=== PATIENT | female | born 1990 | race Two or more races ===

== ENCOUNTER 2016-07-23 20:24 | Inpatient (IN) | payer OTHER ==
[2016-07-23 20:33] VITALS: BMI 41.5
--- NOTE | 2016-07-23 21:02 | PDOC ---
History of Present Illness - General Chief Complaint: Pain, Acute Stated Complaint: LT FOOT PAIN/SWOLLEN Time Seen by Provider: 07/23/16 20:37 History Source: Patient Exam Limitations: No Limitations - History of Present Illness Initial Comments: 07/23/16 20:57 25yo Female patient w/ PmHx: Lupus, HTN, Raynauds disease, presents to ED c/o left lower extremity pain/swelling x 1 week. Patient states she contacted her primary care provider who stated it may be a pulled muscle, per patient. Patient is currently taking Percocet for body pain r/t Lupus, and reported Percocet does not relieve the pain. Associated CP, was given Albuterol inhaler by PCP. LNMP: 07-09-2016. Denies any other complaints at this time. Occurred: reports: last week Severity: Yes: moderate Lower Extremity Pain Location: left: leg (Calf) Method of Injury: No: unknown, assault, burn, direct blow, fell, incised, motor vehicle accident, sports injury, twisted, other Modifying Factors: improves with: pain medication Associated Symptoms: Chest Pain Lower Ext. Injury Location - Specific Injury Location Legs: right: non-tender, left: soft tissue tenderness, pain, swelling, bilateral : normal inspection, normal range of motion Extremity Pain Location - Extremity Pain Location Extremity Pain Locations: left: leg Past History - Travel Traveled outside of the country in the last 30 days: No Close contact w/someone who was outside of country & ill: No - Past Medical History Allergies/Adverse Reactions: Allergies Allergy/AdvReac Type Severity Reaction Status Date / Time No Known Drug Allergies Allergy Verified 07/23/16 20:30 Home Medications: Ambulatory Orders Omeprazole 20 mg PO DAILY 07/18/15 Prednisone [Deltasone -] 10 mg PO TID 07/18/15 Hydrochlorothiazide [Hctz -] 25 mg PO DAILY 01/26/16 Mycophenolate Mofetil [Cellcept] 500 mg PO BID 01/26/16 Albuterol Sulfate Inhaler - [Ventolin Hfa Inhaler -] 2 inh PO Q4H PRN 02/16/16 Asthma: Yes Cancer: (LUPUS) CVA: No Dementia: No Diabetes: No GI Disorders: No Disorders: No HTN: Yes Hypercholesterolemia: No Liver Disease: Yes ("liver messed up") Seizures: No Thyroid Disease: (ENLARGED) - Surgical History Abdominal Surgery: No Appendectomy: No Cardiac Surgery: No Cholecystectomy: No Lung Surgery: No Neurologic Surgery: No Orthopedic Surgery: No - Family Disease History Family Disease History: Diabetes: Mother, Heart Disease: Father, Mother - Reproductive History (#): 2 Para: 2 - Immunization History Immunization Up to Date: Yes - Psycho/Social/Smoking Cessation Hx Anxiety: No Suicidal Ideation: No Smoking Status: Yes Smoking History: Current every day smoker Have you smoked in the past 12 months: Yes Number of Cigarettes Smoked Daily: 5 Information on smoking cessation initiated: No 'Breaking Loose' booklet given: 12/15/14 Hx Alcohol Use: No Drug/Substance Use Hx: No Substance Use Type: Alcohol Hx Substance Use Treatment: No Review of Systems - Review of Systems Able to Perform ROS?: Yes Is the patient limited Georgian proficient: No Constitutional: No: Chills, Fever Respiratory: No: Cough, Shortness of Breath, Stridor, Wheezing Cardiac (ROS): Yes: Chest Pain. No: Lightheadedness, Palpitations, Syncope, Chest Tightness ABD/GI: No: Constipated, Diarrhea, Nausea, Poor Appetite, Poor Fluid Intake, Vomiting : No: Dysuria, Discharge, Frequency, Flank Pain, Hematuria, Urgency Musculoskeletal: Yes: Other (Left Leg Pain). No: Back Pain Integumentary: No: Erythema, Rash, Sweating Neurological: No: Headache, Seizure, Ataxia, Dizziness All Other Systems: Reviewed and Negative *Physical Exam - Vital Signs Last Vital Signs Temp Pulse Resp BP Pulse Ox 98.1 F 110 H 18 143/97 99 07/23/16 20:30 07/23/16 20:30 07/23/16 20:30 07/23/16 20:30 07/23/16 20:30 - Physical Exam General Appearance: Yes: Nourished, Appropriately Dressed, Mild Distress. No: Apparent Distress, Moderate Distress, Severe Distress HEENT: positive: EOMI, ISAAC, Normal ENT Inspection, Normal Voice, Symmetrical, TMs Normal, Pharynx Normal. negative: Pharyngeal Erythema, Tonsillar Exudate, Tonsillar Erythema, Nasal Congestion, TM Bulging, TM Dull, TM Erythema Neck: positive: Trachea midline, Supple. negative: Rigid, Stridor, Lymphadenopathy (R), Lymphadenopathy (L) Respiratory/Chest: positive: Lungs Clear, Normal Breath Sounds. negative: Respiratory Distress, Accessory Muscle Use, Labored Respiration, Rapid RR Cardiovascular: positive: Regular Rhythm, Tachycardia. negative: JVD, Murmur, Bradycardia Musculoskeletal: positive: Normal Inspection. negative: CVA Tenderness Extremity: positive: Normal Capillary Refill, Normal Inspection, Normal Range of Motion, Swelling, Calf Tenderness (+ Homans sign) Integumentary: positive: Normal Color, Dry, Warm Neurologic: positive: it coordinator II-XII NML intact, Fully Oriented, Alert, Normal Mood/ Affect, Normal Response, Motor Strength 09/03 ED Treatment Course - LABORATORY CBC & Chemistry Diagram: 07/23/16 21:00 07/23/16 21:00 - RADIOLOGY Radiology Studies Ordered: Category Date Time Status CHEST PA & LAT [RAD] Stat Radiology 07/23/16 20:55 Ordered DUPLEX VASCUL US-2LEGS [US] Stat Ultrasound 07/23/16 20:55 Ordered *DC/Admit/Observation/Transfer Diagnosis at time of Disposition: Deep vein thrombosis (DVT) Qualifiers: DVT location: lower extremity Affected thrombotic vein of extremity: popliteal Laterality: left Chronicity: acute Qualified Code(s): I82.432 - Acute embolism and thrombosis of left popliteal vein Lupus Qualifiers: Systemic lupus erythematosus type: unspecified Systemic lupus erythematosus organ involvement: other Qualified Code(s): M32.19 - Other organ or system involvement in systemic lupus erythematosus - Discharge Dispostion Condition at time of disposition: Fair Admit: Yes
[2016-07-23 21:19] LABS: MCH 30.6 pg (25.7-33.7); MCHC 33.8 g/dl (32.0-36.0); MEAN CELL VOLUME 90.5 fl (80-96); MEAN PLT VOLUME 9.4 fl (7.5-11.1); PLATELET COUNT 164 K/MM3 (134-434); RDW 13.3 % (11.6-15.6); WHITE BLOOD COUNT 7.3 K/mm3 (4.0-10.0)
[2016-07-23 21:34] LABS: INR 0.96 (0.82-1.09); PROTHROMBIN TIME (PATIENT) 10.5 SEC (9.98-11.88)
[2016-07-23 21:44] LABS: ALBUMIN 2.5 g/dl (3.4-5.0); ALK PHOS 44 U/L (45-117); ANION GAP 9 (8-16); CALCIUM 8.7 mg/dL (8.5-10.1); CO2 23 mmol/L (21-32); CREATININE 1.3 mg/dL (0.55-1.02); GLUCOSE,RANDOM 99 mg/dL (74-106); SGPT/ALT 11 U/L (12-78); TOT PROT 6.4 g/dl (6.4-8.2)
[2016-07-23 21:46] LABS: BILIRUBIN,TOTAL < 0.1 mg/dL (0.2-1.0); SGOT/AST 16 U/L (15-37)
[2016-07-23 21:49] LABS: URINE APPEARANCE CLOUDY; URINE BILIRUBIN NEGATIVE (NEGATIVE); URINE BLOOD 2+ (NEGATIVE); URINE COLOR YELLOW; URINE GLUCOSE (UA) NEGATIVE (NEGATIVE); URINE KETONE NEGATIVE (NEGATIVE); URINE LEUK ESTERASE 2+ (NEGATIVE); URINE NITRITE NEGATIVE (NEGATIVE); URINE PROTEIN 3+ (NEGATIVE); URINE UROBILINOGEN NEGATIVE E.U./dl (0.2-1.0)
[2016-07-23 21:53] LABS: GRANULAR CASTS 4 /lpf; URINE MUCUS RARE; URINE RBC 282 /hpf (0-3); URINE WBC 218 /hpf (3-5); YEAST FEW
[2016-07-23 22:12] LABS: TROPONIN I 0.11 ng/ml (0.00-0.05)
[2016-07-23] MEDS ORDERED: HEPARIN NA (PORCINE) 5,000 UNITS/ML 1ML VIAL IVPUSH PRN ×2 (22:43)
[2016-07-23] MEDS ORDERED: HEPARIN INFUSION - 500 ML IVPB SCH (22:45)
[2016-07-23] MEDS ORDERED: HEPARIN INFUSION - 500 ML IVPB ONE (22:52)
[2016-07-23] MEDS ORDERED: ENOXAPARIN NA (PORCINE) 120 MG/0.8 ML DISP.SYRIN SQ SCH (23:00)
[2016-07-23] MEDS ORDERED: ONDANSETRON 4 MG/2 ML VIAL IVPUSH ONE (23:16)
[2016-07-23] MEDS ORDERED: morphine CARPU-JECT 4 MG/1 ML DISP.SYRIN IVPUSH ONE (23:16)
[2016-07-24] MEDS ORDERED: ALBUTEROL SO4 6.7 GM HFA INHALER IH PRN (00:19)
[2016-07-24] MEDS: HYDROmorphone HCL CARPU-JECT 2 MG/1 ML DISP.SYRIN IVPB PRN ×3 (02:55→12:19)
[2016-07-24] MEDS ORDERED: predniSONE 10 MG TABLET (UD) PO SCH (06:00)
[2016-07-24 08:39] LABS: MCH 29.8 pg (25.7-33.7); MCHC 32.8 g/dl (32.0-36.0); MEAN CELL VOLUME 90.8 fl (80-96); MEAN PLT VOLUME 8.8 fl (7.5-11.1); PLATELET COUNT 139 K/MM3 (134-434); RDW 13.4 % (11.6-15.6); WHITE BLOOD COUNT 6.8 K/mm3 (4.0-10.0)
[2016-07-24 08:53] LABS: INR 1.01 (0.82-1.09); PROTHROMBIN TIME (PATIENT) 11.1 SEC (9.98-11.88)
[2016-07-24 08:57] LABS: ALBUMIN 2.4 g/dl (3.4-5.0); CALCIUM 8.5 mg/dL (8.5-10.1); CREATININE 1.1 mg/dL (0.55-1.02)
[2016-07-24 09:06] LABS: BILIRUBIN,TOTAL 0.2 mg/dL (0.2-1.0)
[2016-07-24] MEDS ORDERED: PT OWN MED DRAWER 7, Y5N ONE (09:08)
[2016-07-24] MEDS ORDERED: predniSONE 20 MG TABLET (UD) PO SCH (10:00)
[2016-07-24] MEDS ORDERED: METOPROLOL SUCCINATE 25 MG TAB.SR.24H (FP) PO SCH (10:00)
[2016-07-24] MEDS ORDERED: ENOXAPARIN NA (PORCINE) 100 MG/1 ML DISP.SYRIN SQ SCH (10:00)
[2016-07-24] MEDS ORDERED: MYCOPHENOLATE MOFETIL 500 MG TABLET PO SCH (10:00)
[2016-07-24] MEDS ORDERED: HYDROCHLOROTHIAZIDE 25 MG TABLET (FP) PO SCH (10:00)
[2016-07-24] MEDS ORDERED: PANTOPRAZOLE 20 MG TABLET (FP) PO SCH (10:00)
[2016-07-24 11:35] VITALS: BP 130/82; PULSE 112; TEMP 98.4
--- NOTE | 2016-07-24 11:46 | CONSULT ---
Consult - Past Medical History ...LMP: 11/23/15 ...: No - Alcohol/Substance Use Hx Alcohol Use: Yes (occasional) - Smoking History Smoking history: Current every day smoker Have you smoked in the past 12 months: Yes Aproximately how many cigarettes per day: 5 Home Medications - Allergies Allergies/Adverse Reactions: Allergies Allergy/AdvReac Type Severity Reaction Status Date / Time No Known Drug Allergies Allergy Verified 07/23/16 20:30 - Home Medications Home Medications: Ambulatory Orders Prednisone [Deltasone -] 20 mg PO DAILY 07/18/15 Mycophenolate Mofetil [Cellcept] 500 mg PO BID 01/26/16 Albuterol Sulfate Inhaler - [Ventolin Hfa Inhaler -] 2 inh PO Q4H PRN 02/16/16 Amlodipine Besylate [Norvasc -] 5 mg PO DAILY 07/24/16 Calcium 250Mg/Vit-D 125 Units [Oscal 250 mg+D -] 1 combo PO BID 07/24/16 Ciprofloxacin HCl [Cipro] 500 mg PO BID 07/24/16 Drisdol - 1.25 WEEKLY 07/24/16 Hydroxychloroquine Sulfate [Plaquenil] 200 mg PO DAILY 07/24/16 Oxycodone HCl/Acetaminophen [Percocet 5-325 mg Tablet] 1 tab PO Q4H 07/24/16 Physical Exam Vital Signs: Vital Signs Temperature 98.4 F 07/24/16 09:00 Pulse Rate 112 H 07/24/16 09:00 Respiratory Rate 16 07/24/16 09:00 Blood Pressure 130/82 07/24/16 09:00 O2 Sat by Pulse Oximetry (%) 98 07/24/16 09:00 Labs: CBC, BMP 07/24/16 08:00 07/24/16 08:00 Assessment/Plan Vascular Surgery 25yo Female patient w/ PmHx: Lupus, HTN, Raynauds disease, presents to ED c/o left lower extremity pain/swelling x 1 week. Patient states she contacted her primary care provider who stated it may be a pulled muscle, per patient. Patient is currently taking Percocet for body pain r/t Lupus, and reported Percocet does not relieve the pain. Associated CP, was given Albuterol inhaler by PCP. LNMP: 07-09-2016. Denies any other complaints at this time. Occurred: reports: last week Severity: Yes: moderate Lower Extremity Pain Location: left: leg (Calf) Method of Injury: No: unknown, assault, burn, direct blow, fell, incised, motor vehicle accident, sports injury, twisted, other Modifying Factors: improves with: pain medication Associated Symptoms: Chest Pain Lower Ext. Injury Location - Specific Injury Location Legs: right: non-tender, left: soft tissue tenderness, pain, swelling, bilateral : normal inspection, normal range of motion Extremity Pain Location - Extremity Pain Location Extremity Pain Locations: left: leg Past History - Travel Traveled outside of the country in the last 30 days: No Close contact w/someone who was outside of country & ill: No - Past Medical History Allergies/Adverse Reactions: Allergies Allergy/AdvReac Type Severity Reaction Status Date / Time No Known Drug Allergies Allergy Verified 07/23/16 20:30 Home Medications: Ambulatory Orders Omeprazole 20 mg PO DAILY 07/18/15 Prednisone [Deltasone -] 10 mg PO TID 07/18/15 Hydrochlorothiazide [Hctz -] 25 mg PO DAILY 01/26/16 Mycophenolate Mofetil [Cellcept] 500 mg PO BID 01/26/16 Albuterol Sulfate Inhaler - [Ventolin Hfa Inhaler -] 2 inh PO Q4H PRN 02/16/16 PE Head - NC/AT Lung - CTA Heart - RRR abd - soft,nt,nd Ext - Left lower ext swelling. Palpable pulses. A/P Left popliteal vein DVT Leg elevation Hypercoaguble workup as outpt. Can exchange architect to xerelto and DC if possible. Xerelto for 6 months. Ainbal Carmona DO
--- NOTE | 2016-07-24 13:16 | HP ---
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's Cardiovascular: Yes: Other (large heart) Pulmonary: Yes: COPD ...LMP: 11/23/15 ...: No Musculoskeletal: Yes: Other (arthralgia) - Past Surgical History Past Surgical History: Yes: Vein Stripping/Ligation (labioplasty) - Smoking History Smoking history: Current every day smoker Have you smoked in the past 12 months: Yes Aproximately how many cigarettes per day: 5 - Alcohol/Substance Use Hx Alcohol Use: Yes (occasional) - Social History Usual Living Arrangement: Yes: Alone History of Recent Travel: No Home Medications - Allergies Allergies/Adverse Reactions: Allergies Allergy/AdvReac Type Severity Reaction Status Date / Time No Known Drug Allergies Allergy Verified 07/23/16 20:30 - Home Medications Home Medications: Ambulatory Orders Prednisone [Deltasone -] 20 mg PO DAILY 07/18/15 Mycophenolate Mofetil [Cellcept] 500 mg PO BID 01/26/16 Albuterol Sulfate Inhaler - [Ventolin Hfa Inhaler -] 2 inh PO Q4H PRN 02/16/16 Amlodipine Besylate [Norvasc -] 5 mg PO DAILY 07/24/16 Calcium 250Mg/Vit-D 125 Units [Oscal 250 mg+D -] 1 combo PO BID 07/24/16 Ciprofloxacin HCl [Cipro] 500 mg PO BID 07/24/16 Drisdol - 1.25 WEEKLY 07/24/16 Hydroxychloroquine Sulfate [Plaquenil] 200 mg PO DAILY 07/24/16 Oxycodone HCl/Acetaminophen [Percocet 5-325 mg Tablet] 1 tab PO Q4H 07/24/16 Family Disease History - Family Disease History Family History: Unremarkable Review of Systems - Review of Systems Constitutional: reports: Other (lt leg pain) Eyes: reports: Other (mac edema) HENT: reports: No Symptoms Neck: reports: No Symptoms Cardiovascular: reports: No Symptoms Respiratory: reports: SOB on Exertion Gastrointestinal: reports: No Symptoms Genitourinary: reports: No Symptoms Breasts: reports: No Symptoms Reported Musculoskeletal: reports: Joint Pain Integumentary: reports: No Symptoms Neurological: reports: Other (tremer essential) Endocrine: reports: No Symptoms Hematology/Lymphatic: reports: No Symptoms Psychiatric: reports: No Symptoms Physical Examination Vital Signs: Vital Signs Temperature 98.4 F 07/24/16 09:00 Pulse Rate 112 H 07/24/16 09:00 Respiratory Rate 16 07/24/16 09:00 Blood Pressure 130/82 07/24/16 09:00 O2 Sat by Pulse Oximetry (%) 98 07/24/16 09:00 Constitutional: Yes: Well Nourished Eyes: Yes: WNL HENT: Yes: Nasal Congestion Neck: Yes: WNL Cardiovascular: Yes: WNL Respiratory: Yes: WNL Gastrointestinal: Yes: WNL ...Rectal Exam: Yes: Deferred Renal/: Yes: WNL Breast(s): Yes: WNL Musculoskeletal: Yes: Joint Stiffness Extremities: Yes: WNL Edema: Yes (lt leg) Peripheral Pulses WNL: Yes Integumentary: Yes: WNL Neurological: Yes: Other (mild tremer) Psychiatric: Yes: WNL Labs: CBC, BMP 07/24/16 08:00 07/24/16 08:00 Problem List - Problems (2) Tremor Code(s): R25.1 - TREMOR, UNSPECIFIED Assessment/Plan pt d/c today as per vasc vss exeralto 15 mg bid 21 days than 20 mg qd/c norvacs start mrtoprolol appt tue 1100 am
== END 2016-07-24 14:11 | disposition home or self-care (01) | DRG 197 ==
LOC: JER 20:24 → JERBED 23:06 → J6S 23:58
PROVIDERS: ADMIT Family Medicine; ATTEND Family Medicine
DX: I82.432 Acute embolism and thrombosis of left popliteal vein (principal); I10 Essential (primary) hypertension; I73.00 Raynaud's syndrome without gangrene; F17.210 Nicotine dependence, cigarettes, uncomplicated; R25.1 Tremor, unspecified; M32.9 Systemic lupus erythematosus, unspecified
CPT/HCPCS: 36415; 71020-TC; 80053; 81003; 81015; 82550; 84484; 84703; 85025; 85027; 85610; 93970-TC; 99285-25; J7517

== ENCOUNTER 2017-12-06 08:01 | Inpatient (IN) | payer OTHER ==
[2017-12-06 08:08] VITALS: BMI 49.6
--- NOTE | 2017-12-06 08:57 | PDOC ---
History of Present Illness - General History Source: Patient Exam Limitations: No Limitations - History of Present Illness Initial Comments: 12/06/17 09:51 The patient is a 27 year old female with a significant PMH of lupus, DVT(2 years ago), hypertension, hyperlipidemia, and a heart clot who presents to the emergency department with chest pain for 2 days. The patient reports that she began to experience an onset of chest pain yesterday after she walked inside her house. The patient states that her chest pain was a sharp pain hat is stabbing and fluttering and 10/10 in severity on onset and dissipated to a constant 8/10 throughout the night. She describes her chest pain as lasting for seconds about every 20 minutes. At time of exam the patient states her chest pain is a 5/10 in severity. The patient reports that her chest pain is worsened when she takes a deep breath as well as when she coughs and sits up. The patient endorses a new productive cough, some shortness of breath and nausea associated with her chest pain. The patient also reports that she was recently put on eliquis for a heart clot. She has a history of a left leg clot for about 1 year. She denies any leg swelling or tenderness. She denies any other symptoms. She denies any fever, chills, vomit, diarrhea constipation or urinary symptoms. She denies headache and dizziness, numbness, weakness or tingling sensation. She denies any vision changes. The patient denies any other complaints. Cardio: Dr. Alvaro Varner ([facility]) <Osmany Hough - Last Filed: 12/06/17 09:51> <Bandar Pereyra - Last Filed: 12/06/17 10:35> - General Chief Complaint: Chest Pain Stated Complaint: DVT,CHEST PAIN Time Seen by Provider: 12/06/17 08:37 Past History <Osmany Hough - Last Filed: 12/06/17 09:51> - Past Medical History Asthma: Yes Cancer: (LUPUS) CVA: No COPD: No DVT: (heart 2018) Dementia: No Diabetes: No GI Disorders: No Disorders: No HTN: Yes Hypercholesterolemia: No Kidney Stones: ("dry kidneys") Liver Disease: Yes ("liver messed up") Seizures: No Thyroid Disease: (ENLARGED) - Surgical History Abdominal Surgery: Yes (tubal ligation) Appendectomy: No Cardiac Surgery: No Cholecystectomy: No Lung Surgery: No Neurologic Surgery: No Orthopedic Surgery: No - Family Disease History Family Disease History: Diabetes: Mother, Heart Disease: Father, Mother - Reproductive History (#): 2 Para: 2 - Immunization History Immunization Up to Date: Yes - Suicide/Smoking/Psychosocial Hx Smoking Status: Yes Smoking History: Never smoked Have you smoked in the past 12 months: Yes Number of Cigarettes Smoked Daily: 5 Information on smoking cessation initiated: Yes 'Breaking Loose' booklet given: 07/24/16 Hx Alcohol Use: Yes (occasional) Drug/Substance Use Hx: No Substance Use Type: Marijuana Hx Substance Use Treatment: No <Bandar Pereyra - Last Filed: 12/06/17 10:35> - Past Medical History Allergies/Adverse Reactions: Allergies Allergy/AdvReac Type Severity Reaction Status Date / Time No Known Drug Allergies Allergy Verified 12/06/17 08:07 Home Medications: Ambulatory Orders predniSONE [Deltasone -] 15 mg PO DAILY 07/18/15 Mycophenolate Mofetil [Cellcept] 500 mg PO TID 01/26/16 Albuterol Sulfate Inhaler - [Ventolin Hfa Inhaler -] 2 inh PO Q4H PRN 02/16/16 Calcium 250Mg/Vit-D 125 Units [Oscal 250 mg+D -] 1 combo PO BID 07/24/16 Hydroxychloroquine Sulfate [Plaquenil] 200 mg PO DAILY 07/24/16 Acyclovir [Zovirax -] 400 mg PO TID 12/06/17 Apixaban [Eliquis -] 5 mg PO BID 12/06/17 Aspirin [ASA -] 81 mg PO DAILY 12/06/17 Atorvastatin Ca [Lipitor] 80 mg PO HS 12/06/17 Metoprolol Succinate [Toprol XL -] 50 mg PO DAILY 12/06/17 Omeprazole 80 mg PO DAILY 12/06/17 Review of Systems - Review of Systems Constitutional: No: Chills, Fever Respiratory: Yes: Cough, Shortness of Breath, SOB with Exertion Cardiac (ROS): Yes: Chest Pain. No: Edema, Lightheadedness, Palpitations, Syncope ABD/GI: No: Nausea, Vomiting Neurological: No: Headache All Other Systems: Reviewed and Negative <Bandar Pereyra - Last Filed: 12/06/17 10:35> *Physical Exam - Vital Signs Last Vital Signs Temp Pulse Resp BP Pulse Ox 98.7 F 100 H 19 162/114 98 12/06/17 08:03 12/06/17 08:03 12/06/17 08:03 12/06/17 08:03 12/06/17 08:20 - Physical Exam Comments: 12/06/17 09:51 GENERAL: The patient is awake, alert, and fully oriented, in no acute distress. HEAD: Normal with no signs of trauma. EYES: Pupils equal, round and reactive to light, extraocular movements intact, sclera anicteric, conjunctiva clear with no pallor. ENT: Ears normal, nares patent, oropharynx clear without exudates. Moist mucous membranes. NECK: Normal range of motion, supple without lymphadenopathy, JVD, or masses. LUNGS: Breath sounds equal, clear to auscultation bilaterally. No wheeze/ crackles. HEART: Regular rate, slight tachy. normal S1 and S2 without murmur or rub. ABDOMEN: Soft/nontender/nondistended. BS wnl. No guarding or rebound. No palpable masses. No hepatosplenomegaly. EXTREMITIES:(+)trace pitting edema bilaterally. Normal range of motion, No clubbing or cyanosis. No cords, erythema, or tenderness. No NEUROLOGICAL: Cranial nerves II through XII grossly intact. Normal speech, normal gait. PSYCH: Normal mood, normal affect. SKIN: Warm, Dry, normal turgor, no rashes or lesions noted. <Osmany Hough - Last Filed: 12/06/17 09:51> - Vital Signs Last Vital Signs Temp Pulse Resp BP Pulse Ox 98.7 F 100 H 19 162/114 100 12/06/17 08:03 12/06/17 08:03 12/06/17 08:03 12/06/17 08:03 12/06/17 08:03 <Bandar Pereyra - Last Filed: 12/06/17 10:35> Heart Score/ECG Review #1 ECG reviewed & interpreted by me at: 08:09 General ECG Interpretation: Sinus Rhythm, Normal Rate (92), Normal Intervals ( qtc 430), No acute ischemic changes (TWI inf II/III/AVF, V4-6) Compared to previous ECG there are: Changes noted (TWI more prominent 02/14) <Bandar Pereyra - Last Filed: 12/06/17 10:35> ED Treatment Course - LABORATORY CBC & Chemistry Diagram: 12/06/17 08:58 12/06/17 08:58 - ADDITIONAL ORDERS Additional order review: Laboratory Results 12/06/17 12/06/17 08:58 08:58 PT with INR 12.50 INR 1.11 H Sodium 142 Potassium 4.3 Chloride 112 H Carbon Dioxide 25 Anion Gap 5 L BUN 20 H Creatinine 1.8 H Creat Clearance w eGFR 33.27 Random Glucose 80 Calcium 8.7 Magnesium 2.1 Total Bilirubin 0.2 AST 21 ALT 20 Alkaline Phosphatase 47 Creatine Kinase 46 Troponin I 0.09 H B-Natriuretic Peptide 4965.12 H Total Protein 6.0 L Albumin 2.7 L 12/06/17 08:58 RBC 3.28 L MCV 92.3 MCHC 33.8 RDW 14.1 MPV 9.8 D Neutrophils % 74.1 Lymphocytes % 17.7 Monocytes % 7.3 D Eosinophils % 0.7 D Basophils % 0.2 D - Medications Given in the ED: ED Medications Discontinued Medications Generic Name Dose Route Start Last Admin Trade Name Freq PRN Reason Stop Dose Admin Morphine Sulfate 4 mg 12/06/17 08:58 12/06/17 09:10 Morphine Injection - IVPUSH 12/06/17 08:59 4 mg ONCE ONE Administration <Osmany Hough - Last Filed: 12/06/17 09:51> - LABORATORY CBC & Chemistry Diagram: 12/06/17 08:58 12/06/17 08:58 <Bandar Pereyra - Last Filed: 12/06/17 10:35> Medical Decision Making - Medical Decision Making 12/06/17 10:26 A portion of this note was documented by scribe services under my direction. I have reviewed the details of the note, within reason, and agree with the documentation with the following case summary and management plan written by me. 27-year-old female with history of lupus, DVT and "cardiac clot" on eliquis, recent cardiac cath without intervention 6wks ago presents now with chest pain and shortness of breath since last night. At baseline, patient does have exertional dyspnea, last night after walking into her home developed a sharp sudden 10 out of 10 chest pain for a few seconds that then became a constant dull 5 out of 10 pain that continues now. It is pleuritic, worse with leaning forward, and associated with a slight cough. No palpitations or loss of consciousness, no fevers or chills. reports compliance with her eliquis. Exam as noted, slight tachycardia Cardiopulmonary exam is otherwise unremarkable Patient is well-appearing without acute respiratory distress 27-year-old female with history of lupus and some hypercoagulability history of DVT and cardiac clot (unclear whether this was CAD or some atrial clot) presents now with increased chest pain and worsening dyspnea on exertion. Differential includes PE, ACS, pericarditis/myocarditis. Cardiac workup initiated with plans to perform CTA chest to rule out PE given moderate to high risk despite being on anticoagulant CBC was within normal limits, chemistries notable for elevated creatinine of 1.8 , a slight is 1-1.3. Troponin 0.09, similar measurement in the past. BNP elevated at 5000 without prior for comparison. Patient received IV fluids, but given the acute renal insufficiency unable to perform CTA chest at this time. She is already anticoagulated on eliquis. discussed with Dr. Hector Landrum, her PCP, who accepts for inpatient tele. Will obtain prior Echo reports, requested ddimer and tsh, which were ordered. 12/06/17 10:35 review of records per Dr. Landrum: known LAD lesion, known CKD. proceed with tele admission for cardiac workup. <Bandar Pereyra - Last Filed: 12/06/17 10:35> *DC/Admit/Observation/Transfer - Attestations Scribe Attestion: 12/06/17 09:52 Documentation prepared by Osmany Hough, acting as medical front desk specialist for Bandar Pereyra MD. <Osmany Hough - Last Filed: 12/06/17 09:51> - Discharge Dispostion Decision to Admit order: Yes <Bandar Pereyra - Last Filed: 12/06/17 10:35> Diagnosis at time of Disposition: Dyspnea on exertion, Precordial chest pain SLE (systemic lupus erythematosus) Qualifiers: Systemic lupus erythematosus type: unspecified Systemic lupus erythematosus organ involvement: unspecified Qualified Code(s): M32.9 - Systemic lupus erythematosus, unspecified - Referrals Referrals: Hector Landrum MD [Primary Care Provider] - - Patient Instructions - Post Discharge Activity
[2017-12-06] MEDS ORDERED: SODIUM CHLORIDE 1,000 ML IV ONE (08:58)
[2017-12-06] MEDS ORDERED: morphine CARPU-JECT 4 MG/1 ML DISP.SYRIN IVPUSH ONE (08:58)
[2017-12-06] MEDS ORDERED: morphine SULFATE 4 MG/ML VIAL ONE (09:06)
[2017-12-06] MEDS ORDERED: ONDANSETRON 4 MG/2 ML VIAL ONE (09:13)
[2017-12-06 09:22] LABS: BASO % 0.2 % (0-2.0); EOS % 0.7 % (0-4.5); HEMATOCRIT 30.3 % (32.4-45.2); HEMOGLOBIN 10.2 GM/dL (10.7-15.3); LYMPH % 17.7 % (8-40); MCH 31.2 pg (25.7-33.7); MCHC 33.8 g/dl (32.0-36.0); MEAN CELL VOLUME 92.3 fl (80-96); MEAN PLT VOLUME 9.8 fl (7.5-11.1); MONO % 7.3 % (3.8-10.2); NEUT % 74.1 % (42.8-82.8); PLATELET COUNT 100 K/MM3 (134-434); RBC 3.28 M/mm3 (3.60-5.2); RDW 14.1 % (11.6-15.6); WHITE BLOOD COUNT 4.9 K/mm3 (4.0-10.0)
[2017-12-06 09:36] LABS: INR 1.11 (0.83-1.09); PROTHROMBIN TIME (PATIENT) 12.5 SEC (9.7-13.0)
[2017-12-06 09:43] LABS: ALBUMIN 2.7 g/dl (3.4-5.0); ANION GAP 5 (8-16); BILIRUBIN,TOTAL 0.2 mg/dL (0.2-1.0); BLOOD UREA NITROGEN 20 mg/dL (7-18); CALCIUM 8.7 mg/dL (8.5-10.1); CHLORIDE 112 mmol/L (98-107); CO2 25 mmol/L (21-32); CREATININE 1.8 mg/dL (0.55-1.02); GLUCOSE,RANDOM 80 mg/dL (74-106); MAGNESIUM 2.1 mg/dL (1.8-2.4); POTASSIUM 4.3 mmol/L (3.5-5.1); SGOT/AST 21 U/L (15-37); SGPT/ALT 20 U/L (12-78); SODIUM 142 mmol/L (136-145)
[2017-12-06 09:45] LABS: ALK PHOS 47 U/L (45-117); N-TERMINAL BNP 4965.12 pg/ml (5-125)
--- NOTE | 2017-12-06 10:58 | HP ---
Admitting History and Physical - Admission Chief Complaint: chest pain local preducible. but due to hx card ? lad occlutino will adsmitt. hx lupus and dvt. has slight cough x 2days on hctz 25 did not teii er doc History Source: Patient Limitations to Obtaining History: No Limitations - Past Medical History Cardiovascular: Yes: Other (large heart) Pulmonary: Yes: COPD ...LMP: 11/23/15 Heme/Onc: Yes: Other (lupus) Musculoskeletal: Yes: Chronic low back pain, Other (arthralgia) Rheumatology: Yes: Lupus - Past Surgical History Past Surgical History: Yes: Vein Stripping/Ligation (labioplasty) - Smoking History Smoking history: Never smoked Have you smoked in the past 12 months: Yes Aproximately how many cigarettes per day: 5 - Alcohol/Substance Use Hx Alcohol Use: Yes (occasional) - Social History Usual Living Arrangement: Yes: With Child ADL: Independent History of Recent Travel: No Home Medications - Allergies Allergies/Adverse Reactions: Allergies Allergy/AdvReac Type Severity Reaction Status Date / Time No Known Drug Allergies Allergy Verified 12/06/17 08:07 - Home Medications Home Medications: Ambulatory Orders predniSONE [Deltasone -] 15 mg PO DAILY 07/18/15 Mycophenolate Mofetil [Cellcept] 500 mg PO TID 01/26/16 Albuterol Sulfate Inhaler - [Ventolin Hfa Inhaler -] 2 inh PO Q4H PRN 02/16/16 Calcium 250Mg/Vit-D 125 Units [Oscal 250 mg+D -] 1 combo PO BID 07/24/16 Hydroxychloroquine Sulfate [Plaquenil] 200 mg PO DAILY 07/24/16 Acyclovir [Zovirax -] 400 mg PO TID 12/06/17 Apixaban [Eliquis -] 5 mg PO BID 12/06/17 Aspirin [ASA -] 81 mg PO DAILY 12/06/17 Atorvastatin Ca [Lipitor] 80 mg PO HS 12/06/17 Metoprolol Succinate [Toprol XL -] 50 mg PO DAILY 12/06/17 Omeprazole 80 mg PO DAILY 12/06/17 Family Disease History - Family Disease History Family History: Unremarkable Review of Systems - Review of Systems Constitutional: reports: Other (cp) Physical Examination Vital Signs: Vital Signs Temperature 98.7 F 12/06/17 08:03 Pulse Rate 100 H 12/06/17 08:03 Respiratory Rate 19 12/06/17 08:03 Blood Pressure 162/114 12/06/17 08:03 O2 Sat by Pulse Oximetry (%) 98 12/06/17 08:20 Constitutional: Yes: No Distress, Other (cough) Eyes: Yes: WNL HENT: Yes: WNL Neck: Yes: WNL Cardiovascular: Yes: Regular Rate and Rhythm Respiratory: Yes: WNL Gastrointestinal: Yes: WNL ...Rectal Exam: Yes: Deferred Renal/: Yes: WNL Breast(s): Yes: WNL Musculoskeletal: Yes: Joint Stiffness Extremities: Yes: WNL Edema: No Peripheral Pulses WNL: Yes Integumentary: Yes: WNL Neurological: Yes: WNL ...Motor Strength: WNL Psychiatric: Yes: WNL Labs: CBC, BMP 12/06/17 08:58 12/06/17 08:58 Problem List - Problems (1) CKD (chronic kidney disease) stage 3, GFR 30-59 ml/min Code(s): N18.3 - CHRONIC KIDNEY DISEASE, STAGE 3 (MODERATE) Assessment/Plan admitt in pt tely o2 card enzymes card f/u w jelani webb cont all meds as is ct chest not done ckd? on eliqis bid robisusin for cough nefo
[2017-12-06] MEDS ORDERED: guaiFENesin 200 MG/10 ML 10 ML UNIT-DOSE CUPS PO PRN (11:03)
--- NOTE | 2017-12-06 12:06 | CON.CARD ---
Consult Consult Specialty:: Cardiology Referred by:: Dr. Landrum Reason for Consultation:: Chest pain, cad - History of Present Illness Chief Complaint: chest pain, sob History of Present Illness: 27 year old woman pmh SLE, HTN, HLD, obesity, CKD stage 3, h/o DVT 09/2016, Cardiac cath done 09/16/17 after an echo showed inferoseptal hypokinesis done as preop for bariatric surgery, cath showed distal LAD 70-80% thrombotic appearing stenosis with otherwise normal coronary arteries, no PCI was performed as felt to be a risk given history of thrombosis and pt was changed to Eliquis. she was previously on Xarelto but was changed to eliquis due to heavy menstrual bleeding , chronic intermittent sob/lee now presents with L sided chest pain that started yesterday with associated sob. Pt seen and examined today in [facility]. states her chest pain started around 4pm yesterday when walking home described as sharp, continuous since yesterday but improved in intensity, worse with sitting up improved when lying down, associated sob, productive cough, nausea. denies any pnd, orthopnea, or LE edema. No lightheadedness, dizziness, syncope or near syncope. ekg from 09/16/17 showed an inferior infarct and nonspecific St abnl ASA 81mg daily was recommended on outpatient visit with her custodial supervisor 10/24/17 Cardiac Cath 09/16/17 [facility] Coronary angiogram: Left Main : Normal Left Anterior Descending: Large size. After the 2nd diagonal there is a focal 70 -80% eccentric stenosis (thrombotic appearance), otherwise normal vessel. Left Circunflex: Normal Right Coronary Artery: Large size, dominant. Normal No Left ventriculography was performed. Impression: 1 VCAD - distal LAD Plan: Before discharging I will review Antiplatelet/ Anticoagulation therapy. She is currently on Xarelto for DVT (DVT dose is not full anticoagulation). She may benefit from Xarelto/ Plavix combination for a while. Patient Care Assistant consultation today before defining antiplatelet. Anticoagulation therapy. From the anatomy stand point the lesion could be stented with a drug eluting stent. I have concerns given his heavy history of vascular thrombosis (CVA/ DVT) , uncontrolled HTN and current smoking status. Dobutamine stress echo and resting Echo 08/16/17 Interpretation Summary Rest echocardiogram revealed inferoseptal wall dyskinesis. Submaximal dobutamine stress test due to exaggerated BP response and suboptimal heart rate response. Resting Echo Findings Procedure Quality: Acoustic windows are overall adequate. Left Atrium: Normal left atrial size. Left Ventricle: Normal left ventricular size. Inferoseptal wall dyskinesis. Other guzman contract normally. Normal left ventricular ejection fraction. Right Atrium: Normal right atrial size. Right Ventricle: Normal right ventricular size. Normal right ventricular function. Aortic Valve: Normal appearing aortic valve leaflets. No evidence of aortic valve regurgitation. Mitral Valve: The mitral valve leaflets are mild to moderately thickened. Mild to moderate mitral valve regurgitation. Eccentric mitral regurgitation. Tricuspid Valve: Normal appearing tricuspid valve leaflets. Mild to moderate tricuspid valve regurgitation. Pulmonic Valve: Normal appearing pulmonic valve leaflets. Minimal pulmonic valve regurgitation. Arteries: Normal sized aortic root. Effusion/Extracardiac: No pericardial effusion. Hemodynamics: The patient was in sinus rhythm during this exam. Estimated right atrial pressure is Normal (0-5 mmHg). Doppler pattern suggests prolonged relaxation and normal left atrial pressure (8 - 14mmHg). No evidence of pulmonary hypertension. 2D/MMode Measurements and Calculations LA dimension: 4.1 cm LVIDd: 5.2 cm LVIDs: 3.5 cm IVSd: 0.98 cm LVPWd: 0.99 cm Ao root diam: 2.9 cm LV mass index: LVOT diam: 2.4 cm LV mass(C)d: 188.3 grams 82.5 grams/m2 Estimated Volume Measurements and Calculations LA bp vol index: 16.3 ml/m2 LA bp vol: 37.2 ml LA 4ch vol: 36.4 ml EDV (MOD-bp) index: LA 2ch vol: 38.1 ml 66.2 ml/m2 EDV(MOD-bp): 151.1 ml EDV(MOD-sp4): 158.9 ml EDV(MOD-sp2): 134.8 ml ESV(MOD-bp): 72.3 ml ESV(MOD-sp4): 73.3 ml ESV(MOD-sp2): 60.1 ml Doppler Measurements & Calculations TR max nadeem: 209.9 cm/sec RVSP(TR): 22.6 mmHg MV E max nadeem: 90.8 cm/sec Lat Peak E' Nadeem: MV A max nadeem: 99.7 cm/sec 9.7 cm/sec E/E' lat: 9.3 Stress Results Protocol: dobutamine Maximum Predicted HR: 192 bpm Target HR: 163 bpm % Maximum Predicted HR: 66 % Stage Information Stage Duration Heart Rate BP (mm:ss) (bpm) rest 88 162/85 1 3:00 68 175/80 2 2:53 76 200/85 recovery 3:42 88 145/78 Stress Duration: 5:52 mm:ss * Maximum Stress HR: 127 bpm * ECG: Sinus. IWMI. Submaximal stress test due to exaggerated BP response and suboptimal heart rate response. Stress ECG: No ischemic ECG changes were seen. Symptoms: Exercise was stopped due to hypertension. No ischemic symptoms occurred. Blood Pressure/Heart Rate Response: The patient exhibited a hypertensive blood pressure response with stress. The patient exhibited a blunted heart rate response to stress. 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 Cardio/Vascular: Yes: CAD, Deep Vein Thrombosis, HTN, Other (large heart) Pulmonary: Yes: COPD ...LMP: 11/23/15 Musculoskeletal: Yes: Chronic low back pain, Other (arthralgia) Rheumatology: Yes: Lupus - Past Surgical History Past Surgical History: Yes: Vein Stripping/Ligation (labioplasty) - Alcohol/Substance Use Hx Alcohol Use: Yes (occasional) - Smoking History Smoking history: Never smoked Have you smoked in the past 12 months: Yes Aproximately how many cigarettes per day: 5 - Social History ADL: Independent History of Recent Travel: No Home Medications - Allergies Allergies/Adverse Reactions: Allergies Allergy/AdvReac Type Severity Reaction Status Date / Time No Known Drug Allergies Allergy Verified 12/06/17 08:07 - Home Medications Home Medications: Ambulatory Orders predniSONE [Deltasone -] 15 mg PO DAILY 07/18/15 Mycophenolate Mofetil [Cellcept] 500 mg PO TID 01/26/16 Albuterol Sulfate Inhaler - [Ventolin Hfa Inhaler -] 2 inh PO Q4H PRN 02/16/16 Calcium 250Mg/Vit-D 125 Units [Oscal 250 mg+D -] 1 combo PO BID 07/24/16 Hydroxychloroquine Sulfate [Plaquenil] 200 mg PO DAILY 07/24/16 Acyclovir [Zovirax -] 400 mg PO TID 12/06/17 Apixaban [Eliquis -] 5 mg PO BID 12/06/17 Aspirin [ASA -] 81 mg PO DAILY 12/06/17 Atorvastatin Ca [Lipitor] 80 mg PO HS 12/06/17 Metoprolol Succinate [Toprol XL -] 50 mg PO DAILY 12/06/17 Omeprazole 80 mg PO DAILY 12/06/17 Family Disease History - Family Disease History Family History: Denies Review of Systems - Review of Systems Constitutional: denies: No Symptoms, Chills, Diaphoresis, Fever, Lethargy, Loss of Appetite, Malaise, Night Sweats, Unintentional Wgt. Loss, Weakness, Other Eyes: denies: No Symptoms, Blind Spots, Blurred Vision, Double Vision, Eye Pain , Floaters, Photophobia, Recent Change in Vision, Other HENT: denies: No Symptoms, Difficult Swallowing, Ear Discharge, Ear Pain, Epistaxis, Gingival Bleeding, Hearing Loss, Mouth Swelling, Nasal Congestion, Ocular Prosthesis, Throat Pain, Toothache, Ringing in Ears, Other Neck: denies: No Symptoms, Decreased ROM, Lumps, Pain on Movement, Stiffness, Swollen Glands, Tenderness, Other Cardiovascular: reports: Chest Pain, Shortness of Breath. denies: No Symptoms, Edema, Palpitations, Other Respiratory: reports: Cough, SOB, SOB on Exertion. denies: No Symptoms, Exercise Intolerance, Hemoptysis, Orthopnea, PND, Snoring, Wheezing, Other Gastrointestinal: denies: No Symptoms, Abdominal Pain, Bloating, Constipation, Diarrhea, Dysphagia, Indigestion, Melena, Nausea, Rectal Bleeding, Vomiting, Vomiting Blood, Other Genitourinary: denies: No Symptoms, Burning, Discharge, Dysuria, Flank Pain, Frequency, Hematuria, Incontinence, Lesions, Menses, Pain, Testicular Mass, Testicular Pain, Testicular Swelling, Urgency, Vaginal Bleeding, Other Breasts: denies: No Symptoms Reported, See HPI, Breast Implants, Discharge from Nipple, Lumps, Pain, Skin Changes, Other Musculoskeletal: denies: No Symptoms, Back Pain, Crepitus, Decreased ROM, Extremity Pain, Joint Pain, Joint Swelling, Muscle Pain, Muscle Cramps, Muscle Weakness, Other Integumentary: denies: No Symptoms, Blister, Bruising, Change in Color, Eczema, Erythema, Incision, Lesions, Lump, Pallor, Pruritis, Rash, Wound, Other Neurological: denies: No Symptoms, Change in LOC, Change in Speech, Confusion, Dizziness, Headache, Incoordination, Numbness, Parasthesia, Pre-Existing Deficit , Seizure, Syncope, Tremors, Unsteady Gait, Weakness, Other Endocrine: denies: No Symptoms, Excessive Sweating, Flushing, Increased Hunger, Increased Thirst, Intolerance to Cold, Intolerance to Heat, Unexplained Weight Gain, Unexplained Weight Loss, Other Hematology/Lymphatic: denies: No Symptoms, Easily Bruised, Excessive Bleeding, Swollen Glands, Other Psychiatric: denies: No Symptoms, Altered Sleep Pattern, Anxiety, Depression, Hallucinations, Panic, Paranoia, Suicidal, Other - Risk Factors Known Risk Factors: Yes: Hypertension, Prior IN /Emb Stroke, Smoking Vital Signs: Vital Signs Temperature 98.7 F 12/06/17 08:03 Pulse Rate 100 H 12/06/17 08:03 Respiratory Rate 19 12/06/17 08:03 Blood Pressure 162/114 12/06/17 08:03 O2 Sat by Pulse Oximetry (%) 98 12/06/17 08:20 Constitutional: Yes: No Distress, Calm, Obese HENT: Yes: Atraumatic Neck: Yes: Trachea Midline Respiratory: Yes: Regular, CTA Bilaterally. No: Rales, Rhonchi, SOB, Wheezes Gastrointestinal: Yes: Normal Bowel Sounds, Soft. No: Distention, Tenderness Cardiovascular: Yes: Regular Rate and Rhythm. No: Bradycardia, Tachycardia, Pulse Irregular, Gallop, Rub, Varicosities JVD: No Carotid Bruit: No PMI: Non-Displaced Heart Sounds: Yes: S1, S2. No: Split S2, S3, S4, Clicks, Gallop, Rub, Bruit Murmur: No: Systolic Murmur, Diastolic Murmur Musculoskeletal: Yes: WNL Extremities: Yes: WNL Edema: Yes Edema: LLE: Trace, RLE: Trace Peripheral Pulses WNL: Yes Peripheral Pulses: 2+ Left Doralis Pedis, 2+ Right Dorsalis Pedis Neurological: Yes: Alert, Oriented Psychiatric: Yes: Alert, Oriented - Other Data Labs, Other Data: CBC, BMP 12/06/17 08:58 12/06/17 08:58 INR, PTT INR 1.11 (0.83-1.09) H 12/06/17 08:58 Troponin, BNP 12/06/17 08:58 Troponin I 0.09 H B-Natriuretic Peptide 4965.12 H Troponin, BNP 12/06/17 08:58 Troponin I 0.09 H B-Natriuretic Peptide 4965.12 H ekg nsr 92bpm, inferior infarct, nonspecific st abnl, no significant change from prior ekgs Echo: Pending, Report Reviewed Imaging - Results Chest X-ray: Report Reviewed, Image Reviewed EKG: Report Reviewed, Image Reviewed Other: Report Reviewed, Image Reviewed Assessment/Plan 27 year old woman pmh SLE, HTN, HLD, obesity, CKD stage 3, h/o DVT 09/2016, Cardiac cath done 09/16/17 after an echo showed inferoseptal hypokinesis done as preop for bariatric surgery, cath showed distal LAD 70-80% thrombotic appearing stenosis with otherwise normal coronary arteries, no PCI was performed as felt to be a risk given history of thrombosis and pt was changed to Eliquis. she was previously on Xarelto but was changed to eliquis due to heavy menstrual bleeding , chronic intermittent sob/ele now presents with L sided chest pain that started yesterday with associated sob. Pt seen and examined today in [facility] ER [facility]. states her chest pain started around 4pm yesterday when walking home described as sharp, continuous since yesterday but improved in intensity, worse with sitting up improved when lying down, associated sob, productive cough, nausea. denies any pnd, orthopnea, or LE edema. No lightheadedness, dizziness, syncope or near syncope. ekg from 09/16/17 showed an inferior infarct and nonspecific St abnl ASA 81mg daily was recommended on outpatient visit with her custodial supervisor 10/24/17 Chest pain and sob -with known dLAD significant stenosis/possible thrombus on cardiac cath 09/16/17 , PCI not performed due to h/o thrombotic disease and concern for complication of PCI -troponin slightly elevated, CK wnl -pt on eliquis at home and ASA -no sig changes on EKG compared to prior known inferior infarct with associated inferoseptal hypokinesis on echo as above -would consult pulmonary to consider V/Q scan to evaluate for PE -check echo to evaluate for pericardial effusion or new wall motion abnl -trend serial cardiac enzymes and ekgs -telemetry monitoring -rheum evaluation pending and nephrology has seen the patient, creatinine elevated from last baseline 1.46 09/16/17 -HTN control, cont home meds for now and adjust as needed
[2017-12-06 12:27] LABS: BASO % 0.3 % (0-2.0); EOS % 0.2 % (0-4.5); HEMOGLOBIN 10.5 GM/dL (10.7-15.3); MCH 31.1 pg (25.7-33.7); MCHC 33.8 g/dl (32.0-36.0); MEAN PLT VOLUME 10.5 fl (7.5-11.1); MONO % 4.6 % (3.8-10.2); NEUT % 82.9 % (42.8-82.8); PLATELET COUNT 108 K/MM3 (134-434); RBC 3.37 M/mm3 (3.60-5.2); RDW 13.9 % (11.6-15.6); WHITE BLOOD COUNT 5.2 K/mm3 (4.0-10.0)
[2017-12-06] MEDS ORDERED: HYDROCHLOROTHIAZIDE 25 MG TABLET (FP) PO SCH (12:45)
[2017-12-06] MEDS: PANTOPRAZOLE SOD 40 MG SUSPENSION PACKET PO SCH (12:45)
[2017-12-06 12:56] LABS: ALBUMIN 2.7 g/dl (3.4-5.0); ANION GAP 3 (8-16); BILIRUBIN,TOTAL 0.2 mg/dL (0.2-1.0); BLOOD UREA NITROGEN 20 mg/dL (7-18); CALCIUM 8.6 mg/dL (8.5-10.1); CHLORIDE 112 mmol/L (98-107); CO2 24 mmol/L (21-32); CREATININE 1.8 mg/dL (0.55-1.02); GLUCOSE,RANDOM 94 mg/dL (74-106); POTASSIUM 5.5 mmol/L (3.5-5.1); SGOT/AST 21 U/L (15-37); SGPT/ALT 23 U/L (12-78); SODIUM 139 mmol/L (136-145); TOT PROT 6.1 g/dl (6.4-8.2)
[2017-12-06 12:58] LABS: ALK PHOS 48 U/L (45-117)
[2017-12-06] MEDS ORDERED: predniSONE 10 MG TABLET (UD) ONE (13:07)
[2017-12-06] MEDS ORDERED: HYDROCHLOROTHIAZIDE 25 MG TABLET (FP) ONE (13:08)
[2017-12-06] MEDS: predniSONE 10 MG TABLET (UD) PO SCH (13:12)
[2017-12-06] MEDS ORDERED: MYCOPHENOLATE MOFETIL 250 MG CAPSULE PO SCH (14:00)
--- NOTE | 2017-12-06 14:23 | CONSULT ---
Consult Consult Specialty:: Nephrology Reason for Consultation:: CKD - History of Present Illness Chief Complaint: chest pain History of Present Illness: Pt is a 27 year old female with pmhx of SLE, DVT 2 years ago, HTN, HLD, and obesity who presents to the ER with chest pain. She says that the chest pain began when she was walking home and became worse at night. Then it was a constant dull mendieta. She feels that pain when she take a deep breath. She was found to have elevated creatinine and I was called to evaluate her. She says she was recently told that she has kidney problems but has not seen a rack cleaner. She did have a recent cardiac cath on 09/16. She denies dysuria or hematuria. She is on prednisone and cellcept for SLE. 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 Cardio/Vascular: Yes: CAD, Deep Vein Thrombosis, HTN, Other (large heart) Pulmonary: Yes: COPD Renal/: Yes: Renal Inusuff ...LMP: 11/23/15 Musculoskeletal: Yes: Chronic low back pain, Other (arthralgia) Rheumatology: Yes: Lupus - Past Surgical History Past Surgical History: Yes: Vein Stripping/Ligation (labioplasty) - Alcohol/Substance Use Hx Alcohol Use: Yes (occasional) - Smoking History Smoking history: Former smoker Have you smoked in the past 12 months: Yes Aproximately how many cigarettes per day: 5 - Social History ADL: Independent History of Recent Travel: No Home Medications - Allergies Allergies/Adverse Reactions: Allergies Allergy/AdvReac Type Severity Reaction Status Date / Time No Known Drug Allergies Allergy Verified 12/06/17 08:07 - Home Medications Home Medications: Ambulatory Orders predniSONE [Deltasone -] 15 mg PO DAILY 07/18/15 Mycophenolate Mofetil [Cellcept] 500 mg PO TID 01/26/16 Albuterol Sulfate Inhaler - [Ventolin Hfa Inhaler -] 2 inh PO Q4H PRN 02/16/16 Calcium 250Mg/Vit-D 125 Units [Oscal 250 mg+D -] 1 combo PO BID 07/24/16 Hydroxychloroquine Sulfate [Plaquenil] 200 mg PO DAILY 07/24/16 Acyclovir [Zovirax -] 400 mg PO TID 12/06/17 Apixaban [Eliquis -] 5 mg PO BID 12/06/17 Aspirin [ASA -] 81 mg PO DAILY 12/06/17 Atorvastatin Ca [Lipitor] 80 mg PO HS 12/06/17 Metoprolol Succinate [Toprol XL -] 50 mg PO DAILY 12/06/17 Omeprazole 80 mg PO DAILY 12/06/17 Family Disease History - Family Disease History Family History: Denies Review of Systems - Review of Systems Constitutional: reports: Malaise Eyes: reports: No Symptoms HENT: reports: No Symptoms Neck: reports: No Symptoms Cardiovascular: reports: Chest Pain. denies: Edema, Palpitations, Shortness of Breath Respiratory: denies: SOB on Exertion Gastrointestinal: reports: No Symptoms Genitourinary: reports: No Symptoms Musculoskeletal: reports: No Symptoms Integumentary: reports: No Symptoms Neurological: reports: No Symptoms Endocrine: reports: No Symptoms Hematology/Lymphatic: reports: No Symptoms Psychiatric: reports: No Symptoms Physical Exam Vital Signs: Vital Signs Temperature 98.7 F 12/06/17 08:03 Pulse Rate 100 H 12/06/17 08:03 Respiratory Rate 19 12/06/17 08:03 Blood Pressure 162/114 12/06/17 08:03 O2 Sat by Pulse Oximetry (%) 98 12/06/17 08:20 Constitutional: Yes: Calm Eyes: Yes: Conjunctiva Clear HENT: Yes: Atraumatic Neck: Yes: Supple Cardiovascular: Yes: S1, S2 Respiratory: Yes: CTA Bilaterally, Other (pain on inspiration) Gastrointestinal: Yes: Soft, Abdomen, Obese Renal/: Yes: WNL Musculoskeletal: Yes: WNL Extremities: Yes: WNL Edema: No Integumentary: Yes: WNL Neurological: Yes: Oriented Psychiatric: Yes: Oriented Labs: Laboratory Tests 12/06/17 12/06/17 12/06/17 08:58 08:58 12:15 WBC 4.9 5.2 Hgb 10.2 L 10.5 L Plt Count 108 L Sodium 142 Potassium 4.3 Chloride 112 H Carbon Dioxide 25 Anion Gap 5 L BUN 20 H Creatinine 1.8 H Imaging - Results Chest X-ray: Report Reviewed Problem List - Problems (1) CKD (chronic kidney disease) stage 3, GFR 30-59 ml/min Code(s): N18.3 - CHRONIC KIDNEY DISEASE, STAGE 3 (MODERATE) (2) Chest pain Code(s): R07.9 - CHEST PAIN, UNSPECIFIED (3) Lupus Code(s): M32.9 - SYSTEMIC LUPUS ERYTHEMATOSUS, UNSPECIFIED Qualifiers: Systemic lupus erythematosus type: unspecified Systemic lupus erythematosus organ involvement: unspecified Qualified Code(s): M32.9 - Systemic lupus erythematosus, unspecified Assessment/Plan Current Medications Generic Name Dose Route Start Last Admin Trade Name Freq PRN Reason Stop Dose Admin Apixaban 5 mg 12/06/17 22:00 Eliquis - PO BID CARL Aspirin 81 mg 12/07/17 10:00 Asa - PO DAILY CARL Atorvastatin Calcium 20 mg 12/06/17 22:00 Lipitor - PO HS CARL Guaifenesin 10 ml 12/06/17 11:03 Robitussin - PO Q4H PRN COUGH Hydrochlorothiazide 25 mg 12/06/17 12:45 12/06/17 13:12 Hctz - PO 25 mg DAILY CARL Administration Metoprolol Succinate 50 mg 12/06/17 12:45 12/06/17 13:12 Toprol Xl - PO 50 mg DAILY CARL Administration Mycophenolate Mofetil 500 mg 12/06/17 14:00 Cellcept - PO 12/11/17 06:01 TID CARL Pantoprazole Sodium 40 mg 12/06/17 12:45 Protonix Packets For Oral Suspension - PO DAILY [facility] Prednisone 15 mg 12/06/17 12:30 12/06/17 13:12 Deltasone - PO Not Given DAILY [facility] Impression 1. CKD 2. SLE 3. chest pain 4. HLD 5. hx DVT 6. CHF 7. distal LAD stenosis Plan - cont prednisone and cellcept - check echo - pulm eval - check ua - check renal ultrasound - avoid nsaids and nephrotoxins - will follow Dr Escalante
--- NOTE | 2017-12-06 14:53 | CON.PULM ---
Consult Consult Specialty:: PULMONARY Referred by:: Dr. Landrum Reason for Consultation:: chest pain - History of Present Illness Chief Complaint: chest pain History of Present Illness: 27yo female with h/o HTN, hyperlipidemia, lupus, CAD, CKD, h/o DVT/PE in September 2017 who presents with anterior chest pain starting yesterday. Chest pain described as sharp, nonradiating associated with shortness of breth, nausea, palpitations and diaphoresis. Denies any leg pain or swelling. No recent leg trauma. When she was diagnosed with her DVT/PE in September, her presenting symptom was diaphoresis. No recent illnesses, fevers, chills. Currently chest pain resolved with pain medications. She is a former smoker, quit in September. Compliant with her Eliquis. - History Source History Provided By: Patient, Medical Record Limitations to Obtaining History: No Limitations - Past Medical History RIGGER: Yes: CVA Cardio/Vascular: Yes: CAD, Deep Vein Thrombosis, HTN, Other (large heart) Pulmonary: Yes: COPD ...LMP: 11/23/15 Musculoskeletal: Yes: Chronic low back pain, Other (arthralgia) Rheumatology: Yes: Lupus - Past Surgical History Past Surgical History: Yes: Vein Stripping/Ligation (labioplasty) - Alcohol/Substance Use Hx Alcohol Use: Yes (occasional) - Smoking History Smoking history: Never smoked Have you smoked in the past 12 months: Yes Aproximately how many cigarettes per day: 5 - Social History ADL: Independent History of Recent Travel: No Home Medications - Allergies Allergies/Adverse Reactions: Allergies Allergy/AdvReac Type Severity Reaction Status Date / Time No Known Drug Allergies Allergy Verified 12/06/17 08:07 - Home Medications Home Medications: Ambulatory Orders predniSONE [Deltasone -] 15 mg PO DAILY 07/18/15 Mycophenolate Mofetil [Cellcept] 500 mg PO TID 01/26/16 Albuterol Sulfate Inhaler - [Ventolin Hfa Inhaler -] 2 inh PO Q4H PRN 02/16/16 Calcium 250Mg/Vit-D 125 Units [Oscal 250 mg+D -] 1 combo PO BID 07/24/16 Hydroxychloroquine Sulfate [Plaquenil] 200 mg PO DAILY 07/24/16 Acyclovir [Zovirax -] 400 mg PO TID 12/06/17 Apixaban [Eliquis -] 5 mg PO BID 12/06/17 Aspirin [ASA -] 81 mg PO DAILY 12/06/17 Atorvastatin Ca [Lipitor] 80 mg PO HS 12/06/17 Metoprolol Succinate [Toprol XL -] 50 mg PO DAILY 12/06/17 Omeprazole 80 mg PO DAILY 12/06/17 Review of Systems - Review of Systems Constitutional: reports: Weakness. denies: Chills, Fever Eyes: denies: Recent Change in Vision HENT: denies: Nasal Congestion, Throat Pain Neck: denies: Stiffness, Tenderness Cardiovascular: reports: Chest Pain, Palpitations, Shortness of Breath. denies : Edema Respiratory: reports: SOB. denies: Cough, Wheezing Gastrointestinal: denies: Abdominal Pain, Nausea, Vomiting Genitourinary: denies: Dysuria, Hematuria Neurological: denies: Dizziness, Headache Endocrine: denies: Unexplained Weight Loss Physical Exam Vital Sings: Vital Signs Temperature 98.7 F 12/06/17 08:03 Pulse Rate 100 H 12/06/17 08:03 Respiratory Rate 19 12/06/17 08:03 Blood Pressure 162/114 12/06/17 08:03 O2 Sat by Pulse Oximetry (%) 98 12/06/17 08:20 Constitutional: Yes: Calm Eyes: Yes: Conjunctiva Clear, EOM Intact HENT: Yes: Atraumatic, Normocephalic Neck: Yes: Supple, Trachea Midline Cardiovascular: Yes: Regular Rate and Rhythm Respiratory: Yes: Regular, Diminished (decreased breath sounds at the bases) ...Clubbing: No Gastrointestinal: Yes: Normal Bowel Sounds, Soft. No: Tenderness Edema: No Neurological: Yes: Alert, Oriented Labs: CBC, BMP 12/06/17 12:15 12/06/17 12:15 Imaging - Results Chest X-ray: Report Reviewed, Image Reviewed (cardiomegaly, no infiltrates) Problem List - Problems (1) Chest pain Code(s): R07.9 - CHEST PAIN, UNSPECIFIED (2) CKD (chronic kidney disease) stage 3, GFR 30-59 ml/min Code(s): N18.3 - CHRONIC KIDNEY DISEASE, STAGE 3 (MODERATE) (3) Lupus Code(s): M32.9 - SYSTEMIC LUPUS ERYTHEMATOSUS, UNSPECIFIED Qualifiers: Systemic lupus erythematosus type: unspecified Systemic lupus erythematosus organ involvement: unspecified Qualified Code(s): M32.9 - Systemic lupus erythematosus, unspecified (4) DVT (deep venous thrombosis) Code(s): I82.409 - ACUTE EMBOLISM AND THOMBOS UNSP DEEP VN UNSP LOWER EXTREMITY Qualifiers: DVT location: lower extremity Affected thrombotic vein of extremity: popliteal Chronicity: acute Laterality: left Qualified Code(s): I82.432 - Acute embolism and thrombosis of left popliteal vein Assessment/Plan Chest Pain Lupus HTN Hyperlipidemia CKD h/o DVT/PE - pt not tachycardic, saturating 99% on room air, chest pain resolved with pain medications and compliant with her anticoagulation, less likely recurrent VTE but possible mobilization of residual clot - continue cardiac work up - can obtain LE dopplers to r/o residual clot - echocardiogram - O2 as needed - will follow Thank you for this consult Gerson Zazueta MD
[2017-12-06] MEDS ORDERED: ACETAMINOPHEN 500 MG TABLET (FP) PO ONE (15:12)
[2017-12-06] MEDS ORDERED: ACETAMINOPHEN 325 MG TABLET (FP) ONE (16:02)
[2017-12-06] MEDS ORDERED: IBUPROFEN 400 MG TABLET (FP) PO PRN (20:50)
[2017-12-06] MEDS ORDERED: NITROGLYCERIN SUBLINGUAL 1/200 0.3 MG BTL SL ONE (21:00)
[2017-12-06] MEDS ORDERED: IBUPROFEN 400 MG TABLET (FP) PO ONE (21:15)
[2017-12-06] MEDS ORDERED: ATORVASTATIN CA 20 MG TABLET (FP) PO SCH (22:00)
--- NOTE | 2017-12-06 22:19 | PN ---
Progress Note, Physician Chief Complaint: pt reqesting morphine for cp i told her when v/q scan echo done to r/o out p/e than/ ? pain meds she refusing ntg sl advil and or tylenol thetening to sign out ama - Current Medication List Current Medications: Active Medications Apixaban (Eliquis -) 5 mg PO BID [facility] Aspirin (Asa -) 81 mg PO DAILY [facility] Atorvastatin Calcium (Lipitor -) 20 mg PO HS [facility] Guaifenesin (Robitussin -) 10 ml PO Q4H PRN PRN Reason: COUGH Metoprolol Succinate (Toprol Xl -) 50 mg PO DAILY [facility] Last Admin: 12/06/17 13:12 Dose: 50 mg Mycophenolate Mofetil (Cellcept -) 500 mg PO TID [facility] Stop: 12/11/17 06:01 Pantoprazole Sodium (Protonix Packets For Oral Suspension -) 40 mg PO DAILY [facility] Last Admin: 12/06/17 12:45 Dose: Not Given Prednisone (Deltasone -) 15 mg PO DAILY [facility] Last Admin: 12/06/17 13:12 Dose: Not Given - Objective Vital Signs: Vital Signs Temperature 97.7 F 12/06/17 16:11 Pulse Rate 73 12/06/17 16:11 Respiratory Rate 18 12/06/17 16:11 Blood Pressure 142/92 12/06/17 16:11 O2 Sat by Pulse Oximetry (%) 99 12/06/17 16:11 Labs: CBC, BMP 12/06/17 12:15 12/06/17 12:15 INR, PTT INR 1.11 (0.83-1.09) H 12/06/17 08:58 Problem List - Problems (1) CKD (chronic kidney disease) stage 3, GFR 30-59 ml/min Code(s): N18.3 - CHRONIC KIDNEY DISEASE, STAGE 3 (MODERATE)
[2017-12-06] MEDS: APIXABAN 5 MG TABLET PO SCH (22:41)
--- NOTE | 2017-12-06 23:40 | PN ---
Progress Note (short form) - Note Progress Note: Renal Addendum Laboratory Tests 12/06/17 22:14 Plasma Potassium 4.7 repeat potassium is normal. Problem List - Problems (1) CKD (chronic kidney disease) stage 3, GFR 30-59 ml/min Code(s): N18.3 - CHRONIC KIDNEY DISEASE, STAGE 3 (MODERATE) (2) Chest pain Code(s): R07.9 - CHEST PAIN, UNSPECIFIED (3) Lupus Code(s): M32.9 - SYSTEMIC LUPUS ERYTHEMATOSUS, UNSPECIFIED Qualifiers: Systemic lupus erythematosus type: unspecified Systemic lupus erythematosus organ involvement: unspecified Qualified Code(s): M32.9 - Systemic lupus erythematosus, unspecified
[2017-12-07 00:10] LABS: ANION GAP 6 (8-16); BLOOD UREA NITROGEN 22 mg/dL (7-18); CALCIUM 8.6 mg/dL (8.5-10.1); CHLORIDE 111 mmol/L (98-107); CO2 23 mmol/L (21-32); GLUCOSE,RANDOM 89 mg/dL (74-106); SODIUM 140 mmol/L (136-145)
[2017-12-07 00:15] LABS: POTASSIUM 4.8 mmol/L (3.5-5.1)
[2017-12-07] MEDS: amLODIPine BESYLATE 5 MG TABLET (FP) PO SCH ×2 (01:53→09:29)
[2017-12-07 06:38] LABS: BASO % 0.3 % (0-2.0); EOS % 0.9 % (0-4.5); HEMOGLOBIN 9.8 GM/dL (10.7-15.3); MCH 31.5 pg (25.7-33.7); MCHC 33.9 g/dl (32.0-36.0); MEAN CELL VOLUME 92.8 fl (80-96); MONO % 9.8 % (3.8-10.2); PLATELET COUNT 92 K/MM3 (134-434); RBC 3.13 M/mm3 (3.60-5.2); WHITE BLOOD COUNT 3.9 K/mm3 (4.0-10.0)
[2017-12-07 07:35] LABS: ANION GAP 5 (8-16); BLOOD UREA NITROGEN 20 mg/dL (7-18); CALCIUM 8.5 mg/dL (8.5-10.1); CHLORIDE 112 mmol/L (98-107); CO2 25 mmol/L (21-32); GLUCOSE,RANDOM 81 mg/dL (74-106); POTASSIUM 4.5 mmol/L (3.5-5.1); SODIUM 142 mmol/L (136-145)
[2017-12-07] MEDS ORDERED: SODIUM CHLORIDE 1,000 ML IV SCH (08:30)
[2017-12-07] MEDS: PANTOPRAZOLE SOD 40 MG SUSPENSION PACKET PO SCH (09:29)
[2017-12-07] MEDS: APIXABAN 5 MG TABLET PO SCH (09:29)
[2017-12-07] MEDS: predniSONE 10 MG TABLET (UD) PO SCH (09:29)
[2017-12-07 09:35] VITALS: BP 158/97; PULSE 76; TEMP 98.3
--- NOTE | 2017-12-07 09:58 | PN ---
Progress Note, Physician - Current Medication List Current Medications: Active Medications Amlodipine Besylate (Norvasc -) 5 mg PO DAILY [facility] Last Admin: 12/07/17 09:29 Dose: 5 mg Apixaban (Eliquis -) 5 mg PO BID [facility] Last Admin: 12/07/17 09:29 Dose: 5 mg Aspirin (Asa -) 81 mg PO DAILY [facility] Last Admin: 12/07/17 09:29 Dose: 81 mg Atorvastatin Calcium (Lipitor -) 20 mg PO HS [facility] Last Admin: 12/06/17 22:41 Dose: Not Given Guaifenesin (Robitussin -) 10 ml PO Q4H PRN PRN Reason: COUGH Sodium Chloride (Normal Saline -) 1,000 mls @ 75 mls/hr IV ASDIR [facility] Last Admin: 12/07/17 09:29 Dose: Not Given Metoprolol Succinate (Toprol Xl -) 50 mg PO DAILY [facility] Last Admin: 12/07/17 09:29 Dose: 50 mg Mycophenolate Mofetil (Cellcept -) 500 mg PO TID [facility] Stop: 12/11/17 06:01 Pantoprazole Sodium (Protonix Packets For Oral Suspension -) 40 mg PO DAILY [facility] Last Admin: 12/07/17 09:29 Dose: 40 mg Prednisone (Deltasone -) 15 mg PO DAILY [facility] Last Admin: 12/07/17 09:29 Dose: 15 mg - Objective Vital Signs: Vital Signs Temperature 98.3 F 12/07/17 09:00 Pulse Rate 76 12/07/17 09:00 Respiratory Rate 20 12/07/17 09:00 Blood Pressure 158/97 12/07/17 09:00 O2 Sat by Pulse Oximetry (%) 100 12/07/17 09:00 Labs: CBC, BMP 12/07/17 05:30 12/07/17 05:30 INR, PTT INR 1.11 (0.83-1.09) H 12/06/17 08:58 Problem List - Problems (1) CKD (chronic kidney disease) stage 3, GFR 30-59 ml/min Code(s): N18.3 - CHRONIC KIDNEY DISEASE, STAGE 3 (MODERATE) Assessment/Plan pt signrd out ama refusing other tx getting frustrated staying here will call and advice her what to do
[2017-12-07] MEDS ORDERED: ASPIRIN 81 MG CHEWABLE TABLETS PO SCH (10:00)
--- NOTE | 2017-12-07 10:51 | DS ---
Physical Examination Vital Signs: Vital Signs Temperature 98.3 F 12/07/17 09:00 Pulse Rate 76 12/07/17 09:00 Respiratory Rate 20 12/07/17 09:00 Blood Pressure 158/97 12/07/17 09:00 O2 Sat by Pulse Oximetry (%) 100 12/07/17 09:00 Constitutional: Yes: Other (signed out ama did not want more testing done) Labs: CBC, BMP 12/07/17 05:30 12/07/17 05:30 Discharge Summary Reason For Visit: DYSPNEA ON EXERTION Condition: Guarded - Instructions Diet, Activity, Other Instructions: adviced buy letter to see card olu of which she missed appt with last mt Referrals: Hector Landrum MD [Primary Care Provider] - Disposition: AGAINST MEDICAL ADVICE - Home Medications Comprehensive Discharge Medication List: Ambulatory Orders predniSONE [Deltasone -] 15 mg PO DAILY 07/18/15 Mycophenolate Mofetil [Cellcept] 500 mg PO TID 01/26/16 Albuterol Sulfate Inhaler - [Ventolin Hfa Inhaler -] 2 inh PO Q4H PRN 02/16/16 Calcium 250Mg/Vit-D 125 Units [Oscal 250 mg+D -] 1 combo PO BID 07/24/16 Hydroxychloroquine Sulfate [Plaquenil] 200 mg PO DAILY 07/24/16 Acyclovir [Zovirax -] 400 mg PO TID 12/06/17 Apixaban [Eliquis -] 5 mg PO BID 12/06/17 Aspirin [ASA -] 81 mg PO DAILY 12/06/17 Atorvastatin Ca [Lipitor] 80 mg PO HS 12/06/17 Metoprolol Succinate [Toprol XL -] 50 mg PO DAILY 12/06/17 Omeprazole 80 mg PO DAILY 12/06/17
--- NOTE | 2017-12-11 08:55 | EKG ---
Test Reason : Blood Pressure : / mmHG Vent. Rate : 092 BPM Atrial Rate : 092 BPM P-R Int : 170 ms QRS Dur : 084 ms QT Int : 348 ms P-R-T Axes : 043 053 -17 degrees QTc Int : 430 ms NORMAL SINUS RHYTHM CANNOT RULE OUT INFERIOR INFARCT , AGE UNDETERMINED ABNORMAL ECG WHEN COMPARED WITH ECG OF 16-FEB-2016 17:16, MINIMAL CRITERIA FOR INFERIOR INFARCT ARE NOW PRESENT Confirmed by BELLE KELLEY, BHARGAVI ([id number]) on 12/11/2017 8:55:03 AM Referred By: Confirmed By:BHARGAVI ODONNELL MD
== END 2017-12-07 10:37 | disposition left against medical advice (07) | DRG 198 ==
LOC: JER 08:01 → JERBED 10:33 → J4W 23:13
PROVIDERS: ADMIT Family Medicine; ATTEND Family Medicine
DX: I24.0 Acute coronary thrombosis not resulting in myocardial infarction (principal); I25.10 Atherosclerotic heart disease of native coronary artery without angina pectoris; R07.9 Chest pain, unspecified; I12.9 Hypertensive chronic kidney disease with stage 1 through stage 4 chronic kidney disease, or unspecified chronic kidney disease; N18.3 Chronic kidney disease, stage 3 (moderate); E78.5 Hyperlipidemia, unspecified; M32.9 Systemic lupus erythematosus, unspecified; E66.9 Obesity, unspecified; Z68.42 Body mass index [BMI] 45.0-49.9, adult; Z79.01 Long term (current) use of anticoagulants
CPT/HCPCS: 36415; 71045-TC-FY; 76775-TC; 80048; 80053; 82550; 83735; 83880; 84132; 84443; 84484; 84703; 85025; 85379; 85610; 93005; 93010; 93306-TC; 93970-TC; 99285-25; J7030

== ENCOUNTER 2018-01-02 02:53 | Inpatient (IN) | payer OTHER ==
--- NOTE | 2018-01-02 03:18 | PDOC ---
Attending Attestation - Resident Resident Name: Harsh Landrum - ED Attending Attestation I have performed the following: I have examined & evaluated the patient, The case was reviewed & discussed with the resident, I agree w/resident's findings & plan - HPI HPI: 01/02/18 04:22 Pt comes with chest discomfort and nausea. SHe smells of marijuana and states that she smokes regularlty as it helps with her lupus. - Physicial Exam PE: 01/02/18 04:23 Agree with resident's chart - Medical Decision Making 01/02/18 04:23 Basic labs; EKG; CXR. If normal she may follow as an outpatient. 01/02/18 04:25 HB/HCT is stable 01/02/18 06:55 Pt has HTN emergency; her BP is not coming down with meds 01/02/18 06:58 cxr: cardiomegaly 01/02/18 07:[address] Hector Landrum to admit the patient to him for renal insufficiency and hypertensive emergency.
[2018-01-02 03:46] VITALS: BMI 49.9
[2018-01-02 04:13] LABS: BASO % 0.2 % (0-2.0); EOS % 0.1 % (0-4.5); HEMATOCRIT 26.4 % (32.4-45.2); LYMPH % 14.3 % (8-40); MEAN CELL VOLUME 91.2 fl (80-96); MEAN PLT VOLUME 9.2 fl (7.5-11.1); MONO % 6.9 % (3.8-10.2); NEUT % 78.5 % (42.8-82.8); PLATELET COUNT 185 K/MM3 (134-434); RDW 13.3 % (11.6-15.6); WHITE BLOOD COUNT 9.2 K/mm3 (4.0-10.0)
[2018-01-02 04:40] LABS: ALBUMIN 2.7 g/dl (3.4-5.0); ANION GAP 9 MMOL/L (8-16); BILIRUBIN,TOTAL 0.2 mg/dL (0.2-1.0); BLOOD UREA NITROGEN 49 mg/dL (7-18); CALCIUM 8.3 mg/dL (8.5-10.1); CHLORIDE 113 mmol/L (98-107); CO2 18 mmol/L (21-32); CREATININE 2.8 mg/dL (0.55-1.02); GLUCOSE,RANDOM 99 mg/dL (74-106); POTASSIUM 4.5 mmol/L (3.5-5.1); SGOT/AST 19 U/L (15-37); SGPT/ALT 16 U/L (12-78); SODIUM 140 mmol/L (136-145); TOT PROT 6.2 g/dl (6.4-8.2)
[2018-01-02 04:42] LABS: ALK PHOS 54 U/L (45-117)
[2018-01-02] MEDS ORDERED: NITROGLYCERIN SUBLINGUAL 1/150 0.4 MG TAB SL ONE ×2 (05:00→05:20)
--- NOTE | 2018-01-02 05:12 | PDOC ---
History of Present Illness <Mita Cadena - Last Filed: 01/02/18 05:31> - History of Present Illness Initial Comments: 01/02/18 05:45 Pt is a 27 y/o lady w/ a significant past medical history of HTN, SLE, HLD, DVT (05/2017 left leg), and CKD stage 3 who presents to [facility] c/o chest pain since approximately 1 am this morning. Pain is 10/10 in severity and is located under both breasts. Pt also endorses left arm pain that has been present prior to the onset of her chest pain. Endorses nausea and shortness of breath. <Harsh Landrum - Last Filed: 01/02/18 06:29> - General Chief Complaint: Pain Stated Complaint: CHEST PAIN Time Seen by Provider: 01/02/18 03:15 Past History <Mita Cadena - Last Filed: 01/02/18 05:31> - Past Medical History Asthma: Yes Cancer: (LUPUS) Cardiac Disorders: Yes CVA: No COPD: No DVT: (heart 2018) Dementia: No Diabetes: No GI Disorders: No Disorders: No HTN: Yes Hypercholesterolemia: Yes Kidney Stones: ("dry kidneys") Liver Disease: Yes Seizures: No Thyroid Disease: (ENLARGED) - Surgical History Abdominal Surgery: Yes (tubal ligation) Appendectomy: No Cardiac Surgery: No Cholecystectomy: No Lung Surgery: No Neurologic Surgery: No Orthopedic Surgery: No - Family Disease History Family Disease History: Diabetes: Mother, Heart Disease: Father, Mother - Reproductive History (#): 2 Para: 2 - Immunization History Immunization Up to Date: Yes - Suicide/Smoking/Psychosocial Hx Smoking Status: Yes Smoking History: Never smoked Have you smoked in the past 12 months: Yes Number of Cigarettes Smoked Daily: 5 If you are a former smoker, when did you quit?: 3 wks ago Information on smoking cessation initiated: No 'Breaking Loose' booklet given: 12/07/17 Hx Alcohol Use: No Drug/Substance Use Hx: Yes (Marijuana) Substance Use Type: Marijuana Hx Substance Use Treatment: No <Harsh Landrum - Last Filed: 01/02/18 06:29> - Past Medical History Allergies/Adverse Reactions: Allergies Allergy/AdvReac Type Severity Reaction Status Date / Time No Known Drug Allergies Allergy Verified 01/02/18 03:42 Home Medications: Ambulatory Orders predniSONE [Deltasone -] 15 mg PO DAILY 07/18/15 Mycophenolate Mofetil [Cellcept] 500 mg PO TID 01/26/16 Albuterol Sulfate Inhaler - [Ventolin HFA Inhaler -] 2 inh PO Q4H PRN 02/16/16 Calcium 250Mg/Vit-D 125 Units [Oscal 250 mg+D -] 1 combo PO BID 07/24/16 Hydroxychloroquine Sulfate [Plaquenil] 200 mg PO DAILY 07/24/16 Acyclovir [Zovirax -] 400 mg PO TID 12/06/17 Apixaban [Eliquis -] 5 mg PO BID 12/06/17 Aspirin [ASA -] 81 mg PO DAILY 12/06/17 Atorvastatin Ca [Lipitor] 80 mg PO HS 12/06/17 Omeprazole 80 mg PO DAILY 12/06/17 Amlodipine Besylate [Norvasc -] 10 mg PO DAILY #30 tablet 12/29/17 Hydralazine HCl 100 mg PO TID #90 tablet 12/29/17 Isosorbide Mononitrate [Imdur -] 60 mg PO DAILY #30 tab.sr.24h 12/29/17 Metoprolol Succinate [Toprol Xl -] 200 mg PO DAILY #30 tab.sr.24h 12/29/17 *Physical Exam - Vital Signs Last Vital Signs Temp Pulse Resp BP Pulse Ox 97.8 F 92 H 18 195/131 99 01/02/18 03:43 01/02/18 03:43 01/02/18 03:43 01/02/18 03:43 01/02/18 03:43 <Mita Cadena - Last Filed: 01/02/18 05:31> - Vital Signs Last Vital Signs Temp Pulse Resp BP Pulse Ox 97.8 F 92 H 18 195/131 99 01/02/18 03:43 01/02/18 03:43 01/02/18 03:43 01/02/18 03:43 01/02/18 03:43 - Physical Exam Comments: 01/02/18 06:05 GEN- AD, Anxious Neuro- CN 2-12 intact RS- CTA B/L, pain on inspiration CV- RRR S1 S2 ABD- Obese, ND, NT EXT- 1+ pitting edema <Harsh Landrum - Last Filed: 01/02/18 06:29> Heart Score/ECG Review - ECG Impressions Comment:: 01/02/18 06:28 Normal Sinus Rythm, Possible left atrial enlargement, Nonspecific T wave abnormaility, Prolonged QT <Harsh Landrum - Last Filed: 01/02/18 06:29> ED Treatment Course - LABORATORY CBC & Chemistry Diagram: 01/02/18 03:50 01/02/18 03:50 - ADDITIONAL ORDERS Additional order review: Laboratory Results 01/02/18 01/02/18 01/02/18 04:42 03:50 03:50 Sodium 140 Potassium 4.5 Chloride 113 H Carbon Dioxide 18 L Anion Gap 9 BUN 49 H Creatinine 2.8 H Creat Clearance w eGFR 19.98 Random Glucose 99 Calcium 8.3 L Total Bilirubin 0.2 AST 19 ALT 16 Alkaline Phosphatase 54 Creatine Kinase Cancelled 39 Troponin I Cancelled 0.06 H Total Protein 6.2 L Albumin 2.7 L Urine HCG, Qual Negative 01/02/18 03:50 RBC 2.90 L MCV 91.2 MCHC 34.0 RDW 13.3 MPV 9.2 D Neutrophils % 78.5 Lymphocytes % 14.3 D Monocytes % 6.9 Eosinophils % 0.1 Basophils % 0.2 - RADIOLOGY Radiology Studies Ordered: Category Date Time Status CHEST PA & LAT [RAD] Stat Radiology 01/02/18 03:43 Ordered - Medications Given in the ED: ED Medications Discontinued Medications Generic Name Dose Route Start Last Admin Trade Name Freq PRN Reason Stop Dose Admin Nitroglycerin 1.2 mg 01/02/18 05:20 01/02/18 05:20 Nitrostat - SL 01/02/18 05:21 1.2 mg ONCE ONE Administration Valsartan 160 mg 01/02/18 05:17 01/02/18 05:20 Diovan - PO 01/02/18 05:18 160 mg ONCE ONE Administration <Mita Cadena - Last Filed: 01/02/18 05:31> - LABORATORY CBC & Chemistry Diagram: 01/02/18 03:50 01/02/18 03:50 - ADDITIONAL ORDERS Additional order review: Laboratory Results 01/02/18 01/02/18 01/02/18 04:42 03:50 03:50 Sodium 140 Potassium 4.5 Chloride 113 H Carbon Dioxide 18 L Anion Gap 9 BUN 49 H Creatinine 2.8 H Creat Clearance w eGFR 19.98 Random Glucose 99 Calcium 8.3 L Total Bilirubin 0.2 AST 19 ALT 16 Alkaline Phosphatase 54 Creatine Kinase Cancelled 39 Troponin I Cancelled 0.06 H Total Protein 6.2 L Albumin 2.7 L Urine HCG, Qual Negative 01/02/18 03:50 RBC 2.90 L MCV 91.2 MCHC 34.0 RDW 13.3 MPV 9.2 D Neutrophils % 78.5 Lymphocytes % 14.3 D Monocytes % 6.9 Eosinophils % 0.1 Basophils % 0.2 <Harsh Landrum - Last Filed: 01/02/18 06:29> Medical Decision Making - Medical Decision Making 01/02/18 06:11 Troponin 12/27--> 0.87 This morning Troponin .06 -Given Nitro 1.2 mg SL -Given 160 mg Valsartan 01/02/18 06:25 Pt hypertensive systolic 190's, diastolic 100's. Decision to admit. <Harsh Landrum - Last Filed: 01/02/18 06:29> *DC/Admit/Observation/Transfer - Discharge Dispostion Decision to Admit order: Yes <Mita Cadena - Last Filed: 01/02/18 05:31> <Harsh Landrum - Last Filed: 01/02/18 06:29> Diagnosis at time of Disposition: CKD (chronic kidney disease) stage 3, GFR 30-59 ml/min, Hypertensive emergency - Discharge Dispostion Condition at time of disposition: Guarded - Referrals Referrals: Guzman Landrum MD [Primary Care Provider] - - Patient Instructions - Post Discharge Activity
[2018-01-02] MEDS ORDERED: VALSARTAN 160 MG TABLET (UD) PO ONE (05:17)
[2018-01-02] MEDS ORDERED: NITROGLYCERIN SUBLINGUAL 1/150 0.4 MG TAB ONE ×2 (05:25→06:51)
[2018-01-02] MEDS ORDERED: VALSARTAN 80 MG TABLET (UD) ONE (05:26)
--- NOTE | 2018-01-02 07:14 | PDOC ---
*Physical Exam - Vital Signs Last Vital Signs Temp Pulse Resp BP Pulse Ox 97.8 F 92 H 18 195/131 99 01/02/18 03:43 01/02/18 03:43 01/02/18 03:43 01/02/18 03:43 01/02/18 03:43 - Physical Exam Comments: 01/02/18 07:04 Care endorsed to me by Dr. Cadena at the end of her shift. This is a 27 YOF with h /o severe HTN (on many antihypertensive medications), SLE, CKD (supposed to have a nephrology appointment this week regarding starting dialysis), and LLE DVT (Dx in 05/2017) who is admitted for hypertensive emergency refractory to ED medications. A page has been placed to Hector Landrum (patient's PCP) to inform him of the admission). Heart Score/ECG Review - History History: Highly suspicious - Electrocardiogram EKG: Non specific repolarization disturbance - Age Age: </= 45 - Risk Factors Risk Factors Heart Score: Yes Hx Hypertension, Yes Smoking History, Yes Hx Obesity Based on the list above the patient has:: >/=3 risk factors or Hx atherosclerotic disease - Troponin Troponin: 1-3x normal limit - Score Heart Score - Total: 6 #1 EKG performed 01/02/18 at 02:57 Sinus rhythm, rate 97, normal axis, QT grossly mildly prolonged, computer interp of [id number], 4.5 mm Q wave in III similar to prior EKG, TW flattening in III, aVL, and V6, otherwise no new concerning ST-T changes #2 EKG performed 01/02/18 at 07:36: Sinus rhythm, rate of 93, artifact in V2 but otherwise unchanged from first study today. ED Treatment Course - LABORATORY CBC & Chemistry Diagram: 01/03/18 06:15 01/03/18 06:15 - ADDITIONAL ORDERS Additional order review: Laboratory Results 01/02/18 01/02/18 01/02/18 04:42 03:50 03:50 Sodium 140 Potassium 4.5 Chloride 113 H Carbon Dioxide 18 L Anion Gap 9 BUN 49 H Creatinine 2.8 H Creat Clearance w eGFR 19.98 Random Glucose 99 Calcium 8.3 L Total Bilirubin 0.2 AST 19 ALT 16 Alkaline Phosphatase 54 Creatine Kinase Cancelled 39 Troponin I Cancelled 0.06 H Total Protein 6.2 L Albumin 2.7 L Urine HCG, Qual Negative 01/02/18 03:50 RBC 2.90 L MCV 91.2 MCHC 34.0 RDW 13.3 MPV 9.2 D Neutrophils % 78.5 Lymphocytes % 14.3 D Monocytes % 6.9 Eosinophils % 0.1 Basophils % 0.2 - Medications Given in the ED: ED Medications Discontinued Medications Generic Name Dose Route Start Last Admin Trade Name Sydni PRN Reason Stop Dose Admin Nitroglycerin 1.2 mg 01/02/18 05:20 01/02/18 05:20 Nitrostat - SL 01/02/18 05:21 1.2 mg ONCE ONE Administration Nitroglycerin 1.2 mg 01/02/18 05:00 01/02/18 06:50 Nitrostat - SL 01/02/18 05:01 1.2 mg ONCE ONE Administration Valsartan 160 mg 01/02/18 05:17 01/02/18 05:20 Diovan - PO 01/02/18 05:18 160 mg ONCE ONE Administration Medical Decision Making - Medical Decision Making 01/02/18 07:07 Vital Signs Temperature 97.8 F 01/02/18 03:43 Pulse Rate 92 H 01/02/18 03:43 Respiratory Rate 18 01/02/18 03:43 Blood Pressure 195/131 01/02/18 03:43 O2 Sat by Pulse Oximetry (%) 99 01/02/18 03:43 BP on the monitor from 6:57 AM is 187/126. On my assessment of the patient at this time (07:07) the patient is initially sleeping comfortably. States she has continued chest tightness which is the symptom that initially brought her in today. Patient states she normally takes her AM BP medications at 9 am. 01/02/18 07:36 Repeat EKG: Reviewed, see HEART Score/ECG section. Unchanged. 01/02/18 07:[address] Hector Landrum who notes that the patient has not been on Dr. Landrum's service for three weeks now. She had left AMA from the hospital multiple times and she and he made the decision that further admission would be to hospitalist. On reviewing on-call list Dr. Cerrato is crayon molding machine operator for admissions. Vital Signs Temperature 97.9 F 01/02/18 07:45 Pulse Rate 98 H 01/02/18 07:45 Respiratory Rate 18 01/02/18 07:45 Blood Pressure 159/120 01/02/18 07:45 O2 Sat by Pulse Oximetry (%) 98 01/02/18 07:45 01/02/18 08:[address] Cerrato who is in agreement patient to be admitted to [facility]. Consult order placed to Dr. Weber who is crayon molding machine operator for cardiology. New decision to admit order placed to Dr. Cerrato. 01/02/18 08:21 Tried getting in touch with Dr. Weber, waited on hold, no one picking up, will try again in 10 minutes. Ordered is Duplex BLE. 01/02/18 08:30 Patient again seen resting comfortably on hospital bed. She is noting chest pain when asked about current symptoms and her HR is in the 90s persistently. She has h/o DVT to LLE as dx in 05/2017 but states she is taking Eliquis. However, the patient is satting well on RA, not appearing SOB, not tachypneic, no leg sxs. Suspicion is low for PE but ordered is BLE Duplex venous. Overhead page placed to Dr. Weber. 01/02/18 08:[address] Weber's answering service, on hold, nobody picked up, consult order has been placed. 01/03/18 08:[address] Garcia shortly after 6 pm on 01/02/18 and gave the patient's relevant clinical info. I reported to him that the patient's most recent blood pressure at 17:53 on was 145/94. Consult order was placed for Dr. Willis by Dr. Hathaway. Dr. Garcia stated he would consult then endorse care to Dr. Egan the morning of 01/03/18. Appreciate Dr. Garcia's time and recommendations. Consult order had already been cancelled for Dr. Weber. Duplex BLE showed no e/o DVT yesterday afternoon and I did review the study at the time it was reported. *DC/Admit/Observation/Transfer Diagnosis at time of Disposition: CKD (chronic kidney disease) stage 3, GFR 30-59 ml/min, Hypertensive emergency , Troponin I above reference range - Discharge Dispostion Condition at time of disposition: Guarded Decision to Admit order: Yes - Referrals - Patient Instructions - Post Discharge Activity
[2018-01-02] MEDS ORDERED: ACETAMINOPHEN 325 MG TABLET (FP) PO ONE (07:16)
[2018-01-02] MEDS ORDERED: ACETAMINOPHEN 325 MG TABLET (FP) ONE ×2 (07:27→15:57)
[2018-01-02] MEDS: PANTOPRAZOLE 40 MG TABLET (FP) PO SCH (12:23)
[2018-01-02] MEDS: ASPIRIN 81 MG CHEWABLE TABLETS PO SCH (12:23)
[2018-01-02] MEDS: ISOSORBIDE MONONITRATE 60 MG TAB.SR.24H (FP) PO SCH (12:23)
[2018-01-02] MEDS: HYDROXYCHLOROQUINE SO4 200 MG TABLET (FP) PO SCH (13:00)
--- NOTE | 2018-01-02 13:19 | EKG ---
Test Reason : Blood Pressure : / mmHG Vent. Rate : 093 BPM Atrial Rate : 093 BPM P-R Int : 172 ms QRS Dur : 124 ms QT Int : 350 ms P-R-T Axes : 041 046 049 degrees QTc Int : 435 ms NORMAL SINUS RHYTHM LEFT ATRIAL ENLARGEMENT SEPTAL INFARCT , AGE UNDETERMINED ABNORMAL ECG WHEN COMPARED WITH ECG OF 26-DEC-2017 14:35, NO SIGNIFICANT CHANGE WAS FOUND Confirmed by FREDERIC NICK MD ([id number]) on 01/02/2018 1:19:21 PM Referred By: Confirmed By:FREDERIC NICK MD
--- NOTE | 2018-01-02 13:52 | CONSULT ---
Consult Consult Specialty:: Nephrology Reason for Consultation:: CKD - History of Present Illness Chief Complaint: chest pain History of Present Illness: Pt is a 27 year old female with pmhx of CKD, SLE, non compliance, CAD, HTN and DVT who presents to the ER with chest pain. She says that it is substernal. She denies shortness of breath. She was found to have elevated creatinine. She was in renal failure on last admission and renal function was worsening. Her creatinine is now actually better than when she left. She denies dysuria or hematuria. 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 Cardio/Vascular: Yes: CAD, Deep Vein Thrombosis, HTN, Other (large heart) Pulmonary: Yes: COPD Renal/: Yes: Renal Inusuff ...LMP: 11/23/15 Musculoskeletal: Yes: Chronic low back pain, Other (arthralgia) Rheumatology: Yes: Lupus - Past Surgical History Past Surgical History: Yes: Vein Stripping/Ligation (labioplasty) - Alcohol/Substance Use Hx Alcohol Use: No - Smoking History Smoking history: Never smoked Have you smoked in the past 12 months: Yes Aproximately how many cigarettes per day: 5 If you are a former smoker, when did you quit?: 3 wks ago - Social History ADL: Independent History of Recent Travel: No Home Medications - Allergies Allergies/Adverse Reactions: Allergies Allergy/AdvReac Type Severity Reaction Status Date / Time No Known Drug Allergies Allergy Verified 01/02/18 03:42 - Home Medications Home Medications: Ambulatory Orders predniSONE [Deltasone -] 15 mg PO DAILY 07/18/15 Mycophenolate Mofetil [Cellcept] 500 mg PO TID 01/26/16 Albuterol Sulfate Inhaler - [Ventolin HFA Inhaler -] 2 inh PO Q4H PRN 02/16/16 Calcium 250Mg/Vit-D 125 Units [Oscal 250 mg+D -] 1 combo PO BID 07/24/16 Hydroxychloroquine Sulfate [Plaquenil] 200 mg PO DAILY 07/24/16 Acyclovir [Zovirax -] 400 mg PO TID 12/06/17 Apixaban [Eliquis -] 5 mg PO BID 12/06/17 Aspirin [ASA -] 81 mg PO DAILY 12/06/17 Atorvastatin Ca [Lipitor] 80 mg PO HS 12/06/17 Omeprazole 80 mg PO DAILY 12/06/17 Amlodipine Besylate [Norvasc -] 10 mg PO DAILY #30 tablet 12/29/17 Hydralazine HCl 100 mg PO TID #90 tablet 12/29/17 Isosorbide Mononitrate [Imdur -] 60 mg PO DAILY #30 tab.sr.24h 12/29/17 Metoprolol Succinate [Toprol Xl -] 200 mg PO DAILY #30 tab.sr.24h 12/29/17 Family Disease History - Family Disease History Family History: Denies Review of Systems - Review of Systems Constitutional: reports: No Symptoms Eyes: reports: No Symptoms HENT: reports: No Symptoms Neck: reports: No Symptoms Cardiovascular: reports: Chest Pain Respiratory: reports: No Symptoms Gastrointestinal: reports: No Symptoms Genitourinary: reports: No Symptoms Musculoskeletal: reports: No Symptoms Integumentary: reports: No Symptoms Neurological: reports: No Symptoms Endocrine: reports: No Symptoms Physical Exam Vital Signs: Vital Signs Temperature 97.6 F 01/02/18 10:40 Pulse Rate 90 01/02/18 10:40 Respiratory Rate 17 01/02/18 10:40 Blood Pressure 193/129 01/02/18 10:40 O2 Sat by Pulse Oximetry (%) 99 01/02/18 10:40 Constitutional: Yes: Calm Eyes: Yes: Conjunctiva Clear HENT: Yes: Atraumatic Neck: Yes: Supple Cardiovascular: Yes: S1, S2 Respiratory: Yes: CTA Bilaterally Gastrointestinal: Yes: Soft, Abdomen, Obese Renal/: Yes: WNL Musculoskeletal: Yes: WNL Edema: LLE: Trace, RLE: Trace Neurological: Yes: Oriented Psychiatric: Yes: Oriented Labs: CBC, BMP 01/02/18 03:50 01/02/18 03:50 Imaging - Results Chest X-ray: Report Reviewed Problem List - Problems (1) CKD (chronic kidney disease) stage 3, GFR 30-59 ml/min Code(s): N18.3 - CHRONIC KIDNEY DISEASE, STAGE 3 (MODERATE) (2) Chest pain Code(s): R07.9 - CHEST PAIN, UNSPECIFIED (3) Lupus Code(s): M32.9 - SYSTEMIC LUPUS ERYTHEMATOSUS, UNSPECIFIED Assessment/Plan Current Medications Generic Name Dose Route Start Last Admin Trade Name Freq PRN Reason Stop Dose Admin Amlodipine Besylate 10 mg 01/03/18 10:00 Norvasc - PO DAILY [facility] Apixaban 5 mg 01/02/18 22:00 Eliquis - PO BID [facility] Aspirin 81 mg 01/02/18 12:15 01/02/18 12:23 Asa - PO 81 mg DAILY [facility] Administration Atorvastatin Calcium 80 mg 01/02/18 22:00 Lipitor - PO [facility] Calcium/Vitamin D 1 tab 01/02/18 22:00 Oscal 250 Mg+D - PO BID [facility] Hydralazine HCl 100 mg 01/02/18 14:00 Apresoline - PO TID [facility] Hydroxychloroquine Sulfate 200 mg 01/02/18 12:15 Plaquenil - PO DAILY [facility] Isosorbide Mononitrate 60 mg 01/02/18 12:15 01/02/18 12:23 Imdur - PO 60 mg DAILY [facility] Administration Metoprolol Succinate 200 mg 01/02/18 12:15 01/02/18 12:23 Toprol Xl - PO 200 mg DAILY [facility] Administration Mycophenolate Mofetil 500 mg 01/02/18 14:00 Cellcept - PO TID [facility] Pantoprazole Sodium 40 mg 01/02/18 12:15 01/02/18 12:23 Protonix - PO 40 mg DAILY [facility] Administration Prednisone 15 mg 01/03/18 10:00 Deltasone - PO DAILY [facility] Selected Entries 01/02/18 01/02/18 07:11 07:45 Blood Pressure 187/126 159/120 [Right Arm] Laboratory Tests 12/06/17 12/07/17 12/21/17 23:30 05:30 15:34 WBC Hgb Sodium Potassium Chloride Carbon Dioxide Anion Gap BUN Creatinine 2.0 H 2.0 H 2.3 H Urine Protein Urine Blood Urine HCG, Qual 12/26/17 12/26/17 12/26/17 15:17 15:17 20:50 WBC Hgb 10.5 L Sodium Potassium Chloride Carbon Dioxide Anion Gap BUN Creatinine 2.4 H Urine Protein 3+ H Urine Blood 3+ H Urine HCG, Qual 12/27/17 12/28/17 12/29/17 05:30 05:30 05:30 WBC Hgb 9.2 L Sodium Potassium Chloride Carbon Dioxide Anion Gap BUN Creatinine 3.1 H 3.5 H Urine Protein Urine Blood Urine HCG, Qual 01/02/18 01/02/18 01/02/18 03:50 03:50 04:42 WBC 9.2 Hgb 9.0 L Sodium 140 Potassium 4.5 Chloride 113 H Carbon Dioxide 18 L Anion Gap 9 BUN 49 H Creatinine 2.8 H Urine Protein Urine Blood Urine HCG, Qual Negative Impression 1. CKD 2. SLE 3. chest pain 4. HLD 5. hx DVT 6. CHF 7. distal LAD stenosis 8. 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
[2018-01-02] MEDS ORDERED: hydrALAZINE HCL 25 MG TABLET (FP) ONE ×2 (14:13→21:26)
[2018-01-02] MEDS: hydrALAZINE HCL 50 MG TABLET (FP) PO SCH ×2 (14:16→21:34)
[2018-01-02] MEDS: MYCOPHENOLATE MOFETIL 500 MG TABLET PO SCH ×2 (14:50→21:56)
[2018-01-02] MEDS: ACETAMINOPHEN 325 MG TABLET (FP) PO PRN (15:50)
--- NOTE | 2018-01-02 18:04 | HP ---
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 Cardiovascular: Yes: CAD, Deep Vein Thrombosis, HTN, Other (large heart) Pulmonary: Yes: COPD Renal/: Yes: Renal Inusuff ...LMP: 11/23/15 Heme/Onc: Yes: Other (lupus) Musculoskeletal: Yes: Chronic low back pain, Other (arthralgia) Rheumatology: Yes: Lupus - Past Surgical History Past Surgical History: Yes: Vein Stripping/Ligation (labioplasty) - Smoking History Smoking history: Never smoked Have you smoked in the past 12 months: Yes Aproximately how many cigarettes per day: 5 If you are a former smoker, when did you quit?: 3 wks ago - Alcohol/Substance Use Hx Alcohol Use: No - Social History ADL: Independent History of Recent Travel: No Home Medications - Allergies Allergies/Adverse Reactions: Allergies Allergy/AdvReac Type Severity Reaction Status Date / Time No Known Drug Allergies Allergy Verified 01/02/18 03:42 - Home Medications Home Medications: Ambulatory Orders predniSONE [Deltasone -] 15 mg PO DAILY 07/18/15 Mycophenolate Mofetil [Cellcept] 500 mg PO TID 01/26/16 Albuterol Sulfate Inhaler - [Ventolin HFA Inhaler -] 2 inh PO Q4H PRN 02/16/16 Calcium 250Mg/Vit-D 125 Units [Oscal 250 mg+D -] 1 combo PO BID 07/24/16 Hydroxychloroquine Sulfate [Plaquenil] 200 mg PO DAILY 07/24/16 Acyclovir [Zovirax -] 400 mg PO TID 12/06/17 Apixaban [Eliquis -] 5 mg PO BID 12/06/17 Aspirin [ASA -] 81 mg PO DAILY 12/06/17 Atorvastatin Ca [Lipitor] 80 mg PO HS 12/06/17 Omeprazole 80 mg PO DAILY 12/06/17 Amlodipine Besylate [Norvasc -] 10 mg PO DAILY #30 tablet 12/29/17 Hydralazine HCl 100 mg PO TID #90 tablet 12/29/17 Isosorbide Mononitrate [Imdur -] 60 mg PO DAILY #30 tab.sr.24h 12/29/17 Metoprolol Succinate [Toprol Xl -] 200 mg PO DAILY #30 tab.sr.24h 12/29/17 Physical Examination Vital Signs: Vital Signs Temperature 98.5 F 01/02/18 17:53 Pulse Rate 82 01/02/18 17:53 Respiratory Rate 20 01/02/18 17:53 Blood Pressure 145/94 01/02/18 17:53 O2 Sat by Pulse Oximetry (%) 100 01/02/18 17:55 Labs: CBC, BMP 01/02/18 03:50 01/02/18 03:50
[2018-01-02] MEDS ORDERED: MORPHINE SULFATE 2 MG/ML VIAL ONE (21:25)
[2018-01-02] MEDS ORDERED: ATORVASTATIN CA 80 MG TABLET (FP) ONE (21:26)
[2018-01-02] MEDS: ATORVASTATIN CA 80 MG TABLET (FP) PO SCH (21:34)
[2018-01-02] MEDS ORDERED: MORPHINE SULFATE 2 MG/ML VIAL IVPUSH ONE (21:35)
[2018-01-02] MEDS: CALCIUM 250MG/VIT-D 125 UNITS 1 COMBO TABLET PO SCH (21:56)
[2018-01-02] MEDS: APIXABAN 5 MG TABLET PO SCH (21:56)
[2018-01-03] MEDS: hydrALAZINE HCL 50 MG TABLET (FP) PO SCH ×3 (06:09→21:46)
[2018-01-03] MEDS: MYCOPHENOLATE MOFETIL 500 MG TABLET PO SCH ×3 (06:09→21:48)
[2018-01-03 06:41] LABS: BASO % 0.3 % (0-2.0); EOS % 0.7 % (0-4.5); HEMATOCRIT 26.9 % (32.4-45.2); HEMOGLOBIN 8.9 GM/dL (10.7-15.3); LYMPH % 11.9 % (8-40); MCH 30.5 pg (25.7-33.7); MCHC 33.3 g/dl (32.0-36.0); MEAN CELL VOLUME 91.5 fl (80-96); MEAN PLT VOLUME 9.4 fl (7.5-11.1); NEUT % 80.1 % (42.8-82.8); PLATELET COUNT 109 K/MM3 (134-434); RBC 2.94 M/mm3 (3.60-5.2); RDW 13.4 % (11.6-15.6); WHITE BLOOD COUNT 6.9 K/mm3 (4.0-10.0)
[2018-01-03 07:12] LABS: ALBUMIN 2.4 g/dl (3.4-5.0); ANION GAP 10 MMOL/L (8-16); BILIRUBIN,TOTAL 0.3 mg/dL (0.2-1.0); BLOOD UREA NITROGEN 42 mg/dL (7-18); CALCIUM 7.9 mg/dL (8.5-10.1); CHLORIDE 113 mmol/L (98-107); CO2 19 mmol/L (21-32); CREATININE 2.4 mg/dL (0.55-1.02); GLUCOSE,RANDOM 82 mg/dL (74-106); POTASSIUM 4.4 mmol/L (3.5-5.1); SGOT/AST 17 U/L (15-37); SGPT/ALT 12 U/L (12-78); SODIUM 142 mmol/L (136-145); TOT PROT 5.7 g/dl (6.4-8.2)
[2018-01-03 07:15] LABS: ALK PHOS 49 U/L (45-117)
[2018-01-03] MEDS ORDERED: OMEPRAZOLE 80 MG PO SCH (10:00)
[2018-01-03] MEDS ORDERED: ONDANSETRON 4 MG/2 ML VIAL ONE (10:17)
[2018-01-03] MEDS ORDERED: ONDANSETRON 4 MG/2 ML VIAL IVPUSH ONE (10:26)
[2018-01-03] MEDS: PANTOPRAZOLE 40 MG TABLET (FP) PO SCH (11:01)
[2018-01-03] MEDS: amLODIPine BESYLATE 10 MG TABLET (FP) PO SCH (11:01)
[2018-01-03] MEDS: HYDROXYCHLOROQUINE SO4 200 MG TABLET (FP) PO SCH (11:01)
[2018-01-03] MEDS: ASPIRIN 81 MG CHEWABLE TABLETS PO SCH (11:01)
[2018-01-03] MEDS: ISOSORBIDE MONONITRATE 60 MG TAB.SR.24H (FP) PO SCH (11:01)
[2018-01-03] MEDS: APIXABAN 5 MG TABLET PO SCH ×2 (11:01→21:46)
[2018-01-03] MEDS: CALCIUM 250MG/VIT-D 125 UNITS 1 COMBO TABLET PO SCH ×2 (11:01→22:29)
[2018-01-03] MEDS: predniSONE 5 MG TABLET (UD) PO SCH (11:01)
--- NOTE | 2018-01-03 11:33 | CON.CARD ---
Consult Consult Specialty:: Cardiology Referred by:: ER Reason for Consultation:: Chest pain - History of Present Illness Chief Complaint: chest pain History of Present Illness: 27 year old woman pmh SLE, HTN, HLD, obesity, CKD stage 3, h/o DVT 09/2016, Cardiac cath done 09/16/17 after an echo showed inferoseptal hypokinesis done as preop for bariatric surgery, cath showed distal LAD 70-80% thrombotic appearing stenosis with otherwise normal coronary arteries, no PCI was performed as felt to be a risk given history of thrombosis and pt was changed to Eliquis. she was previously on Xarelto but was changed to eliquis due to heavy menstrual bleeding , chronic intermittent sob/lee, pt has been non-adherent with medical recommendations and medications. she has been in the ER multiple times recently and has signed out AMA. Now admitted for chest pain and HTN urgency. She was seen and examined this am in nad. She vomited this am which included her recent medications. She states she refused one of the BP meds last night because it causes headache. she denies any current chest pain, sob, palpitations. 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 Cardio/Vascular: Yes: CAD, Deep Vein Thrombosis, HTN, Other (large heart) Pulmonary: Yes: COPD Renal/: Yes: Renal Inusuff ...LMP: 11/23/15 Musculoskeletal: Yes: Chronic low back pain, Other (arthralgia) Rheumatology: Yes: Lupus - Past Surgical History Past Surgical History: Yes: Vein Stripping/Ligation (labioplasty) - Alcohol/Substance Use Hx Alcohol Use: No - Smoking History Smoking history: Never smoked Have you smoked in the past 12 months: Yes Aproximately how many cigarettes per day: 5 If you are a former smoker, when did you quit?: 3 wks ago - Social History ADL: Independent History of Recent Travel: No Home Medications - Allergies Allergies/Adverse Reactions: Allergies Allergy/AdvReac Type Severity Reaction Status Date / Time No Known Drug Allergies Allergy Verified 01/02/18 03:42 - Home Medications Home Medications: Ambulatory Orders predniSONE [Deltasone -] 15 mg PO DAILY 07/18/15 Mycophenolate Mofetil [Cellcept] 500 mg PO TID 01/26/16 Albuterol Sulfate Inhaler - [Ventolin HFA Inhaler -] 2 inh PO Q4H PRN 02/16/16 Calcium 250Mg/Vit-D 125 Units [Oscal 250 mg+D -] 1 combo PO BID 07/24/16 Hydroxychloroquine Sulfate [Plaquenil] 200 mg PO DAILY 07/24/16 Acyclovir [Zovirax -] 400 mg PO TID 12/06/17 Apixaban [Eliquis -] 5 mg PO BID 12/06/17 Aspirin [ASA -] 81 mg PO DAILY 12/06/17 Atorvastatin Ca [Lipitor] 80 mg PO HS 12/06/17 Omeprazole 80 mg PO DAILY 12/06/17 Amlodipine Besylate [Norvasc -] 10 mg PO DAILY #30 tablet 12/29/17 Hydralazine HCl 100 mg PO TID #90 tablet 12/29/17 Isosorbide Mononitrate [Imdur -] 60 mg PO DAILY #30 tab.sr.24h 12/29/17 Metoprolol Succinate [Toprol Xl -] 200 mg PO DAILY #30 tab.sr.24h 12/29/17 Family Disease History - Family Disease History Family History: Denies Review of Systems - Review of Systems Constitutional: denies: No Symptoms, Chills, Diaphoresis, Fever, Lethargy, Loss of Appetite, Malaise, Night Sweats, Unintentional Wgt. Loss, Weakness, Other Eyes: denies: No Symptoms, Blind Spots, Blurred Vision, Double Vision, Eye Pain , Floaters, Photophobia, Recent Change in Vision, Other HENT: denies: No Symptoms, Difficult Swallowing, Ear Discharge, Ear Pain, Epistaxis, Gingival Bleeding, Hearing Loss, Mouth Swelling, Nasal Congestion, Ocular Prosthesis, Throat Pain, Toothache, Ringing in Ears, Other Neck: denies: No Symptoms, Decreased ROM, Lumps, Pain on Movement, Stiffness, Swollen Glands, Tenderness, Other Cardiovascular: reports: Chest Pain, Shortness of Breath. denies: No Symptoms, Edema, Palpitations, Other Respiratory: denies: No Symptoms, Cough, Exercise Intolerance, Hemoptysis, Orthopnea, PND, Snoring, SOB, SOB on Exertion, Wheezing, Other Gastrointestinal: reports: Abdominal Pain, Nausea, Vomiting. denies: No Symptoms, Bloating, Constipation, Diarrhea, Dysphagia, Indigestion, Melena, Rectal Bleeding, Vomiting Blood, Other Genitourinary: denies: No Symptoms, Burning, Discharge, Dysuria, Flank Pain, Frequency, Hematuria, Incontinence, Lesions, Menses, Pain, Testicular Mass, Testicular Pain, Testicular Swelling, Urgency, Vaginal Bleeding, Other Breasts: denies: No Symptoms Reported, See HPI, Breast Implants, Discharge from Nipple, Lumps, Pain, Skin Changes, Other Musculoskeletal: denies: No Symptoms, Back Pain, Crepitus, Decreased ROM, Extremity Pain, Joint Pain, Joint Swelling, Muscle Pain, Muscle Cramps, Muscle Weakness, Other Integumentary: denies: No Symptoms, Blister, Bruising, Change in Color, Eczema, Erythema, Incision, Lesions, Lump, Pallor, Pruritis, Rash, Wound, Other Neurological: denies: No Symptoms, Change in LOC, Change in Speech, Confusion, Dizziness, Headache, Incoordination, Numbness, Parasthesia, Pre-Existing Deficit , Seizure, Syncope, Tremors, Unsteady Gait, Weakness, Other Endocrine: denies: No Symptoms, Excessive Sweating, Flushing, Increased Hunger, Increased Thirst, Intolerance to Cold, Intolerance to Heat, Unexplained Weight Gain, Unexplained Weight Loss, Other Hematology/Lymphatic: denies: No Symptoms, Easily Bruised, Excessive Bleeding, Swollen Glands, Other Psychiatric: denies: No Symptoms, Altered Sleep Pattern, Anxiety, Depression, Hallucinations, Panic, Paranoia, Suicidal, Other Vital Signs: Vital Signs Temperature 98.3 F 01/03/18 09:36 Pulse Rate 104 H 01/03/18 09:36 Respiratory Rate 18 01/03/18 09:36 Blood Pressure 182/123 01/03/18 09:36 O2 Sat by Pulse Oximetry (%) 99 01/03/18 09:36 Constitutional: Yes: No Distress, Calm, Obese Eyes: Yes: Conjunctiva Clear, EOM Intact HENT: Yes: Atraumatic, Normocephalic Neck: Yes: Supple, Trachea Midline Respiratory: Yes: Regular, CTA Bilaterally. No: Rales, Rhonchi, SOB, Wheezes Gastrointestinal: Yes: Normal Bowel Sounds, Soft. No: Distention, Tenderness Cardiovascular: Yes: Regular Rate and Rhythm. No: Bradycardia, Tachycardia, Pulse Irregular, Gallop, Rub, Varicosities JVD: No Carotid Bruit: No PMI: Non-Displaced Heart Sounds: Yes: S1, S2. No: Split S2, S3, S4, Gallop, Bruit Murmur: No: Systolic Murmur Edema: Yes Edema: LLE: Trace, RLE: Trace Peripheral Pulses WNL: Yes Peripheral Pulses: 2+ Left Doralis Pedis, 2+ Right Dorsalis Pedis Neurological: Yes: Alert, Oriented Psychiatric: Yes: Alert, Oriented - Other Data Labs, Other Data: CBC, BMP 01/03/18 06:15 01/03/18 06:15 Troponin, BNP 01/02/18 01/03/18 12:40 06:15 Troponin I 0.07 H 0.08 H Troponin, BNP 01/02/18 01/03/18 12:40 06:15 Troponin I 0.07 H 0.08 H ekg-nsr 93bpm, septal infarct, no sig ST abnl Echo: Report Reviewed Prior Cardiac Procedures: Cardiac Catheterization Imaging - Results Chest X-ray: Report Reviewed, Image Reviewed EKG: Report Reviewed, Image Reviewed Other: Report Reviewed, Image Reviewed Assessment/Plan 27 year old woman pmh SLE, HTN, HLD, obesity, CKD stage 3, h/o DVT 09/2016, Cardiac cath done 09/16/17 after an echo showed inferoseptal hypokinesis done as preop for bariatric surgery, cath showed distal LAD 70-80% thrombotic appearing stenosis with otherwise normal coronary arteries, no PCI was performed as felt to be a risk given history of thrombosis and pt was changed to Eliquis. she was previously on Xarelto but was changed to eliquis due to heavy menstrual bleeding , chronic intermittent sob/lee, pt has been non-adherent with medical recommendations and medications. she has been in the ER multiple times recently and has signed out AMA. Now admitted for chest pain and HTN urgency. She was seen and examined this am in nad. She vomited this am which included her recent medications. She states she refused one of the BP meds last night because it causes headache. she denies any current chest pain, sob, palpitations. chest pain-atypical, unlikely ACS, in setting of HTN urgency -CK wnl, troponin minimally elevated and did not trend up -recent echo 12/27/17 showed moderate LV dysfunction and mod MR with no pericardial effusion -recent cardiac cath as above showed distal LAD thrombotic appearing stenosis with otherwise normal coronary arteries and no PCI was performed, pt was started on full AC -primary issue currently is HTN urgency which has been difficult to control due to medication and outpatient fup non-adherence -pt vomited up am meds this am thus unable to evaluate if current anti-HTN regimen is adequate -would treat nausea/vomiting, then re-evaluate BP after able to tolerate meds -can use IV Labetolol or Hydralazine as needed for now until tolerating po meds -would not pursue additional ischemic work up at this time -need to establish routine outpatient fup
[2018-01-03] MEDS ORDERED: LABETALOL HCL 5 MG/1 ML (100MG/20 ML VIAL) IVPUSH PRN (11:40)
[2018-01-03] MEDS ORDERED: MORPHINE SULFATE 2 MG/ML VIAL ONE (14:24)
[2018-01-03] MEDS ORDERED: morphine CARPU-JECT 2 MG/1 ML DISP.SYRIN IVPUSH ONE (14:33)
--- NOTE | 2018-01-03 16:31 | EKG ---
Test Reason : Blood Pressure : / mmHG Vent. Rate : 097 BPM Atrial Rate : 097 BPM P-R Int : 160 ms QRS Dur : 090 ms QT Int : 368 ms P-R-T Axes : 041 048 057 degrees QTc Int : 467 ms NORMAL SINUS RHYTHM POSSIBLE LEFT ATRIAL ENLARGEMENT NONSPECIFIC T WAVE ABNORMALITY PROLONGED QT ABNORMAL ECG WHEN COMPARED WITH ECG OF 26-DEC-2017 14:35, NO SIGNIFICANT CHANGE WAS FOUND Confirmed by Humphrey Wray ([id number]) on 01/03/2018 4:31:17 PM Referred By: Confirmed By:Humphrey Wrya
--- NOTE | 2018-01-03 16:37 | PN ---
Progress Note, Physician History of Present Illness: Pt seen and examined at bedside. She was seen by me earlier today. She is agitated that she is in the ER. She denies shortness of breath. - Current Medication List Current Medications: Active Medications Acetaminophen (Tylenol -) 650 mg PO Q6H PRN PRN Reason: PAIN LEVEL 1 - 3 Last Admin: 01/02/18 15:50 Dose: 650 mg Amlodipine Besylate (Norvasc -) 10 mg PO DAILY [facility] Last Admin: 01/03/18 11:01 Dose: 10 mg Apixaban (Eliquis -) 5 mg PO BID [facility] Last Admin: 01/03/18 11:01 Dose: 5 mg Aspirin (Asa -) 81 mg PO DAILY [facility] Last Admin: 01/03/18 11:01 Dose: 81 mg Atorvastatin Calcium (Lipitor -) 80 mg PO HS [facility] Last Admin: 01/02/18 21:34 Dose: 80 mg Calcium/Vitamin D (Oscal 250 Mg+D -) 1 tab PO BID [facility] Last Admin: 01/03/18 11:01 Dose: 1 tab Hydralazine HCl (Apresoline -) 100 mg PO TID [facility] Last Admin: 01/03/18 14:32 Dose: Not Given Hydroxychloroquine Sulfate (Plaquenil -) 200 mg PO DAILY [facility] Last Admin: 01/03/18 11:01 Dose: 200 mg Isosorbide Mononitrate (Imdur -) 60 mg PO DAILY [facility] Last Admin: 01/03/18 11:01 Dose: 60 mg Labetalol HCl (Normodyne Injection -) 10 mg IVPUSH Q4H PRN PRN Reason: HYPERTENSION Metoprolol Succinate (Toprol Xl -) 200 mg PO DAILY [facility] Last Admin: 01/03/18 11:01 Dose: 200 mg Mycophenolate Mofetil (Cellcept -) 500 mg PO TID [facility] Last Admin: 01/03/18 14:32 Dose: 500 mg Pantoprazole Sodium (Protonix -) 40 mg PO DAILY [facility] Last Admin: 01/03/18 11:01 Dose: 40 mg Prednisone (Deltasone -) 15 mg PO DAILY [facility] Last Admin: 01/03/18 11:01 Dose: 15 mg - Objective Vital Signs: Vital Signs Temperature 98.3 F 01/03/18 09:36 Pulse Rate 97 H 01/03/18 12:34 Respiratory Rate 16 09/04/18 12:34 Blood Pressure 144/101 01/03/18 12:34 O2 Sat by Pulse Oximetry (%) 99 01/03/18 12:34 Constitutional: Yes: Anxious Eyes: Yes: Conjunctiva Clear HENT: Yes: Atraumatic Cardiovascular: Yes: S1, S2 Respiratory: Yes: CTA Bilaterally Gastrointestinal: Yes: Soft, Abdomen, Obese Genitourinary: Yes: WNL Musculoskeletal: Yes: WNL Edema: LLE: Trace, RLE: Trace Integumentary: Yes: Tattoos Neurological: Yes: Oriented Psychiatric: Yes: Oriented, Agitated Labs: CBC, BMP 01/03/18 06:15 01/03/18 06:15 Problem List - Problems (1) CKD (chronic kidney disease) stage 3, GFR 30-59 ml/min Code(s): N18.3 - CHRONIC KIDNEY DISEASE, STAGE 3 (MODERATE) (2) Chest pain Code(s): R07.9 - CHEST PAIN, UNSPECIFIED (3) Lupus Code(s): M32.9 - SYSTEMIC LUPUS ERYTHEMATOSUS, UNSPECIFIED Assessment/Plan Current Medications Generic Name Dose Route Start Last Admin Trade Name Freq PRN Reason Stop Dose Admin Acetaminophen 650 mg 01/02/18 16:24 01/02/18 15:50 Tylenol - PO 650 mg Q6H PRN Administration PAIN LEVEL 1 - 3 Amlodipine Besylate 10 mg 01/03/18 10:00 01/03/18 11:01 Norvasc - PO 10 mg DAILY [facility] Administration Apixaban 5 mg 01/02/18 22:00 01/03/18 11:01 Eliquis - PO 5 mg BID [facility] Administration Aspirin 81 mg 01/02/18 12:15 01/03/18 11:01 Asa - PO 81 mg DAILY [facility] Administration Atorvastatin Calcium 80 mg 01/02/18 22:00 01/02/18 21:34 Lipitor - PO 80 mg HS [facility] Administration Calcium/Vitamin D 1 tab 01/02/18 22:00 01/03/18 11:01 Oscal 250 Mg+D - PO 1 tab BID [facility] Administration Hydralazine HCl 100 mg 01/02/18 14:00 01/03/18 14:32 Apresoline - PO Not Given TID [facility] Hydroxychloroquine Sulfate 200 mg 01/02/18 12:15 01/03/18 11:01 Plaquenil - PO 200 mg DAILY [facility] Administration Isosorbide Mononitrate 60 mg 01/02/18 12:15 01/03/18 11:01 Imdur - PO 60 mg DAILY [facility] Administration Labetalol HCl 10 mg 01/03/18 11:40 Normodyne Injection - IVPUSH Q4H PRN HYPERTENSION Metoprolol Succinate 200 mg 01/03/18 10:00 01/03/18 11:01 Toprol Xl - PO 200 mg DAILY [facility] Administration Mycophenolate Mofetil 500 mg 01/02/18 14:00 01/03/18 14:32 Cellcept - PO 500 mg TID [facility] Administration Pantoprazole Sodium 40 mg 01/02/18 12:15 01/03/18 11:01 Protonix - PO 40 mg DAILY [facility] Administration Prednisone 15 mg 01/03/18 10:00 01/03/18 11:01 Deltasone - PO 15 mg DAILY [facility] Administration Impression 1. CKD 2. SLE 3. chest pain 4. HLD 5. hx DVT 6. CHF 7. distal LAD stenosis 8. 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
--- NOTE | 2018-01-03 17:28 | PN ---
Progress Note (short form) - Note Progress Note: PULMONARY CONSULTATION DICTATED 01/03/18 IMP DYSPNEA CHEST PAIN HYPERTENSIVE URGENCY ? CHF + TROPONINS SLE PULMONARY HTN CKD H/O DVT H/O ASTHMA LIKELY OSAS MORBID OBESITY ANEMIA PLAN TITRATE BP MEDS INHALED BRONCHODILATORS PRN TREND TROPONIN MONITOR LYTES,H+H SLEEP SCREEN FULL SLEEP STUDIES OUTPATIENT DR SANTORO Problem List - Problems (1) Pulmonary HTN Code(s): I27.20 - PULMONARY HYPERTENSION, UNSPECIFIED (2) CKD (chronic kidney disease) stage 3, GFR 30-59 ml/min Code(s): N18.3 - CHRONIC KIDNEY DISEASE, STAGE 3 (MODERATE) (3) Hypertensive emergency Code(s): I16.1 - HYPERTENSIVE EMERGENCY (4) Troponin I above reference range Code(s): R74.8 - ABNORMAL LEVELS OF OTHER SERUM ENZYMES (5) DVT (deep venous thrombosis) Code(s): I82.409 - ACUTE EMBOLISM AND THOMBOS UNSP DEEP VN UNSP LOWER EXTREMITY Qualifiers: DVT location: lower extremity Affected thrombotic vein of extremity: popliteal Chronicity: acute Laterality: left Qualified Code(s): I82.432 - Acute embolism and thrombosis of left popliteal vein (6) Dyspnea on exertion Code(s): R06.09 - OTHER FORMS OF DYSPNEA (7) LUQ pain Code(s): R10.12 - LEFT UPPER QUADRANT PAIN (8) Morbid obesity Code(s): E66.01 - MORBID (SEVERE) OBESITY DUE TO EXCESS CALORIES (9) Hypertensive urgency Code(s): I16.0 - HYPERTENSIVE URGENCY
--- NOTE | 2018-01-03 18:00 | CONS ---
DATE OF CONSULTATION: 01/03/2018 PULMONARY CONSULTATION REFERRING PHYSICIAN: Crys Hathaway M.D. HISTORY OF PRESENT ILLNESS: The patient is a 27-year-old female maintained on prednisone and CellCept, hypertension, hyperlipidemia, chronic kidney disease stage 3, history of DVT since 2016, obesity, cardiac cath September 16, 2017, apparently showed inferior hypokinesis, preoperative bariatric surgery. There was distal LAD 70 to 80 percent, admitted to [facility] secondary to shortness of breath as well as chest tightness. Patient states that she has shortness of breath all the time. She also complains of chest tightness for the past few months. She has been in and out of the hospital and apparent visits to the hospital frequently and is signing out AMA. Of note is the patient was noted to be significantly hypertensive with blood pressure 193/129 despite being on antihypertensive medications. Patient also during her current hospitalization, she was evaluated by Dr. Escalnate for renal consultation as well as Dr. Bolaños for cardiology consultation. Patient has history of tobacco use and apparently states she smokes marijuana. She also states she has history of inhaler on frequent basis. Patient states she is a heavy snorer and has excessive daytime sleepiness. Denies any witnessed apneic episodes. PAST MEDICAL HISTORY: Again includes chronic kidney disease, SLE, apparently noncompliance, ASHD, hypertension, history of DVT, cardiomegaly, low back pain, history of vein stripping, ligation. REVIEW OF SYSTEMS: Positive shortness of breath with exertion, positive chest tightness, no cough, no hemoptysis, no abdominal pain, no nausea/vomiting, no diaphoresis. CURRENT MEDICATIONS: Include prednisone 15 mg daily, Tylenol, Eliquis, Plaquenil, Normodyne, Toprol, Norvasc, Apresoline, Lipitor, CellCept, Imdur, aspirin, Protonix, and Os-Ryan. PHYSICAL EXAMINATION: GENERAL: The patient is an obese female, but awake, alert, in no acute distress. VITAL SIGNS: T-max is 100, currently afebrile. Blood pressure 144/101, respiratory rate 16, O2 saturation 99% on room. HEENT: Normocephalic, atraumatic. NECK: Supple. HEART: Regular S1, S2. CHEST: Clear. ABDOMEN: Soft, bowel sounds positive. EXTREMITIES: No cyanosis, edema. LABORATORY: WBC is 6.9 and hemoglobin 8.9, hematocrit 26.9, platelets 109,000. BUN 42, creatinine 2.4, troponin 0.08. Chest x-ray, cardiomegaly but no acute infiltrates or effusions. Duplex of lower extremities negative DVT. Previous echo on December 27, 2017, there was left ventricular systolic function moderately reduced, left ventricle mildly dilated, right ventricle normal, there was normal pulmonary hypertension, moderate mitral regurgitation. IMPRESSION: 1. Dyspnea possibly secondary to mild congestive heart failure. 2. Pulmonary hypertension. Hypertensive urgency. 3. History of asthma. 4. Systemic lupus erythematosus. 5. Likely obstructive sleep apnea. 6. Chronic kidney disease. 7. History of deep venous thrombosis. 8. Anemia. PLAN: Continue cardiac medications as per cardiology. Monitor antihypertensive medications as per cardiology and renal, monitor renal function, supplemental O2, inhaled bronchodilators p.r.n., also plan sleep screen, also patient should be evaluated for sleep study as an outpatient, continue anticoagulation. Monitor H and H, also electrolytes. Thank you. Will follow closely with you. RAJEEV SANTORO M.D. [id number]
--- NOTE | 2018-01-03 18:37 | PN ---
Progress Note, Physician History of Present Illness: Pt w/ SEO today and episode of vomiting - Current Medication List Current Medications: Active Medications Acetaminophen (Tylenol -) 650 mg PO Q6H PRN PRN Reason: PAIN LEVEL 1 - 3 Last Admin: 01/02/18 15:50 Dose: 650 mg Amlodipine Besylate (Norvasc -) 10 mg PO DAILY [facility] Last Admin: 01/03/18 11:01 Dose: 10 mg Apixaban (Eliquis -) 5 mg PO BID [facility] Last Admin: 01/03/18 11:01 Dose: 5 mg Aspirin (Asa -) 81 mg PO DAILY [facility] Last Admin: 01/03/18 11:01 Dose: 81 mg Atorvastatin Calcium (Lipitor -) 80 mg PO HS [facility] Last Admin: 01/02/18 21:34 Dose: 80 mg Calcium/Vitamin D (Oscal 250 Mg+D -) 1 tab PO BID [facility] Last Admin: 01/03/18 11:01 Dose: 1 tab Hydralazine HCl (Apresoline -) 100 mg PO TID [facility] Last Admin: 01/03/18 14:32 Dose: Not Given Hydroxychloroquine Sulfate (Plaquenil -) 200 mg PO DAILY [facility] Last Admin: 01/03/18 11:01 Dose: 200 mg Isosorbide Mononitrate (Imdur -) 60 mg PO DAILY [facility] Last Admin: 01/03/18 11:01 Dose: 60 mg Labetalol HCl (Normodyne Injection -) 10 mg IVPUSH Q4H PRN PRN Reason: HYPERTENSION Metoprolol Succinate (Toprol Xl -) 200 mg PO DAILY [facility] Last Admin: 01/03/18 11:01 Dose: 200 mg Mycophenolate Mofetil (Cellcept -) 500 mg PO TID [facility] Last Admin: 01/03/18 14:32 Dose: 500 mg Pantoprazole Sodium (Protonix -) 40 mg PO DAILY [facility] Last Admin: 01/03/18 11:01 Dose: 40 mg Prednisone (Deltasone -) 15 mg PO DAILY [facility] Last Admin: 01/03/18 11:01 Dose: 15 mg - Objective Vital Signs: Vital Signs Temperature 98.0 F 01/03/18 18:12 Pulse Rate 84 01/03/18 18:12 Respiratory Rate 18 01/03/18 18:12 Blood Pressure 126/96 09/04/18 18:12 O2 Sat by Pulse Oximetry (%) 98 01/03/18 18:12 HENT: Yes: WNL Neck: Yes: WNL, Supple Cardiovascular: Yes: WNL, Regular Rate and Rhythm Respiratory: Yes: WNL, Regular, CTA Bilaterally Gastrointestinal: Yes: WNL, Normal Bowel Sounds, Soft, Abdomen, Obese Labs: CBC, BMP 01/03/18 06:15 01/03/18 06:15 Problem List - Problems (1) Headache Assessment/Plan: Check ct scan head Neuro consult Pain control Code(s): R51 - HEADACHE (2) Hypertensive urgency Assessment/Plan: Cont norvasc/diovan/hydralazine/toprol/nifedipine IV labetolol prn Bp control improving Code(s): I16.0 - HYPERTENSIVE URGENCY (3) Chest pain Assessment/Plan: Most likely atypical chest pain No significant increase in troponin As per cardio Code(s): R07.9 - CHEST PAIN, UNSPECIFIED (4) Left anterior descending (LAD) coronary artery thrombosis Assessment/Plan: Cont eliquis Code(s): I24.0 - ACUTE CORONARY THROMBOSIS NOT RESULTING IN MYOCARDIAL INFRC (5) CKD (chronic kidney disease) stage 3, GFR 30-59 ml/min Assessment/Plan: As per renal Cont prednisone/cellcept Monitor labs Code(s): N18.3 - CHRONIC KIDNEY DISEASE, STAGE 3 (MODERATE) (6) Lupus Assessment/Plan: Cont plaquenil Code(s): M32.9 - SYSTEMIC LUPUS ERYTHEMATOSUS, UNSPECIFIED (7) Morbid obesity Code(s): E66.01 - MORBID (SEVERE) OBESITY DUE TO EXCESS CALORIES (8) GERD (gastroesophageal reflux disease) Assessment/Plan: Cont protonix Code(s): K21.9 - GASTRO-ESOPHAGEAL REFLUX DISEASE WITHOUT ESOPHAGITIS
[2018-01-03] MEDS: ACETAMINOPHEN 325 MG TABLET (FP) PO PRN (20:03)
[2018-01-03] MEDS: ATORVASTATIN CA 80 MG TABLET (FP) PO SCH (21:47)
[2018-01-03] MEDS ORDERED: diphenhydrAMINE HCL 25 MG CAPSULE (FP) PO PRN (21:49)
[2018-01-03] MEDS ORDERED: MORPHINE SULFATE 2 MG/ML VIAL IVPUSH ONE (22:00)
[2018-01-04] MEDS: hydrALAZINE HCL 50 MG TABLET (FP) PO SCH (06:04)
[2018-01-04] MEDS: MYCOPHENOLATE MOFETIL 500 MG TABLET PO SCH (06:04)
[2018-01-04 07:36] LABS: ANION GAP 8 MMOL/L (8-16); BLOOD UREA NITROGEN 43 mg/dL (7-18); CALCIUM 8.2 mg/dL (8.5-10.1); CHLORIDE 112 mmol/L (98-107); CO2 22 mmol/L (21-32); CREATININE 2.8 mg/dL (0.55-1.02); GLUCOSE,RANDOM 83 mg/dL (74-106); POTASSIUM 4.6 mmol/L (3.5-5.1); SODIUM 142 mmol/L (136-145)
[2018-01-04] MEDS: ASPIRIN 81 MG CHEWABLE TABLETS PO SCH (10:10)
[2018-01-04] MEDS: ISOSORBIDE MONONITRATE 60 MG TAB.SR.24H (FP) PO SCH (10:10)
[2018-01-04] MEDS: CALCIUM 250MG/VIT-D 125 UNITS 1 COMBO TABLET PO SCH (10:10)
[2018-01-04] MEDS: predniSONE 5 MG TABLET (UD) PO SCH (10:10)
[2018-01-04] MEDS: HYDROXYCHLOROQUINE SO4 200 MG TABLET (FP) PO SCH (10:11)
[2018-01-04] MEDS: APIXABAN 5 MG TABLET PO SCH (10:11)
[2018-01-04] MEDS: PANTOPRAZOLE 40 MG TABLET (FP) PO SCH (10:11)
[2018-01-04] MEDS: amLODIPine BESYLATE 10 MG TABLET (FP) PO SCH (10:11)
--- NOTE | 2018-01-04 10:42 | PN ---
Progress Note, Physician History of Present Illness: PULMONARY ALERT,NO DISTRESS,WANTS TO GO HOME, SLEEP SCREEN AHI 25 C/W SEVERE OSAS - Current Medication List Current Medications: Active Medications Acetaminophen (Tylenol -) 650 mg PO Q6H PRN PRN Reason: PAIN LEVEL 1 - 3 Last Admin: 01/03/18 20:03 Dose: 650 mg Amlodipine Besylate (Norvasc -) 10 mg PO DAILY [facility] Last Admin: 01/04/18 10:11 Dose: 10 mg Apixaban (Eliquis -) 5 mg PO BID [facility] Last Admin: 01/04/18 10:11 Dose: 5 mg Aspirin (Asa -) 81 mg PO DAILY [facility] Last Admin: 01/04/18 10:10 Dose: 81 mg Atorvastatin Calcium (Lipitor -) 80 mg PO HS [facility] Last Admin: 01/03/18 21:47 Dose: 80 mg Calcium/Vitamin D (Oscal 250 Mg+D -) 1 tab PO BID [facility] Last Admin: 01/04/18 10:10 Dose: 1 tab Diphenhydramine HCl (Benadryl -) 25 mg PO Q8H PRN PRN Reason: ITCHING Last Admin: 01/03/18 22:13 Dose: 25 mg Hydralazine HCl (Apresoline -) 100 mg PO TID [facility] Last Admin: 01/04/18 06:04 Dose: 100 mg Hydroxychloroquine Sulfate (Plaquenil -) 200 mg PO DAILY [facility] Last Admin: 01/04/18 10:11 Dose: 200 mg Isosorbide Mononitrate (Imdur -) 60 mg PO DAILY [facility] Last Admin: 01/04/18 10:10 Dose: 60 mg Labetalol HCl (Normodyne Injection -) 10 mg IVPUSH Q4H PRN PRN Reason: HYPERTENSION Last Admin: 01/03/18 20:03 Dose: 10 mg Metoprolol Succinate (Toprol Xl -) 200 mg PO DAILY [facility] Last Admin: 01/04/18 10:10 Dose: 200 mg Mycophenolate Mofetil (Cellcept -) 500 mg PO TID [facility] Last Admin: 01/04/18 06:04 Dose: 500 mg Pantoprazole Sodium (Protonix -) 40 mg PO DAILY [facility] Last Admin: 01/04/18 10:11 Dose: 40 mg Prednisone (Deltasone -) 15 mg PO DAILY [facility] Last Admin: 01/04/18 10:10 Dose: 15 mg - Objective Vital Signs: Vital Signs Temperature 98.5 F 01/04/18 05:55 Pulse Rate 83 01/04/18 05:55 Respiratory Rate 20 01/04/18 05:55 Blood Pressure 157/88 01/04/18 05:55 O2 Sat by Pulse Oximetry (%) 98 01/03/18 21:00 Constitutional: Yes: Well Nourished, Calm Eyes: Yes: WNL HENT: Yes: WNL Neck: Yes: WNL Cardiovascular: Yes: Regular Rate and Rhythm, S1, S2 Respiratory: Yes: CTA Bilaterally Gastrointestinal: Yes: Normal Bowel Sounds, Soft Extremities: Yes: WNL Edema: No Labs: CBC, BMP 01/04/18 05:30 Problem List - Problems (1) Pulmonary HTN Code(s): I27.20 - PULMONARY HYPERTENSION, UNSPECIFIED (2) CKD (chronic kidney disease) stage 3, GFR 30-59 ml/min Code(s): N18.3 - CHRONIC KIDNEY DISEASE, STAGE 3 (MODERATE) (3) Hypertensive emergency Code(s): I16.1 - HYPERTENSIVE EMERGENCY (4) Troponin I above reference range Code(s): R74.8 - ABNORMAL LEVELS OF OTHER SERUM ENZYMES (5) DVT (deep venous thrombosis) Code(s): I82.409 - ACUTE EMBOLISM AND THOMBOS UNSP DEEP VN UNSP LOWER EXTREMITY Qualifiers: DVT location: lower extremity Affected thrombotic vein of extremity: popliteal Chronicity: acute Laterality: left Qualified Code(s): I82.432 - Acute embolism and thrombosis of left popliteal vein (6) Dyspnea on exertion Code(s): R06.09 - OTHER FORMS OF DYSPNEA (7) LUQ pain Code(s): R10.12 - LEFT UPPER QUADRANT PAIN (8) Morbid obesity Code(s): E66.01 - MORBID (SEVERE) OBESITY DUE TO EXCESS CALORIES (9) Hypertensive urgency Code(s): I16.0 - HYPERTENSIVE URGENCY Assessment/Plan IMP DYSPNEA CHEST PAIN HYPERTENSIVE URGENCY ? CHF + TROPONINS SLE PULMONARY HTN CKD H/O DVT H/O ASTHMA OSAS AHI 25 ON SLEEEP SCREEN MORBID OBESITY ANEMIA PLAN TITRATE BP MEDS INHALED BRONCHODILATORS PRN TREND TROPONIN MONITOR LYTES,H+H FULL SLEEP STUDIES OUTPATIENT DR SANTORO Problem List - Problems (1) Pulmonary HTN Code(s): I27.20 - PULMONARY HYPERTENSION, UNSPECIFIED (2) CKD (chronic kidney disease) stage 3, GFR 30-59 ml/min Code(s): N18.3 - CHRONIC KIDNEY DISEASE, STAGE 3 (MODERATE) (3) Hypertensive emergency Code(s): I16.1 - HYPERTENSIVE EMERGENCY (4) Troponin I above reference range Code(s): R74.8 - ABNORMAL LEVELS OF OTHER SERUM ENZYMES (5) DVT (deep venous thrombosis) Code(s): I82.409 - ACUTE EMBOLISM AND THOMBOS UNSP DEEP VN UNSP LOWER EXTREMITY Qualifiers: DVT location: lower extremity Affected thrombotic vein of extremity: popliteal Chronicity: acute Laterality: left Qualified Code(s): I82.432 - Acute embolism and thrombosis of left popliteal vein (6) Dyspnea on exertion Code(s): R06.09 - OTHER FORMS OF DYSPNEA (7) LUQ pain Code(s): R10.12 - LEFT UPPER QUADRANT PAIN (8) Morbid obesity Code(s): E66.01 - MORBID (SEVERE) OBESITY DUE TO EXCESS CALORIES (9) Hypertensive urgency Code(s): I16.0 - HYPERTENSIVE URGENCY
[2018-01-04 11:48] VITALS: BP 158/113; PULSE 93; TEMP 98.2
--- NOTE | 2018-01-04 12:00 | PN ---
Progress Note, Physician History of Present Illness: Pt seen and examined at bedside. She says that she now feels well and wants to leave the hospital. She says that the chest pain is resolved. BP is elevated however she has not taken her BP meds yet. - Current Medication List Current Medications: Active Medications Acetaminophen (Tylenol -) 650 mg PO Q6H PRN PRN Reason: PAIN LEVEL 1 - 3 Last Admin: 01/03/18 20:03 Dose: 650 mg Amlodipine Besylate (Norvasc -) 10 mg PO DAILY [facility] Last Admin: 01/04/18 10:11 Dose: 10 mg Apixaban (Eliquis -) 5 mg PO BID [facility] Last Admin: 01/04/18 10:11 Dose: 5 mg Aspirin (Asa -) 81 mg PO DAILY [facility] Last Admin: 01/04/18 10:10 Dose: 81 mg Atorvastatin Calcium (Lipitor -) 80 mg PO HS [facility] Last Admin: 01/03/18 21:47 Dose: 80 mg Calcium/Vitamin D (Oscal 250 Mg+D -) 1 tab PO BID [facility] Last Admin: 01/04/18 10:10 Dose: 1 tab Diphenhydramine HCl (Benadryl -) 25 mg PO Q8H PRN PRN Reason: ITCHING Last Admin: 01/03/18 22:13 Dose: 25 mg Hydralazine HCl (Apresoline -) 100 mg PO TID [facility] Last Admin: 01/04/18 06:04 Dose: 100 mg Hydroxychloroquine Sulfate (Plaquenil -) 200 mg PO DAILY [facility] Last Admin: 01/04/18 10:11 Dose: 200 mg Isosorbide Mononitrate (Imdur -) 60 mg PO DAILY [facility] Last Admin: 01/04/18 10:10 Dose: 60 mg Labetalol HCl (Normodyne Injection -) 10 mg IVPUSH Q4H PRN PRN Reason: HYPERTENSION Last Admin: 01/03/18 20:03 Dose: 10 mg Metoprolol Succinate (Toprol Xl -) 200 mg PO DAILY [facility] Last Admin: 01/04/18 10:10 Dose: 200 mg Mycophenolate Mofetil (Cellcept -) 500 mg PO TID [facility] Last Admin: 01/04/18 06:04 Dose: 500 mg Pantoprazole Sodium (Protonix -) 40 mg PO DAILY [facility] Last Admin: 01/04/18 10:11 Dose: 40 mg Prednisone (Deltasone -) 15 mg PO DAILY [facility] Last Admin: 01/04/18 10:10 Dose: 15 mg - Objective Vital Signs: Vital Signs Temperature 98.2 F 01/04/18 09:55 Pulse Rate 93 H 01/04/18 09:55 Respiratory Rate 20 01/04/18 09:55 Blood Pressure 158/113 01/04/18 09:55 O2 Sat by Pulse Oximetry (%) 98 01/04/18 09:00 Constitutional: Yes: Calm Eyes: Yes: Conjunctiva Clear HENT: Yes: Atraumatic Cardiovascular: Yes: S1, S2 Respiratory: Yes: CTA Bilaterally Gastrointestinal: Yes: Soft, Abdomen, Obese Genitourinary: Yes: WNL Musculoskeletal: Yes: WNL Edema: LLE: Trace, RLE: Trace Neurological: Yes: Oriented Psychiatric: Yes: Oriented Labs: CBC, BMP 01/03/18 06:15 01/04/18 05:30 Problem List - Problems (1) CKD (chronic kidney disease) stage 3, GFR 30-59 ml/min Code(s): N18.3 - CHRONIC KIDNEY DISEASE, STAGE 3 (MODERATE) (2) Chest pain Code(s): R07.9 - CHEST PAIN, UNSPECIFIED (3) Lupus Code(s): M32.9 - SYSTEMIC LUPUS ERYTHEMATOSUS, UNSPECIFIED Assessment/Plan Current Medications Generic Name Dose Route Start Last Admin Trade Name Freq PRN Reason Stop Dose Admin Acetaminophen 650 mg 01/02/18 16:24 01/03/18 20:03 Tylenol - PO 650 mg Q6H PRN Administration PAIN LEVEL 1 - 3 Amlodipine Besylate 10 mg 01/03/18 10:00 01/04/18 10:11 Norvasc - PO 10 mg DAILY [facility] Administration Apixaban 5 mg 01/02/18 22:00 01/04/18 10:11 Eliquis - PO 5 mg BID [facility] Administration Aspirin 81 mg 01/02/18 12:15 01/04/18 10:10 Asa - PO 81 mg DAILY [facility] Administration Atorvastatin Calcium 80 mg 01/02/18 22:00 01/03/18 21:47 Lipitor - PO 80 mg HS [facility] Administration Calcium/Vitamin D 1 tab 01/02/18 22:00 01/04/18 10:10 Oscal 250 Mg+D - PO 1 tab BID [facility] Administration Diphenhydramine HCl 25 mg 01/03/18 21:49 01/03/18 22:13 Benadryl - PO 25 mg Q8H PRN Administration ITCHING Hydralazine HCl 100 mg 01/02/18 14:00 01/04/18 06:04 Apresoline - PO 100 mg TID [facility] Administration Hydroxychloroquine Sulfate 200 mg 01/02/18 12:15 01/04/18 10:11 Plaquenil - PO 200 mg DAILY [facility] Administration Isosorbide Mononitrate 60 mg 01/02/18 12:15 01/04/18 10:10 Imdur - PO 60 mg DAILY [facility] Administration Labetalol HCl 10 mg 01/03/18 11:40 01/03/18 20:03 Normodyne Injection - IVPUSH 10 mg Q4H PRN Administration HYPERTENSION Metoprolol Succinate 200 mg 01/03/18 10:00 01/04/18 10:10 Toprol Xl - PO 200 mg DAILY [facility] Administration Mycophenolate Mofetil 500 mg 01/02/18 14:00 01/04/18 06:04 Cellcept - PO 500 mg TID [facility] Administration Pantoprazole Sodium 40 mg 01/02/18 12:15 01/04/18 10:11 Protonix - PO 40 mg DAILY [facility] Administration Prednisone 15 mg 01/03/18 10:00 01/04/18 10:10 Deltasone - PO 15 mg DAILY [facility] Administration Impression 1. CKD 2. SLE 3. chest pain 4. HLD 5. hx DVT 6. CHF 7. distal LAD stenosis 8. HTN Plan - cont to monitor renal function - repeat bp after am meds - pt is requesting to leave - compliance has been an issue - pt does need to find a PMD to follow as outpt - cont cellcept and prednisone - will need rheum eval as well - discussed with pulm, will need follow up for ROME testing - avoid nsaids
--- NOTE | 2018-01-04 18:03 | CONSULT ---
Consult - text type - Consultation Consultation Note: NEUROLOGY CONSULTATION is greatly appreciated. Pt has just left AMA prior to neurology consultation. Otf Tang MD
== END 2018-01-04 12:16 | disposition left against medical advice (07) | DRG 199 ==
LOC: JER 02:53 → JERBED 05:31 → OBSVTOIN 12:10 → J4W 01-03 19:13
PROVIDERS: ADMIT Family Medicine; ATTEND Internal Medicine
DX: I16.0 Hypertensive urgency (principal); E78.5 Hyperlipidemia, unspecified; J45.909 Unspecified asthma, uncomplicated; F17.210 Nicotine dependence, cigarettes, uncomplicated; E66.01 Morbid (severe) obesity due to excess calories; Z68.42 Body mass index [BMI] 45.0-49.9, adult; I25.10 Atherosclerotic heart disease of native coronary artery without angina pectoris; J44.9 Chronic obstructive pulmonary disease, unspecified; I77.1 Stricture of artery; Z91.19 Patient's noncompliance with other medical treatment and regimen; I27.20 Pulmonary hypertension, unspecified; G47.33 Obstructive sleep apnea (adult) (pediatric); M32.9 Systemic lupus erythematosus, unspecified; N18.3 Chronic kidney disease, stage 3 (moderate); D64.9 Anemia, unspecified; K21.9 Gastro-esophageal reflux disease without esophagitis; R07.89 Other chest pain; I12.9 Hypertensive chronic kidney disease with stage 1 through stage 4 chronic kidney disease, or unspecified chronic kidney disease
CPT/HCPCS: 36415; 70450-TC; 71046-TC-FY; 74019-TC-FY; 80048; 80053; 82550; 84484; 84703; 85025; 93005; 93010; 93970-TC; 99284-25; G0378; J7517

== ENCOUNTER 2018-01-28 07:32 | Inpatient (IN) | payer OTHER ==
--- NOTE | 2018-01-28 07:55 | PDOC ---
History of Present Illness - History of Present Illness Initial Comments: 01/28/18 07:54 27 yo F with h/o HTN, morbid obesity, CKD, Lupus, DVT, LAD coronary artery thrombosis, Trop above reference range, Pulmonary HTN who p/w right sided pleuritic chest pain. Patient reports onset of right sided worsening, unremitting, sharp, pleuritic, chest pain within 48 hours. Pain worse with deep inhalation, supine positioning, and touch. Also endorses cough, with absent hemoptysis for past 5 days. Denies Patient denies N/V, F/C, leg swelling, leg pain, orthopnea, PND, SOB, urinary complaints, abdominal pain, diarrhea, constipation, lightheadedness, weakness, sensory changes. PMHx: as noted above. Denies OCP use. Denies recent traveling, immobilization, malignancy, trauma or surgery within 6 weeks. Does not f/w with cardiology. Cardiac cath (09/16/17) following echo with inferoseptal hypokinesis , cardiac cath with distal LAD 70-80%. ROS: as noted SHx: 1/2 ppd 2 years tobacco use. Social Etoh. Denies IVDA Allergies: NKDA <Terrence Lopez - Last Filed: 01/28/18 11:35> <Diana Frey - Last Filed: 01/28/18 11:48> - General Chief Complaint: Chest Pain Stated Complaint: CHEST PAIN Time Seen by Provider: 01/28/18 07:50 Past History - Past Medical History Asthma: Yes Cancer: (LUPUS) Cardiac Disorders: Yes (P.E) CVA: No COPD: No DVT: (heart 2018) Dementia: No Diabetes: No GI Disorders: No Disorders: Yes (CKD) HTN: Yes Hypercholesterolemia: Yes Kidney Stones: ("dry kidneys") Liver Disease: Yes Seizures: No Thyroid Disease: (ENLARGED) Other medical history: LLE DVT,LUPUS - Surgical History Abdominal Surgery: Yes (tubal ligation) Appendectomy: No Cardiac Surgery: No Cholecystectomy: No Lung Surgery: No Neurologic Surgery: No Orthopedic Surgery: No - Family Disease History Family Disease History: Diabetes: Mother, Heart Disease: Father, Mother - Reproductive History (#): 2 Para: 2 - Immunization History Immunization Up to Date: Yes - Suicide/Smoking/Psychosocial Hx Smoking Status: Yes Smoking History: Never smoked Have you smoked in the past 12 months: Yes Number of Cigarettes Smoked Daily: 5 If you are a former smoker, when did you quit?: 3 wks ago Information on smoking cessation initiated: No 'Breaking Loose' booklet given: 12/07/17 Hx Alcohol Use: No Drug/Substance Use Hx: Yes (Marijuana) Substance Use Type: Marijuana Hx Substance Use Treatment: No <Terrence Lopez - Last Filed: 01/28/18 11:35> <ShanteDiana Pretty - Last Filed: 01/28/18 11:48> - Past Medical History Allergies/Adverse Reactions: Allergies Allergy/AdvReac Type Severity Reaction Status Date / Time No Known Drug Allergies Allergy Verified 01/28/18 07:39 Home Medications: Ambulatory Orders predniSONE [Deltasone -] 15 mg PO DAILY 07/18/15 Mycophenolate Mofetil [Cellcept] 500 mg PO TID 01/26/16 Albuterol Sulfate Inhaler - [Ventolin HFA Inhaler -] 2 inh PO Q4H PRN 02/16/16 Calcium 250Mg/Vit-D 125 Units [Oscal 250 mg+D -] 1 combo PO BID 07/24/16 Hydroxychloroquine Sulfate [Plaquenil] 200 mg PO DAILY 07/24/16 Apixaban [Eliquis -] 5 mg PO BID 12/06/17 Aspirin [ASA -] 81 mg PO DAILY 12/06/17 Atorvastatin Ca [Lipitor] 80 mg PO HS 12/06/17 Omeprazole 80 mg PO DAILY 12/06/17 Amlodipine Besylate [Norvasc -] 10 mg PO DAILY #30 tablet 12/29/17 Hydralazine HCl 100 mg PO TID #90 tablet 12/29/17 Isosorbide Mononitrate [Imdur -] 60 mg PO DAILY #30 tab.sr.24h 12/29/17 Metoprolol Succinate [Toprol Xl -] 200 mg PO DAILY #30 tab.sr.24h 12/29/17 Review of Systems - Review of Systems Comments:: 01/28/18 07:55 GENERAL/CONSTITUTIONAL: No fever or chills. No weakness. HEAD, EYES, EARS, NOSE AND THROAT: No change in vision. No ear pain or discharge. No sore throat. CARDIOVASCULAR:+ Chest pain. No shortness of breath. RESPIRATORY: +Cough. No wheezing, or hemoptysis. GASTROINTESTINAL: No nausea, vomiting, diarrhea or constipation. GENITOURINARY: No dysuria, frequency, or change in urination. MUSCULOSKELETAL: No joint or muscle swelling or pain. No neck or back pain. SKIN: No rash NEUROLOGIC: No headache, vertigo, loss of consciousness, or change in strength/ sensation. ENDOCRINE: No increased thirst. No abnormal weight change HEMATOLOGIC/LYMPHATIC: No history of blood clots. No anemia, easy bleeding. ALLERGIC/IMMUNOLOGIC: No hives or skin allergy. <Terrence Lopez - Last Filed: 01/28/18 11:35> *Physical Exam - Vital Signs Last Vital Signs Temp Pulse Resp BP Pulse Ox 99.4 F 138 H 18 148/90 100 01/28/18 07:39 01/28/18 07:39 01/28/18 07:39 01/28/18 07:39 01/28/18 07:39 - Physical Exam Comments: 01/28/18 07:55 GENERAL: Awake, alert, and fully oriented, in no acute distress HEAD: No signs of trauma, normocephalic, atraumatic EYES: PERRLA, EOMI, sclera anicteric, conjunctiva clear ENT: Hearing grossly normal, nares patent, oropharynx clear without exudates. Moist mucosa NECK: Normal ROM, supple, no lymphadenopathy, JVD, or masses LUNGS: No distress, speaks full sentences, clear to auscultation bilaterally CHEST: + Reproducible ttp at Rt second intercostal space. HEART: Regular rate and rhythm, normal S1 and S2, no murmurs, rubs or gallops, peripheral pulses normal and equal bilaterally. ABDOMEN: Soft, nontender, normoactive bowel sounds. No guarding, no rebound, no rigidity. No masses. Neg CVA ttp. EXTREMITIES : Normal inspection, Normal range of motion, no edema. No clubbing or cyanosis. SKIN: Warm, Dry, normal turgor, no rashes or lesions noted <Terrence Lopez - Last Filed: 01/28/18 11:35> - Vital Signs Last Vital Signs Temp Pulse Resp BP Pulse Ox 99.4 F 118 H 18 148/90 100 01/28/18 07:39 01/28/18 11:03 01/28/18 11:03 01/28/18 07:39 01/28/18 07:39 <Diana Frey - Last Filed: 01/28/18 11:48> Heart Score/ECG Review - History History: Slightly suspicious - Electrocardiogram EKG: Non specific repolarization disturbance - Age Age: </= 45 - Risk Factors Risk Factors Heart Score: Yes Hx Hypercholesterolemia, Yes Hx Hypertension, Yes Smoking History, Yes Positive family hx of cardiac disease, Yes Hx Obesity Based on the list above the patient has:: >/=3 risk factors or Hx atherosclerotic disease - Troponin Troponin: </= normal limit - Score Heart Score - Total: 3 <Terrence Lopez - Last Filed: 01/28/18 11:35> ED Treatment Course - LABORATORY CBC & Chemistry Diagram: 01/28/18 08:10 01/28/18 08:10 <Terrence Lopez - Last Filed: 01/28/18 11:35> - LABORATORY CBC & Chemistry Diagram: 01/28/18 08:10 01/28/18 08:10 - ADDITIONAL ORDERS Additional order review: Laboratory Results 01/28/18 01/28/18 01/28/18 08:30 08:10 08:10 PT with INR 14.90 H INR 1.26 H Sodium 140 Potassium 4.3 Chloride 111 H Carbon Dioxide 18 L Anion Gap 12 BUN 26 H Creatinine 2.5 H Creat Clearance w eGFR 22.77 Random Glucose 102 Calcium 8.8 Total Bilirubin 0.2 AST 11 L ALT 12 L Alkaline Phosphatase 53 Creatine Kinase 28 Troponin I < 0.02 Total Protein 6.8 Albumin 3.0 L Serum , Qual Negative 01/28/18 08:10 RBC 3.00 L MCV 91.6 MCHC 32.8 RDW 13.4 MPV 9.1 Neutrophils % 88.5 H Lymphocytes % 7.3 L D Monocytes % 4.1 Eosinophils % 0.0 D Basophils % 0.1 - Medications Given in the ED: ED Medications Discontinued Medications Generic Name Dose Route Start Last Admin Trade Name Ifeanyiq PRN Reason Stop Dose Admin Acetaminophen 1,000 mg 01/28/18 08:07 01/28/18 08:32 Ofirmev Injection - IVPB 01/28/18 08:08 1,000 mg ONCE ONE Administration Lidocaine 1 patch 01/28/18 09:49 01/28/18 09:56 Lidoderm Patch - TP 01/28/18 09:50 1 patch ONCE ONE Administration Morphine Sulfate 2 mg 01/28/18 09:08 01/28/18 09:08 Morphine Injection - IVPUSH 01/28/18 09:09 2 mg NOW ONE Administration <Diana Frey - Last Filed: 01/28/18 11:48> Medical Decision Making - Medical Decision Making 01/28/18 08:21 27 yo F with h/o HTN, morbid obesity, CKD, Lupus, DVT, LAD coronary artery thrombosis, Trop above reference range, Pulmonary HTN who p/w right sided pleuritic chest pain. VSS, AF. Right sided chest wall pain reproducible with ttp. ACS/PR r/o. R/o PNA. Will consider PE. Low suspicion asthma, COPD, pericarditis. No evidence of fluid/volume overload. Low suspicion CHF. Possible costochondritis. ED Course: CBC,CMP, Cardiac Pr. Pt/INR, HCG, UA EKG, CXR Tylenol 1000 mg, Morphine 4 mg, Lidoderm patch 01/28/18 09:35 WBC: 11.1 01/28/18 09:46 BUN/Cr: 26/2.5 CXR: Unremarkable 01/28/18 10:36 EKG: Sinus tachycardia 136, with absent ANDREA, STD. + Q waves lead, II, III, AvF. Normal axis and interval duration. Plan to admit to hospital elevated heart score 3, with risk factors, and intractable chest pain. Possible V/Q scan. Cannot definitively r/o PE. 01/28/18 10:48 Patient admitted to hospitalist Dr. Sanchez. CT CHEST NON CON PENDING. <Terrence Lopez - Last Filed: 01/28/18 11:35> *DC/Admit/Observation/Transfer - Discharge Dispostion Decision to Admit order: Yes <Terrence Lopez - Last Filed: 01/28/18 11:35> - Discharge Dispostion Decision to Admit order: Yes Decision to Admit order Date/Time: 01/28/18 11:48 <Diana Frey - Last Filed: 01/28/18 11:48> Diagnosis at time of Disposition: Pleurisy Chest pain Qualifiers: Chest pain type: chest pain on breathing Qualified Code(s): R07.1 - Chest pain on breathing - Discharge Dispostion Condition at time of disposition: Stable
[2018-01-28] MEDS ORDERED: ACETAMINOPHEN 1000 MG/100 ML VIAL (NON FORMULARY) IVPB ONE ×2 (08:07→21:27)
[2018-01-28] MEDS ORDERED: ACETAMINOPHEN INJECTION 100 ML IVPB ONE (08:21)
[2018-01-28 08:32] LABS: BASO % 0.1 % (0-2.0); HEMATOCRIT 27.5 % (32.4-45.2); LYMPH % 7.3 % (8-40); MCHC 32.8 g/dl (32.0-36.0); MEAN CELL VOLUME 91.6 fl (80-96); MEAN PLT VOLUME 9.1 fl (7.5-11.1); MONO % 4.1 % (3.8-10.2); NEUT % 88.5 % (42.8-82.8); PLATELET COUNT 162 K/MM3 (134-434); RDW 13.4 % (11.6-15.6); WHITE BLOOD COUNT 11.1 K/mm3 (4.0-10.0)
[2018-01-28] MEDS ORDERED: MORPHINE SULFATE 2 MG/ML VIAL ONE ×2 (08:59→11:41)
[2018-01-28 09:07] LABS: INR 1.26 (0.83-1.09); PROTHROMBIN TIME (PATIENT) 14.9 SEC (9.7-13.0)
[2018-01-28] MEDS ORDERED: morphine CARPU-JECT 2 MG/1 ML DISP.SYRIN IVPUSH ONE (09:08)
[2018-01-28 09:15] LABS: ALK PHOS 53 U/L (45-117); ANION GAP 12 MMOL/L (8-16); BILIRUBIN,TOTAL 0.2 mg/dL (0.2-1); BLOOD UREA NITROGEN 26 mg/dL (7-18); CALCIUM 8.8 mg/dL (8.5-10.1); CHLORIDE 111 mmol/L (98-107); CO2 18 mmol/L (21-32); CREATININE 2.5 mg/dL (0.55-1.3); GLUCOSE,RANDOM 102 mg/dL (74-106); POTASSIUM 4.3 mmol/L (3.5-5.1); SGOT/AST 11 U/L (15-37); SGPT/ALT 12 U/L (13-61); SODIUM 140 mmol/L (136-145); TOT PROT 6.8 g/dl (6.4-8.2)
[2018-01-28] MEDS ORDERED: LIDOCAINE 5% TOPICAL PATCH TP ONE (09:49)
[2018-01-28] MEDS ORDERED: LIDOCAINE 5% TOPICAL PATCH ONE (09:53)
[2018-01-28] MEDS ORDERED: SODIUM CHLORIDE 1,000 ML IV SCH (11:00)
[2018-01-28] MEDS ORDERED: HEPARIN NA (PORCINE) 5,000 UNITS/ML 1ML VIAL IVPUSH ONE (11:06)
[2018-01-28] MEDS ORDERED: HEPARIN NA (PORCINE) 5,000 UNITS/ML 1ML VIAL IVPUSH PRN ×2 (11:06)
--- NOTE | 2018-01-28 11:08 | HP ---
CHIEF COMPLAINT: R sided chest pain PCP: none currently HISTORY OF PRESENT ILLNESS: 27 year old female with a significant pmh of hypertension, CKD stage 3/4, lupus , multiple DVTs, LAD thrombosis, and pulmonary hypertension presents to the hospital for 3 days of right sided chest pain. She reports that the pain is pluritic in nature and worse when she takes a deep breath and lays down. Reports that it started suddenly while she was sleeping and has been sharp/ consistent. Reports a mild cough for 4 days productive of yellowish sputum. States that it is worse when she presses on it. Denies left sided chest pain. Reports that it is only associated with mild palpitations. Denies shortness of breath or dyspnea on exertion. Reports that she may have felt a similar pain last year when she had a clot in her left knee, but not since. Denies fevers, chills, nausea, vomiting, diarrhea. No recent travel, no long car rides, no sick contacts, no calf tenderness, denies OCP use. ER course was notable for: (1) BUN/Cre 26/2.5 (2) Trop (-) (3) BNP 8800 (4) Recent Travel: denies PAST MEDICAL HISTORY: hypertension, CKD stage 3/4, lupus, multiple DVTs, LAD thrombosis, and pulmonary hypertension Social History: Smokin ppd since 12 years old, quit 2 months ago Alcohol: social Drugs: denies Family History: Grandmother with lupus Mother with hypertension and diabetes Allergies No Known Drug Allergies Allergy (Verified 01/28/18 07:39) HOME MEDICATIONS: Home Medications Medication Instructions Recorded predniSONE [Deltasone -] 15 mg PO DAILY 07/18/15 Mycophenolate Mofetil [Cellcept] 500 mg PO TID 01/26/16 Albuterol Sulfate Inhaler - 2 inh PO Q4H PRN 02/16/16 [Ventolin HFA Inhaler -] Calcium 250Mg/Vit-D 125 Units 1 combo PO BID 07/24/16 [Oscal 250 mg+D -] Hydroxychloroquine Sulfate 200 mg PO DAILY 07/24/16 [Plaquenil] Apixaban [Eliquis -] 5 mg PO BID 12/06/17 Aspirin [ASA -] 81 mg PO DAILY 12/06/17 Atorvastatin Ca [Lipitor] 80 mg PO HS 12/06/17 Omeprazole 80 mg PO DAILY 12/06/17 Amlodipine Besylate [Norvasc -] 10 mg PO DAILY #30 tablet 12/29/17 Hydralazine HCl 100 mg PO TID #90 tablet 12/29/17 Isosorbide Mononitrate [Imdur -] 60 mg PO DAILY #30 tab.sr.24h 12/29/17 Metoprolol Succinate [Toprol Xl -] 200 mg PO DAILY #30 tab.sr.24h 12/29/17 REVIEW OF SYSTEMS CONSTITUTIONAL: Absent: fever, chills, diaphoresis, generalized weakness, malaise, loss of appetite, weight change HEENT: Absent: rhinorrhea, nasal congestion, throat pain, throat swelling, difficulty swallowing, mouth swelling, ear pain, eye pain, visual changes CARDIOVASCULAR: chest pain Absent: syncope, palpitations, irregular heart rate, lightheadedness, peripheral edema RESPIRATORY: cough Absent: shortness of breath, dyspnea with exertion, orthopnea, wheezing, stridor , hemoptysis GASTROINTESTINAL: Absent: abdominal pain, abdominal distension, nausea, vomiting, diarrhea, constipation, melena, hematochezia GENITOURINARY: Absent: dysuria, frequency, urgency, hesitancy, hematuria, flank pain, genital pain MUSCULOSKELETAL: Absent: myalgia, arthralgia, joint swelling, back pain, neck pain SKIN: Absent: rash, itching, pallor HEMATOLOGIC/IMMUNOLOGIC: Absent: easy bleeding, easy bruising, lymphadenopathy, frequent infections ENDOCRINE: Absent: unexplained weight gain, unexplained weight loss, heat intolerance, cold intolerance NEUROLOGIC: Absent: headache, focal weakness or paresthesias, dizziness, unsteady gait, seizure, mental status changes, bladder or bowel incontinence PSYCHIATRIC: Absent: anxiety, depression, suicidal or homicidal ideation, hallucinations. PHYSICAL EXAMINATION Vital Signs - 24 hr 01/28/18 01/28/18 07:39 11:03 Temperature 99.4 F Pulse Rate 138 H Pulse Rate [ 118 H Apical] Respiratory 18 18 Rate Blood Pressure 148/90 O2 Sat by Pulse 100 Oximetry (%) GENERAL: A&Ox3, mild distress EYES: PERRLA, EOMI ENT: Moist mucus membranes NECK: No JVD LUNGS: CTA, no wheezes HEART: tachycardic, no murmurs, tender to palpation on R chest wall and R back ABDOMEN: Obese abdomen, soft, nontender, BS present MUSCULOSKELETAL: No CVA Tenderness EXTREMITIES: 2+ pulses, no edema, no calf tenderness, solomon sign negative NEUROLOGICAL: Cranial nerves II-XII intact. Laboratory Results - last 24 hr 01/28/18 01/28/18 01/28/18 08:10 08:10 08:10 WBC 11.1 H RBC 3.00 L Hgb 9.0 L Hct 27.5 L MCV 91.6 MCH 30.0 MCHC 32.8 RDW 13.4 Plt Count 162 D MPV 9.1 Absolute Neuts (auto) 9.9 H Neutrophils % 88.5 H Lymphocytes % 7.3 L D Monocytes % 4.1 Eosinophils % 0.0 D Basophils % 0.1 Nucleated RBC % 0 PT with INR 14.90 H INR 1.26 H Sodium 140 Potassium 4.3 Chloride 111 H Carbon Dioxide 18 L Anion Gap 12 BUN 26 H Creatinine 2.5 H Creat Clearance w eGFR 22.77 Random Glucose 102 Calcium 8.8 Total Bilirubin 0.2 AST 11 L ALT 12 L Alkaline Phosphatase 53 Creatine Kinase 28 Troponin I < 0.02 Total Protein 6.8 Albumin 3.0 L Serum , Qual 01/28/18 08:30 WBC RBC Hgb Hct MCV MCH MCHC RDW Plt Count MPV Absolute Neuts (auto) Neutrophils % Lymphocytes % Monocytes % Eosinophils % Basophils % Nucleated RBC % PT with INR INR Sodium Potassium Chloride Carbon Dioxide Anion Gap BUN Creatinine Creat Clearance w eGFR Random Glucose Calcium Total Bilirubin AST ALT Alkaline Phosphatase Creatine Kinase Troponin I Total Protein Albumin Serum , Qual Negative ASSESSMENT/PLAN: 27 year old female with a significant pmh of hypertension, CKD stage 3/4, lupus , multiple DVTs, LAD thrombosis, and pulmonary hypertension presents to the hospital for 3 days of right sided chest pain and admitted for treatment of possible pulmonary embolism #Right Sided Pleuritic Chest Pain: we are evaluating for pulmonary embolism due to history of multiple thromboses and clinical nature of her pain as well as concurrently treating -patient was on eliquis at home, held the eliquis and began heparin ggt -EKG shows sinus tachycardia rate 136, qtc 445, could have had inferior infarct since previous admission -repeat echocardiogram to check for right heart strain -start on heparin ggt 18mgs/kg dosing -pain control morphine 2mg -vital signs q4h -trend troponins -morphine for pain -telemetry monitoring -CT chest done, showed 1.6cm lung nodule on R lung periphery touching pleura -lower extremity duplex b/l ordered -cards consulted -pulm consulted #Lupus: unclear whether she is currently having a flair -continue home Hydroxychloroquine 200 daily -continue prednisone 15mg -continue cellcept 500 -rheum consulted #CKD: stage 4 with GFR < 30 -continue HCTZ #LAD Thrombus: found on another admission -held eliquis due to concerns for PE -heparin ggt -ASA -atorvastatin 80mg #Hypertension -home metoprolol 200mg daily -home amlodipine 10mg daily -home hydralazine #FEN -heparin ggt -no standing fluids -cardiac diet #Prophylaxis -heparin ggt #Disposition -admit inpatient telemetry Visit type - Emergency Visit Emergency Visit: Yes ED Registration Date: 01/28/18 Care time: The patient presented to the Emergency Department on the above date and was hospitalized for further evaluation of their emergent condition. - New Patient This patient is new to me today: Yes Date on this admission: 01/28/18 - Critical Care Critical Care patient: No Hospitalist Screening - Colonoscopy Questionnaire Colonoscopy Questionnaire: Colonoscopy Questionnaire - Patient: 50 - 75 years old and never had a screening colonoscopy: Unknown History of colon or rectal polyps, or CA: Unknown History of IBD, Crohn's disease or UC: Unknown History of abdominal radiation therapy as a child: Unknown - Relative: 1 with colon or rectal CA, or polyps at age 60 or younger: Unknown Colon or rectal CA diagnosed at age 45 or younger: Unknown Multiple relatives with colon or rectal CA: Unknown - Outcome: Screening Result: Negative Screen
[2018-01-28] MEDS ORDERED: morphine CARPU-JECT 4 MG/1 ML DISP.SYRIN IVPUSH ONE (11:41)
--- NOTE | 2018-01-28 11:48 | PDOC ---
Attending Attestation - Resident Resident Name: JohnPeeTerrence - ED Attending Attestation I have performed the following: I have examined & evaluated the patient, The case was reviewed & discussed with the resident, I agree w/resident's findings & plan - HPI HPI: 01/28/18 11:42 27 yo F with h/o HTN, morbid obesity, CKD, Lupus, DVT/PE on eliquis, LAD coronary artery thrombosis, Trop above reference range, Pulmonary HTN who p/w right sided pleuritic chest pain x 2 days. - Physicial Exam PE: 01/28/18 11:43 NAD, well appearing, MMM, nl conjunctiva, anicteric; neck supple. lungs clear, mildly tachypneic. +tachycardic, abdomen soft nontender. obese abdomen. SANCHEZ x4, no focal neuro deficits. No peripheral edema. normal color for ethnicity, WWP. - Medical Decision Making 01/28/18 11:43 27 yo F with h/o HTN, morbid obesity, CKD, Lupus, DVT, LAD coronary artery thrombosis, Trop above reference range, Pulmonary HTN who p/w right sided pleuritic chest pain. DDx SOB: ACS, PE, CHF, pulmonary edema, pleurisy, pneumonia, viral syndrome. effusion. anemia, electrolyte/metabolic derangements. Vital signs reviewed, notable for tachycardia. no fever. Prior notes reviewed, including admissions, discharges and consultations. laboratory results and imaging reviewed, basic labs and lytes wnl, notable for neg trop. Cr at baseline elevation c/w CKD, baseline anemia. EKG sinus tachycardia., no interval abnormalities, narrow QRS, ST and T wave segments and morphology normal. Nonspecific T wave abnormalities, TWI and Q waves in inferior leads. ED course: given morphine for pain. lidoderm patch, tylenol, with minimal relief. right sided cp, atypical in nature, but also reproducible, but also with several comorbidities including cardiopulmonary disease, on AC already. CXR neg/clear for infiltrate. +cardiomegaly, as expected with medical comorbidities. mod=high risk for PE, will admit for V/Q scan as currently stable, no hemodynamic changes, no trop elevation. Dispo: Admit for chest pain, r/o ACS with risk factors, monitoring and V/Q scan to r/o PE, pain control and medical management.. Discussed results and management plan with pt and family member at bedside, agree with impression and plan 01/28/18 11:47 Heart Score/ECG Review - ECG Impressions Comment:: 01/28/18 11:47 EKG sinus tachycardia., no interval abnormalities, narrow QRS, ST and T wave segments and morphology normal. Nonspecific T wave abnormalities, TWI and Q waves in inferior leads.
[2018-01-28] MEDS ORDERED: HEPARIN NA (PORCINE) 5,000 UNITS/ML 1ML VIAL ONE (12:02)
[2018-01-28] MEDS ORDERED: HEPARIN INFUSION - 25,000 UNITS/500 ML INFUS.BAG IVPB ONE (12:02)
[2018-01-28] MEDS: HEPARIN INFUSION - 25,000 UNITS/500 ML INFUS.BAG IVPB SCH ×2 (12:17→23:00)
[2018-01-28 12:37] LABS: N-TERMINAL BNP 8802.7 pg/ml (5-125)
[2018-01-28] MEDS ORDERED: ALBUTEROL SO4 8 GM HFA INHALER IH PRN (13:02)
[2018-01-28] MEDS ORDERED: morphine CARPU-JECT 4 MG/1 ML DISP.SYRIN IVPUSH PRN ×2 (13:02→13:38)
[2018-01-28] MEDS ORDERED: predniSONE 20 MG TABLET (UD) PO SCH (13:15)
[2018-01-28] MEDS ORDERED: predniSONE 10 MG TABLET (UD) ONE (13:17)
[2018-01-28] MEDS ORDERED: ISOSORBIDE MONONITRATE 60 MG TAB.SR.24H (FP) PO ONE (13:18)
[2018-01-28] MEDS: ISOSORBIDE MONONITRATE 60 MG TAB.SR.24H (FP) PO SCH (13:22)
--- NOTE | 2018-01-28 13:33 | PN ---
Teaching Attending Note Name of Resident: Landon Weber ATTENDING PHYSICIAN STATEMENT I saw and evaluated the patient. I reviewed the resident's note and discussed the case with the resident. I agree with the resident's findings and plan as documented with exceptions below. SUBJECTIVE: 27 yof with PMHX of SLE, HTN, HLD, obesity, CKD stage 3 (baseline cr 2.5), h/o LLE DVT 06/2016, Cardiac cath done 09/16/17 after an echo showed inferoseptal hypokinesis done as preop for bariatric surgery, cath showed distal LAD 70-80% thrombotic appearing stenosis with otherwise normal coronary arteries, no PCI was performed as felt to be a risk given history of thrombosis and pt was changed to Eliquis, prior h/o leaving AMA, concerns for medication non adherance , comes with 4-5 days of right sided upper chest pain, worse with breathing, right shoulder movements, lying flat associated with cough with scant mucoid sputum and palpitations but non exertional and no reported fevers, chest pressure, arm or jaw pain, diaphoresis, recent OCPs, immobilization or travel. Reports prior flares with generalized bodyaches/arthalgias but no chest pain or concerns. Confirms, compliance with her eliquis on repeat questioning. Reports weight loss 20 lbs in last 2 weeks, but no orthopnea, PND, leg swelling noted. 12 point ROS done, neg except above. OBJECTIVE: Vital Signs Period Temp Pulse Resp BP Sys/Willett Pulse Ox Last 24 Hr 99.4 F 118-138 18-20 142-148/90-95 98-100 Intake & Output 01/25/18 01/26/18 01/27/18 01/28/18 23:59 23:59 23:59 23:59 Weight 280 lb GENERAL: Awake, alert, and fully oriented, in no acute distress, able to talk in full sentences HEAD: Normal with no signs of trauma. EYES: Pupils equal, round and reactive to light, extraocular movements intact, sclera anicteric, conjunctiva clear. No lid lag. EARS, NOSE, THROAT: Ears normal, nares patent, oropharynx clear without exudates. Moist mucous membranes. NECK: soft, supple, no JVD visualized LUNGS: CTAB, no rales or wheezing HEART: S1s2 regular rapid ABDOMEN: Soft, nontender, not distended, normoactive bowel sounds, no guarding, no rebound, no masses. No hepatomegaly or splenomegaly. MUSCULOSKELETAL: right upper chest wall tenderness to palpation, shoulder abduction upto 80 degree, unable to elevate, pain at right chest wall site. UPPER EXTREMITIES: 2+ pulses, warm, well-perfused. No cyanosis. No clubbing. No peripheral edema. LOWER EXTREMITIES: 2+ pulses, warm, well-perfused. No calf tenderness. No peripheral edema, no calf tenderness, neg Aminah's sign. NEUROLOGICAL: Cranial nerves II-XII intact. Normal speech. facial symmetry, tongue midline, power 5/5, sensation intact to light touch PSYCHIATRIC: Cooperative. Good eye contact. Appropriate mood and affect. SKIN: Warm, dry, normal turgor, no rashes or lesions noted, normal capillary refill. Home Medications Medication Instructions Recorded Mycophenolate Mofetil [Cellcept] 500 mg PO TID 01/26/16 Albuterol Sulfate Inhaler - 2 inh PO Q4H PRN 02/16/16 [Ventolin HFA Inhaler -] Calcium 250Mg/Vit-D 125 Units 1 combo PO BID 07/24/16 [Oscal 250 mg+D -] Hydroxychloroquine Sulfate 200 mg PO DAILY 07/24/16 [Plaquenil] Apixaban [Eliquis -] 5 mg PO BID 12/06/17 Aspirin [ASA -] 81 mg PO DAILY 12/06/17 Atorvastatin Ca [Lipitor] 80 mg PO HS 12/06/17 Omeprazole 20 mg PO DAILY 12/06/17 Amlodipine Besylate [Norvasc -] 10 mg PO DAILY #30 tablet 12/29/17 Hydralazine HCl 100 mg PO TID #90 tablet 12/29/17 Isosorbide Mononitrate [Imdur -] 60 mg PO DAILY #30 tab.sr.24h 12/29/17 Hydrochlorothiazide [Hctz -] 25 mg PO DAILY 01/28/18 Metoprolol Succinate [Toprol Xl -] 50 mg PO DAILY 01/28/18 Prednisone 5 mg PO TID 01/28/18 Active Medications Albuterol Sulfate (Ventolin Hfa Inhaler -) 2 puff IH Q4H PRN PRN Reason: ASTHMA Amlodipine Besylate (Norvasc -) 10 mg PO DAILY [facility] Aspirin (Asa -) 81 mg PO DAILY [facility] Atorvastatin Calcium (Lipitor -) 80 mg PO HS [facility] Calcium/Vitamin D (Oscal 250 Mg+D -) 1 tab PO BID [facility] Heparin Sodium (Porcine) (Heparin -) 5,100 unit 40 unit/kg (5100 unit) IVPUSH PRN PRN PRN Reason: For aPTT 35 to 45 seconds Heparin Sodium (Porcine) (Heparin -) 10,200 unit 80 unit/kg (47014 unit) IVPUSH PRN PRN PRN Reason: aPTT <35 seconds Hydralazine HCl (Apresoline -) 100 mg PO TID [facility] Hydroxychloroquine Sulfate (Plaquenil -) 200 mg PO DAILY [facility] Heparin Sodium/Dextrose (Heparin Infusion -) 25,000 units in 500 mls @ 45.722 mls/hr IVPB TITR [facility]; Protocol Last Admin: 01/28/18 12:17 Dose: 18 units/kg/hr, 45.722 mls/hr Isosorbide Mononitrate (Imdur -) 60 mg PO DAILY [facility] Last Admin: 01/28/18 13:22 Dose: 60 mg Lidocaine (Lidoderm Patch -) 1 patch TP DAILY [facility] Metoprolol Succinate (Toprol Xl -) 200 mg PO DAILY [facility] Miscellaneous (Lidoderm Patch Removal) 1 each MC DAILY@2200 [facility] Miscellaneous (Lidoderm Patch Removal) 1 each MC DAILY@2200 [facility] Morphine Sulfate (Morphine Injection -) 2 mg IVPUSH Q4H PRN PRN Reason: PAIN LEVEL 6-10 Mycophenolate Mofetil (Cellcept -) 500 mg PO TID [facility] Non-Formulary Medication (Omeprazole [Omeprazole]) 80 mg PO DAILY [facility] Prednisone (Deltasone -) 15 mg PO DAILY [facility] Laboratory Results - last 24 hr 01/28/18 01/28/18 01/28/18 08:10 08:10 08:10 WBC 11.1 H RBC 3.00 L Hgb 9.0 L Hct 27.5 L MCV 91.6 MCH 30.0 MCHC 32.8 RDW 13.4 Plt Count 162 D MPV 9.1 Absolute Neuts (auto) 9.9 H Neutrophils % 88.5 H Lymphocytes % 7.3 L D Monocytes % 4.1 Eosinophils % 0.0 D Basophils % 0.1 Nucleated RBC % 0 PT with INR 14.90 H INR 1.26 H Sodium 140 Potassium 4.3 Chloride 111 H Carbon Dioxide 18 L Anion Gap 12 BUN 26 H Creatinine 2.5 H Creat Clearance w eGFR 22.77 Random Glucose 102 Calcium 8.8 Total Bilirubin 0.2 AST 11 L ALT 12 L Alkaline Phosphatase 53 Creatine Kinase 28 Troponin I < 0.02 B-Natriuretic Peptide 8802.7 H Total Protein 6.8 Albumin 3.0 L Serum , Qual 01/28/18 08:30 WBC RBC Hgb Hct MCV MCH MCHC RDW Plt Count MPV Absolute Neuts (auto) Neutrophils % Lymphocytes % Monocytes % Eosinophils % Basophils % Nucleated RBC % PT with INR INR Sodium Potassium Chloride Carbon Dioxide Anion Gap BUN Creatinine Creat Clearance w eGFR Random Glucose Calcium Total Bilirubin AST ALT Alkaline Phosphatase Creatine Kinase Troponin I B-Natriuretic Peptide Total Protein Albumin Serum , Qual Negative CT chest RUL spiculated 1.6 lung nodule, ?air space disease with posterior right lower lobe EKG sinus tach 130s. Q in II/III/aVF, T inversion in III (new), S1Q3T3 ASSESSMENT AND PLAN: 27 yof with PMHX of SLE, HTN, HLD, obesity, CKD stage 3, h/o DVT 06/2016, Cardiac cath done 09/16/17 after an echo showed inferoseptal hypokinesis done as preop for bariatric surgery, cath showed distal LAD 70-80% thrombotic appearing stenosis with otherwise normal coronary arteries, no PCI was performed as felt to be a risk given history of thrombosis and pt was changed to Eliquis, admitted with right sided chest pain, sinus tachycardia. -Right sided chest pain, reproducible/worse with shoulder movements, r/o SLE flare/PE/Musculoskeletal etiology, Exam not consistent with location of lung nodule. low suspicion for cardiac etiology -RUL spiculated lung nodule concerning for neoplasm -SLE -HTN -HLD -CKD stage III, baseline cr around 2.5 -h/o LLE DVT 06/2016 -Distal LAD 70-80% thombotic appearing stenosis on Eliquis Plan: CT chest noted. Long standing prior history with signing out AMA and concern for medication non adherance. Patient adamantly confirms eliquis compliance. Place on heparin drip, monitor hemodynamics closely. Pulmonary consult. Anticipate IR guided lung biopsy when active concerns improved. Repeat 2D echo. Concerns for interim inferior infarct on EKG. Cardiology input. Telemetry, cycle trop. Continue ASA/statin/imdur/metoprolol/hydralazine/hctz/amlodipine. Rheumatology input especially if persistent symptoms and w/u unrevealing. Continue plaquenil/cellcept/prednisone. Pain control with lidocaine patch/mophine prn. Monitor volume status. Avoid additional hydration, monitor renal function. Renal input if new concerns. DVTPPX as above. Dispo pending clinical improvement. Plan discussed with patient and at bedside in detail, all questions answered. Total admit time 65 min.
[2018-01-28] MEDS ORDERED: morphine SULFATE 4 MG/ML VIAL ONE ×2 (13:45→18:16)
[2018-01-28] MEDS: HYDROXYCHLOROQUINE SO4 200 MG TABLET (FP) PO SCH (14:00)
[2018-01-28] MEDS ORDERED: hydrALAZINE HCL 25 MG TABLET (FP) ONE (15:08)
[2018-01-28] MEDS: MYCOPHENOLATE MOFETIL 500 MG TABLET PO SCH ×2 (15:37→23:18)
[2018-01-28] MEDS: hydrALAZINE HCL 50 MG TABLET (FP) PO SCH ×2 (15:37→22:11)
[2018-01-28] MEDS ORDERED: MORPHINE SULFATE 2 MG/ML VIAL IVPUSH ONE (20:00)
[2018-01-28] MEDS: ATORVASTATIN CA 80 MG TABLET (FP) PO SCH (22:11)
[2018-01-28] MEDS: CALCIUM 250MG/VIT-D 125 UNITS 1 COMBO TABLET PO SCH (22:11)
--- NOTE | 2018-01-28 22:33 | CONSULT ---
Consult Consult Specialty:: Rheumatology - History of Present Illness History of Present Illness: 27 y/o female with history of SLE, HTN, HLD, obesity, CKD stage 3 (baseline cr 2.5), h/o LLE DVT 06/2016, Cardiac cath done 09/16/17 after an echo showed inferoseptal hypokinesis done as preop for bariatric surgery, cath showed distal LAD 70-80% thrombotic appearing stenosis with otherwise normal coronary arteries, no PCI was performed as felt to be a risk given history of thrombosis and pt was changed to Eliquis, prior h/o leaving AMA, concerns for medication non adherence, admitted with chest pain. HPI. The patient reports a 2 year history of progressive stabbing, pleuritic chest pain in the right side of the chest and questionable shortness of breath. She does not have fever, pulse is 100 and O2 saturation 98%. Duplex US waqs negative for DVT. CT chest reported with 1.6 cm spiculated nodule in RUL suspicious of malignancy and irregular consolidation in the posterior aspect of the right lung base suspicious of inflammation or infection. The patient was admitted on 12/06/17 and 12/26/17 with chest pain and palpitations , however she reports that the presentation was different on those admission. At that time the pain resolved with analgesics. Lupus: The patient reports she was diagnosed with lupus at age 23. She initially developed diffuse aches and pains. She had abnormal serology and kidney function. Since then she has been treated with Prednisone, initially 80 mg/d and presently on 15 mg/d, Mycophenolate 500 mg BID (or TID, not clear), ( never a higher dose) and plaquenil 200 mg BID. She has a 2 year history of Acrocyanosis (apparently no triphasic Raynaud's), hair loss, dry eyes, dry mouth and apparently has had retinopathy. At the present time she continues haviong severe chest pain. Labs creatinine 2.5, CK 28, tropo I <0.02, B-natriuretic peptide 8802, INR 1.26, PTT: 282.4. Urinalysis (12/26/17): Protein 3+, blood 3+ prot/creat ratio 4.2. Rheumatoid factor was negative, no other serology available. - Past Medical History IN SERVICE COORDINATOR: Yes: CVA Cardio/Vascular: Yes: CAD, Deep Vein Thrombosis, HTN, Other (large heart) Pulmonary: Yes: COPD Renal/: Yes: Renal Inusuff ...LMP: 11/23/15 Musculoskeletal: Yes: Chronic low back pain, Other (arthralgia) Rheumatology: Yes: Lupus - Past Surgical History Past Surgical History: Yes: Vein Stripping/Ligation (labioplasty) - Alcohol/Substance Use Hx Alcohol Use: No - Smoking History Smoking history: Never smoked Have you smoked in the past 12 months: Yes Aproximately how many cigarettes per day: 5 If you are a former smoker, when did you quit?: 3 wks ago - Social History ADL: Independent History of Recent Travel: No Home Medications - Allergies Allergies/Adverse Reactions: Allergies Allergy/AdvReac Type Severity Reaction Status Date / Time No Known Drug Allergies Allergy Verified 01/28/18 07:39 - Home Medications Home Medications: Ambulatory Orders Mycophenolate Mofetil [Cellcept] 500 mg PO TID 01/26/16 Albuterol Sulfate Inhaler - [Ventolin HFA Inhaler -] 2 inh PO Q4H PRN 02/16/16 Calcium 250Mg/Vit-D 125 Units [Oscal 250 mg+D -] 1 combo PO BID 07/24/16 Hydroxychloroquine Sulfate [Plaquenil] 200 mg PO DAILY 07/24/16 Apixaban [Eliquis -] 5 mg PO BID 12/06/17 Aspirin [ASA -] 81 mg PO DAILY 12/06/17 Atorvastatin Ca [Lipitor] 80 mg PO HS 12/06/17 Omeprazole 20 mg PO DAILY 12/06/17 Amlodipine Besylate [Norvasc -] 10 mg PO DAILY #30 tablet 12/29/17 Hydralazine HCl 100 mg PO TID #90 tablet 12/29/17 Isosorbide Mononitrate [Imdur -] 60 mg PO DAILY #30 tab.sr.24h 12/29/17 Hydrochlorothiazide [Hctz -] 25 mg PO DAILY 01/28/18 Metoprolol Succinate [Toprol Xl -] 200 mg PO DAILY 01/28/18 Prednisone 15 mg PO DAILY 01/28/18 Family Disease History - Family Disease History Family Disease History: Other: Grandparent (Paternal grandfather had lupus) Review of Systems - Review of Systems Constitutional: reports: Malaise Eyes: reports: Recent Change in Vision HENT: reports: No Symptoms Neck: reports: No Symptoms Cardiovascular: reports: Chest Pain Respiratory: reports: SOB Gastrointestinal: reports: No Symptoms Musculoskeletal: reports: Other (Intermittent arthralgia in wrists and ankles.) Neurological: reports: No Symptoms Physical Exam Vital Signs: Vital Signs Temperature 98.8 F 01/28/18 17:00 Pulse Rate 100 H 01/28/18 17:00 Respiratory Rate 18 01/28/18 17:00 Blood Pressure 124/82 01/28/18 17:00 O2 Sat by Pulse Oximetry (%) 98 01/28/18 15:48 Constitutional: Yes: Severe Distress Eyes: Yes: WNL HENT: Yes: WNL Neck: Yes: WNL Cardiovascular: Yes: WNL Respiratory: Yes: Other (Severe chest ain in the right anterior aspecto of chest. Lungs were well ventilated.) Musculoskeletal: Yes: Other (No active joints.) Labs: CBC, BMP 01/28/18 08:10 01/28/18 08:10 Laboratory Tests 01/28/18 01/28/18 01/28/18 08:10 08:10 15:29 PT with INR 14.90 H INR 1.26 H PTT (Actin FS) Calcium 8.8 Total Bilirubin 0.2 AST 11 L ALT 12 L Alkaline Phosphatase 53 Creatine Kinase 28 27 Troponin I < 0.02 0.02 B-Natriuretic Peptide 8802.7 H Total Protein 6.8 01/28/18 17:20 PT with INR INR PTT (Actin FS) 282.4 H Calcium Total Bilirubin AST ALT Alkaline Phosphatase Creatine Kinase Troponin I B-Natriuretic Peptide Total Protein Problem List - Problems (1) Chest pain Assessment/Plan: Severe chest pain mainly right side, etiology to be determined. History of thrombosis. Rule out PE. On heparin (not candidate for CTA) Code(s): R07.9 - CHEST PAIN, UNSPECIFIED (2) Lupus Assessment/Plan: Probable systemic lupus erythematosus with kidney involvement. She has never had a kidney biopsy and apparently she never received adequate doses of Mycophenolate. If she has OR it could be related to antiphospholipid syndrome. The patient is on Heparin. I will obtain serology and complement. I will try to get more information from her membership secretary. Code(s): M32.9 - SYSTEMIC LUPUS ERYTHEMATOSUS, UNSPECIFIED
--- NOTE | 2018-01-28 23:14 | EKG ---
Test Reason : Blood Pressure : / mmHG Vent. Rate : 136 BPM Atrial Rate : 136 BPM P-R Int : 142 ms QRS Dur : 086 ms QT Int : 296 ms P-R-T Axes : 054 041 022 degrees QTc Int : 445 ms SINUS TACHYCARDIA CANNOT RULE OUT INFERIOR INFARCT , AGE UNDETERMINED ABNORMAL ECG WHEN COMPARED WITH ECG OF 02-JAN-2018 07:36, T WAVE INVERSION NO LONGER EVIDENT IN ANTERIOR LEADS Confirmed by ROBBY KELLEY, CARLITO ([id number]) on 01/28/2018 11:14:00 PM Referred By: Confirmed By:CARLITO BUSTAMANTE MD
[2018-01-28] MEDS: morphine SULFATE 4 MG/ML VIAL IVPUSH PRN (23:17)
[2018-01-28] MEDS: LIDOCAINE PATCH REMOVAL MC SCH ×2 (23:18→23:19)
[2018-01-29] MEDS: morphine SULFATE 4 MG/ML VIAL IVPUSH PRN ×4 (03:00→15:10)
[2018-01-29] MEDS: MYCOPHENOLATE MOFETIL 500 MG TABLET PO SCH ×3 (06:50→22:12)
[2018-01-29] MEDS: hydrALAZINE HCL 50 MG TABLET (FP) PO SCH ×3 (06:50→22:11)
[2018-01-29 07:23] LABS: HEMATOCRIT 24.8 % (32.4-45.2); HEMOGLOBIN 8.2 GM/dL (10.7-15.3); MCH 30.1 pg (25.7-33.7); MCHC 32.9 g/dl (32.0-36.0); MEAN CELL VOLUME 91.4 fl (80-96); MEAN PLT VOLUME 8.9 fl (7.5-11.1); PLATELET COUNT 168 K/MM3 (134-434); RBC 2.72 M/mm3 (3.60-5.2); RDW 13.5 % (11.6-15.6); WHITE BLOOD COUNT 9.6 K/mm3 (4.0-10.0)
[2018-01-29 07:34] LABS: INR 1.13 (0.83-1.09); PROTHROMBIN TIME (PATIENT) 13.3 SEC (9.7-13.0)
[2018-01-29] MEDS: HEPARIN INFUSION - 25,000 UNITS/500 ML INFUS.BAG IVPB SCH (09:00)
[2018-01-29] MEDS: CALCIUM 250MG/VIT-D 125 UNITS 1 COMBO TABLET PO SCH ×2 (09:32→22:11)
[2018-01-29] MEDS: ASPIRIN 81 MG CHEWABLE TABLETS PO SCH (09:33)
[2018-01-29] MEDS: PANTOPRAZOLE 40 MG TABLET (FP) PO SCH (09:33)
[2018-01-29] MEDS: LIDOCAINE 5% TOPICAL PATCH TP SCH (09:33)
[2018-01-29] MEDS: HYDROCHLOROTHIAZIDE 25 MG TABLET (FP) PO SCH (09:33)
[2018-01-29] MEDS: amLODIPine BESYLATE 10 MG TABLET (FP) PO SCH (09:33)
[2018-01-29] MEDS: predniSONE 10 MG TABLET (UD) PO SCH (09:33)
[2018-01-29] MEDS: ISOSORBIDE MONONITRATE 60 MG TAB.SR.24H (FP) PO SCH (09:34)
[2018-01-29] MEDS: HYDROXYCHLOROQUINE SO4 200 MG TABLET (FP) PO SCH (09:35)
[2018-01-29 10:09] LABS: ANION GAP 14 MMOL/L (8-16); BLOOD UREA NITROGEN 28 mg/dL (7-18); CALCIUM 8.7 mg/dL (8.5-10.1); CHLORIDE 113 mmol/L (98-107); CHOLESTEROL 202 mg/dL (50-200); CO2 16 mmol/L (21-32); CREATININE 2.4 mg/dL (0.55-1.3); GLUCOSE,RANDOM 83 mg/dL (74-106); HDL CHOLESTEROL 29 mg/dL (40-60); MAGNESIUM 2.3 mg/dL (1.8-2.4); PHOSPHOROUS 5.8 mg/dL (2.5-4.9); POTASSIUM 5.1 mmol/L (3.5-5.1); SODIUM 143 mmol/L (136-145); TRIGLYCERIDES 211 mg/dL (0-150)
--- NOTE | 2018-01-29 12:14 | CON.CARD ---
Consult Consult Specialty:: cardiology Referred by:: Laura Fry Reason for Consultation:: Chest pain - History of Present Illness Chief Complaint: Chest pain History of Present Illness: The patient is a 27-year-old morbidly obese female, with a history of SLE, hypertension, hyperlipidemia, chronic kidney disease, DVT 10/16, coronary artery disease, thrombosis of the distal LAD on Eliquis (no PCI) EF 40% 12/17, now admitted with right sided localized chest pains which worsen with deep inspiration. The patient stated that the chest pains are completely different than the one that she experienced at the time of the LAD thrombosis. The patient is currently fairly comfortable. Still mildly symptomatic. 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 Cardio/Vascular: Yes: CAD, Deep Vein Thrombosis, HTN, Other (large heart) Pulmonary: Yes: COPD Renal/: Yes: Renal Inusuff ...LMP: 11/23/15 Musculoskeletal: Yes: Chronic low back pain, Other (arthralgia) Rheumatology: Yes: Lupus - Past Surgical History Past Surgical History: Yes: Vein Stripping/Ligation (labioplasty) - Alcohol/Substance Use Hx Alcohol Use: No - Smoking History Smoking history: Never smoked Have you smoked in the past 12 months: Yes Aproximately how many cigarettes per day: 5 If you are a former smoker, when did you quit?: 3 wks ago - Social History ADL: Independent History of Recent Travel: No Home Medications - Allergies Allergies/Adverse Reactions: Allergies Allergy/AdvReac Type Severity Reaction Status Date / Time No Known Drug Allergies Allergy Verified 01/28/18 07:39 - Home Medications Home Medications: Ambulatory Orders Mycophenolate Mofetil [Cellcept] 500 mg PO TID 01/26/16 Albuterol Sulfate Inhaler - [Ventolin HFA Inhaler -] 2 inh PO Q4H PRN 02/16/16 Calcium 250Mg/Vit-D 125 Units [Oscal 250 mg+D -] 1 combo PO BID 07/24/16 Hydroxychloroquine Sulfate [Plaquenil] 200 mg PO DAILY 07/24/16 Apixaban [Eliquis -] 5 mg PO BID 12/06/17 Aspirin [ASA -] 81 mg PO DAILY 12/06/17 Atorvastatin Ca [Lipitor] 80 mg PO HS 12/06/17 Omeprazole 20 mg PO DAILY 12/06/17 Amlodipine Besylate [Norvasc -] 10 mg PO DAILY #30 tablet 12/29/17 Hydralazine HCl 100 mg PO TID #90 tablet 12/29/17 Isosorbide Mononitrate [Imdur -] 60 mg PO DAILY #30 tab.sr.24h 12/29/17 Hydrochlorothiazide [Hctz -] 25 mg PO DAILY 01/28/18 Metoprolol Succinate [Toprol Xl -] 200 mg PO DAILY 01/28/18 Prednisone 15 mg PO DAILY 01/28/18 Family Disease History - Family Disease History Family Disease History: Other: Grandparent (Paternal grandfather had lupus) Review of Systems - Review of Systems Constitutional: reports: Lethargy, Malaise, Weakness Eyes: reports: No Symptoms HENT: reports: No Symptoms Neck: reports: No Symptoms Cardiovascular: reports: Chest Pain Respiratory: reports: Other (Chest pain on deep inspiration) Gastrointestinal: reports: No Symptoms Genitourinary: reports: No Symptoms Breasts: reports: No Symptoms Reported Musculoskeletal: reports: Back Pain Integumentary: reports: No Symptoms Neurological: reports: No Symptoms Endocrine: reports: No Symptoms Hematology/Lymphatic: reports: No Symptoms Psychiatric: reports: No Symptoms Vital Signs: Vital Signs Temperature 98.7 F 01/29/18 10:00 Pulse Rate 106 H 01/29/18 10:00 Respiratory Rate 18 01/29/18 10:00 Blood Pressure 166/103 H 01/29/18 10:00 O2 Sat by Pulse Oximetry (%) 98 01/28/18 21:00 Constitutional: Yes: Obese Eyes: Yes: WNL, Conjunctiva Clear, EOM Intact HENT: Yes: WNL, Atraumatic, Normocephalic Neck: Yes: WNL, Supple, Trachea Midline Respiratory: Yes: WNL, Regular, CTA Bilaterally Gastrointestinal: Yes: WNL, Normal Bowel Sounds, Soft Renal/: Yes: WNL Cardiovascular: Yes: WNL, Regular Rate and Rhythm JVD: No Carotid Bruit: No PMI: Non-Displaced Heart Sounds: Yes: S1, S2 Musculoskeletal: Yes: Back Pain Extremities: Yes: WNL Edema: No Peripheral Pulses: 2+ Left Carotid, 2+ Right Carotid, 2+ Left Femoral, 2+ Right Femoral, 2+ Left Popliteal, 2+ Right Popliteal, 2+ Left Doralis Pedis, 2+ Right Dorsalis Pedis Integumentary: Yes: WNL Neurological: Yes: WNL, Alert, Oriented ...Motor Strength: WNL Psychiatric: Yes: WNL - Other Data Labs, Other Data: CBC, BMP 01/29/18 05:45 01/29/18 05:45 INR, PTT INR 1.13 (0.83-1.09) H 01/29/18 05:45 Troponin, BNP 01/28/18 01/28/18 08:10 15:29 Troponin I 0.02 B-Natriuretic Peptide 8802.7 H Troponin, BNP 01/28/18 01/28/18 08:10 15:29 Troponin I 0.02 B-Natriuretic Peptide 8802.7 H Assessment/Plan 27-year-old obese female, we've a history of SLE, hypertension, hyperlipidemia, chronic kidney disease, DVT, thrombosis of the distal LAD 09/16, now readmitted with right sided chest pains. There is no evidence of ischemia nor acute coronary syndrome. No CHF. No evidence of pulmonary emboli nor DVTs on recent imaging. The symptoms are completely reproducible. Consider pulmonology evaluation. No need for further cardiac testing at this point. Continue cardiac monitoring for the time being. We'll follow with you.
--- NOTE | 2018-01-29 13:53 | CON.PULM ---
Consult Consult Specialty:: PULMONARY Referred by:: Dr. Sanchez Reason for Consultation:: r/o PE - History of Present Illness Chief Complaint: chest pain History of Present Illness: 27yo female with h/o HTN, SLE on immunosuppressants, CKD, h/o DVT, LAD thrombosis, pulmonary HTN, morbid obesity who presents with right sided chest pain x 3 days. Pain described as sharp, stabbing in nature worse with deep inspiration and movements. She does report subjective fevers and chills. +cough with yellow sputum. She is on Eliquis and reports compliance. She does report history of asthma, started smoking in her teens at most 1/2 PPD down to 2-3 cigarettes/day for the last 5 years, quit 2 months ago. No history of lung cancer in the family. - History Source History Provided By: Patient, Significant Other, Medical Record Limitations to Obtaining History: No Limitations - Past Medical History [employer]: Yes: CVA Cardio/Vascular: Yes: CAD, Deep Vein Thrombosis, HTN, Other (large heart) Pulmonary: Yes: COPD Renal/: Yes: Renal Inusuff ...LMP: 11/23/15 Musculoskeletal: Yes: Chronic low back pain, Other (arthralgia) Rheumatology: Yes: Lupus - Past Surgical History Past Surgical History: Yes: Vein Stripping/Ligation (labioplasty) - Alcohol/Substance Use Hx Alcohol Use: No - Smoking History Smoking history: Never smoked Have you smoked in the past 12 months: Yes Aproximately how many cigarettes per day: 5 If you are a former smoker, when did you quit?: 3 wks ago - Social History ADL: Independent History of Recent Travel: No Home Medications - Allergies Allergies/Adverse Reactions: Allergies Allergy/AdvReac Type Severity Reaction Status Date / Time No Known Drug Allergies Allergy Verified 01/28/18 07:39 - Home Medications Home Medications: Ambulatory Orders Mycophenolate Mofetil [Cellcept] 500 mg PO TID 01/26/16 Albuterol Sulfate Inhaler - [Ventolin HFA Inhaler -] 2 inh PO Q4H PRN 02/16/16 Calcium 250Mg/Vit-D 125 Units [Oscal 250 mg+D -] 1 combo PO BID 07/24/16 Hydroxychloroquine Sulfate [Plaquenil] 200 mg PO DAILY 07/24/16 Apixaban [Eliquis -] 5 mg PO BID 12/06/17 Aspirin [ASA -] 81 mg PO DAILY 12/06/17 Atorvastatin Ca [Lipitor] 80 mg PO HS 12/06/17 Omeprazole 20 mg PO DAILY 12/06/17 Amlodipine Besylate [Norvasc -] 10 mg PO DAILY #30 tablet 12/29/17 Hydralazine HCl 100 mg PO TID #90 tablet 12/29/17 Isosorbide Mononitrate [Imdur -] 60 mg PO DAILY #30 tab.sr.24h 12/29/17 Hydrochlorothiazide [Hctz -] 25 mg PO DAILY 01/28/18 Metoprolol Succinate [Toprol Xl -] 200 mg PO DAILY 01/28/18 Prednisone 15 mg PO DAILY 01/28/18 Family Disease History - Family Disease History Family Disease History: Other: Grandparent (Paternal grandfather had lupus) Review of Systems - Review of Systems Constitutional: reports: Chills, Fever, Weakness Eyes: denies: Recent Change in Vision HENT: denies: Nasal Congestion, Throat Pain Neck: denies: Stiffness, Tenderness Cardiovascular: reports: Chest Pain, Shortness of Breath. denies: Edema, Palpitations Respiratory: reports: Cough, SOB. denies: Hemoptysis, Wheezing Gastrointestinal: denies: Abdominal Pain, Nausea, Vomiting Genitourinary: denies: Dysuria, Hematuria Neurological: denies: Dizziness, Headache Endocrine: denies: Unexplained Weight Loss Physical Exam Vital Sings: Vital Signs Temperature 98.7 F 01/29/18 10:00 Pulse Rate 106 H 01/29/18 10:00 Respiratory Rate 18 01/29/18 10:00 Blood Pressure 166/103 H 01/29/18 10:00 O2 Sat by Pulse Oximetry (%) 98 01/28/18 21:00 Constitutional: Yes: Calm Eyes: Yes: Conjunctiva Clear, EOM Intact HENT: Yes: Atraumatic, Normocephalic Neck: Yes: Supple, Trachea Midline Cardiovascular: Yes: Regular Rate and Rhythm Respiratory: Yes: Diminished (decreased breath sounds at the bases) ...Clubbing: No Gastrointestinal: Yes: Normal Bowel Sounds, Soft. No: Tenderness Edema: No Labs: CBC, BMP 01/29/18 05:45 01/29/18 05:45 Imaging - Results Chest X-ray: Report Reviewed, Image Reviewed Cat Scan: Report Reviewed, Image Reviewed (RUL pleural based nodule, RLL infiltrate) Problem List - Problems (1) Chest pain Code(s): R07.9 - CHEST PAIN, UNSPECIFIED Qualifiers: Qualified Code(s): R07.1 - Chest pain on breathing; R07.81 - Pleurodynia (2) CKD (chronic kidney disease) stage 3, GFR 30-59 ml/min Code(s): N18.3 - CHRONIC KIDNEY DISEASE, STAGE 3 (MODERATE) (3) Lupus Code(s): M32.9 - SYSTEMIC LUPUS ERYTHEMATOSUS, UNSPECIFIED (4) Morbid obesity Code(s): E66.01 - MORBID (SEVERE) OBESITY DUE TO EXCESS CALORIES Assessment/Plan Pleuritic Chest Pain Lung Nodule r/o Pneumonia SLE on immunosuppressants CKD Pulmonary HTN - suspect symptoms are from early pneumonia with pleuritic involvement - would start empiric antibiotics - pt reports compliance with anticoagulation so recurrent VTE possible but less likely - if no improvement with antibiotics, can trial increased steroids as her pleurisy may be from lupus flare - inhaled bronchodilators as needed - will need close f/u of chest imaging in 4-6 weeks to ensure resolution of RUL nodule Thank you for this consult Gerson Zazueta MD
[2018-01-29] MEDS ORDERED: DEXTROSE 5%-WATER - 50 ML IVPB ONE (14:27)
[2018-01-29] MEDS ORDERED: cefTRIAXone SODIUM 1 GM VIAL ONE (14:27)
[2018-01-29] MEDS: CEFTRIAXONE 1 GM in DEXTROSE 5%-WATER - 50 ML IVPB SCH (14:31)
--- NOTE | 2018-01-29 15:46 | PN ---
Physical Exam: SUBJECTIVE: Patient seen and examined, symptoms with some improvement, still right upper chest wall pain, ROM right shoulder improved. No new concerns otherwise. OBJECTIVE: Vital Signs Period Temp Pulse Resp BP Sys/Willett Pulse Ox Last 24 Hr 98.2 F-98.8 F 86-106 18-20 110-166/80-103 98-98 GENERAL: sitting in bed in no acute distress CVS:S1S2 regular, tachycardic Chest: CTAB, no rales or wheezing Abdomen:Soft, obese, NT throughut Musculoskeletal: right upper chest wall tenderness but improved, improved right shoulder ROM Extremities: no edema or calf tenderness Laboratory Results - last 24 hr 01/28/18 01/28/18 01/29/18 15:29 17:20 05:45 WBC 9.6 RBC 2.72 L Hgb 8.2 L Hct 24.8 L MCV 91.4 MCH 30.1 MCHC 32.9 RDW 13.5 Plt Count 168 MPV 8.9 ESR PT with INR INR PTT (Actin FS) 282.4 H Sodium Potassium Chloride Carbon Dioxide Anion Gap BUN Creatinine Creat Clearance w eGFR Random Glucose Hemoglobin A1c % Calcium Phosphorus Magnesium Creatine Kinase 27 Troponin I 0.02 Triglycerides Cholesterol Total LDL Cholesterol HDL Cholesterol 01/29/18 01/29/18 01/29/18 05:45 05:45 05:45 WBC RBC Hgb Hct MCV MCH MCHC RDW Plt Count MPV ESR PT with INR 13.30 H INR 1.13 H PTT (Actin FS) Sodium 143 Potassium 5.1 Chloride 113 H Carbon Dioxide 16 L Anion Gap 14 BUN 28 H Creatinine 2.4 H Creat Clearance w eGFR 23.87 Random Glucose 83 Hemoglobin A1c % 4.8 Calcium 8.7 Phosphorus 5.8 H Magnesium 2.3 Creatine Kinase Troponin I Triglycerides 211 H Cholesterol 202 H Total LDL Cholesterol 139 H HDL Cholesterol 29 L 01/29/18 01/29/18 05:45 05:45 WBC RBC Hgb Hct MCV MCH MCHC RDW Plt Count MPV ESR 106 H PT with INR INR PTT (Actin FS) 101.2 H Sodium Potassium Chloride Carbon Dioxide Anion Gap BUN Creatinine Creat Clearance w eGFR Random Glucose Hemoglobin A1c % Calcium Phosphorus Magnesium Creatine Kinase Troponin I Triglycerides Cholesterol Total LDL Cholesterol HDL Cholesterol Active Medications Generic Name Dose Route Start Last Admin Trade Name Freq PRN Reason Stop Dose Admin Albuterol Sulfate 2 puff 01/28/18 13:02 Ventolin Hfa Inhaler - IH Q4H PRN ASTHMA Amlodipine Besylate 10 mg 01/29/18 10:00 01/29/18 09:33 Norvasc - PO 10 mg DAILY CARL Administration Aspirin 81 mg 01/29/18 10:00 01/29/18 09:33 Asa - PO 81 mg DAILY CARL Administration Atorvastatin Calcium 80 mg 01/28/18 22:00 01/28/18 22:11 Lipitor - PO 80 mg HS CARL Administration Calcium/Vitamin D 1 tab 01/28/18 22:00 01/29/18 09:32 Oscal 250 Mg+D - PO 1 tab BID CARL Administration Heparin Sodium (Porcine) 5,100 unit 01/28/18 11:06 Heparin - 40 unit/kg (5100 unit) IVPUSH PRN PRN For aPTT 35 to 45 seconds Heparin Sodium (Porcine) 10,200 unit 01/28/18 11:06 Heparin - 80 unit/kg (54947 unit) IVPUSH PRN PRN aPTT <35 seconds Hydralazine HCl 100 mg 01/28/18 14:00 01/29/18 15:09 Apresoline - PO 100 mg TID CARL Administration Hydrochlorothiazide 25 mg 01/29/18 10:00 01/29/18 09:33 Hctz - PO 25 mg DAILY CARL Administration Hydroxychloroquine Sulfate 200 mg 01/28/18 10:00 01/29/18 09:35 Plaquenil - PO 200 mg DAILY CARL Administration Heparin Sodium/Dextrose 25,000 units in 500 mls @ 45.722 mls/hr 01/28/18 11: 15 01/29/18 09:00 Heparin Infusion - IVPB 13.77 units/kg/hr TITR CARL 34.977 mls/hr Administration Protocol 18 UNITS/KG/HR Ceftriaxone Sodium 1 gm/ 50 mls @ 100 mls/hr 01/29/18 15:30 01/29/18 14:31 Dextrose IVPB 100 mls/hr DAILY CARL Administration Azithromycin 250 mls @ 250 mls/hr 01/29/18 14:30 Zithromax 500mg Ivpb (Pre-Docked) IVPB DAILY CARL Isosorbide Mononitrate 60 mg 01/28/18 10:00 01/29/18 09:34 Imdur - PO 60 mg DAILY CARL Administration Lidocaine 1 patch 01/29/18 10:00 01/29/18 09:33 Lidoderm Patch - TP 1 patch DAILY CARL Administration Metoprolol Succinate 200 mg 01/29/18 09:40 01/29/18 10:52 Toprol Xl - PO 200 mg DAILY CARL Administration Miscellaneous 1 each 01/28/18 22:00 01/28/18 23:18 Lidoderm Patch Removal MC Not Given DAILY@2200 CARL Miscellaneous 1 each 01/28/18 22:00 01/28/18 23:19 Lidoderm Patch Removal MC Not Given DAILY@2200 CARL Morphine Sulfate 2 mg 01/28/18 20:10 01/29/18 15:10 Morphine Sulfate IVPUSH 2 mg Q4H PRN Administration PAIN LEVEL 6-10 Mycophenolate Mofetil 500 mg 01/28/18 14:00 01/29/18 15:10 Cellcept - PO 500 mg TID CARL Administration Pantoprazole Sodium 40 mg 01/29/18 10:00 01/29/18 09:33 Protonix - PO 40 mg DAILY CARL Administration Prednisone 15 mg 01/28/18 13:36 01/29/18 09:33 Deltasone - PO 15 mg DAILY CARL Administration ASSESSMENT/PLAN: 27 yof with PMHX of SLE, HTN, HLD, obesity, CKD stage 3, h/o DVT 06/2016, Cardiac cath done 09/16/17 after an echo showed inferoseptal hypokinesis done as preop for bariatric surgery, cath showed distal LAD 70-80% thrombotic appearing stenosis with otherwise normal coronary arteries, no PCI was performed as felt to be a risk given history of thrombosis and pt was changed to Eliquis, admitted with right sided chest pain, sinus tachycardia. -Right sided chest pain, reproducible/worse with shoulder movements, r/o SLE flare/PE/Musculoskeletal etiology, Exam not consistent with location of lung nodule. low suspicion for cardiac etiology -RUL spiculated lung nodule concerning for neoplasm -SLE -HTN -HLD -CKD stage III, baseline cr around 2.5 -h/o LLE DVT 06/2016 -Distal LAD 70-80% thombotic appearing stenosis on Eliquis Plan: CT chest noted. Patient confirms eliquis compliance. Pulmonary input appreciated, discussed with Dr. Zazueta. Ceftriaxone/azithromycin day 2. Check urine PNA studies. Repeat CT chest in 4-6 weeks to assess RUL lung nodule. Agreable to transition to eliquis, will follow up 2D echo, if no concerns, resume eliquis. Rheumatology input noted. Follow up inflammatory markers, complement levels. Concerns for interim inferior infarct on EKG. Cardiology input noted. Telemetry , cycle trop. Continue ASA/statin/imdur/metoprolol/hydralazine/hctz/amlodipine. Continue plaquenil/cellcept/prednisone. Pain control with lidocaine patch/mophine prn. Taper morphine Monitor volume status. Avoid additional hydration, monitor renal function. Renal input if new concerns. DVTPPX as above. Dispo pending clinical improvement. Plan discussed with patient and at bedside in detail, all questions answered. Plan discussed with Dr. Zazueta and nursing. Visit type - Emergency Visit Emergency Visit: Yes ED Registration Date: 01/28/18 Care time: The patient presented to the Emergency Department on the above date and was hospitalized for further evaluation of their emergent condition. - New Patient This patient is new to me today: No - Critical Care Critical Care patient: No - Discharge Referral Referred to [facility] No
[2018-01-29] MEDS: AZITHROMYCIN IVPB 250 ML IVPB SCH (16:00)
[2018-01-29] MEDS ORDERED: MORPHINE SULFATE 2 MG/ML VIAL IVPUSH PRN (16:30)
--- NOTE | 2018-01-29 17:41 | CON.NEP ---
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 Cardio/Vascular: Yes: CAD, Deep Vein Thrombosis, HTN, Other (large heart) Pulmonary: Yes: COPD Renal/: Yes: Renal Inusuff ...LMP: 11/23/15 Musculoskeletal: Yes: Chronic low back pain, Other (arthralgia) Rheumatology: Yes: Lupus - Past Surgical History Past Surgical History: Yes: Vein Stripping/Ligation (labioplasty) - Alcohol/Substance Use Hx Alcohol Use: No - Smoking History Smoking history: Never smoked Have you smoked in the past 12 months: Yes Aproximately how many cigarettes per day: 5 If you are a former smoker, when did you quit?: 3 wks ago - Social History ADL: Independent History of Recent Travel: No Home Medications - Allergies Allergies/Adverse Reactions: Allergies Allergy/AdvReac Type Severity Reaction Status Date / Time No Known Drug Allergies Allergy Verified 01/28/18 07:39 - Home Medications Home Medications: Ambulatory Orders Mycophenolate Mofetil [Cellcept] 500 mg PO TID 01/26/16 Albuterol Sulfate Inhaler - [Ventolin HFA Inhaler -] 2 inh PO Q4H PRN 02/16/16 Calcium 250Mg/Vit-D 125 Units [Oscal 250 mg+D -] 1 combo PO BID 07/24/16 Hydroxychloroquine Sulfate [Plaquenil] 200 mg PO DAILY 07/24/16 Apixaban [Eliquis -] 5 mg PO BID 12/06/17 Aspirin [ASA -] 81 mg PO DAILY 12/06/17 Atorvastatin Ca [Lipitor] 80 mg PO HS 12/06/17 Omeprazole 20 mg PO DAILY 12/06/17 Amlodipine Besylate [Norvasc -] 10 mg PO DAILY #30 tablet 12/29/17 Hydralazine HCl 100 mg PO TID #90 tablet 12/29/17 Isosorbide Mononitrate [Imdur -] 60 mg PO DAILY #30 tab.sr.24h 12/29/17 Hydrochlorothiazide [Hctz -] 25 mg PO DAILY 01/28/18 Metoprolol Succinate [Toprol Xl -] 200 mg PO DAILY 01/28/18 Prednisone 15 mg PO DAILY 01/28/18 Family Disease History - Family Disease History Family Disease History: Other: Grandparent (Paternal grandfather had lupus) Nephrology Consult - Height Height: 5 ft 5 in - Weight Weight: 280 lb - BMI Body Mass Index (BMI): 46.5 - Lab Results CBC,BMP: CBC, BMP 01/29/18 05:45 01/29/18 05:45 Anion Gap: Anion Gap Anion Gap 14 MMOL/L (8-16) 01/29/18 05:45 - Physical Examination Vital Signs: Vital Signs Temperature 98.5 F 01/29/18 14:14 Pulse Rate 102 H 01/29/18 14:14 Respiratory Rate 18 01/29/18 14:14 Blood Pressure 146/87 01/29/18 14:14 O2 Sat by Pulse Oximetry (%) 98 01/28/18 21:00 Constitutional: Yes: Well Nourished, No Distress, Calm, Obese Eyes: Yes: WNL, Conjunctiva Clear, EOM Intact HENT: Yes: WNL, Atraumatic, Normocephalic Neck: Yes: WNL, Supple, Trachea Midline Cardiovascular: Yes: Tachycardia Respiratory: Yes: WNL, Regular, CTA Bilaterally Gastrointestinal: Yes: WNL, Normal Bowel Sounds Renal/: Yes: WNL Musculoskeletal: Yes: WNL Extremities: Yes: WNL Edema: No Integumentary: Yes: WNL Neurological: Yes: WNL, Alert, Oriented Psychiatric: Yes: WNL, Alert, Oriented Assessment/Plan sle ckd admitted with acute right anterior chest pain being eval by cardiol and pulm underlying ckd recently worsening u/a is pending as well as serology Plan- continue hydration fllow serum chems urine studies
[2018-01-29] MEDS ORDERED: ONDANSETRON 4 MG/2 ML VIAL IVPUSH PRN (17:53)
[2018-01-29] MEDS: MORPHINE SULFATE 2 MG/ML VIAL IVPUSH PRN (20:37)
[2018-01-29] MEDS ORDERED: APIXABAN 5 MG TABLET PO SCH (22:00)
[2018-01-29] MEDS ORDERED: PT OWN MED DRAWER 7, Y5N ONE (22:04)
[2018-01-29] MEDS: ATORVASTATIN CA 80 MG TABLET (FP) PO SCH (22:11)
[2018-01-29] MEDS: LIDOCAINE PATCH REMOVAL MC SCH ×2 (22:13→22:14)
[2018-01-29] MEDS ORDERED: LIDOCAINE 5% TOPICAL PATCH TP ONE (23:55)
[2018-01-30] MEDS: LIDOCAINE 5% TOPICAL PATCH TP SCH ×2 (00:04→12:27)
[2018-01-30] MEDS: MORPHINE SULFATE 2 MG/ML VIAL IVPUSH PRN ×5 (00:19→20:14)
[2018-01-30] MEDS ORDERED: MORPHINE SULFATE 2 MG/ML VIAL IVPUSH PRN (02:11)
--- NOTE | 2018-01-30 02:31 | HOSP ---
Subjective - Review of Symptoms Subjective: Pt complaining of persistent R sided chest pain that has been constant throughout the day and is getting worse. Explained expectations of pain control at this time and risks of too much opioid use. Lidocaine patch and Morphine 2mg given for now. Physical Examination Vital Signs: Vital Signs Temperature 98.2 F 01/29/18 17:00 Pulse Rate 101 H 01/29/18 17:00 Respiratory Rate 20 01/29/18 17:00 Blood Pressure 137/87 01/29/18 17:00 O2 Sat by Pulse Oximetry (%) 98 01/28/18 21:00 Labs: CBC, BMP 01/29/18 05:45 01/29/18 05:45 Visit type - Emergency Visit Emergency Visit: Yes ED Registration Date: 01/28/18 Care time: The patient presented to the Emergency Department on the above date and was hospitalized for further evaluation of their emergent condition. - New Patient This patient is new to me today: Yes Date on this admission: 01/30/18 - Critical Care Critical Care patient: No
[2018-01-30] MEDS: MYCOPHENOLATE MOFETIL 500 MG TABLET PO SCH ×3 (05:55→22:04)
[2018-01-30] MEDS: hydrALAZINE HCL 50 MG TABLET (FP) PO SCH ×3 (05:55→22:04)
[2018-01-30 06:19] LABS: BASO % 0.2 % (0-2.0); HEMATOCRIT 24.9 % (32.4-45.2); HEMOGLOBIN 8.2 GM/dL (10.7-15.3); LYMPH % 11.2 % (8-40); MCH 29.8 pg (25.7-33.7); MCHC 32.9 g/dl (32.0-36.0); MEAN CELL VOLUME 90.7 fl (80-96); MEAN PLT VOLUME 8.9 fl (7.5-11.1); MONO % 6.3 % (3.8-10.2); NEUT % 82.3 % (42.8-82.8); PLATELET COUNT 186 K/MM3 (134-434); RBC 2.74 M/mm3 (3.60-5.2); RDW 13.1 % (11.6-15.6); WHITE BLOOD COUNT 10.9 K/mm3 (4.0-10.0)
[2018-01-30] MEDS ORDERED: PT OWN MED DRAWER 7, Y5N ONE ×3 (07:17→21:59)
[2018-01-30 08:24] LABS: CREATININE 2.5 mg/dL (0.55-1.3)
[2018-01-30 08:25] LABS: ALBUMIN 2.6 g/dl (3.4-5.0)
--- NOTE | 2018-01-30 08:31 | PN ---
Teaching Attending Note Name of Resident: Carlitos Wynn ATTENDING PHYSICIAN STATEMENT I saw and evaluated the patient. I reviewed the resident's note and discussed the case with the resident. I agree with the resident's findings and plan as documented with exceptions below. SUBJECTIVE: Patient seen and examined. reports worsening right upper chest wall pain radiating down right abdomen/Upper quadrant. OBJECTIVE: Vital Signs Period Temp Pulse Resp BP Sys/Willett Pulse Ox Last 24 Hr 98.2 F-99.8 F 101-116 18-20 137-166/87-114 96 Intake & Output 01/27/18 01/28/18 01/29/18 01/30/18 23:59 23:59 23:59 23:59 Intake Total 20 760.8 636 Balance 20 760.8 636 Weight 280 lb 280 lb General; sitting in bed, mild tachypnea, able to talk in full sentences Chest: Right chest wall tenderness, with worsening with right arm elevation CVS: s1S2 regular, tachycardic Abdomen: soft, obese, RUQ/RMQ tenderness on superficial palpation, Vague tenderness in the quadrants, marti's sign limited Extremities: no pedal edema Active Medications Albuterol Sulfate (Ventolin Hfa Inhaler -) 2 puff IH Q4H PRN PRN Reason: ASTHMA Last Admin: 01/30/18 01:45 Dose: 2 puff Amlodipine Besylate (Norvasc -) 10 mg PO DAILY [facility] Last Admin: 01/29/18 09:33 Dose: 10 mg Aspirin (Asa -) 81 mg PO DAILY [facility] Last Admin: 01/29/18 09:33 Dose: 81 mg Atorvastatin Calcium (Lipitor -) 80 mg PO HS [facility] Last Admin: 01/29/18 22:11 Dose: 80 mg Calcium/Vitamin D (Oscal 250 Mg+D -) 1 tab PO BID [facility] Last Admin: 01/29/18 22:11 Dose: 1 tab Heparin Sodium (Porcine) (Heparin -) 5,100 unit 40 unit/kg (5100 unit) IVPUSH PRN PRN PRN Reason: For aPTT 35 to 45 seconds Heparin Sodium (Porcine) (Heparin -) 10,200 unit 80 unit/kg (80690 unit) IVPUSH PRN PRN PRN Reason: aPTT <35 seconds Hydralazine HCl (Apresoline -) 100 mg PO TID [facility] Last Admin: 01/30/18 05:55 Dose: 100 mg Hydrochlorothiazide (Hctz -) 25 mg PO DAILY [facility] Last Admin: 01/29/18 09:33 Dose: 25 mg Hydroxychloroquine Sulfate (Plaquenil -) 200 mg PO DAILY [facility] Last Admin: 01/29/18 09:35 Dose: 200 mg Heparin Sodium/Dextrose (Heparin Infusion -) 25,000 units in 500 mls @ 45.722 mls/hr IVPB TITR [facility]; Protocol Last Admin: 01/29/18 09:00 Dose: 13.77 units/kg/hr, 34.977 mls/hr Ceftriaxone Sodium 1 gm/ (Dextrose) 50 mls @ 100 mls/hr IVPB DAILY [facility] Last Admin: 01/29/18 14:31 Dose: 100 mls/hr Azithromycin (Zithromax 500mg Ivpb (Pre-Docked)) 250 mls @ 250 mls/hr IVPB DAILY [facility] Last Admin: 01/29/18 16:00 Dose: 250 mls/hr Isosorbide Mononitrate (Imdur -) 60 mg PO DAILY [facility] Last Admin: 01/29/18 09:34 Dose: 60 mg Lidocaine (Lidoderm Patch -) 1 patch TP DAILY [facility] Last Admin: 01/30/18 00:04 Dose: 1 patch Lidocaine (Lidoderm Patch -) 1 patch TP ONCE ONE Stop: 01/30/18 23:46 Metoprolol Succinate (Toprol Xl -) 200 mg PO DAILY [facility] Last Admin: 01/29/18 10:52 Dose: 200 mg Miscellaneous (Lidoderm Patch Removal) 1 each DAILY@2200 [facility] Last Admin: 01/29/18 22:14 Dose: Not Given Miscellaneous (Lidoderm Patch Removal) 1 each MC ONCE ONE Stop: 01/30/18 12:01 Morphine Sulfate (Morphine Sulfate) 1 mg IVPUSH Q4H PRN PRN Reason: PAIN LEVEL 4 - 6 Last Admin: 01/30/18 06:47 Dose: 1 mg Mycophenolate Mofetil (Cellcept -) 500 mg PO TID [facility] Last Admin: 01/30/18 05:55 Dose: 500 mg Ondansetron HCl (Zofran Injection) 4 mg IVPUSH Q6H PRN PRN Reason: NAUSEA Last Admin: 01/29/18 18:14 Dose: 4 mg Pantoprazole Sodium (Protonix -) 40 mg PO DAILY [facility] Last Admin: 01/29/18 09:33 Dose: 40 mg Prednisone (Deltasone -) 15 mg PO DAILY [facility] Last Admin: 01/29/18 09:33 Dose: 15 mg Laboratory Results - last 24 hr 01/29/18 01/29/18 01/30/18 05:45 05:45 05:30 WBC 10.9 H RBC 2.74 L Hgb 8.2 L Hct 24.9 L MCV 90.7 MCH 29.8 MCHC 32.9 RDW 13.1 Plt Count 186 MPV 8.9 Absolute Neuts (auto) 8.9 H Neutrophils % 82.3 Lymphocytes % 11.2 D Monocytes % 6.3 Eosinophils % 0.0 Basophils % 0.2 Nucleated RBC % 0 PTT (Actin FS) Sodium Potassium Chloride Carbon Dioxide Anion Gap BUN Creatinine Creat Clearance w eGFR Random Glucose Calcium Phosphorus Magnesium Total Bilirubin Direct Bilirubin AST ALT Alkaline Phosphatase Total Protein Albumin KATRIN Screen Positive H KATRIN Homogeneous Pattern TNP KATRIN Nucleolar Pattern TNP KATRIN Spindle Iman Pattern TNP KATRIN Midbody Pattern TNP KATRIN Centriole Pattern TNP KATRIN Nuclear Dot Pattern TNP KATRIN PCNA Pattern TNP KATRIN Nuclear Membr Pat TNP KATRIN Speckled Pattern >1:1280 H KATRIN Centromere Pattern TNP SS-A/Ro Antibody >8.0 H SS-B/La Antibody <0.2 Double Strand DNA Ab 17 H Anti-Cardiolipin IgG Ab <9 Anti-Cardiolipin IgA Ab <9 Anti-Cardiolipin IgM Ab <9 01/30/18 01/30/18 01/30/18 05:30 05:30 09:10 WBC RBC Hgb Hct MCV MCH MCHC RDW Plt Count MPV Absolute Neuts (auto) Neutrophils % Lymphocytes % Monocytes % Eosinophils % Basophils % Nucleated RBC % PTT (Actin FS) 64.0 H Sodium 139 Potassium 4.6 Chloride 109 H Carbon Dioxide 17 L Anion Gap 13 BUN 29 H Creatinine 2.5 H Creat Clearance w eGFR 22.77 Random Glucose 79 Calcium 8.7 Phosphorus 5.1 H Magnesium 2.0 Total Bilirubin 0.2 Cancelled Direct Bilirubin < 0.2 Cancelled AST 12 L Cancelled ALT 10 L Cancelled Alkaline Phosphatase 51 Cancelled Total Protein 6.1 L Cancelled Albumin 2.6 L Cancelled KATRIN Screen KATRIN Homogeneous Pattern KATRIN Nucleolar Pattern KATRIN Spindle Iman Pattern KATRIN Midbody Pattern KATRIN Centriole Pattern KATRIN Nuclear Dot Pattern KATRIN PCNA Pattern KATRIN Nuclear Membr Pat KATRIN Speckled Pattern KATRIN Centromere Pattern SS-A/Ro Antibody SS-B/La Antibody Double Strand DNA Ab Anti-Cardiolipin IgG Ab Anti-Cardiolipin IgA Ab Anti-Cardiolipin IgM Ab 01/30/18 15:25 WBC RBC Hgb Hct MCV MCH MCHC RDW Plt Count MPV Absolute Neuts (auto) Neutrophils % Lymphocytes % Monocytes % Eosinophils % Basophils % Nucleated RBC % PTT (Actin FS) 64.9 H Sodium Potassium Chloride Carbon Dioxide Anion Gap BUN Creatinine Creat Clearance w eGFR Random Glucose Calcium Phosphorus Magnesium Total Bilirubin Direct Bilirubin AST ALT Alkaline Phosphatase Total Protein Albumin KATRIN Screen KATRIN Homogeneous Pattern KATRIN Nucleolar Pattern KATRIN Spindle Iman Pattern KATRIN Midbody Pattern KATRIN Centriole Pattern KATRIN Nuclear Dot Pattern KATRIN PCNA Pattern KATRIN Nuclear Membr Pat KATRIN Speckled Pattern KATRIN Centromere Pattern SS-A/Ro Antibody SS-B/La Antibody Double Strand DNA Ab Anti-Cardiolipin IgG Ab Anti-Cardiolipin IgA Ab Anti-Cardiolipin IgM Ab 2D echo results reviewed ASSESSMENT AND PLAN: 27 yof with PMHX of SLE, HTN, HLD, obesity, CKD stage 3, h/o DVT 06/2016, Cardiac cath done 09/16/17 after an echo showed inferoseptal hypokinesis done as preop for bariatric surgery, cath showed distal LAD 70-80% thrombotic appearing stenosis with otherwise normal coronary arteries, no PCI was performed as felt to be a risk given history of thrombosis and pt was changed to Eliquis, admitted with right sided chest pain, sinus tachycardia. -Right sided chest pain, reproducible/worse with shoulder movements, r/o SLE flare/PE/Musculoskeletal etiology, Exam not consistent with location of lung nodule. low suspicion for cardiac etiology -RUL spiculated lung nodule concerning for neoplasm -SLE -HTN -HLD -CKD stage III, baseline cr around 2.5 -h/o LLE DVT 06/2016 -Distal LAD 70-80% thombotic appearing stenosis on Eliquis Plan: CT chest noted. Patient confirms eliquis compliance. Pulmonary input appreciated, discussed with Dr. Zazueta. Ceftriaxone/azithromycin day 2. IV steroids trial (pleurisy, possible SLE flare) Check urine PNA studies as available but low suspicion, follow up blood cultures. Repeat CT chest in 4-6 weeks to assess RUL lung nodule. 2D echo noted. Will d/c heparin drip, resume eliquis. Rheumatology input noted. Follow up inflammatory markers, complement levels. Concerns for interim inferior infarct on EKG. Cardiology input noted. ACS ruled out, 2D echo noted. Continue ASA/statin/imdur/metoprolol/hydralazine/hctz/amlodipine. Continue plaquenil/cellcept and higher steroids. Pain control with lidocaine patch/mophine prn. Monitor volume status. Avoid additional hydration, monitor renal function. Renal input noted. DVTPPX as above. Dispo pending clinical improvement. Plan discussed with patient and at bedside in detail, all questions answered. .
[2018-01-30 08:35] LABS: ALK PHOS 51 U/L (45-117); ANION GAP 13 MMOL/L (8-16); BILIRUBIN,TOTAL 0.2 mg/dL (0.2-1); BLOOD UREA NITROGEN 29 mg/dL (7-18); CALCIUM 8.7 mg/dL (8.5-10.1); CHLORIDE 109 mmol/L (98-107); CO2 17 mmol/L (21-32); GLUCOSE,RANDOM 79 mg/dL (74-106); PHOSPHOROUS 5.1 mg/dL (2.5-4.9); POTASSIUM 4.6 mmol/L (3.5-5.1); SGOT/AST 12 U/L (15-37); SGPT/ALT 10 U/L (13-61); SODIUM 139 mmol/L (136-145); TOT PROT 6.1 g/dl (6.4-8.2)
[2018-01-30] MEDS ORDERED: DEXTROSE 5%-WATER - 50 ML IVPB ONE (09:20)
[2018-01-30] MEDS ORDERED: cefTRIAXone SODIUM 1 GM VIAL ONE (09:20)
[2018-01-30] MEDS: AZITHROMYCIN IVPB 250 ML IVPB SCH (09:43)
[2018-01-30] MEDS: CEFTRIAXONE 1 GM in DEXTROSE 5%-WATER - 50 ML IVPB SCH (09:44)
[2018-01-30] MEDS: PANTOPRAZOLE 40 MG TABLET (FP) PO SCH (09:45)
[2018-01-30] MEDS: HYDROCHLOROTHIAZIDE 25 MG TABLET (FP) PO SCH (09:45)
[2018-01-30] MEDS: ASPIRIN 81 MG CHEWABLE TABLETS PO SCH (09:45)
[2018-01-30] MEDS: predniSONE 10 MG TABLET (UD) PO SCH (09:45)
[2018-01-30] MEDS: CALCIUM 250MG/VIT-D 125 UNITS 1 COMBO TABLET PO SCH ×2 (09:45→22:03)
[2018-01-30] MEDS: ISOSORBIDE MONONITRATE 60 MG TAB.SR.24H (FP) PO SCH (09:45)
[2018-01-30] MEDS: amLODIPine BESYLATE 10 MG TABLET (FP) PO SCH (09:45)
[2018-01-30] MEDS: HYDROXYCHLOROQUINE SO4 200 MG TABLET (FP) PO SCH (09:52)
--- NOTE | 2018-01-30 10:38 | PN ---
Progress Note, Physician History of Present Illness: PULMONARY ALERT,NO CHANGE,C/O CHEST PAINS,SOB - Current Medication List Current Medications: Active Medications Albuterol Sulfate (Ventolin Hfa Inhaler -) 2 puff IH Q4H PRN PRN Reason: ASTHMA Last Admin: 01/30/18 01:45 Dose: 2 puff Amlodipine Besylate (Norvasc -) 10 mg PO DAILY [facility] Last Admin: 01/30/18 09:45 Dose: 10 mg Aspirin (Asa -) 81 mg PO DAILY [facility] Last Admin: 01/30/18 09:45 Dose: 81 mg Atorvastatin Calcium (Lipitor -) 80 mg PO HS [facility] Last Admin: 01/29/18 22:11 Dose: 80 mg Calcium/Vitamin D (Oscal 250 Mg+D -) 1 tab PO BID [facility] Last Admin: 01/30/18 09:45 Dose: 1 tab Heparin Sodium (Porcine) (Heparin -) 5,100 unit 40 unit/kg (5100 unit) IVPUSH PRN PRN PRN Reason: For aPTT 35 to 45 seconds Heparin Sodium (Porcine) (Heparin -) 10,200 unit 80 unit/kg (81249 unit) IVPUSH PRN PRN PRN Reason: aPTT <35 seconds Hydralazine HCl (Apresoline -) 100 mg PO TID [facility] Last Admin: 01/30/18 05:55 Dose: 100 mg Hydrochlorothiazide (Hctz -) 25 mg PO DAILY [facility] Last Admin: 01/30/18 09:45 Dose: 25 mg Hydroxychloroquine Sulfate (Plaquenil -) 200 mg PO DAILY [facility] Last Admin: 01/30/18 09:52 Dose: 200 mg Heparin Sodium/Dextrose (Heparin Infusion -) 25,000 units in 500 mls @ 45.722 mls/hr IVPB TITR [facility]; Protocol Last Admin: 01/29/18 09:00 Dose: 13.77 units/kg/hr, 34.977 mls/hr Ceftriaxone Sodium 1 gm/ (Dextrose) 50 mls @ 100 mls/hr IVPB DAILY [facility] Last Admin: 01/30/18 09:44 Dose: 100 mls/hr Azithromycin (Zithromax 500mg Ivpb (Pre-Docked)) 250 mls @ 250 mls/hr IVPB DAILY [facility] Last Admin: 01/30/18 09:43 Dose: 250 mls/hr Isosorbide Mononitrate (Imdur -) 60 mg PO DAILY [facility] Last Admin: 01/30/18 09:45 Dose: 60 mg Lidocaine (Lidoderm Patch -) 1 patch TP DAILY [facility] Last Admin: 01/30/18 00:04 Dose: 1 patch Lidocaine (Lidoderm Patch -) 1 patch TP ONCE ONE Stop: 01/30/18 23:46 Metoprolol Succinate (Toprol Xl -) 200 mg PO DAILY [facility] Last Admin: 01/30/18 09:45 Dose: 200 mg Miscellaneous (Lidoderm Patch Removal) 1 each MC DAILY@2200 [facility] Last Admin: 01/29/18 22:14 Dose: Not Given Miscellaneous (Lidoderm Patch Removal) 1 each MC ONCE ONE Stop: 01/30/18 12:01 Morphine Sulfate (Morphine Sulfate) 1 mg IVPUSH Q4H PRN PRN Reason: PAIN LEVEL 4 - 6 Last Admin: 01/30/18 06:47 Dose: 1 mg Mycophenolate Mofetil (Cellcept -) 500 mg PO TID [facility] Last Admin: 01/30/18 05:55 Dose: 500 mg Ondansetron HCl (Zofran Injection) 4 mg IVPUSH Q6H PRN PRN Reason: NAUSEA Last Admin: 01/29/18 18:14 Dose: 4 mg Pantoprazole Sodium (Protonix -) 40 mg PO DAILY [facility] Last Admin: 01/30/18 09:45 Dose: 40 mg Prednisone (Deltasone -) 15 mg PO DAILY [facility] Last Admin: 01/30/18 09:45 Dose: 15 mg - Objective Vital Signs: Vital Signs Temperature 99.4 F 01/30/18 09:00 Pulse Rate 118 H 01/30/18 09:00 Respiratory Rate 18 01/30/18 09:00 Blood Pressure 176/100 H 01/30/18 09:00 O2 Sat by Pulse Oximetry (%) 96 01/29/18 21:00 Constitutional: Yes: Well Nourished, Calm, Obese Eyes: Yes: WNL HENT: Yes: WNL Neck: Yes: WNL Cardiovascular: Yes: Regular Rate and Rhythm, S1, S2 Respiratory: Yes: Diminished Gastrointestinal: Yes: Normal Bowel Sounds, Soft Extremities: Yes: WNL Edema: No Labs: CBC, BMP 01/30/18 05:30 01/30/18 05:30 INR, PTT INR 1.13 (0.83-1.09) H 01/29/18 05:45 - ....Imaging Cat Scan: Report Reviewed, Image Reviewed Assessment/Plan Problem List - Problems (1) Chest pain Code(s): R07.9 - CHEST PAIN, UNSPECIFIED Qualifiers: Qualified Code(s): R07.1 - Chest pain on breathing; R07.81 - Pleurodynia (2) CKD (chronic kidney disease) stage 3, GFR 30-59 ml/min Code(s): N18.3 - CHRONIC KIDNEY DISEASE, STAGE 3 (MODERATE) (3) Lupus Code(s): M32.9 - SYSTEMIC LUPUS ERYTHEMATOSUS, UNSPECIFIED (4) Morbid obesity Code(s): E66.01 - MORBID (SEVERE) OBESITY DUE TO EXCESS CALORIES Assessment/Plan Pleuritic Chest Pain Lung Nodule r/o Pneumonia SLE on immunosuppressants CKD Pulmonary HTN - pneumonia with pleuritic involvement - antibiotics - pt reports compliance with anticoagulation so recurrent VTE possible but less likely - trial increased steroids as her pleurisy may be from lupus flare - inhaled bronchodilators as needed - f/u of chest imaging in 4-6 weeks to ensure resolution of RUL nodule DR SANTORO
[2018-01-30] MEDS: HEPARIN INFUSION - 25,000 UNITS/500 ML INFUS.BAG IVPB SCH (11:42)
[2018-01-30] MEDS ORDERED: LIDOCAINE PATCH REMOVAL MC ONE (12:00)
[2018-01-30 12:04] LABS: BILIRUBIN,DIRECT < 0.2 mg/dL (0.0-0.2)
--- NOTE | 2018-01-30 13:21 | PN ---
Physical Exam: SUBJECTIVE: Patient seen and examined this AM. She is still complaining of pain which now radiates to her RUQ as well. She endorses some dark stool which she says has happened occasionally in the past, but she has never been worked up for. OBJECTIVE: Vital Signs Period Temp Pulse Resp BP Sys/Willett Pulse Ox Last 24 Hr 98.2 F-99.8 F 101-118 18-20 137-176/87-114 96 GENERAL: A&O, mild distress distress likely secondary to pain HEAD: Normocephalic, atraumatic. EYES: PERRL, no scleral icterus EARS, NOSE, THROAT: oropharynx clear without exudates. Moist mucous membranes. NECK: supple without lymphadenopathy LUNGS: CTA b/l, no crackles or wheezes HEART: Tachycardic rhythm, normal S1 and S2 without murmur ABDOMEN: Soft, mild tenderness to palpation in the RUQ, normoactive bowel sounds MUSCULOSKELETAL: Pain reproducible with palpation on right chest wall, shoulder , and back. ROM of Right shoulder limited due to pain EXTREMITIES: 2+ pulses, warm, well-perfused. No peripheral edema. NEUROLOGICAL: Cranial nerves II-XII grossly intact. Normal speech. PSYCHIATRIC: Cooperative. Good eye contact. Appropriate mood and affect. Laboratory Results - last 24 hr 01/29/18 01/30/18 01/30/18 15:40 05:30 05:30 WBC 10.9 H RBC 2.74 L Hgb 8.2 L Hct 24.9 L MCV 90.7 MCH 29.8 MCHC 32.9 RDW 13.1 Plt Count 186 MPV 8.9 Absolute Neuts (auto) 8.9 H Neutrophils % 82.3 Lymphocytes % 11.2 D Monocytes % 6.3 Eosinophils % 0.0 Basophils % 0.2 Nucleated RBC % 0 PTT (Actin FS) 74.4 H Sodium 139 Potassium 4.6 Chloride 109 H Carbon Dioxide 17 L Anion Gap 13 BUN 29 H Creatinine 2.5 H Creat Clearance w eGFR 22.77 Random Glucose 79 Calcium 8.7 Phosphorus 5.1 H Magnesium 2.0 Total Bilirubin 0.2 Direct Bilirubin < 0.2 AST 12 L ALT 10 L Alkaline Phosphatase 51 Total Protein 6.1 L Albumin 2.6 L 01/30/18 01/30/18 05:30 09:10 WBC RBC Hgb Hct MCV MCH MCHC RDW Plt Count MPV Absolute Neuts (auto) Neutrophils % Lymphocytes % Monocytes % Eosinophils % Basophils % Nucleated RBC % PTT (Actin FS) 64.0 H Sodium Potassium Chloride Carbon Dioxide Anion Gap BUN Creatinine Creat Clearance w eGFR Random Glucose Calcium Phosphorus Magnesium Total Bilirubin Cancelled Direct Bilirubin Cancelled AST Cancelled ALT Cancelled Alkaline Phosphatase Cancelled Total Protein Cancelled Albumin Cancelled Active Medications Generic Name Dose Route Start Last Admin Trade Name Freq PRN Reason Stop Dose Admin Albuterol Sulfate 2 puff 01/28/18 13:02 01/30/18 01:45 Ventolin Hfa Inhaler - IH 2 puff Q4H PRN Administration ASTHMA Amlodipine Besylate 10 mg 01/29/18 10:00 01/30/18 09:45 Norvasc - PO 10 mg DAILY [facility] Administration Aspirin 81 mg 01/29/18 10:00 01/30/18 09:45 Asa - PO 81 mg DAILY [facility] Administration Atorvastatin Calcium 80 mg 01/28/18 22:00 01/29/18 22:11 Lipitor - PO 80 mg HS [facility] Administration Calcium/Vitamin D 1 tab 01/28/18 22:00 01/30/18 09:45 Oscal 250 Mg+D - PO 1 tab BID [facility] Administration Heparin Sodium (Porcine) 5,100 unit 01/28/18 11:06 Heparin - 40 unit/kg (5100 unit) IVPUSH PRN PRN For aPTT 35 to 45 seconds Heparin Sodium (Porcine) 10,200 unit 01/28/18 11:06 Heparin - 80 unit/kg (20882 unit) IVPUSH PRN PRN aPTT <35 seconds Hydralazine HCl 100 mg 01/28/18 14:00 01/30/18 05:55 Apresoline - PO 100 mg TID [facility] Administration Hydrochlorothiazide 25 mg 01/29/18 10:00 01/30/18 09:45 Hctz - PO 25 mg DAILY [facility] Administration Hydroxychloroquine Sulfate 200 mg 01/28/18 10:00 01/30/18 09:52 Plaquenil - PO 200 mg DAILY [facility] Administration Heparin Sodium/Dextrose 25,000 units in 500 mls @ 45.722 mls/hr 01/28/18 11: 15 01/30/18 11:42 Heparin Infusion - IVPB 12.99 units/kg/hr TITR [facility] 33 mls/hr Administration Protocol 18 UNITS/KG/HR Ceftriaxone Sodium 1 gm/ 50 mls @ 100 mls/hr 01/29/18 15:30 01/30/18 09:44 Dextrose IVPB 100 mls/hr DAILY [facility] Administration Azithromycin 250 mls @ 250 mls/hr 01/29/18 14:30 01/30/18 09:43 Zithromax 500mg Ivpb (Pre-Docked) IVPB 250 mls/hr DAILY [facility] Administration Isosorbide Mononitrate 60 mg 01/28/18 10:00 01/30/18 09:45 Imdur - PO 60 mg DAILY [facility] Administration Lidocaine 1 patch 01/29/18 10:00 01/30/18 12:27 Lidoderm Patch - TP Not Given DAILY [facility] Lidocaine 1 patch 01/30/18 23:45 Lidoderm Patch - TP 01/30/18 23:46 ONCE ONE Methylprednisolone Sodium Succinate 40 mg 01/30/18 15:00 Solu-Medrol - IVPUSH Q6H-IV [facility] Metoprolol Succinate 200 mg 01/29/18 09:40 01/30/18 09:45 Toprol Xl - PO 200 mg DAILY [facility] Administration Miscellaneous 1 each 01/28/18 22:00 01/29/18 22:14 Lidoderm Patch Removal MC Not Given DAILY@2200 [facility] Morphine Sulfate 4 mg 01/30/18 11:10 01/30/18 11:41 Morphine Sulfate IVPUSH 4 mg Q4H PRN Administration PAIN LEVEL 4 - 6 Mycophenolate Mofetil 500 mg 01/28/18 14:00 01/30/18 05:55 Cellcept - PO 500 mg TID [facility] Administration Ondansetron HCl 4 mg 01/29/18 17:53 01/29/18 18:14 Zofran Injection IVPUSH 4 mg Q6H PRN Administration NAUSEA Pantoprazole Sodium 40 mg 01/29/18 10:00 01/30/18 09:45 Protonix - PO 40 mg DAILY [facility] Administration ASSESSMENT/PLAN: 27 year old female with a significant pmh of hypertension, CKD stage 3/4, lupus , multiple DVTs, LAD thrombosis, and pulmonary hypertension admitted following 3 days of right sided chest pain. Right Sided Chest Pain -Could be secondary to Lupus flare, pleurisy, early pneumonia with pleuritic involvement, or musculoskeletal -Ceftriaxone 1 gm IV Daily, Azithromycin 500 mg IV Daily -Morphine 4 Q4 for pain -Lidoderm patch -CTA negative for PE -Cardiology consult appreciated -Will stop heparin drip and restart Eliquis -ECHO noted, EF 35-40%, decreased LV function SLE -Rheumatology consult appreciated -Lupus serologies and compliment levels RUL Lung Nodule on CT -Incidental spiculated nodule found on CT scan at admission -Concerning for malignancy -Pulmonogy consult appreciated -f/u imaging in 4-6 weeks to check stability/resolution/worsening HTN -Hydralazine 100 mg PO TID -HCTZ 25 mg PO Daily -Imdure 60 mg PO Daily -Norvasc 10 mg PO Daily -Toprol XL 200 mg PO Daily -Acute elevations of bp likely secondary to pain HLD -Lipitor 80 mg PO HS -Lipid panel noted with elevated cholesterol, would question medication compliance CKD -Baseline creatinine 2.5 -Monitor BMPs -avoid nephrotoxic drugs Prior DVT last year/LAD thrombosis -70-80% thrombosis of LAD, could be secondary to lupus -Anticardiolipin Antibodies negative -On eliquis 5 mg PO BID -ASA 81 mg PO Daily DVT Prophylaxis -On Eliquis 5 mg PO BID [facility] -Fluids: none -Electrolytes: Elevated Phos, BMP, Mg, Phos in AM -Nutrition: Cardiac Diet Disposition Telemetry Visit type - Emergency Visit Emergency Visit: Yes ED Registration Date: 01/28/18 Care time: The patient presented to the Emergency Department on the above date and was hospitalized for further evaluation of their emergent condition. - New Patient This patient is new to me today: Yes Date on this admission: 01/30/18 - Critical Care Critical Care patient: No
--- NOTE | 2018-01-30 13:29 | PN ---
Progress Note, Physician Chief Complaint: still with chest and LUQ pain tele neg History of Present Illness: 27-year-old obese female, we've a history of SLE, hypertension, hyperlipidemia, chronic kidney disease, DVT, thrombosis of the distal LAD 09/16, now readmitted with right sided chest pains. There is no evidence of ischemia nor acute coronary syndrome. No CHF. No evidence of pulmonary emboli nor DVTs on recent imaging. The symptoms are completely reproducible. - Current Medication List Current Medications: Active Medications Albuterol Sulfate (Ventolin Hfa Inhaler -) 2 puff IH Q4H PRN PRN Reason: ASTHMA Last Admin: 01/30/18 01:45 Dose: 2 puff Amlodipine Besylate (Norvasc -) 10 mg PO DAILY [facility] Last Admin: 01/30/18 09:45 Dose: 10 mg Aspirin (Asa -) 81 mg PO DAILY [facility] Last Admin: 01/30/18 09:45 Dose: 81 mg Atorvastatin Calcium (Lipitor -) 80 mg PO HS [facility] Last Admin: 01/29/18 22:11 Dose: 80 mg Calcium/Vitamin D (Oscal 250 Mg+D -) 1 tab PO BID [facility] Last Admin: 01/30/18 09:45 Dose: 1 tab Heparin Sodium (Porcine) (Heparin -) 5,100 unit 40 unit/kg (5100 unit) IVPUSH PRN PRN PRN Reason: For aPTT 35 to 45 seconds Heparin Sodium (Porcine) (Heparin -) 10,200 unit 80 unit/kg (21437 unit) IVPUSH PRN PRN PRN Reason: aPTT <35 seconds Hydralazine HCl (Apresoline -) 100 mg PO TID [facility] Last Admin: 01/30/18 05:55 Dose: 100 mg Hydrochlorothiazide (Hctz -) 25 mg PO DAILY [facility] Last Admin: 01/30/18 09:45 Dose: 25 mg Hydroxychloroquine Sulfate (Plaquenil -) 200 mg PO DAILY [facility] Last Admin: 01/30/18 09:52 Dose: 200 mg Heparin Sodium/Dextrose (Heparin Infusion -) 25,000 units in 500 mls @ 45.722 mls/hr IVPB TITR [facility]; Protocol Last Admin: 01/30/18 11:42 Dose: 12.99 units/kg/hr, 33 mls/hr Ceftriaxone Sodium 1 gm/ (Dextrose) 50 mls @ 100 mls/hr IVPB DAILY [facility] Last Admin: 01/30/18 09:44 Dose: 100 mls/hr Azithromycin (Zithromax 500mg Ivpb (Pre-Docked)) 250 mls @ 250 mls/hr IVPB DAILY [facility] Last Admin: 01/30/18 09:43 Dose: 250 mls/hr Isosorbide Mononitrate (Imdur -) 60 mg PO DAILY [facility] Last Admin: 01/30/18 09:45 Dose: 60 mg Lidocaine (Lidoderm Patch -) 1 patch TP DAILY [facility] Last Admin: 01/30/18 12:27 Dose: Not Given Lidocaine (Lidoderm Patch -) 1 patch TP ONCE ONE Stop: 01/30/18 23:46 Methylprednisolone Sodium Succinate (Solu-Medrol -) 40 mg IVPUSH Q6H-IV [facility] Metoprolol Succinate (Toprol Xl -) 200 mg PO DAILY [facility] Last Admin: 01/30/18 09:45 Dose: 200 mg Miscellaneous (Lidoderm Patch Removal) 1 each MC DAILY@2200 [facility] Last Admin: 01/29/18 22:14 Dose: Not Given Morphine Sulfate (Morphine Sulfate) 4 mg IVPUSH Q4H PRN PRN Reason: PAIN LEVEL 4 - 6 Last Admin: 01/30/18 11:41 Dose: 4 mg Mycophenolate Mofetil (Cellcept -) 500 mg PO TID [facility] Last Admin: 01/30/18 05:55 Dose: 500 mg Ondansetron HCl (Zofran Injection) 4 mg IVPUSH Q6H PRN PRN Reason: NAUSEA Last Admin: 01/29/18 18:14 Dose: 4 mg Pantoprazole Sodium (Protonix -) 40 mg PO DAILY [facility] Last Admin: 01/30/18 09:45 Dose: 40 mg - Objective Vital Signs: Vital Signs Temperature 99.4 F 01/30/18 09:00 Pulse Rate 118 H 01/30/18 09:00 Respiratory Rate 18 01/30/18 09:00 Blood Pressure 176/100 H 01/30/18 09:00 O2 Sat by Pulse Oximetry (%) 96 01/29/18 21:00 Constitutional: Yes: No Distress, Calm Eyes: Yes: Conjunctiva Clear, EOM Intact HENT: Yes: Atraumatic, Normocephalic Neck: Yes: Supple, Trachea Midline Cardiovascular: Yes: Regular Rate and Rhythm, S1, S2 Respiratory: Yes: CTA Bilaterally Gastrointestinal: Yes: Normal Bowel Sounds, Other (tenderness to touch ruq/ lower right chest, inc with inspiration.) Edema: No Peripheral Pulses WNL: Yes Labs: CBC, BMP 01/30/18 05:30 01/30/18 05:30 INR, PTT INR 1.13 (0.83-1.09) H 01/29/18 05:45 Assessment/Plan 27-year-old obese female, we've a history of SLE, hypertension, hyperlipidemia, chronic kidney disease, DVT, thrombosis of the distal LAD 09/16, now readmitted with right sided chest pains. There is no evidence of ischemia nor acute coronary syndrome. No CHF. No evidence of pulmonary emboli nor DVTs on recent imaging. The symptoms are completely reproducible. Pulm evaluation appreciated. Restart Eliquis Echo is pending.
[2018-01-30] MEDS: methylPREDNISolone NA SUCC 40 MG/1 ML VIAL IVPUSH SCH ×2 (14:28→20:50)
--- NOTE | 2018-01-30 16:15 | PN ---
Progress Note, Physician History of Present Illness: Pt seen and examined at bedside. She is awake and alert. She complains of chest discomfort. - Current Medication List Current Medications: Active Medications Albuterol Sulfate (Ventolin Hfa Inhaler -) 2 puff IH Q4H PRN PRN Reason: ASTHMA Last Admin: 01/30/18 01:45 Dose: 2 puff Amlodipine Besylate (Norvasc -) 10 mg PO DAILY [facility] Last Admin: 01/30/18 09:45 Dose: 10 mg Aspirin (Asa -) 81 mg PO DAILY [facility] Last Admin: 01/30/18 09:45 Dose: 81 mg Atorvastatin Calcium (Lipitor -) 80 mg PO HS [facility] Last Admin: 01/29/18 22:11 Dose: 80 mg Calcium/Vitamin D (Oscal 250 Mg+D -) 1 tab PO BID [facility] Last Admin: 01/30/18 09:45 Dose: 1 tab Heparin Sodium (Porcine) (Heparin -) 5,100 unit 40 unit/kg (5100 unit) IVPUSH PRN PRN PRN Reason: For aPTT 35 to 45 seconds Heparin Sodium (Porcine) (Heparin -) 10,200 unit 80 unit/kg (48561 unit) IVPUSH PRN PRN PRN Reason: aPTT <35 seconds Hydralazine HCl (Apresoline -) 100 mg PO TID [facility] Last Admin: 01/30/18 13:39 Dose: 100 mg Hydrochlorothiazide (Hctz -) 25 mg PO DAILY [facility] Last Admin: 01/30/18 09:45 Dose: 25 mg Hydroxychloroquine Sulfate (Plaquenil -) 200 mg PO DAILY [facility] Last Admin: 01/30/18 09:52 Dose: 200 mg Heparin Sodium/Dextrose (Heparin Infusion -) 25,000 units in 500 mls @ 45.722 mls/hr IVPB TITR [facility]; Protocol Last Admin: 01/30/18 11:42 Dose: 12.99 units/kg/hr, 33 mls/hr Ceftriaxone Sodium 1 gm/ (Dextrose) 50 mls @ 100 mls/hr IVPB DAILY [facility] Last Admin: 01/30/18 09:44 Dose: 100 mls/hr Azithromycin (Zithromax 500mg Ivpb (Pre-Docked)) 250 mls @ 250 mls/hr IVPB DAILY [facility] Last Admin: 01/30/18 09:43 Dose: 250 mls/hr Isosorbide Mononitrate (Imdur -) 60 mg PO DAILY [facility] Last Admin: 01/30/18 09:45 Dose: 60 mg Lidocaine (Lidoderm Patch -) 1 patch TP DAILY [facility] Last Admin: 01/30/18 12:27 Dose: Not Given Lidocaine (Lidoderm Patch -) 1 patch TP ONCE ONE Stop: 01/30/18 23:46 Methylprednisolone Sodium Succinate (Solu-Medrol -) 40 mg IVPUSH Q6H-IV [facility] Last Admin: 01/30/18 14:28 Dose: 40 mg Metoprolol Succinate (Toprol Xl -) 200 mg PO DAILY [facility] Last Admin: 01/30/18 09:45 Dose: 200 mg Miscellaneous (Lidoderm Patch Removal) 1 each MC DAILY@2200 [facility] Last Admin: 01/29/18 22:14 Dose: Not Given Morphine Sulfate (Morphine Sulfate) 4 mg IVPUSH Q4H PRN PRN Reason: PAIN LEVEL 4 - 6 Last Admin: 01/30/18 11:41 Dose: 4 mg Mycophenolate Mofetil (Cellcept -) 500 mg PO TID [facility] Last Admin: 01/30/18 13:40 Dose: 500 mg Ondansetron HCl (Zofran Injection) 4 mg IVPUSH Q6H PRN PRN Reason: NAUSEA Last Admin: 01/29/18 18:14 Dose: 4 mg Pantoprazole Sodium (Protonix -) 40 mg PO DAILY [facility] Last Admin: 01/30/18 09:45 Dose: 40 mg - Objective Vital Signs: Vital Signs Temperature 99.4 F 01/30/18 09:00 Pulse Rate 118 H 01/30/18 09:00 Respiratory Rate 18 01/30/18 09:00 Blood Pressure 176/100 H 01/30/18 09:00 O2 Sat by Pulse Oximetry (%) 96 01/29/18 21:00 Constitutional: Yes: Calm Eyes: Yes: Conjunctiva Clear HENT: Yes: Atraumatic Cardiovascular: Yes: S1, S2 Respiratory: Yes: On Nasal O2, Wheezes Gastrointestinal: Yes: Other (ruq tenderness) Musculoskeletal: Yes: WNL Edema: LLE: Trace, RLE: Trace Neurological: Yes: Oriented Psychiatric: Yes: Oriented Labs: CBC, BMP 01/30/18 05:30 10/01/18 05:30 INR, PTT INR 1.13 (0.83-1.09) H 01/29/18 05:45 Assessment/Plan Current Medications Generic Name Dose Route Start Last Admin Trade Name Sydni PRN Reason Stop Dose Admin Albuterol Sulfate 2 puff 01/28/18 13:02 01/30/18 01:45 Ventolin Hfa Inhaler - IH 2 puff Q4H PRN Administration ASTHMA Amlodipine Besylate 10 mg 01/29/18 10:00 01/30/18 09:45 Norvasc - PO 10 mg DAILY [facility] Administration Aspirin 81 mg 01/29/18 10:00 01/30/18 09:45 Asa - PO 81 mg DAILY [facility] Administration Atorvastatin Calcium 80 mg 01/28/18 22:00 01/29/18 22:11 Lipitor - PO 80 mg HS [facility] Administration Calcium/Vitamin D 1 tab 01/28/18 22:00 01/30/18 09:45 Oscal 250 Mg+D - PO 1 tab BID [facility] Administration Heparin Sodium (Porcine) 5,100 unit 01/28/18 11:06 Heparin - 40 unit/kg (5100 unit) IVPUSH PRN PRN For aPTT 35 to 45 seconds Heparin Sodium (Porcine) 10,200 unit 01/28/18 11:06 Heparin - 80 unit/kg (53024 unit) IVPUSH PRN PRN aPTT <35 seconds Hydralazine HCl 100 mg 01/28/18 14:00 01/30/18 13:39 Apresoline - PO 100 mg TID [facility] Administration Hydrochlorothiazide 25 mg 01/29/18 10:00 01/30/18 09:45 Hctz - PO 25 mg DAILY [facility] Administration Hydroxychloroquine Sulfate 200 mg 01/28/18 10:00 01/30/18 09:52 Plaquenil - PO 200 mg DAILY [facility] Administration Heparin Sodium/Dextrose 25,000 units in 500 mls @ 45.722 mls/hr 01/28/18 11: 15 01/30/18 11:42 Heparin Infusion - IVPB 12.99 units/kg/hr TITR [facility] 33 mls/hr Administration Protocol 18 UNITS/KG/HR Ceftriaxone Sodium 1 gm/ 50 mls @ 100 mls/hr 01/29/18 15:30 01/30/18 09:44 Dextrose IVPB 100 mls/hr DAILY [facility] Administration Azithromycin 250 mls @ 250 mls/hr 01/29/18 14:30 01/30/18 09:43 Zithromax 500mg Ivpb (Pre-Docked) IVPB 250 mls/hr DAILY [facility] Administration Isosorbide Mononitrate 60 mg 01/28/18 10:00 01/30/18 09:45 Imdur - PO 60 mg DAILY [facility] Administration Lidocaine 1 patch 01/29/18 10:00 01/30/18 12:27 Lidoderm Patch - TP Not Given DAILY [facility] Lidocaine 1 patch 01/30/18 23:45 Lidoderm Patch - TP 01/30/18 23:46 ONCE ONE Methylprednisolone Sodium Succinate 40 mg 01/30/18 15:00 01/30/18 14:28 Solu-Medrol - IVPUSH 40 mg Q6H-IV [facility] Administration Metoprolol Succinate 200 mg 01/29/18 09:40 01/30/18 09:45 Toprol Xl - PO 200 mg DAILY [facility] Administration Miscellaneous 1 each 01/28/18 22:00 01/29/18 22:14 Lidoderm Patch Removal MC Not Given DAILY@2200 [facility] Morphine Sulfate 4 mg 01/30/18 11:10 01/30/18 11:41 Morphine Sulfate IVPUSH 4 mg Q4H PRN Administration PAIN LEVEL 4 - 6 Mycophenolate Mofetil 500 mg 01/28/18 14:00 01/30/18 13:40 Cellcept - PO 500 mg TID [facility] Administration Ondansetron HCl 4 mg 01/29/18 17:53 01/29/18 18:14 Zofran Injection IVPUSH 4 mg Q6H PRN Administration NAUSEA Pantoprazole Sodium 40 mg 01/29/18 10:00 01/30/18 09:45 Protonix - PO 40 mg DAILY [facility] Administration Impression 1. CKD 2. SLE 3. chest pain 4. HLD 5. hx DVT 6. CHF 7. distal LAD stenosis 8. HTN Plan - check ua - avoid nsaids - check ruq ultrasound - repeat labs in am - follow serologies Dr Escalante
[2018-01-30 16:25] LABS: SPECKLED PATTERN >1:1280 (.)
--- NOTE | 2018-01-30 16:36 | ECHO ---
Name: ISAAC KOENIG Exam:Adult Echocardiogram Study Date: 01/30/2018 03:17 PM Age: 27 yrs Reason For Study: heart function Height: 66 in Weight: 280 lb BSA: 2.3 m2 MMode/2D Measurements & Calculations IVSd: 0.75 cm Ao root diam: 2.9 cm LVIDd: 5.9 cm LA dimension: 3.9 cm LVIDs: 4.7 cm LVPWd: 1.0 cm EDV(Teich): 175.3 ml ESV(Teich): 101.9 ml Doppler Measurements & Calculations MR max xi: 240.3 cm/sec TR max xi: 238.9 cm/sec MR max P.1 mmHg TR max P.8 mmHg Procedure The study was technically adequate with some images being suboptimal in quality. Left Ventricle The left ventricle is mildly dilated. Left ventricular systolic function is moderately reduced. Eject ion Fraction = 35-40%. Right Ventricle The right ventricle is normal in size and function. Atria The left atrium is borderline dilated. Right atrial size is normal. Mitral Valve The mitral valve is normal in structure and function. There is trace to mild mitral regurgitation. Tricuspid Valve The tricuspid valve is not well visualized. There is mild tricuspid regurgitation. There was insuffic ient TR detected to calculate RV systolic pressure. Aortic Valve The aortic valve is normal in structure and function. The aortic valve is trileaflet. The aortic valv e opens well. Trace aortic regurgitation. Pulmonic Valve The pulmonic valve is not well visualized. Trace pulmonic valvular regurgitation. Great Vessels The aortic root is normal size. Pericardium/Pleura There is no pericardial effusion. Interpretation Summary In comparison to previous study performed 12/27/2017, the degree of mitral regurgitation has decrease d. The left ventricle is mildly dilated. Trace aortic regurgitation. The left atrium is borderline dilated. Trace pulmonic valvular regurgitation. Left ventricular systolic function is moderately reduced. Ejection Fraction = 35-40%. The right ventricle is normal in size and function. There is trace to mild mitral regurgitation. There is mild tricuspid regurgitation. Delano Weber MD 01/30/2018 04:35 PM
[2018-01-30] MEDS ORDERED: morphine SULFATE 4 MG/ML VIAL IVPUSH PRN (22:03)
[2018-01-30] MEDS: LIDOCAINE PATCH REMOVAL MC SCH (22:04)
[2018-01-30] MEDS: ATORVASTATIN CA 80 MG TABLET (FP) PO SCH (22:04)
[2018-01-30] MEDS: APIXABAN 5 MG TABLET PO SCH (22:04)
[2018-01-30] MEDS ORDERED: LIDOCAINE 5% TOPICAL PATCH TP ONE (23:45)
[2018-01-31] MEDS: morphine SULFATE 4 MG/ML VIAL IVPUSH PRN ×6 (00:44→20:31)
[2018-01-31] MEDS: methylPREDNISolone NA SUCC 40 MG/1 ML VIAL IVPUSH SCH ×4 (03:45→20:31)
[2018-01-31 06:34] LABS: BASO % 0.1 % (0-2.0); HEMATOCRIT 25.3 % (32.4-45.2); HEMOGLOBIN 8.1 GM/dL (10.7-15.3); MCH 29.3 pg (25.7-33.7); MCHC 32.2 g/dl (32.0-36.0); MEAN PLT VOLUME 8.6 fl (7.5-11.1); MONO % 2.1 % (3.8-10.2); NEUT % 92.8 % (42.8-82.8); PLATELET COUNT 189 K/MM3 (134-434); RBC 2.78 M/mm3 (3.60-5.2); RDW 13.4 % (11.6-15.6); WHITE BLOOD COUNT 16.8 K/mm3 (4.0-10.0)
[2018-01-31 06:58] LABS: ANION GAP 14 MMOL/L (8-16); BLOOD UREA NITROGEN 38 mg/dL (7-18); CALCIUM 9.7 mg/dL (8.5-10.1); CHLORIDE 109 mmol/L (98-107); CO2 17 mmol/L (21-32); CREATININE 2.9 mg/dL (0.55-1.3); GLUCOSE,RANDOM 120 mg/dL (74-106); MAGNESIUM 2.2 mg/dL (1.8-2.4); PHOSPHOROUS 8.7 mg/dL (2.5-4.9); POTASSIUM 5.1 mmol/L (3.5-5.1); SODIUM 140 mmol/L (136-145)
[2018-01-31] MEDS ORDERED: PT OWN MED DRAWER 7, Y5N ONE ×3 (07:35→21:54)
[2018-01-31] MEDS: hydrALAZINE HCL 50 MG TABLET (FP) PO SCH ×3 (07:40→22:33)
[2018-01-31] MEDS: MYCOPHENOLATE MOFETIL 500 MG TABLET PO SCH ×3 (07:41→22:35)
[2018-01-31] MEDS ORDERED: DEXTROSE 5%-WATER - 50 ML IVPB ONE (08:57)
[2018-01-31] MEDS ORDERED: cefTRIAXone SODIUM 1 GM VIAL ONE (08:57)
--- NOTE | 2018-01-31 10:18 | PN ---
Progress Note, Physician Chief Complaint: still with chest and LUQ pain tele neg History of Present Illness: 27-year-old obese female, we've a history of SLE, hypertension, hyperlipidemia, chronic kidney disease, DVT, thrombosis of the distal LAD 09/16, now readmitted with right sided chest pains. There is no evidence of ischemia nor acute coronary syndrome. No CHF. No evidence of pulmonary emboli nor DVTs on recent imaging. The symptoms are completely reproducible to palpation. Echo 01/30/18: EF 35-40%, mild LV dilation, trace to mild MR, mild TR, trace PI. - Current Medication List Current Medications: Active Medications Albuterol Sulfate (Ventolin Hfa Inhaler -) 2 puff IH Q4H PRN PRN Reason: ASTHMA Last Admin: 01/30/18 01:45 Dose: 2 puff Amlodipine Besylate (Norvasc -) 10 mg PO DAILY [facility] Last Admin: 01/30/18 09:45 Dose: 10 mg Apixaban (Eliquis -) 5 mg PO BID [facility] Last Admin: 01/30/18 22:04 Dose: 5 mg Aspirin (Asa -) 81 mg PO DAILY [facility] Last Admin: 01/30/18 09:45 Dose: 81 mg Atorvastatin Calcium (Lipitor -) 80 mg PO HS [facility] Last Admin: 01/30/18 22:04 Dose: 80 mg Calcium/Vitamin D (Oscal 250 Mg+D -) 1 tab PO BID [facility] Last Admin: 01/30/18 22:03 Dose: 1 tab Hydralazine HCl (Apresoline -) 100 mg PO TID [facility] Last Admin: 01/31/18 07:40 Dose: 100 mg Hydrochlorothiazide (Hctz -) 25 mg PO DAILY [facility] Last Admin: 01/30/18 09:45 Dose: 25 mg Hydroxychloroquine Sulfate (Plaquenil -) 200 mg PO DAILY [facility] Last Admin: 01/30/18 09:52 Dose: 200 mg Ceftriaxone Sodium 1 gm/ (Dextrose) 50 mls @ 100 mls/hr IVPB DAILY [facility] Last Admin: 01/30/18 09:44 Dose: 100 mls/hr Azithromycin (Zithromax 500mg Ivpb (Pre-Docked)) 250 mls @ 250 mls/hr IVPB DAILY [facility] Last Admin: 01/30/18 09:43 Dose: 250 mls/hr Isosorbide Mononitrate (Imdur -) 60 mg PO DAILY [facility] Last Admin: 01/30/18 09:45 Dose: 60 mg Lidocaine (Lidoderm Patch -) 1 patch TP DAILY [facility] Last Admin: 01/30/18 12:27 Dose: Not Given Methylprednisolone Sodium Succinate (Solu-Medrol -) 40 mg IVPUSH Q6H-IV [facility] Last Admin: 01/31/18 03:45 Dose: 40 mg Metoprolol Succinate (Toprol Xl -) 200 mg PO DAILY [facility] Last Admin: 01/30/18 09:45 Dose: 200 mg Miscellaneous (Lidoderm Patch Removal) 1 each MC DAILY@2200 [facility] Last Admin: 01/30/18 22:04 Dose: Not Given Morphine Sulfate (Morphine Sulfate) 4 mg IVPUSH Q4H PRN PRN Reason: PAIN LEVEL 4 - 6 Last Admin: 01/31/18 07:41 Dose: 4 mg Mycophenolate Mofetil (Cellcept -) 500 mg PO TID [facility] Last Admin: 01/31/18 07:41 Dose: 500 mg Ondansetron HCl (Zofran Injection) 4 mg IVPUSH Q6H PRN PRN Reason: NAUSEA Last Admin: 01/29/18 18:14 Dose: 4 mg Pantoprazole Sodium (Protonix -) 40 mg PO DAILY [facility] Last Admin: 01/30/18 09:45 Dose: 40 mg Sodium Bicarbonate (Sodium Bicarbonate -) 650 mg PO BID [facility] - Objective Vital Signs: Vital Signs Temperature 98.7 F 01/31/18 06:00 Pulse Rate 84 01/31/18 06:00 Respiratory Rate 20 01/31/18 06:00 Blood Pressure 138/79 01/31/18 06:00 O2 Sat by Pulse Oximetry (%) 97 01/30/18 20:26 Constitutional: Yes: No Distress, Calm Eyes: Yes: Conjunctiva Clear, EOM Intact HENT: Yes: Atraumatic, Normocephalic Neck: Yes: Trachea Midline Cardiovascular: Yes: Regular Rate and Rhythm Respiratory: Yes: CTA Bilaterally Gastrointestinal: Yes: Normal Bowel Sounds, Soft, Tenderness (ruq) Musculoskeletal: Yes: WNL Extremities: Yes: WNL Edema: No Peripheral Pulses WNL: Yes Labs: CBC, BMP 01/31/18 05:30 01/31/18 05:30 INR, PTT INR 1.13 (0.83-1.09) H 01/29/18 05:45 Assessment/Plan 27-year-old obese female, we've a history of SLE, hypertension, hyperlipidemia, chronic kidney disease, DVT, thrombosis of the distal LAD 09/16, now readmitted with right sided chest pains and RUQ pain. 1. chest pain--There is no evidence of ischemia nor acute coronary syndrome. No CHF. No evidence of pulmonary emboli nor DVTs on recent imaging. The symptoms are completely reproducible. -Pulm evaluation appreciated. -Continue Eliquis -Echo EF 35-40% -RUQ sono today. -continue renal matthew 2. Chronic systolic CHF- she has a thrombotic lesion on cardiac cath August 2017. CHF symptoms stable, defer ACEI or ARB due to CKD. -continue hydralazine/imdur
--- NOTE | 2018-01-31 10:52 | PN ---
Progress Note, Physician History of Present Illness: pulmonary alert,still c/o chest pain minimal improvement - Current Medication List Current Medications: Active Medications Albuterol Sulfate (Ventolin Hfa Inhaler -) 2 puff IH Q4H PRN PRN Reason: ASTHMA Last Admin: 01/30/18 01:45 Dose: 2 puff Amlodipine Besylate (Norvasc -) 10 mg PO DAILY [facility] Last Admin: 01/30/18 09:45 Dose: 10 mg Apixaban (Eliquis -) 5 mg PO BID [facility] Last Admin: 01/30/18 22:04 Dose: 5 mg Aspirin (Asa -) 81 mg PO DAILY [facility] Last Admin: 01/30/18 09:45 Dose: 81 mg Atorvastatin Calcium (Lipitor -) 80 mg PO HS [facility] Last Admin: 01/30/18 22:04 Dose: 80 mg Calcium/Vitamin D (Oscal 250 Mg+D -) 1 tab PO BID [facility] Last Admin: 01/30/18 22:03 Dose: 1 tab Hydralazine HCl (Apresoline -) 100 mg PO TID [facility] Last Admin: 01/31/18 07:40 Dose: 100 mg Hydrochlorothiazide (Hctz -) 25 mg PO DAILY [facility] Last Admin: 01/30/18 09:45 Dose: 25 mg Hydroxychloroquine Sulfate (Plaquenil -) 200 mg PO DAILY [facility] Last Admin: 01/30/18 09:52 Dose: 200 mg Ceftriaxone Sodium 1 gm/ (Dextrose) 50 mls @ 100 mls/hr IVPB DAILY [facility] Last Admin: 01/30/18 09:44 Dose: 100 mls/hr Azithromycin (Zithromax 500mg Ivpb (Pre-Docked)) 250 mls @ 250 mls/hr IVPB DAILY [facility] Last Admin: 01/30/18 09:43 Dose: 250 mls/hr Isosorbide Mononitrate (Imdur -) 60 mg PO DAILY [facility] Last Admin: 01/30/18 09:45 Dose: 60 mg Lidocaine (Lidoderm Patch -) 1 patch TP DAILY [facility] Last Admin: 01/30/18 12:27 Dose: Not Given Methylprednisolone Sodium Succinate (Solu-Medrol -) 40 mg IVPUSH Q6H-IV [facility] Last Admin: 01/31/18 03:45 Dose: 40 mg Metoprolol Succinate (Toprol Xl -) 200 mg PO DAILY [facility] Last Admin: 01/30/18 09:45 Dose: 200 mg Miscellaneous (Lidoderm Patch Removal) 1 each MC DAILY@2200 [facility] Last Admin: 01/30/18 22:04 Dose: Not Given Morphine Sulfate (Morphine Sulfate) 4 mg IVPUSH Q4H PRN PRN Reason: PAIN LEVEL 4 - 6 Last Admin: 01/31/18 07:41 Dose: 4 mg Mycophenolate Mofetil (Cellcept -) 500 mg PO TID [facility] Last Admin: 01/31/18 07:41 Dose: 500 mg Ondansetron HCl (Zofran Injection) 4 mg IVPUSH Q6H PRN PRN Reason: NAUSEA Last Admin: 01/29/18 18:14 Dose: 4 mg Pantoprazole Sodium (Protonix -) 40 mg PO DAILY [facility] Last Admin: 01/30/18 09:45 Dose: 40 mg Sodium Bicarbonate (Sodium Bicarbonate -) 650 mg PO BID [facility] - Objective Vital Signs: Vital Signs Temperature 98.7 F 01/31/18 06:00 Pulse Rate 84 01/31/18 06:00 Respiratory Rate 20 01/31/18 06:00 Blood Pressure 138/79 01/31/18 06:00 O2 Sat by Pulse Oximetry (%) 97 01/30/18 20:26 Constitutional: Yes: Well Nourished, Calm Eyes: Yes: WNL HENT: Yes: WNL Neck: Yes: WNL Cardiovascular: Yes: Regular Rate and Rhythm, S1, S2 Respiratory: Yes: Diminished Gastrointestinal: Yes: Normal Bowel Sounds, Soft Extremities: Yes: WNL Edema: No Labs: CBC, BMP 01/31/18 05:30 01/31/18 05:30 INR, PTT INR 1.13 (0.83-1.09) H 01/29/18 05:45 Assessment/Plan Problem List - Problems (1) Chest pain Code(s): R07.9 - CHEST PAIN, UNSPECIFIED Qualifiers: Qualified Code(s): R07.1 - Chest pain on breathing; R07.81 - Pleurodynia (2) CKD (chronic kidney disease) stage 3, GFR 30-59 ml/min Code(s): N18.3 - CHRONIC KIDNEY DISEASE, STAGE 3 (MODERATE) (3) Lupus Code(s): M32.9 - SYSTEMIC LUPUS ERYTHEMATOSUS, UNSPECIFIED (4) Morbid obesity Code(s): E66.01 - MORBID (SEVERE) OBESITY DUE TO EXCESS CALORIES Assessment/Plan Pleuritic Chest Pain Lung Nodule r/o Pneumonia SLE on immunosuppressants CKD Pulmonary HTN - antibiotics - pt reports compliance with anticoagulation so recurrent VTE possible but less likely - trial increased steroids as her pleurisy may be from lupus flare - inhaled bronchodilators as needed - f/u of chest imaging in 4-6 weeks to ensure resolution of RUL nodule - incentive spirometer - analgesics DR SANTORO
[2018-01-31] MEDS: ASPIRIN 81 MG CHEWABLE TABLETS PO SCH (10:53)
[2018-01-31] MEDS: SODIUM BICARBONATE 650 MG TABLET PO SCH ×2 (10:53→22:33)
[2018-01-31] MEDS: APIXABAN 5 MG TABLET PO SCH ×2 (10:53→22:34)
[2018-01-31] MEDS: CALCIUM 250MG/VIT-D 125 UNITS 1 COMBO TABLET PO SCH ×2 (10:53→22:33)
[2018-01-31] MEDS: ISOSORBIDE MONONITRATE 60 MG TAB.SR.24H (FP) PO SCH (10:53)
[2018-01-31] MEDS: CEFTRIAXONE 1 GM in DEXTROSE 5%-WATER - 50 ML IVPB SCH (10:54)
[2018-01-31] MEDS: amLODIPine BESYLATE 10 MG TABLET (FP) PO SCH (10:54)
[2018-01-31] MEDS: PANTOPRAZOLE 40 MG TABLET (FP) PO SCH (10:54)
[2018-01-31] MEDS: AZITHROMYCIN IVPB 250 ML IVPB SCH (10:55)
[2018-01-31 11:02] LABS: ACANTHOCYTES 0; ANISOCYTOSIS 0; HELMET CELLS 0; HOWELL-JOLLY BODIES 0; MACROCYTOSIS 0; OVALOCYTE 0; PLATELET ESTIMATE NORMAL; ROULEAU 0; SICKELED CELLS 0; TARGET CELLS 0; TEAR DROP CELLS 0; TOXIC GRANULATION 0
[2018-01-31] MEDS: HYDROCHLOROTHIAZIDE 25 MG TABLET (FP) PO SCH (11:15)
--- NOTE | 2018-01-31 11:46 | PN ---
Physical Exam: SUBJECTIVE: Patient seen and examined this AM. She complains that the hospital is too loud and she is continually woken up throughout the night and unable to sleep. Her pain is improved today with the increased medications though she still says she can barely move her arm and is having a very difficult time ambulating to the bathroom. OBJECTIVE: Vital Signs Period Temp Pulse Resp BP Sys/Willett Pulse Ox Last 24 Hr 97.7 F-99.3 F 84-101 20-20 116-138/63-90 97 GENERAL: A&O, mild distress distress likely secondary to pain HEAD: Normocephalic, atraumatic. EYES: PERRL, no scleral icterus EARS, NOSE, THROAT: oropharynx clear without exudates. Moist mucous membranes. NECK: supple without lymphadenopathy LUNGS: CTA b/l, no crackles or wheezes HEART: Tachycardic rhythm, normal S1 and S2 without murmur ABDOMEN: Soft, mild tenderness to palpation in the RUQ, normoactive bowel sounds MUSCULOSKELETAL: Pain reproducible with palpation on right chest wall, shoulder , and back. ROM of Right shoulder limited due to pain EXTREMITIES: 2+ pulses, warm, well-perfused. No peripheral edema. NEUROLOGICAL: Cranial nerves II-XII grossly intact. Normal speech. PSYCHIATRIC: Cooperative. Good eye contact. Appropriate mood and affect. Laboratory Results - last 24 hr 01/29/18 01/29/18 01/30/18 05:45 05:45 05:30 WBC RBC Hgb Hct MCV MCH MCHC RDW Plt Count MPV Absolute Neuts (auto) Neutrophils % Lymphocytes % Monocytes % Eosinophils % Basophils % Nucleated RBC % PTT (Actin FS) Sodium Potassium Chloride Carbon Dioxide Anion Gap BUN Creatinine Creat Clearance w eGFR Random Glucose Calcium Phosphorus Magnesium Direct Bilirubin < 0.2 KATRIN Screen Positive H KATRIN Homogeneous Pattern TNP KATRIN Nucleolar Pattern TNP KATRIN Spindle Iman Pattern TNP KATRIN Midbody Pattern TNP KATRIN Centriole Pattern TNP KATRIN Nuclear Dot Pattern TNP KATRIN PCNA Pattern TNP KATRIN Nuclear Membr Pat TNP KATRIN Speckled Pattern >1:1280 H KATRIN Centromere Pattern TNP SS-A/Ro Antibody >8.0 H SS-B/La Antibody <0.2 Double Strand DNA Ab 17 H Anti-Cardiolipin IgG Ab <9 Anti-Cardiolipin IgA Ab <9 Anti-Cardiolipin IgM Ab <9 01/30/18 01/30/1818 15:25 21:00 05:30 WBC 16.8 H RBC 2.78 L Hgb 8.1 L Hct 25.3 L MCV 91.0 MCH 29.3 MCHC 32.2 RDW 13.4 Plt Count 189 MPV 8.6 Absolute Neuts (auto) 15.6 H Neutrophils % 92.8 H Lymphocytes % 5.0 L D Monocytes % 2.1 L Eosinophils % 0.0 Basophils % 0.1 Nucleated RBC % 0 PTT (Actin FS) 64.9 H 47.7 H Sodium Potassium Chloride Carbon Dioxide Anion Gap BUN Creatinine Creat Clearance w eGFR Random Glucose Calcium Phosphorus Magnesium Direct Bilirubin KATRIN Screen KATRIN Homogeneous Pattern KATRIN Nucleolar Pattern KATRIN Spindle Iman Pattern KATRIN Midbody Pattern KATRIN Centriole Pattern KATRIN Nuclear Dot Pattern KATRIN PCNA Pattern KATRIN Nuclear Membr Pat KATRIN Speckled Pattern KATRIN Centromere Pattern SS-A/Ro Antibody SS-B/La Antibody Double Strand DNA Ab Anti-Cardiolipin IgG Ab Anti-Cardiolipin IgA Ab Anti-Cardiolipin IgM Ab 01/31/18 05:30 WBC RBC Hgb Hct MCV MCH MCHC RDW Plt Count MPV Absolute Neuts (auto) Neutrophils % Lymphocytes % Monocytes % Eosinophils % Basophils % Nucleated RBC % PTT (Actin FS) Sodium 140 Potassium 5.1 Chloride 109 H Carbon Dioxide 17 L Anion Gap 14 BUN 38 H Creatinine 2.9 H Creat Clearance w eGFR 19.19 Random Glucose 120 H Calcium 9.7 Phosphorus 8.7 H Magnesium 2.2 Direct Bilirubin KATRIN Screen KATRIN Homogeneous Pattern KATRIN Nucleolar Pattern KATRIN Spindle Iman Pattern KATRIN Midbody Pattern KATRIN Centriole Pattern KATRIN Nuclear Dot Pattern KATRIN PCNA Pattern KATRIN Nuclear Membr Pat KATRNI Speckled Pattern KATRIN Centromere Pattern SS-A/Ro Antibody SS-B/La Antibody Double Strand DNA Ab Anti-Cardiolipin IgG Ab Anti-Cardiolipin IgA Ab Anti-Cardiolipin IgM Ab Active Medications Generic Name Dose Route Start Last Admin Trade Name Freq PRN Reason Stop Dose Admin Albuterol Sulfate 2 puff 01/28/18 13:02 01/30/18 01:45 Ventolin Hfa Inhaler - IH 2 puff Q4H PRN Administration ASTHMA Amlodipine Besylate 10 mg 01/29/18 10:00 01/31/18 10:54 Norvasc - PO 10 mg DAILY CARL Administration Apixaban 5 mg 01/30/18 22:00 01/31/18 10:53 Eliquis - PO 5 mg BID CARL Administration Aspirin 81 mg 01/29/18 10:00 01/31/18 10:53 Asa - PO 81 mg DAILY CARL Administration Atorvastatin Calcium 80 mg 01/28/18 22:00 01/30/18 22:04 Lipitor - PO 80 mg HS CARL Administration Calcium/Vitamin D 1 tab 01/28/18 22:00 01/31/18 10:53 Oscal 250 Mg+D - PO 1 tab BID CARL Administration Hydralazine HCl 100 mg 01/28/18 14:00 01/31/18 07:40 Apresoline - PO 100 mg TID CARL Administration Hydrochlorothiazide 25 mg 01/29/18 10:00 01/30/18 09:45 Hctz - PO 25 mg DAILY CARL Administration Hydroxychloroquine Sulfate 200 mg 01/28/18 10:00 01/30/18 09:52 Plaquenil - PO 200 mg DAILY CARL Administration Ceftriaxone Sodium 1 gm/ 50 mls @ 100 mls/hr 01/29/18 15:30 01/31/18 10:54 Dextrose IVPB 100 mls/hr DAILY CARL Administration Azithromycin 250 mls @ 250 mls/hr 01/29/18 14:30 01/31/18 10:55 Zithromax 500mg Ivpb (Pre-Docked) IVPB 250 mls/hr DAILY CARL Administration Isosorbide Mononitrate 60 mg 01/28/18 10:00 01/31/18 10:53 Imdur - PO 60 mg DAILY CARL Administration Lidocaine 1 patch 01/29/18 10:00 01/30/18 12:27 Lidoderm Patch - TP Not Given DAILY [facility] Methylprednisolone Sodium Succinate 40 mg 01/30/18 15:00 01/31/18 10:53 Solu-Medrol - IVPUSH 40 mg Q6H-IV CARL Administration Metoprolol Succinate 200 mg 01/29/18 09:40 01/31/18 10:54 Toprol Xl - PO 200 mg DAILY CARL Administration Miscellaneous 1 each 01/28/18 22:00 01/30/18 22:04 Lidoderm Patch Removal MC Not Given DAILY@2200 [facility] Morphine Sulfate 4 mg 01/30/18 22:03 01/31/18 07:41 Morphine Sulfate IVPUSH 4 mg Q4H PRN Administration PAIN LEVEL 4 - 6 Mycophenolate Mofetil 500 mg 01/28/18 14:00 01/31/18 07:41 Cellcept - PO 500 mg TID CARL Administration Ondansetron HCl 4 mg 01/29/18 17:53 01/29/18 18:14 Zofran Injection IVPUSH 4 mg Q6H PRN Administration NAUSEA Pantoprazole Sodium 40 mg 01/29/18 10:00 01/31/18 10:54 Protonix - PO 40 mg DAILY CARL Administration Sodium Bicarbonate 650 mg 01/31/18 10:00 01/31/18 10:53 Sodium Bicarbonate - PO 650 mg BID CARL Administration ASSESSMENT/PLAN: 27 year old female with a significant pmh of hypertension, CKD stage 3/4, lupus , multiple DVTs, LAD thrombosis, and pulmonary hypertension admitted following 3 days of right sided chest pain. Right Sided Chest Pain -Could be secondary to Lupus flare, pleurisy, early pneumonia with pleuritic involvement, or musculoskeletal -Ceftriaxone 1 gm IV Daily, Azithromycin 500 mg IV Daily, Day 3, continue for 5 total days -Steroids increased to SoluMedrol 40 mg IV Q6 yesterday, with some relief today -Morphine 4 Q4 for pain -Lidoderm patch -CTA negative for PE -Cardiology consult appreciated -LFTs normal, RUQ US pending SLE -Rheumatology consult appreciated -Lupus serologies and compliment levels RUL Lung Nodule on CT -Incidental spiculated nodule found on CT scan at admission -Concerning for malignancy -Pulmonogy consult appreciated -f/u imaging in 4-6 weeks to check stability/resolution/worsening HTN -Hydralazine 100 mg PO TID -HCTZ 25 mg PO Daily -Imdure 60 mg PO Daily -Norvasc 10 mg PO Daily -Toprol XL 200 mg PO Daily -Acute elevations of bp likely secondary to pain HLD -Lipitor 80 mg PO HS -Lipid panel noted with elevated cholesterol CKD -Baseline creatinine 2.5 -Monitor BMPs -avoid nephrotoxic drugs Prior DVT last year/LAD thrombosis -70-80% thrombosis of LAD, could be secondary to lupus -Anticardiolipin Antibodies negative -On eliquis 5 mg PO BID -ASA 81 mg PO Daily DVT Prophylaxis -On Eliquis 5 mg PO BID FEN -Fluids: none -Electrolytes: Elevated Phos, BMP, Mg, Phos in AM -Nutrition: Cardiac Diet Disposition Telemetry Visit type - Emergency Visit Emergency Visit: Yes ED Registration Date: 01/28/18 Care time: The patient presented to the Emergency Department on the above date and was hospitalized for further evaluation of their emergent condition. - New Patient This patient is new to me today: No - Critical Care Critical Care patient: No
--- NOTE | 2018-01-31 11:51 | PN ---
Teaching Attending Note Name of Resident: Carlitos Wynn ATTENDING PHYSICIAN STATEMENT I saw and evaluated the patient. I reviewed the resident's note and discussed the case with the resident. I agree with the resident's findings and plan as documented. SUBJECTIVE:c/o R sided chest pain now radiating to her abdomen. improves with leaning forward. unable to ambulate to the bathroom due to pain. no improvement from increasing steroids. states she has having productive cough of copious clear sputum. never had symptoms like this in the past. claims compliance with medications and was on stable dose of prednisone 15mg for the past year. never had RUQ pain in the past exacerbated by food. denies fever, chills, N/v/C/D OBJECTIVE: Last Vital Signs Temp Pulse Resp BP Pulse Ox 98.6 F 87 20 137/87 97 01/31/18 10:00 01/31/18 10:00 01/31/18 10:00 01/31/18 10:00 01/30/18 20:26 General NAD CV S1 S2 RRR no rubs +R side chest wall tenderness Lungs CTA B/L no wheezing/rales/rhonchi Abdomen soft NT/ND obese ASSESSMENT AND PLAN: 27 yo F with PMHX of SLE, HTN, HLD, obesity, CKD stage 3, h/o DVT 06/2016, Cardiac cath done 09/16/17 after an echo showed inferoseptal hypokinesis done as preop for bariatric surgery, cath showed distal LAD 70-80% thrombotic appearing stenosis with otherwise normal coronary arteries, no PCI was performed as felt to be a risk given history of thrombosis and pt was changed to Eliquis, admitted with right sided chest pain, sinus tachycardia. 1.Right sided chest pain- most likley pleurisy vs musckuloskeletal. steroids increased to 40mg Q6h. on empiric abx for possible consolidation. Ceft/azithro day 3. echo negative for pericarditis or effusion. less likely cardiac in nature. cont current managmenet. rheum/cardio/pulm on board. 2. RUL spiculated lung nodule concerning for neoplasm- will need repeat imaging in several weeks to evaluate if inflammatory and resolved vs requiring bx. Pulm f/u outpatient 3. Leukocytosis- likely due to steroids. on empiric abx 4. Acute on CKD- baseline 2.5. slight uptrend may be from dehydration. encourage water intake. never had renal bx will need one as outpatient. 5. HTN- controlled. cont medications. 6. Dyslipidemia 7. h/o LLE DVT 06/2016- from antiphospholipid syndrome. on eliquis 8. Distal LAD 70-80% thombotic appearing stenosis on Eliquis
[2018-01-31] MEDS: HYDROXYCHLOROQUINE SO4 200 MG TABLET (FP) PO SCH (15:48)
--- NOTE | 2018-01-31 16:35 | PN ---
Progress Note, Physician History of Present Illness: Pt seen and examined at bedside. SHe feels that the pain is better than it was yesterday. She also feels that her breathing is more comfortable. She denies lower ext edema. - Current Medication List Current Medications: Active Medications Albuterol Sulfate (Ventolin Hfa Inhaler -) 2 puff IH Q4H PRN PRN Reason: ASTHMA Last Admin: 01/30/18 01:45 Dose: 2 puff Amlodipine Besylate (Norvasc -) 10 mg PO DAILY [facility] Last Admin: 01/31/18 10:54 Dose: 10 mg Apixaban (Eliquis -) 5 mg PO BID [facility] Last Admin: 01/31/18 10:53 Dose: 5 mg Aspirin (Asa -) 81 mg PO DAILY [facility] Last Admin: 01/31/18 10:53 Dose: 81 mg Atorvastatin Calcium (Lipitor -) 80 mg PO HS [facility] Last Admin: 01/30/18 22:04 Dose: 80 mg Calcium/Vitamin D (Oscal 250 Mg+D -) 1 tab PO BID [facility] Last Admin: 01/31/18 10:53 Dose: 1 tab Hydralazine HCl (Apresoline -) 100 mg PO TID [facility] Last Admin: 01/31/18 15:48 Dose: 100 mg Hydrochlorothiazide (Hctz -) 25 mg PO DAILY [facility] Last Admin: 01/31/18 11:15 Dose: 25 mg Hydroxychloroquine Sulfate (Plaquenil -) 200 mg PO DAILY [facility] Last Admin: 01/31/18 15:48 Dose: 200 mg Ceftriaxone Sodium 1 gm/ (Dextrose) 50 mls @ 100 mls/hr IVPB DAILY [facility] Last Admin: 01/31/18 10:54 Dose: 100 mls/hr Azithromycin (Zithromax 500mg Ivpb (Pre-Docked)) 250 mls @ 250 mls/hr IVPB DAILY [facility] Last Admin: 01/31/18 10:55 Dose: 250 mls/hr Isosorbide Mononitrate (Imdur -) 60 mg PO DAILY [facility] Last Admin: 01/31/18 10:53 Dose: 60 mg Lidocaine (Lidoderm Patch -) 1 patch TP DAILY [facility] Last Admin: 01/30/18 12:27 Dose: Not Given Methylprednisolone Sodium Succinate (Solu-Medrol -) 40 mg IVPUSH Q6H-IV [facility] Last Admin: 01/31/18 15:49 Dose: 40 mg Metoprolol Succinate (Toprol Xl -) 200 mg PO DAILY [facility] Last Admin: 01/31/18 10:54 Dose: 200 mg Miscellaneous (Lidoderm Patch Removal) 1 each MC DAILY@2200 [facility] Last Admin: 01/30/18 22:04 Dose: Not Given Morphine Sulfate (Morphine Sulfate) 4 mg IVPUSH Q4H PRN PRN Reason: PAIN LEVEL 4 - 6 Last Admin: 01/31/18 15:50 Dose: 4 mg Mycophenolate Mofetil (Cellcept -) 500 mg PO TID [facility] Last Admin: 01/31/18 15:49 Dose: 500 mg Ondansetron HCl (Zofran Injection) 4 mg IVPUSH Q6H PRN PRN Reason: NAUSEA Last Admin: 01/29/18 18:14 Dose: 4 mg Pantoprazole Sodium (Protonix -) 40 mg PO DAILY [facility] Last Admin: 01/31/18 10:54 Dose: 40 mg Sodium Bicarbonate (Sodium Bicarbonate -) 650 mg PO BID [facility] Last Admin: 01/31/18 10:53 Dose: 650 mg - Objective Vital Signs: Vital Signs Temperature 97.8 F 01/31/18 14:00 Pulse Rate 87 01/31/18 14:00 Respiratory Rate 20 01/31/18 14:00 Blood Pressure 128/72 01/31/18 14:00 O2 Sat by Pulse Oximetry (%) 97 01/31/18 09:00 Constitutional: Yes: Calm Eyes: Yes: Conjunctiva Clear HENT: Yes: Atraumatic Neck: Yes: Supple Cardiovascular: Yes: S1, S2 Respiratory: Yes: CTA Bilaterally Gastrointestinal: Yes: Soft Genitourinary: Yes: WNL Musculoskeletal: Yes: WNL Edema: No Neurological: Yes: Oriented Psychiatric: Yes: Oriented Labs: CBC, BMP 01/31/18 05:30 01/31/18 05:30 INR, PTT INR 1.13 (0.83-1.09) H 01/29/18 05:45 Problem List - Problems (1) Chest pain Code(s): R07.9 - CHEST PAIN, UNSPECIFIED Qualifiers: Qualified Code(s): R07.1 - Chest pain on breathing; R07.81 - Pleurodynia (2) Pleurisy Code(s): R09.1 - PLEURISY (3) CKD (chronic kidney disease) stage 3, GFR 30-59 ml/min Code(s): N18.3 - CHRONIC KIDNEY DISEASE, STAGE 3 (MODERATE) Assessment/Plan Current Medications Generic Name Dose Route Start Last Admin Trade Name Freq PRN Reason Stop Dose Admin Albuterol Sulfate 2 puff 01/28/18 13:02 01/30/18 01:45 Ventolin Hfa Inhaler - IH 2 puff Q4H PRN Administration ASTHMA Amlodipine Besylate 10 mg 01/29/18 10:00 01/31/18 10:54 Norvasc - PO 10 mg DAILY CARL Administration Apixaban 5 mg 01/30/18 22:00 01/31/18 10:53 Eliquis - PO 5 mg BID CARL Administration Aspirin 81 mg 01/29/18 10:00 01/31/18 10:53 Asa - PO 81 mg DAILY CARL Administration Atorvastatin Calcium 80 mg 01/28/18 22:00 01/30/18 22:04 Lipitor - PO 80 mg HS CARL Administration Calcium/Vitamin D 1 tab 01/28/18 22:00 01/31/18 10:53 Oscal 250 Mg+D - PO 1 tab BID CARL Administration Hydralazine HCl 100 mg 01/28/18 14:00 01/31/18 15:48 Apresoline - PO 100 mg TID CARL Administration Hydrochlorothiazide 25 mg 01/29/18 10:00 01/31/18 11:15 Hctz - PO 25 mg DAILY CARL Administration Hydroxychloroquine Sulfate 200 mg 01/28/18 10:00 01/31/18 15:48 Plaquenil - PO 200 mg DAILY CARL Administration Ceftriaxone Sodium 1 gm/ 50 mls @ 100 mls/hr 01/29/18 15:30 01/31/18 10:54 Dextrose IVPB 100 mls/hr DAILY CARL Administration Azithromycin 250 mls @ 250 mls/hr 01/29/18 14:30 01/31/18 10:55 Zithromax 500mg Ivpb (Pre-Docked) IVPB 250 mls/hr DAILY CARL Administration Isosorbide Mononitrate 60 mg 01/28/18 10:00 01/31/18 10:53 Imdur - PO 60 mg DAILY CARL Administration Lidocaine 1 patch 01/29/18 10:00 01/30/18 12:27 Lidoderm Patch - TP Not Given DAILY [facility] Methylprednisolone Sodium Succinate 40 mg 01/30/18 15:00 01/31/18 15:49 Solu-Medrol - IVPUSH 40 mg Q6H-IV CARL Administration Metoprolol Succinate 200 mg 01/29/18 09:40 01/31/18 10:54 Toprol Xl - PO 200 mg DAILY CARL Administration Miscellaneous 1 each 01/28/18 22:00 01/30/18 22:04 Lidoderm Patch Removal MC Not Given DAILY@2200 [facility] Morphine Sulfate 4 mg 01/30/18 22:03 01/31/18 15:50 Morphine Sulfate IVPUSH 4 mg Q4H PRN Administration PAIN LEVEL 4 - 6 Mycophenolate Mofetil 500 mg 01/28/18 14:00 01/31/18 15:49 Cellcept - PO 500 mg TID CARL Administration Ondansetron HCl 4 mg 01/29/18 17:53 01/29/18 18:14 Zofran Injection IVPUSH 4 mg Q6H PRN Administration NAUSEA Pantoprazole Sodium 40 mg 01/29/18 10:00 01/31/18 10:54 Protonix - PO 40 mg DAILY CARL Administration Sodium Bicarbonate 650 mg 01/31/18 10:00 01/31/18 10:53 Sodium Bicarbonate - PO 650 mg BID CARL Administration Selected Entries 01/03/18 01/31/18 01/31/18 12:34 06:00 10:00 Blood Pressure 138/79 137/87 Blood Pressure 144/101 [Left Arm] 01/31/18 14:00 Blood Pressure 128/72 Blood Pressure [Left Arm] Impression 1. CKD 2. SLE 3. chest pain 4. HLD 5. hx DVT 6. CHF 7. distal LAD stenosis 8. HTN Plan - will re-order ua - ultrasound reviewed - rheum eval - will monitor renal function - bp is better controlled - follow serologies Dr Escalante
[2018-01-31] MEDS: LIDOCAINE 5% TOPICAL PATCH TP SCH (18:48)
[2018-01-31] MEDS: ATORVASTATIN CA 80 MG TABLET (FP) PO SCH (22:33)
[2018-01-31] MEDS: LIDOCAINE PATCH REMOVAL MC SCH (22:38)
[2018-02-01 00:12] LABS: COMPLEMENT TOTAL(CH50) 40 U/mL (>41)
[2018-02-01] MEDS: morphine SULFATE 4 MG/ML VIAL IVPUSH PRN ×4 (02:40→20:52)
[2018-02-01] MEDS: methylPREDNISolone NA SUCC 40 MG/1 ML VIAL IVPUSH SCH ×2 (02:41→09:02)
[2018-02-01] MEDS: MYCOPHENOLATE MOFETIL 500 MG TABLET PO SCH ×3 (05:44→21:12)
[2018-02-01] MEDS: hydrALAZINE HCL 50 MG TABLET (FP) PO SCH ×3 (05:44→21:13)
[2018-02-01 07:51] LABS: BASO % 0.1 % (0-2.0); EOS % 0.1 % (0-4.5); HEMATOCRIT 23.3 % (32.4-45.2); HEMOGLOBIN 7.4 GM/dL (10.7-15.3); LYMPH % 3.9 % (8-40); MCHC 31.8 g/dl (32.0-36.0); MEAN CELL VOLUME 91.1 fl (80-96); MEAN PLT VOLUME 8.6 fl (7.5-11.1); MONO % 2.9 % (3.8-10.2); PLATELET COUNT 242 K/MM3 (134-434); RBC 2.56 M/mm3 (3.60-5.2); RDW 13.1 % (11.6-15.6); WHITE BLOOD COUNT 16.8 K/mm3 (4.0-10.0)
[2018-02-01 08:07] LABS: ANION GAP 12 MMOL/L (8-16); BLOOD UREA NITROGEN 53 mg/dL (7-18); CALCIUM 9.1 mg/dL (8.5-10.1); CHLORIDE 110 mmol/L (98-107); CO2 17 mmol/L (21-32); CREATININE 3.2 mg/dL (0.55-1.3); GLUCOSE,RANDOM 126 mg/dL (74-106); MAGNESIUM 2.7 mg/dL (1.8-2.4); PHOSPHOROUS 8.2 mg/dL (2.5-4.9); POTASSIUM 4.6 mmol/L (3.5-5.1); SODIUM 139 mmol/L (136-145)
[2018-02-01 08:23] LABS: PLATELET ESTIMATE ADEQUATE
--- NOTE | 2018-02-01 08:29 | PN ---
Physical Exam: SUBJECTIVE: Patient seen and examined this AM. She states her pain is about the same and that she is more stiff today all throughout her body likely due to the rain. She says that she normally has increased stiffness with weather changes. Denies and fevers, chill, n/v/d. She states she has not had a bowel movement in 4-5 days. OBJECTIVE: Vital Signs Period Temp Pulse Resp BP Sys/Willett Pulse Ox Last 24 Hr 97.7 F-98.6 F 87-94 17-20 128-146/72-90 94-97 GENERAL: A&O, mild distress distress likely secondary to pain HEAD: Normocephalic, atraumatic. EYES: PERRL, no scleral icterus EARS, NOSE, THROAT: oropharynx clear without exudates. Moist mucous membranes. NECK: supple without lymphadenopathy LUNGS: CTA b/l, no crackles or wheezes HEART: Tachycardic rhythm, normal S1 and S2 without murmur ABDOMEN: Soft, mild tenderness to palpation in the RUQ, normoactive bowel sounds MUSCULOSKELETAL: Pain reproducible with palpation on right chest wall, shoulder , and back. ROM of Right shoulder limited due to pain EXTREMITIES: 2+ pulses, warm, well-perfused. No peripheral edema. NEUROLOGICAL: Cranial nerves II-XII grossly intact. Normal speech. PSYCHIATRIC: Cooperative. Good eye contact. Appropriate mood and affect. Laboratory Results - last 24 hr 01/29/18 01/31/18 01/31/18 05:45 05:30 10:50 WBC RBC Hgb Hct MCV MCH MCHC RDW Plt Count MPV Absolute Neuts (auto) Total Counted Neutrophils % Neutrophils % (Manual) 96.0 H Band Neutrophils % 0.0 Lymphocytes % Lymphocytes % (Manual) 1.0 L D Monocytes % Monocytes % (Manual) 3 L Eosinophils % Eosinophils % (Manual) 0.0 D Basophils % Basophils % (Manual) 0.0 Myelocytes % (Man) 0 Promyelocytes % (Man) 0 Blast Cells % (Manual) 0 Nucleated RBC % Metamyelocytes 0 Hypochromia 0 Toxic Granulation 0 Dohle Bodies 0 Platelet Estimate Normal Platelet Comment Polychromasia 0 Poikilocytosis 0 Basophilic Stippling 0 Anisocytosis 0 Microcytosis 0 Macrocytosis 0 Spherocytes 0 Sickle Cells 0 Target Cells 0 Tear Drop Cells 0 Ovalocytes 0 Stomatocytes 0 Helmet Cells 0 Meza-Steward Bodies 0 Ollie Rings 0 Eufemia Cells 0 Acanthocytes (Spur) 0 Rouleaux 0 Fragmented RBCs 0 Schistocytes 0 PTT (Actin FS) 25.7 Sodium Potassium Chloride Carbon Dioxide Anion Gap BUN Creatinine Creat Clearance w eGFR Random Glucose Calcium Phosphorus Magnesium Tot Complement (CH50) 40 01/31/18 02/01/18 02/01/18 16:00 05:30 05:30 WBC 16.8 H RBC 2.56 L Hgb 7.4 L Hct 23.3 L MCV 91.1 MCH 29.0 MCHC 31.8 L RDW 13.1 Plt Count 242 D MPV 8.6 Absolute Neuts (auto) 15.6 H Total Counted 100 Neutrophils % 93.0 H Neutrophils % (Manual) 93.0 H Band Neutrophils % Lymphocytes % 3.9 L D Lymphocytes % (Manual) 3.0 L D Monocytes % 2.9 L Monocytes % (Manual) 4 Eosinophils % 0.1 D Eosinophils % (Manual) Basophils % 0.1 Basophils % (Manual) Myelocytes % (Man) Promyelocytes % (Man) Blast Cells % (Manual) Nucleated RBC % 0 Metamyelocytes Hypochromia 2+ Toxic Granulation Dohle Bodies Platelet Estimate Adequate Platelet Comment No clumping noted Polychromasia 1+ Poikilocytosis Basophilic Stippling Anisocytosis Microcytosis Macrocytosis Spherocytes Sickle Cells Target Cells Tear Drop Cells Ovalocytes Stomatocytes Helmet Cells Meza-Steward Bodies Ollie Rings [place] Cells Acanthocytes (Spur) Rouleaux Fragmented RBCs Schistocytes PTT (Actin FS) 25.4 Sodium 139 Potassium 4.6 Chloride 110 H Carbon Dioxide 17 L Anion Gap 12 BUN 53 H Creatinine 3.2 H Creat Clearance w eGFR 17.13 Random Glucose 126 H Calcium 9.1 Phosphorus 8.2 H Magnesium 2.7 H Tot Complement (CH50) Active Medications Generic Name Dose Route Start Last Admin Trade Name Freq PRN Reason Stop Dose Admin Albuterol Sulfate 2 puff 01/28/18 13:02 01/30/18 01:45 Ventolin Hfa Inhaler - IH 2 puff Q4H PRN Administration ASTHMA Amlodipine Besylate 10 mg 01/29/18 10:00 01/31/18 10:54 Norvasc - PO 10 mg DAILY CARL Administration Apixaban 5 mg 01/30/18 22:00 01/31/18 22:34 Eliquis - PO 5 mg BID CARL Administration Aspirin 81 mg 01/29/18 10:00 01/31/18 10:53 Asa - PO 81 mg DAILY CARL Administration Atorvastatin Calcium 80 mg 01/28/18 22:00 01/31/18 22:33 Lipitor - PO 80 mg HS CARL Administration Calcium/Vitamin D 1 tab 01/28/18 22:00 01/31/18 22:33 Oscal 250 Mg+D - PO 1 tab BID CARL Administration Hydralazine HCl 100 mg 01/28/18 14:00 02/01/18 05:44 Apresoline - PO 100 mg TID CARL Administration Hydrochlorothiazide 25 mg 01/29/18 10:00 01/31/18 11:15 Hctz - PO 25 mg DAILY CARL Administration Hydroxychloroquine Sulfate 200 mg 01/28/18 10:00 01/31/18 15:48 Plaquenil - PO 200 mg DAILY CARL Administration Ceftriaxone Sodium 1 gm/ 50 mls @ 100 mls/hr 01/29/18 15:30 01/31/18 10:54 Dextrose IVPB 100 mls/hr DAILY CARL Administration Azithromycin 250 mls @ 250 mls/hr 01/29/18 14:30 01/31/18 10:55 Zithromax 500mg Ivpb (Pre-Docked) IVPB 250 mls/hr DAILY CARL Administration Isosorbide Mononitrate 60 mg 01/28/18 10:00 01/31/18 10:53 Imdur - PO 60 mg DAILY CARL Administration Lidocaine 1 patch 01/29/18 10:00 01/31/18 18:48 Lidoderm Patch - TP Not Given DAILY [facility] Methylprednisolone Sodium Succinate 40 mg 01/30/18 15:00 02/01/18 02:41 Solu-Medrol - IVPUSH 40 mg Q6H-IV CARL Administration Metoprolol Succinate 200 mg 01/29/18 09:40 01/31/18 10:54 Toprol Xl - PO 200 mg DAILY CARL Administration Miscellaneous 1 each 01/28/18 22:00 01/31/18 22:38 Lidoderm Patch Removal MC Not Given DAILY@2200 [facility] Morphine Sulfate 4 mg 01/30/18 22:03 02/01/18 06:29 Morphine Sulfate IVPUSH 4 mg Q4H PRN Administration PAIN LEVEL 4 - 6 Mycophenolate Mofetil 500 mg 01/28/18 14:00 02/01/18 05:44 Cellcept - PO 500 mg TID CARL Administration Ondansetron HCl 4 mg 01/29/18 17:53 01/29/18 18:14 Zofran Injection IVPUSH 4 mg Q6H PRN Administration NAUSEA Pantoprazole Sodium 40 mg 01/29/18 10:00 01/31/18 10:54 Protonix - PO 40 mg DAILY CARL Administration Sodium Bicarbonate 650 mg 01/31/18 10:00 01/31/18 22:33 Sodium Bicarbonate - PO 650 mg BID CARL Administration ASSESSMENT/PLAN: 27 year old female with a significant pmh of hypertension, CKD stage 3/4, lupus , multiple DVTs, LAD thrombosis, and pulmonary hypertension admitted following 3 days of right sided chest pain. Right Sided Chest Pain -Could be secondary to Lupus flare, pleurisy, early pneumonia with pleuritic involvement, or musculoskeletal -Ceftriaxone 1 gm IV Daily, Azithromycin 500 mg IV Daily, Day 3, continue for 5 total days -Steroids increased to SoluMedrol 40 mg IV Q6 yesterday, with some relief today -Morphine 2 Q4 for pain -Lidoderm patch -CTA negative for PE -Cardiology consult appreciated -LFTs normal, RUQ US pending SLE -Rheumatology consult appreciated -Lupus serologies and compliment levels RUL Lung Nodule on CT -Incidental spiculated nodule found on CT scan at admission -Concerning for malignancy -Pulmonogy consult appreciated -f/u imaging in 4-6 weeks to check stability/resolution/worsening HTN -Hydralazine 100 mg PO TID -HCTZ 25 mg PO Daily -Imdure 60 mg PO Daily -Norvasc 10 mg PO Daily -Toprol XL 200 mg PO Daily -Acute elevations of bp likely secondary to pain HLD -Lipitor 80 mg PO HS -Lipid panel noted with elevated cholesterol CKD -Baseline creatinine 2.5 -Monitor BMPs -avoid nephrotoxic drugs -Nephrology consult appreciated -Consider lupus nephritis though biopsy difficult with pt on AC Prior DVT last year/LAD thrombosis -70-80% thrombosis of LAD, could be secondary to lupus -Anticardiolipin Antibodies negative -On eliquis 5 mg PO BID -ASA 81 mg PO Daily DVT Prophylaxis -On Eliquis 5 mg PO BID FEN -Fluids: none -Electrolytes: Elevated Phos, BMP, Mg, Phos in AM -Nutrition: Cardiac Diet Disposition Telemetry Visit type - Emergency Visit Emergency Visit: Yes ED Registration Date: 01/28/18 Care time: The patient presented to the Emergency Department on the above date and was hospitalized for further evaluation of their emergent condition. - New Patient This patient is new to me today: No - Critical Care Critical Care patient: No
[2018-02-01] MEDS ORDERED: PT OWN MED DRAWER 7, Y5N ONE (08:48)
[2018-02-01] MEDS ORDERED: cefTRIAXone SODIUM 1 GM VIAL ONE (08:48)
[2018-02-01] MEDS ORDERED: DEXTROSE 5%-WATER - 50 ML IVPB ONE (08:49)
[2018-02-01] MEDS: AZITHROMYCIN IVPB 250 ML IVPB SCH (09:02)
[2018-02-01] MEDS: CEFTRIAXONE 1 GM in DEXTROSE 5%-WATER - 50 ML IVPB SCH (09:02)
[2018-02-01] MEDS: PANTOPRAZOLE 40 MG TABLET (FP) PO SCH (09:03)
[2018-02-01] MEDS: ASPIRIN 81 MG CHEWABLE TABLETS PO SCH (09:03)
[2018-02-01] MEDS: amLODIPine BESYLATE 10 MG TABLET (FP) PO SCH (09:03)
[2018-02-01] MEDS: SODIUM BICARBONATE 650 MG TABLET PO SCH ×2 (09:03→21:13)
[2018-02-01] MEDS: HYDROCHLOROTHIAZIDE 25 MG TABLET (FP) PO SCH (09:03)
[2018-02-01] MEDS: CALCIUM 250MG/VIT-D 125 UNITS 1 COMBO TABLET PO SCH ×2 (09:04→21:13)
[2018-02-01] MEDS: ISOSORBIDE MONONITRATE 60 MG TAB.SR.24H (FP) PO SCH (09:04)
[2018-02-01] MEDS: APIXABAN 5 MG TABLET PO SCH ×2 (09:04→21:13)
[2018-02-01] MEDS: HYDROXYCHLOROQUINE SO4 200 MG TABLET (FP) PO SCH (09:05)
[2018-02-01] MEDS: LIDOCAINE 5% TOPICAL PATCH TP SCH (09:06)
--- NOTE | 2018-02-01 09:31 | PN ---
Progress Note (short form) - Note Progress Note: Chest pain is mild, pleuritic, however the patient is on high dose Morphine. She denies arthralgia. P/E. No fever since admission. Lungs clear. Very mild tenderness in right costo-chondral region. No active joints. The patient is on Methylprednisolone 40 mg IV Q 6 hrs. Laboratory work-up: ESR 106, creatinine 3.2, She has not given a urine sample. KATRIN >1:1280 with speckled pattern. Anti-SSA>8 and anti-SSB negative. Anti- DNAds 17, anticardiolipin antibody was negative and CH50 normal. Impression. Probable lupus with active renal disease. Etiology of chest pain not clear. Rule out pleuritis, rule out thrombosis. Plan: I stressed to the patient to give a urine sample DELILAH. Due to anticoagulation she is not candidate for renal Bx of CTA. I requested lupus anticoagulant, anti-CATHRYN and C3 and C4. Increase Mycophenlate to 1 gr BID and later on up to 1.5 gr BID. Decrease Methylprednisolone to 40 mg BID/ Problem List - Problems (1) Chest pain Code(s): R07.9 - CHEST PAIN, UNSPECIFIED Qualifiers: Qualified Code(s): R07.1 - Chest pain on breathing; R07.81 - Pleurodynia (2) Lupus Code(s): M32.9 - SYSTEMIC LUPUS ERYTHEMATOSUS, UNSPECIFIED
[2018-02-01] MEDS: methylPREDNISolone NA SUCC 40 MG/1 ML VIAL IVPB SCH ×2 (09:52→21:13)
--- NOTE | 2018-02-01 10:41 | PN ---
Progress Note, Physician History of Present Illness: Pt seen and examined at bedside. She gave a sample of urine today however she says she is on her menstrual period and has heavy bleeding. She is requesting to go home. - Current Medication List Current Medications: Active Medications Albuterol Sulfate (Ventolin Hfa Inhaler -) 2 puff IH Q4H PRN PRN Reason: ASTHMA Last Admin: 01/30/18 01:45 Dose: 2 puff Amlodipine Besylate (Norvasc -) 10 mg PO DAILY [facility] Last Admin: 02/01/18 09:03 Dose: 10 mg Apixaban (Eliquis -) 5 mg PO BID [facility] Last Admin: 02/01/18 09:04 Dose: 5 mg Aspirin (Asa -) 81 mg PO DAILY [facility] Last Admin: 02/01/18 09:03 Dose: 81 mg Atorvastatin Calcium (Lipitor -) 80 mg PO HS [facility] Last Admin: 01/31/18 22:33 Dose: 80 mg Calcium/Vitamin D (Oscal 250 Mg+D -) 1 tab PO BID [facility] Last Admin: 02/01/18 09:04 Dose: 1 tab Hydralazine HCl (Apresoline -) 100 mg PO TID [facility] Last Admin: 02/01/18 05:44 Dose: 100 mg Hydrochlorothiazide (Hctz -) 25 mg PO DAILY [facility] Last Admin: 02/01/18 09:03 Dose: 25 mg Hydroxychloroquine Sulfate (Plaquenil -) 200 mg PO DAILY [facility] Last Admin: 02/01/18 09:05 Dose: 200 mg Ceftriaxone Sodium 1 gm/ (Dextrose) 50 mls @ 100 mls/hr IVPB DAILY [facility] Last Admin: 02/01/18 09:02 Dose: 100 mls/hr Azithromycin (Zithromax 500mg Ivpb (Pre-Docked)) 250 mls @ 250 mls/hr IVPB DAILY [facility] Last Admin: 02/01/18 09:02 Dose: 250 mls/hr Isosorbide Mononitrate (Imdur -) 60 mg PO DAILY [facility] Last Admin: 02/01/18 09:04 Dose: 60 mg Lidocaine (Lidoderm Patch -) 1 patch TP DAILY [facility] Last Admin: 02/01/18 09:06 Dose: Not Given Methylprednisolone Sodium Succinate (Solu-Medrol -) 40 mg IVPB BID [facility] Last Admin: 02/01/18 09:52 Dose: Not Given Metoprolol Succinate (Toprol Xl -) 200 mg PO DAILY [facility] Last Admin: 02/01/18 09:03 Dose: 200 mg Miscellaneous (Lidoderm Patch Removal) 1 each MC DAILY@2200 [facility] Last Admin: 01/31/18 22:38 Dose: Not Given Morphine Sulfate (Morphine Sulfate) 4 mg IVPUSH Q4H PRN PRN Reason: PAIN LEVEL 4 - 6 Last Admin: 02/01/18 06:29 Dose: 4 mg Mycophenolate Mofetil (Cellcept -) 1,000 mg PO BID [facility] Last Admin: 02/01/18 09:51 Dose: 1,000 mg Ondansetron HCl (Zofran Injection) 4 mg IVPUSH Q6H PRN PRN Reason: NAUSEA Last Admin: 01/29/18 18:14 Dose: 4 mg Pantoprazole Sodium (Protonix -) 40 mg PO DAILY [facility] Last Admin: 02/01/18 09:03 Dose: 40 mg Sodium Bicarbonate (Sodium Bicarbonate -) 650 mg PO BID [facility] Last Admin: 02/01/18 09:03 Dose: 650 mg - Objective Vital Signs: Vital Signs Temperature 97.9 F 02/01/18 08:02 Pulse Rate 90 02/01/18 08:02 Respiratory Rate 18 02/01/18 08:04 Blood Pressure 132/76 02/01/18 08:02 O2 Sat by Pulse Oximetry (%) 94 L 02/01/18 08:04 Constitutional: Yes: Calm Eyes: Yes: Conjunctiva Clear HENT: Yes: Atraumatic Neck: Yes: Supple Cardiovascular: Yes: S1, S2 Respiratory: Yes: CTA Bilaterally Gastrointestinal: Yes: Soft, Abdomen, Obese Genitourinary: Yes: WNL Musculoskeletal: Yes: WNL Edema: No Neurological: Yes: Oriented Psychiatric: Yes: Oriented Labs: CBC, BMP 02/01/18 05:30 02/01/18 05:30 INR, PTT INR 1.13 (0.83-1.09) H 01/29/18 05:45 Problem List - Problems (1) Chest pain Code(s): R07.9 - CHEST PAIN, UNSPECIFIED Qualifiers: Qualified Code(s): R07.1 - Chest pain on breathing; R07.81 - Pleurodynia (2) Pleurisy Code(s): R09.1 - PLEURISY (3) CKD (chronic kidney disease) stage 3, GFR 30-59 ml/min Code(s): N18.3 - CHRONIC KIDNEY DISEASE, STAGE 3 (MODERATE) Assessment/Plan Current Medications Generic Name Dose Route Start Last Admin Trade Name Freq PRN Reason Stop Dose Admin Albuterol Sulfate 2 puff 01/28/18 13:02 01/30/18 01:45 Ventolin Hfa Inhaler - IH 2 puff Q4H PRN Administration ASTHMA Amlodipine Besylate 10 mg 01/29/18 10:00 02/01/18 09:03 Norvasc - PO 10 mg DAILY CARL Administration Apixaban 5 mg 01/30/18 22:00 02/01/18 09:04 Eliquis - PO 5 mg BID CARL Administration Aspirin 81 mg 01/29/18 10:00 02/01/18 09:03 Asa - PO 81 mg DAILY CARL Administration Atorvastatin Calcium 80 mg 01/28/18 22:00 01/31/18 22:33 Lipitor - PO 80 mg HS CARL Administration Calcium/Vitamin D 1 tab 01/28/18 22:00 02/01/18 09:04 Oscal 250 Mg+D - PO 1 tab BID CARL Administration Hydralazine HCl 100 mg 01/28/18 14:00 02/01/18 05:44 Apresoline - PO 100 mg TID CARL Administration Hydrochlorothiazide 25 mg 01/29/18 10:00 02/01/18 09:03 Hctz - PO 25 mg DAILY CARL Administration Hydroxychloroquine Sulfate 200 mg 01/28/18 10:00 02/01/18 09:05 Plaquenil - PO 200 mg DAILY CARL Administration Ceftriaxone Sodium 1 gm/ 50 mls @ 100 mls/hr 01/29/18 15:30 02/01/18 09:02 Dextrose IVPB 100 mls/hr DAILY CARL Administration Azithromycin 250 mls @ 250 mls/hr 01/29/18 14:30 02/01/18 09:02 Zithromax 500mg Ivpb (Pre-Docked) IVPB 250 mls/hr DAILY CARL Administration Isosorbide Mononitrate 60 mg 01/28/18 10:00 02/01/18 09:04 Imdur - PO 60 mg DAILY CARL Administration Lidocaine 1 patch 01/29/18 10:00 02/01/18 09:06 Lidoderm Patch - TP Not Given DAILY [facility] Methylprednisolone Sodium Succinate 40 mg 02/01/18 10:00 02/01/18 09:52 Solu-Medrol - IVPB Not Given BID [facility] Metoprolol Succinate 200 mg 01/29/18 09:40 02/01/18 09:03 Toprol Xl - PO 200 mg DAILY CARL Administration Miscellaneous 1 each 01/28/18 22:00 01/31/18 22:38 Lidoderm Patch Removal MC Not Given DAILY@2200 [facility] Morphine Sulfate 4 mg 01/30/18 22:03 02/01/18 06:29 Morphine Sulfate IVPUSH 4 mg Q4H PRN Administration PAIN LEVEL 4 - 6 Mycophenolate Mofetil 1,000 mg 02/01/18 10:00 02/01/18 09:51 Cellcept - PO 1,000 mg BID CARL Administration Ondansetron HCl 4 mg 01/29/18 17:53 01/29/18 18:14 Zofran Injection IVPUSH 4 mg Q6H PRN Administration NAUSEA Pantoprazole Sodium 40 mg 01/29/18 10:00 02/01/18 09:03 Protonix - PO 40 mg DAILY CARL Administration Sodium Bicarbonate 650 mg 01/31/18 10:00 02/01/18 09:03 Sodium Bicarbonate - PO 650 mg BID CARL Administration Impression 1. CKD 2. SLE 3. chest pain 4. HLD 5. hx DVT 6. CHF 7. distal LAD stenosis 8. HTN Plan - ua sent however may not be accurate as she is on menstrual cycle - cardio eval to discuss duration of a/c - rheum input appreciated - pt at this point lee not have a community organization worker to follow up with as outpt - may have lupus nephritis however a biopsy will be challenging at this time as she is on a/c. This was discussed with pt, she will think about it. - monitor bp - pt is also likely taking large doses of nsaids when at home for aches and pains - discussed with rheum - follow serologies Dr Escalante
[2018-02-01 10:46] LABS: URINE APPEARANCE SLCLOUDY; URINE BILIRUBIN NEGATIVE (<2.0 mg/dL); URINE COLOR LTYELLOW; URINE GLUCOSE (UA) NEGATIVE (NEGATIVE); URINE KETONE NEGATIVE (NEGATIVE); URINE LEUK ESTERASE TRACE (NEGATIVE); URINE NITRITE NEGATIVE (NEGATIVE); URINE UROBILINOGEN NEGATIVE mg/dL (0.2-1.0)
[2018-02-01 10:48] LABS: URINE PROTEIN 3+ (NEGATIVE)
[2018-02-01 10:50] LABS: EPI CELLS RARE /HPF (FEW); URINE BACTERIA RARE /hpf (NONE SEEN); URINE HYALINE CAST 52 /lpf; URINE MUCUS RARE
--- NOTE | 2018-02-01 11:14 | PN ---
Progress Note, Physician History of Present Illness: pulmonary alert,still c/o cp,minimal improvement - Current Medication List Current Medications: Active Medications Albuterol Sulfate (Ventolin Hfa Inhaler -) 2 puff IH Q4H PRN PRN Reason: ASTHMA Last Admin: 01/30/18 01:45 Dose: 2 puff Amlodipine Besylate (Norvasc -) 10 mg PO DAILY [facility] Last Admin: 02/01/18 09:03 Dose: 10 mg Apixaban (Eliquis -) 5 mg PO BID [facility] Last Admin: 02/01/18 09:04 Dose: 5 mg Aspirin (Asa -) 81 mg PO DAILY [facility] Last Admin: 02/01/18 09:03 Dose: 81 mg Atorvastatin Calcium (Lipitor -) 80 mg PO HS [facility] Last Admin: 01/31/18 22:33 Dose: 80 mg Calcium/Vitamin D (Oscal 250 Mg+D -) 1 tab PO BID [facility] Last Admin: 02/01/18 09:04 Dose: 1 tab Hydralazine HCl (Apresoline -) 100 mg PO TID [facility] Last Admin: 02/01/18 05:44 Dose: 100 mg Hydrochlorothiazide (Hctz -) 25 mg PO DAILY [facility] Last Admin: 02/01/18 09:03 Dose: 25 mg Hydroxychloroquine Sulfate (Plaquenil -) 200 mg PO DAILY [facility] Last Admin: 02/01/18 09:05 Dose: 200 mg Ceftriaxone Sodium 1 gm/ (Dextrose) 50 mls @ 100 mls/hr IVPB DAILY [facility] Last Admin: 02/01/18 09:02 Dose: 100 mls/hr Azithromycin (Zithromax 500mg Ivpb (Pre-Docked)) 250 mls @ 250 mls/hr IVPB DAILY [facility] Last Admin: 02/01/18 09:02 Dose: 250 mls/hr Isosorbide Mononitrate (Imdur -) 60 mg PO DAILY [facility] Last Admin: 02/01/18 09:04 Dose: 60 mg Lidocaine (Lidoderm Patch -) 1 patch TP DAILY [facility] Last Admin: 02/01/18 09:06 Dose: Not Given Methylprednisolone Sodium Succinate (Solu-Medrol -) 40 mg IVPB BID [facility] Last Admin: 02/01/18 09:52 Dose: Not Given Metoprolol Succinate (Toprol Xl -) 200 mg PO DAILY [facility] Last Admin: 02/01/18 09:03 Dose: 200 mg Miscellaneous (Lidoderm Patch Removal) 1 each MC DAILY@2200 [facility] Last Admin: 01/31/18 22:38 Dose: Not Given Morphine Sulfate (Morphine Sulfate) 2 mg IVPUSH Q4H PRN PRN Reason: PAIN LEVEL 4 - 6 Mycophenolate Mofetil (Cellcept -) 1,000 mg PO BID [facility] Last Admin: 02/01/18 09:51 Dose: 1,000 mg Ondansetron HCl (Zofran Injection) 4 mg IVPUSH Q6H PRN PRN Reason: NAUSEA Last Admin: 01/29/18 18:14 Dose: 4 mg Pantoprazole Sodium (Protonix -) 40 mg PO DAILY [facility] Last Admin: 02/01/18 09:03 Dose: 40 mg Sodium Bicarbonate (Sodium Bicarbonate -) 650 mg PO BID [facility] Last Admin: 02/01/18 09:03 Dose: 650 mg - Objective Vital Signs: Vital Signs Temperature 97.9 F 02/01/18 08:02 Pulse Rate 90 02/01/18 08:02 Respiratory Rate 18 02/01/18 08:04 Blood Pressure 132/76 02/01/18 08:02 O2 Sat by Pulse Oximetry (%) 94 L 02/01/18 08:04 Constitutional: Yes: Well Nourished, Calm, Obese Eyes: Yes: WNL HENT: Yes: WNL Neck: Yes: WNL Cardiovascular: Yes: Regular Rate and Rhythm, S1, S2 Respiratory: Yes: Diminished Gastrointestinal: Yes: Normal Bowel Sounds, Soft Extremities: Yes: WNL Edema: No Labs: CBC, BMP 02/01/18 05:30 02/01/18 05:30 INR, PTT INR 1.13 (0.83-1.09) H 01/29/18 05:45 Assessment/Plan Problem List - Problems (1) Chest pain Code(s): R07.9 - CHEST PAIN, UNSPECIFIED Qualifiers: Qualified Code(s): R07.1 - Chest pain on breathing; R07.81 - Pleurodynia (2) CKD (chronic kidney disease) stage 3, GFR 30-59 ml/min Code(s): N18.3 - CHRONIC KIDNEY DISEASE, STAGE 3 (MODERATE) (3) Lupus Code(s): M32.9 - SYSTEMIC LUPUS ERYTHEMATOSUS, UNSPECIFIED (4) Morbid obesity Code(s): E66.01 - MORBID (SEVERE) OBESITY DUE TO EXCESS CALORIES Assessment/Plan Pleuritic Chest Pain Lung Nodule r/o Pneumonia SLE on immunosuppressants CKD Pulmonary HTN - antibiotics - pt reports compliance with anticoagulation so recurrent VTE possible but less likely - steroids q 12h - inhaled bronchodilators as needed - f/u of chest imaging in 4-6 weeks to ensure resolution of RUL nodule - incentive spirometer - analgesics - cellcept as per Rheumatology DR SANTORO
--- NOTE | 2018-02-01 11:16 | PN ---
Teaching Attending Note Name of Resident: Carlitos Wynn ATTENDING PHYSICIAN STATEMENT I saw and evaluated the patient. I reviewed the resident's note and discussed the case with the resident. I agree with the resident's findings and plan as documented. SUBJECTIVE:states pain is overall better. continues to have restricted RUE movement and inspiration due to pain. denies SOB, fever, chills, cough, N/V/C/D OBJECTIVE: Last Vital Signs Temp Pulse Resp BP Pulse Ox 97.9 F 90 18 132/76 94 L 02/01/18 08:02 02/01/18 08:02 02/01/18 08:04 02/01/18 08:02 02/01/18 08:04 General NAD MSK +R side chest wall tenderness. refused active or passive ROM of the R shoulder. point tenderness over the joint Lungs CTA B/L no wheezing/rales/rhonchi ASSESSMENT AND PLAN: 27 yo F with PMHX of SLE, HTN, HLD, obesity, CKD stage 3, h/o DVT 06/2016, Cardiac cath done 09/16/17 after an echo showed inferoseptal hypokinesis done as preop for bariatric surgery, cath showed distal LAD 70-80% thrombotic appearing stenosis with otherwise normal coronary arteries, no PCI was performed as felt to be a risk given history of thrombosis and pt was changed to Eliquis, admitted with right sided chest pain, sinus tachycardia. 1.Right sided chest pain- most likley pleurisy vs musckuloskeletal. some clinical improvement. steroids decreased to BID. mycophenolate increased. will also decrease pain medication to prevent dependence. on empiric abx for possible consolidation. Ceft/azithro day 4. echo negative for pericarditis or effusion. less likely cardiac in nature. cont current managmenet. rheum/cardio/ pulm on board. f/u labs sent 2. RUL spiculated lung nodule concerning for neoplasm- will need repeat imaging in 4-6w. Pulm f/u outpatient 3. Leukocytosis- likely due to steroids. on empiric abx 4. Acute on CKD- baseline 2.5. is trending up. Urine studies sent. would benefit from bx but due to anticoagulation is a poor candidate. avoid nephrotoxic medication. nephro on board 5. HTN- controlled. cont medications. 6. Dyslipidemia 7. h/o LLE DVT 06/2016- from antiphospholipid syndrome. on eliquis 8. Distal LAD 70-80% thombotic appearing stenosis on Eliquis
[2018-02-01 13:13] LABS: RATIO URIN PROTEIN/URIN CREAT 2.5 MG/DL
--- NOTE | 2018-02-01 14:24 | PN ---
Progress Note, Physician Chief Complaint: still with chest and LUQ pain, pleuritic tele neg History of Present Illness: 27-year-old obese female, we've a history of SLE, hypertension, hyperlipidemia, chronic kidney disease, DVT, thrombosis of the distal LAD 09/16, now readmitted with right sided chest pains. There is no evidence of ischemia nor acute coronary syndrome. No CHF. No evidence of pulmonary emboli nor DVTs on recent imaging. The symptoms are completely reproducible to palpation. Echo 01/30/18: EF 35-40%, mild LV dilation, trace to mild MR, mild TR, trace PI. - Current Medication List Current Medications: Active Medications Albuterol Sulfate (Ventolin Hfa Inhaler -) 2 puff IH Q4H PRN PRN Reason: ASTHMA Last Admin: 01/30/18 01:45 Dose: 2 puff Amlodipine Besylate (Norvasc -) 10 mg PO DAILY [facility] Last Admin: 02/01/18 09:03 Dose: 10 mg Apixaban (Eliquis -) 5 mg PO BID [facility] Last Admin: 02/01/18 09:04 Dose: 5 mg Aspirin (Asa -) 81 mg PO DAILY [facility] Last Admin: 02/01/18 09:03 Dose: 81 mg Atorvastatin Calcium (Lipitor -) 80 mg PO HS [facility] Last Admin: 01/31/18 22:33 Dose: 80 mg Calcium/Vitamin D (Oscal 250 Mg+D -) 1 tab PO BID [facility] Last Admin: 02/01/18 09:04 Dose: 1 tab Hydralazine HCl (Apresoline -) 100 mg PO TID [facility] Last Admin: 02/01/18 13:41 Dose: 100 mg Hydrochlorothiazide (Hctz -) 25 mg PO DAILY [facility] Last Admin: 02/01/18 09:03 Dose: 25 mg Hydroxychloroquine Sulfate (Plaquenil -) 200 mg PO DAILY [facility] Last Admin: 02/01/18 09:05 Dose: 200 mg Ceftriaxone Sodium 1 gm/ (Dextrose) 50 mls @ 100 mls/hr IVPB DAILY [facility] Last Admin: 02/01/18 09:02 Dose: 100 mls/hr Azithromycin (Zithromax 500mg Ivpb (Pre-Docked)) 250 mls @ 250 mls/hr IVPB DAILY [facility] Last Admin: 02/01/18 09:02 Dose: 250 mls/hr Isosorbide Mononitrate (Imdur -) 60 mg PO DAILY [facility] Last Admin: 02/01/18 09:04 Dose: 60 mg Lidocaine (Lidoderm Patch -) 1 patch TP DAILY [facility] Last Admin: 02/01/18 09:06 Dose: Not Given Methylprednisolone Sodium Succinate (Solu-Medrol -) 40 mg IVPB BID [facility] Last Admin: 02/01/18 09:52 Dose: Not Given Metoprolol Succinate (Toprol Xl -) 200 mg PO DAILY [facility] Last Admin: 02/01/18 09:03 Dose: 200 mg Miscellaneous (Lidoderm Patch Removal) 1 each MC DAILY@2200 [facility] Last Admin: 01/31/18 22:38 Dose: Not Given Morphine Sulfate (Morphine Sulfate) 2 mg IVPUSH Q4H PRN PRN Reason: PAIN LEVEL 4 - 6 Last Admin: 02/01/18 11:13 Dose: 2 mg Mycophenolate Mofetil (Cellcept -) 1,000 mg PO BID [facility] Last Admin: 02/01/18 09:51 Dose: 1,000 mg Ondansetron HCl (Zofran Injection) 4 mg IVPUSH Q6H PRN PRN Reason: NAUSEA Last Admin: 01/29/18 18:14 Dose: 4 mg Pantoprazole Sodium (Protonix -) 40 mg PO DAILY [facility] Last Admin: 02/01/18 09:03 Dose: 40 mg Sodium Bicarbonate (Sodium Bicarbonate -) 650 mg PO BID [facility] Last Admin: 02/01/18 09:03 Dose: 650 mg - Objective Vital Signs: Vital Signs Temperature 97.9 F 02/01/18 08:02 Pulse Rate 89 02/01/18 13:22 Respiratory Rate 18 02/01/18 13:22 Blood Pressure 117/69 02/01/18 13:22 O2 Sat by Pulse Oximetry (%) 94 L 02/01/18 08:04 Constitutional: Yes: No Distress, Calm Eyes: Yes: Conjunctiva Clear, EOM Intact HENT: Yes: Normocephalic Neck: Yes: Trachea Midline Cardiovascular: Yes: Regular Rate and Rhythm Respiratory: Yes: CTA Bilaterally, Other (cp with inspiration) Gastrointestinal: Yes: Normal Bowel Sounds, Soft Musculoskeletal: Yes: WNL Extremities: Yes: WNL Edema: No Labs: CBC, BMP 02/01/18 05:30 02/01/18 05:30 INR, PTT INR 1.13 (0.83-1.09) H 01/29/18 05:45 Assessment/Plan 27-year-old obese female, we've a history of SLE, hypertension, hyperlipidemia, chronic kidney disease, DVT, thrombosis of the distal LAD 09/16, now readmitted with right sided chest pains and RUQ pain. 1. chest pain--There is no evidence of ischemia nor acute coronary syndrome. No CHF. No evidence of pulmonary emboli nor DVTs on recent imaging. The symptoms are completely reproducible. -Pulm evaluation appreciated. -Continue Eliquis -Echo EF 35-40% -RUQ sono today. -continue renal matthew 2. Chronic systolic CHF- she has a thrombotic lesion on cardiac cath August 2017. CHF symptoms stable, defer ACEI or ARB due to CKD. -continue hydralazine/imdur -BP is labile but she tolerates her medications without symptoms. 3. Thrombus -Given her SLE, history of arterial and venous thrombi she probably should be on lifelong AC. Will see as needed.
[2018-02-01] MEDS: LIDOCAINE PATCH REMOVAL MC SCH (21:13)
[2018-02-01] MEDS: ATORVASTATIN CA 80 MG TABLET (FP) PO SCH (21:13)
[2018-02-02] MEDS: morphine SULFATE 4 MG/ML VIAL IVPUSH PRN ×3 (00:54→10:36)
[2018-02-02] MEDS: hydrALAZINE HCL 50 MG TABLET (FP) PO SCH ×3 (06:30→21:34)
[2018-02-02 07:17] LABS: HEMATOCRIT 22.2 % (32.4-45.2); HEMOGLOBIN 7.2 GM/dL (10.7-15.3); MCH 29.2 pg (25.7-33.7); MCHC 32.4 g/dl (32.0-36.0); MEAN CELL VOLUME 90.2 fl (80-96); MEAN PLT VOLUME 8.4 fl (7.5-11.1); PLATELET COUNT 287 K/MM3 (134-434); RBC 2.46 M/mm3 (3.60-5.2); RDW 13.4 % (11.6-15.6); WHITE BLOOD COUNT 14.6 K/mm3 (4.0-10.0)
[2018-02-02 07:49] LABS: ALBUMIN 2.3 g/dl (3.4-5.0); ALK PHOS 72 U/L (45-117); ANION GAP 10 MMOL/L (8-16); BILIRUBIN,TOTAL 0.2 mg/dL (0.2-1); BLOOD UREA NITROGEN 73 mg/dL (7-18); CALCIUM 8.9 mg/dL (8.5-10.1); CHLORIDE 108 mmol/L (98-107); CO2 22 mmol/L (21-32); CREATININE 3.5 mg/dL (0.55-1.3); GLUCOSE,RANDOM 129 mg/dL (74-106); MAGNESIUM 3.1 mg/dL (1.8-2.4); PHOSPHOROUS 8.7 mg/dL (2.5-4.9); POTASSIUM 4.9 mmol/L (3.5-5.1); SGOT/AST 34 U/L (15-37); SGPT/ALT 33 U/L (13-61); SODIUM 139 mmol/L (136-145); TOT PROT 6.1 g/dl (6.4-8.2)
[2018-02-02] MEDS ORDERED: cefTRIAXone SODIUM 1 GM VIAL ONE (09:02)
[2018-02-02] MEDS ORDERED: DEXTROSE 5%-WATER - 50 ML IVPB ONE (09:03)
[2018-02-02] MEDS: CALCIUM 250MG/VIT-D 125 UNITS 1 COMBO TABLET PO SCH ×2 (09:38→21:35)
[2018-02-02] MEDS: CEFTRIAXONE 1 GM in DEXTROSE 5%-WATER - 50 ML IVPB SCH (09:38)
[2018-02-02] MEDS: SODIUM BICARBONATE 650 MG TABLET PO SCH ×2 (09:38→21:36)
[2018-02-02] MEDS: ASPIRIN 81 MG CHEWABLE TABLETS PO SCH (09:38)
[2018-02-02] MEDS: PANTOPRAZOLE 40 MG TABLET (FP) PO SCH (09:39)
[2018-02-02] MEDS: HYDROCHLOROTHIAZIDE 25 MG TABLET (FP) PO SCH (09:39)
[2018-02-02] MEDS: methylPREDNISolone NA SUCC 40 MG/1 ML VIAL IVPB SCH ×2 (09:39→21:36)
[2018-02-02] MEDS: ISOSORBIDE MONONITRATE 60 MG TAB.SR.24H (FP) PO SCH (09:39)
[2018-02-02] MEDS: amLODIPine BESYLATE 10 MG TABLET (FP) PO SCH (09:39)
[2018-02-02] MEDS: APIXABAN 5 MG TABLET PO SCH ×2 (09:40→21:35)
[2018-02-02] MEDS: LIDOCAINE 5% TOPICAL PATCH TP SCH (09:40)
[2018-02-02] MEDS: AZITHROMYCIN IVPB 250 ML IVPB SCH (09:48)
[2018-02-02] MEDS ORDERED: PT OWN MED DRAWER 7, Y5N ONE ×3 (09:49→21:08)
[2018-02-02] MEDS: HYDROXYCHLOROQUINE SO4 200 MG TABLET (FP) PO SCH (09:51)
[2018-02-02] MEDS: MYCOPHENOLATE MOFETIL 500 MG TABLET PO SCH ×2 (09:51→21:34)
[2018-02-02] MEDS ORDERED: traMADol HCL 50 MG TABLET PO PRN (13:00)
--- NOTE | 2018-02-02 14:13 | PN ---
Progress Note, Physician History of Present Illness: Pt seen and examined at bedside. She denies shortness of breath. She still complains of chest pain. - Current Medication List Current Medications: Active Medications Albuterol Sulfate (Ventolin Hfa Inhaler -) 2 puff IH Q4H PRN PRN Reason: ASTHMA Last Admin: 01/30/18 01:45 Dose: 2 puff Amlodipine Besylate (Norvasc -) 10 mg PO DAILY [facility] Last Admin: 02/02/18 09:39 Dose: 10 mg Apixaban (Eliquis -) 5 mg PO BID [facility] Last Admin: 02/02/18 09:40 Dose: 5 mg Aspirin (Asa -) 81 mg PO DAILY [facility] Last Admin: 02/02/18 09:38 Dose: 81 mg Atorvastatin Calcium (Lipitor -) 80 mg PO HS [facility] Last Admin: 02/01/18 21:13 Dose: 80 mg Calcium/Vitamin D (Oscal 250 Mg+D -) 1 tab PO BID [facility] Last Admin: 02/02/18 09:38 Dose: 1 tab Hydralazine HCl (Apresoline -) 100 mg PO TID [facility] Last Admin: 02/02/18 13:49 Dose: 100 mg Hydrochlorothiazide (Hctz -) 25 mg PO DAILY [facility] Last Admin: 02/02/18 09:39 Dose: 25 mg Hydroxychloroquine Sulfate (Plaquenil -) 200 mg PO DAILY [facility] Last Admin: 02/02/18 09:51 Dose: 200 mg Isosorbide Mononitrate (Imdur -) 60 mg PO DAILY [facility] Last Admin: 02/02/18 09:39 Dose: 60 mg Lidocaine (Lidoderm Patch -) 1 patch TP DAILY [facility] Last Admin: 02/02/18 09:40 Dose: 1 patch Methylprednisolone Sodium Succinate (Solu-Medrol -) 40 mg IVPB BID [facility] Last Admin: 02/02/18 09:39 Dose: 40 mg Metoprolol Succinate (Toprol Xl -) 200 mg PO DAILY [facility] Last Admin: 02/02/18 09:39 Dose: 200 mg Miscellaneous (Lidoderm Patch Removal) 1 each MC DAILY@2200 [facility] Last Admin: 02/01/18 21:13 Dose: Not Given Mycophenolate Mofetil (Cellcept -) 1,000 mg PO BID [facility] Last Admin: 02/02/18 09:51 Dose: 1,000 mg Ondansetron HCl (Zofran Injection) 4 mg IVPUSH Q6H PRN PRN Reason: NAUSEA Last Admin: 01/29/18 18:14 Dose: 4 mg Pantoprazole Sodium (Protonix -) 40 mg PO DAILY [facility] Last Admin: 02/02/18 09:39 Dose: 40 mg Sodium Bicarbonate (Sodium Bicarbonate -) 650 mg PO BID [facility] Last Admin: 02/02/18 09:38 Dose: 650 mg Tramadol HCl (Ultram -) 50 mg PO Q6H PRN PRN Reason: PAIN LEVEL 6-10 - Objective Vital Signs: Vital Signs Temperature 98.2 F 02/02/18 13:44 Pulse Rate 85 02/02/18 13:44 Respiratory Rate 20 02/02/18 13:44 Blood Pressure 140/85 02/02/18 13:44 O2 Sat by Pulse Oximetry (%) 96 02/02/18 09:00 Constitutional: Yes: Calm Eyes: Yes: Conjunctiva Clear HENT: Yes: Atraumatic Cardiovascular: Yes: S1, S2 Respiratory: Yes: CTA Bilaterally, On Nasal O2 Gastrointestinal: Yes: Soft, Abdomen, Obese Genitourinary: Yes: WNL Musculoskeletal: Yes: WNL Edema: No Neurological: Yes: Oriented Psychiatric: Yes: Oriented Labs: CBC, BMP 02/02/18 06:26 02/02/18 06:26 INR, PTT INR 1.13 (0.83-1.09) H 01/29/18 05:45 Problem List - Problems (1) Chest pain Code(s): R07.9 - CHEST PAIN, UNSPECIFIED Qualifiers: Qualified Code(s): R07.1 - Chest pain on breathing; R07.81 - Pleurodynia (2) Pleurisy Code(s): R09.1 - PLEURISY (3) CKD (chronic kidney disease) stage 3, GFR 30-59 ml/min Code(s): N18.3 - CHRONIC KIDNEY DISEASE, STAGE 3 (MODERATE) Assessment/Plan Current Medications Generic Name Dose Route Start Last Admin Trade Name Freq PRN Reason Stop Dose Admin Albuterol Sulfate 2 puff 01/28/18 13:02 01/30/18 01:45 Ventolin Hfa Inhaler - IH 2 puff Q4H PRN Administration ASTHMA Amlodipine Besylate 10 mg 01/29/18 10:00 02/02/18 09:39 Norvasc - PO 10 mg DAILY [facility] Administration Apixaban 5 mg 01/30/18 22:00 02/02/18 09:40 Eliquis - PO 5 mg BID [facility] Administration Aspirin 81 mg 01/29/18 10:00 02/02/18 09:38 Asa - PO 81 mg DAILY [facility] Administration Atorvastatin Calcium 80 mg 01/28/18 22:00 02/01/18 21:13 Lipitor - PO 80 mg HS [facility] Administration Calcium/Vitamin D 1 tab 01/28/18 22:00 02/02/18 09:38 Oscal 250 Mg+D - PO 1 tab BID [facility] Administration Hydralazine HCl 100 mg 01/28/18 14:00 02/02/18 13:49 Apresoline - PO 100 mg TID [facility] Administration Hydrochlorothiazide 25 mg 01/29/18 10:00 02/02/18 09:39 Hctz - PO 25 mg DAILY [facility] Administration Hydroxychloroquine Sulfate 200 mg 01/28/18 10:00 02/02/18 09:51 Plaquenil - PO 200 mg DAILY [facility] Administration Isosorbide Mononitrate 60 mg 01/28/18 10:00 02/02/18 09:39 Imdur - PO 60 mg DAILY [facility] Administration Lidocaine 1 patch 01/29/18 10:00 02/02/18 09:40 Lidoderm Patch - TP 1 patch DAILY [facility] Administration Methylprednisolone Sodium Succinate 40 mg 02/01/18 10:00 02/02/18 09:39 Solu-Medrol - IVPB 40 mg BID [facility] Administration Metoprolol Succinate 200 mg 01/29/18 09:40 02/02/18 09:39 Toprol Xl - PO 200 mg DAILY [facility] Administration Miscellaneous 1 each 01/28/18 22:00 02/01/18 21:13 Lidoderm Patch Removal MC Not Given DAILY@2200 [facility] Mycophenolate Mofetil 1,000 mg 02/01/18 10:00 02/02/18 09:51 Cellcept - PO 1,000 mg BID [facility] Administration Ondansetron HCl 4 mg 01/29/18 17:53 01/29/18 18:14 Zofran Injection IVPUSH 4 mg Q6H PRN Administration NAUSEA Pantoprazole Sodium 40 mg 01/29/18 10:00 02/02/18 09:39 Protonix - PO 40 mg DAILY [facility] Administration Sodium Bicarbonate 650 mg 01/31/18 10:00 02/02/18 09:38 Sodium Bicarbonate - PO 650 mg BID [facility] Administration Tramadol HCl 50 mg 02/02/18 13:00 Ultram - PO Q6H PRN PAIN LEVEL 6-10 Laboratory Tests 01/29/18 02/01/18 02/01/18 05:45 06:30 10:28 Urine Protein 3+ H Urine Blood 1+ H KATRIN Screen Positive H KATRIN Speckled Pattern >1:1280 H Sm (Evangelista) Antibody Pending PROGRAM STRATEGIST Antibody Pending Double Strand DNA Ab 17 H Complement C3 131 Complement C4 32 Tot Complement (CH50) 40 Impression 1. CKD 2. SLE 3. chest pain 4. HLD 5. hx DVT 6. CHF 7. distal LAD stenosis 8. HTN 9. SOPHIA Plan - renal function worsening - check renal ultrasound - hold hctz - repeat labs in am - discussed kidney biopsy and risks again, pt will think about it - check urine lytes - avoid nsaids Dr Escalante
--- NOTE | 2018-02-02 14:19 | PN ---
Physical Exam: SUBJECTIVE: Patient seen and examined this AM. She states her pain is much better today and she is wondering if she will be able to go home today. Discussed with her that it will likely not be today with her worsening renal function, but that we would stop the IV pain medications and transition her to oral to hopefully discharge soon if her renal function stabilizes/improves. OBJECTIVE: Vital Signs Period Temp Pulse Resp BP Sys/Willett Pulse Ox Last 24 Hr 97.8 F-98.2 F 83-88 17-20 140-156/85-106 96-96 GENERAL: A&O, mild distress distress likely secondary to pain HEAD: Normocephalic, atraumatic. EYES: PERRL, no scleral icterus EARS, NOSE, THROAT: oropharynx clear without exudates. Moist mucous membranes. NECK: supple without lymphadenopathy LUNGS: CTA b/l, no crackles or wheezes HEART: Tachycardic rhythm, normal S1 and S2 without murmur ABDOMEN: Soft, mild tenderness to palpation in the RUQ, normoactive bowel sounds MUSCULOSKELETAL: Pain reproducible but improved on right chest wall, shoulder, and back. ROM of Right shoulder decreased but greatly improved from admission EXTREMITIES: 2+ pulses, warm, well-perfused. No peripheral edema. NEUROLOGICAL: Cranial nerves II-XII grossly intact. Normal speech. PSYCHIATRIC: Cooperative. Good eye contact. Appropriate mood and affect. Laboratory Results - last 24 hr 02/01/18 02/01/18 02/02/18 09:30 10:28 06:26 WBC 14.6 H RBC 2.46 L Hgb 7.2 L Hct 22.2 L MCV 90.2 MCH 29.2 MCHC 32.4 RDW 13.4 Plt Count 287 MPV 8.4 Sodium Potassium Chloride Carbon Dioxide Anion Gap BUN Creatinine Creat Clearance w eGFR Random Glucose Calcium Phosphorus Magnesium Total Bilirubin AST ALT Alkaline Phosphatase Total Protein Albumin Urine Protein Cancelled Complement C3 131 Complement C4 32 02/02/18 06:26 WBC RBC Hgb Hct MCV MCH MCHC RDW Plt Count MPV Sodium 139 Potassium 4.9 Chloride 108 H Carbon Dioxide 22 Anion Gap 10 BUN 73 H Creatinine 3.5 H Creat Clearance w eGFR 15.44 Random Glucose 129 H Calcium 8.9 Phosphorus 8.7 H Magnesium 3.1 H Total Bilirubin 0.2 AST 34 ALT 33 Alkaline Phosphatase 72 Total Protein 6.1 L Albumin 2.3 L Urine Protein Complement C3 Complement C4 Active Medications Generic Name Dose Route Start Last Admin Trade Name Freq PRN Reason Stop Dose Admin Albuterol Sulfate 2 puff 01/28/18 13:02 01/30/18 01:45 Ventolin Hfa Inhaler - IH 2 puff Q4H PRN Administration ASTHMA Amlodipine Besylate 10 mg 01/29/18 10:00 02/02/18 09:39 Norvasc - PO 10 mg DAILY [facility] Administration Apixaban 5 mg 01/30/18 22:00 02/02/18 09:40 Eliquis - PO 5 mg BID [facility] Administration Aspirin 81 mg 01/29/18 10:00 02/02/18 09:38 Asa - PO 81 mg DAILY [facility] Administration Atorvastatin Calcium 80 mg 01/28/18 22:00 02/01/18 21:13 Lipitor - PO 80 mg HS [facility] Administration Calcium/Vitamin D 1 tab 01/28/18 22:00 02/02/18 09:38 Oscal 250 Mg+D - PO 1 tab BID [facility] Administration Hydralazine HCl 100 mg 01/28/18 14:00 02/02/18 13:49 Apresoline - PO 100 mg TID [facility] Administration Hydrochlorothiazide 25 mg 01/29/18 10:00 02/02/18 09:39 Hctz - PO 25 mg DAILY [facility] Administration Hydroxychloroquine Sulfate 200 mg 01/28/18 10:00 02/02/18 09:51 Plaquenil - PO 200 mg DAILY [facility] Administration Isosorbide Mononitrate 60 mg 01/28/18 10:00 02/02/18 09:39 Imdur - PO 60 mg DAILY [facility] Administration Lidocaine 1 patch 01/29/18 10:00 02/02/18 09:40 Lidoderm Patch - TP 1 patch DAILY [facility] Administration Methylprednisolone Sodium Succinate 40 mg 02/01/18 10:00 02/02/18 09:39 Solu-Medrol - IVPB 40 mg BID [facility] Administration Metoprolol Succinate 200 mg 01/29/18 09:40 02/02/18 09:39 Toprol Xl - PO 200 mg DAILY [facility] Administration Miscellaneous 1 each 01/28/18 22:00 02/01/18 21:13 Lidoderm Patch Removal MC Not Given DAILY@2200 [facility] Mycophenolate Mofetil 1,000 mg 02/01/18 10:00 02/02/18 09:51 Cellcept - PO 1,000 mg BID [facility] Administration Ondansetron HCl 4 mg 01/29/18 17:53 01/29/18 18:14 Zofran Injection IVPUSH 4 mg Q6H PRN Administration NAUSEA Pantoprazole Sodium 40 mg 01/29/18 10:00 02/02/18 09:39 Protonix - PO 40 mg DAILY [facility] Administration Sodium Bicarbonate 650 mg 01/31/18 10:00 02/02/18 09:38 Sodium Bicarbonate - PO 650 mg BID [facility] Administration Tramadol HCl 50 mg 02/02/18 13:00 Ultram - PO Q6H PRN PAIN LEVEL 6-10 ASSESSMENT/PLAN: 27 year old female with a significant pmh of hypertension, CKD stage 3/4, lupus , multiple DVTs, LAD thrombosis, and pulmonary hypertension admitted following 3 days of right sided chest pain. Right Sided Chest Pain -Could be secondary to Lupus flare, likely with good response to steroids -DC Ceftriaxone and Azithromycin, received 5 day course -SoluMedrol 40 mg IV Q6 -Morphine 2 Q4 for pain - DC and transition to Oral -Tramadol 50 mg PO Q6, will monitor pain -Lidoderm patch -CTA negative for PE -Cardiology consult appreciated -LFTs normal, RUQ US pending SLE -Rheumatology consult appreciated -Lupus serologies and compliment levels -C3 131, C4 [address] R[address] Nodule on CT -Incidental spiculated nodule found on CT scan at admission -Concerning for malignancy -Pulmonogy consult appreciated -f/u imaging in 4-6 weeks to check stability/resolution/worsening HTN -Hydralazine 100 mg PO TID -HCTZ 25 mg PO Daily -Imdur 60 mg PO Daily -Norvasc 10 mg PO Daily -Toprol XL 200 mg PO Daily HLD -Lipitor 80 mg PO HS -Lipid panel noted with elevated cholesterol CKD -Baseline creatinine 2.5 -Monitor BMPs -avoid nephrotoxic drugs -Nephrology consult appreciated -Consider lupus nephritis though biopsy difficult with pt on AC -Worsening BUN/Cr, Kidney/Renal/Bladder US as per nephrology recommendation Prior DVT last year/LAD thrombosis -70-80% thrombosis of LAD, could be secondary to lupus -Anticardiolipin Antibodies negative -On eliquis 5 mg PO BID -ASA 81 mg PO Daily DVT Prophylaxis -On Eliquis 5 mg PO BID [facility] -Fluids: none -Electrolytes: Elevated Phos, BMP, Mg, Phos in AM -Nutrition: Cardiac Low phos Diet Disposition Telemetry Visit type - Emergency Visit Emergency Visit: Yes ED Registration Date: 01/28/18 Care time: The patient presented to the Emergency Department on the above date and was hospitalized for further evaluation of their emergent condition. - New Patient This patient is new to me today: No - Critical Care Critical Care patient: No
--- NOTE | 2018-02-02 14:31 | PN ---
Teaching Attending Note Name of Resident: Carlitos Wynn ATTENDING PHYSICIAN STATEMENT I saw and evaluated the patient. I reviewed the resident's note and discussed the case with the resident. I agree with the resident's findings and plan as documented. SUBJECTIVE:pain is much improved. no more pain on deep inspiration and have improved ROM of the shoulder. denies Cp, SOB, fever, chills, N/V/c/D OBJECTIVE: Last Vital Signs Temp Pulse Resp BP Pulse Ox 98.2 F 85 20 140/85 96 02/02/18 13:44 02/02/18 13:44 02/02/18 13:44 02/02/18 13:44 02/02/18 09:00 General NAD MSK no R side chest tenderness. able to abduct the shoulder to 90degrees without difficulty refused further movement ASSESSMENT AND PLAN: 27 yo F with PMHX of SLE, HTN, HLD, obesity, CKD stage 3, h/o DVT 06/2016, Cardiac cath done 09/16/17 after an echo showed inferoseptal hypokinesis done as preop for bariatric surgery, cath showed distal LAD 70-80% thrombotic appearing stenosis with otherwise normal coronary arteries, no PCI was performed as felt to be a risk given history of thrombosis and pt was changed to Eliquis, admitted with right sided chest pain, sinus tachycardia. 1.Right sided chest pain- most likley pleurisy vs musckuloskeletal. some clinical improvement. cont steroids. Ceft/azithro day 5. will d/c after today. will d/c morphine and transition to tramadol. avoid NSAIDS. rheum/cardio/pulm on board. f/u labs sent 2. RUL spiculated lung nodule concerning for neoplasm- will need repeat imaging in 4-6w. Pulm f/u outpatient 3. Leukocytosis- likely due to steroids. on empiric abx 4. Acute on CKD- baseline 2.5. is trending up. Urine studies sent. renal u/s. would benefit from bx but due to anticoagulation is a poor candidate. avoid nephrotoxic medication. Spoke with nephro who stated that she admits to high doses of Motrin at home which can be contributing factor. has had similar episodes in the past where Cr trended up high then normalized on its own. never had a bx in the past. 5. HTN- controlled. cont medications. 6. Dyslipidemia 7. h/o LLE DVT 06/2016- from antiphospholipid syndrome? unclear if this is suspected or confirmed diagnosis. on eliquis 8. Distal LAD 70-80% thombotic appearing stenosis on Eliquis
--- NOTE | 2018-02-02 15:11 | PN ---
Progress Note (short form) - Note Progress Note: Breathing feels OK. No CP or SOB. Some BALLARD when ambulating to the bathroom, but improved. Intake & Output 01/30/18 01/31/18 02/01/18 02/02/18 23:59 23:59 23:59 23:59 Intake Total 7482 909 4124 140 Balance 7722 989 9023 140 Weight 280 lb 278 lb 1.92 oz 277 lb Last Vital Signs Temp Pulse Resp BP Pulse Ox 98.2 F 85 20 140/85 96 02/02/18 13:44 02/02/18 13:44 02/02/18 13:44 02/02/18 13:44 02/02/18 09:00 Active Medications Albuterol Sulfate (Ventolin Hfa Inhaler -) 2 puff IH Q4H PRN PRN Reason: ASTHMA Last Admin: 01/30/18 01:45 Dose: 2 puff Amlodipine Besylate (Norvasc -) 10 mg PO DAILY [facility] Last Admin: 02/02/18 09:39 Dose: 10 mg Apixaban (Eliquis -) 5 mg PO BID [facility] Last Admin: 02/02/18 09:40 Dose: 5 mg Aspirin (Asa -) 81 mg PO DAILY [facility] Last Admin: 02/02/18 09:38 Dose: 81 mg Atorvastatin Calcium (Lipitor -) 80 mg PO HS [facility] Last Admin: 02/01/18 21:13 Dose: 80 mg Calcium/Vitamin D (Oscal 250 Mg+D -) 1 tab PO BID [facility] Last Admin: 02/02/18 09:38 Dose: 1 tab Hydralazine HCl (Apresoline -) 100 mg PO TID [facility] Last Admin: 02/02/18 13:49 Dose: 100 mg Hydroxychloroquine Sulfate (Plaquenil -) 200 mg PO DAILY [facility] Last Admin: 02/02/18 09:51 Dose: 200 mg Isosorbide Mononitrate (Imdur -) 60 mg PO DAILY [facility] Last Admin: 02/02/18 09:39 Dose: 60 mg Lidocaine (Lidoderm Patch -) 1 patch TP DAILY [facility] Last Admin: 02/02/18 09:40 Dose: 1 patch Methylprednisolone Sodium Succinate (Solu-Medrol -) 40 mg IVPB BID [facility] Last Admin: 02/02/18 09:39 Dose: 40 mg Metoprolol Succinate (Toprol Xl -) 200 mg PO DAILY [facility] Last Admin: 02/02/18 09:39 Dose: 200 mg Miscellaneous (Lidoderm Patch Removal) 1 each MC DAILY@2200 [facility] Last Admin: 02/01/18 21:13 Dose: Not Given Mycophenolate Mofetil (Cellcept -) 1,000 mg PO BID [facility] Last Admin: 02/02/18 09:51 Dose: 1,000 mg Ondansetron HCl (Zofran Injection) 4 mg IVPUSH Q6H PRN PRN Reason: NAUSEA Last Admin: 01/29/18 18:14 Dose: 4 mg Pantoprazole Sodium (Protonix -) 40 mg PO DAILY [facility] Last Admin: 02/02/18 09:39 Dose: 40 mg Sodium Bicarbonate (Sodium Bicarbonate -) 650 mg PO BID [facility] Last Admin: 02/02/18 09:38 Dose: 650 mg Tramadol HCl (Ultram -) 50 mg PO Q6H PRN PRN Reason: PAIN LEVEL 6-10 Constitutional: Yes: Well Nourished, Calm, Obese Eyes: Yes: WNL HENT: Yes: WNL Neck: Yes: WNL Cardiovascular: Yes: Regular Rate and Rhythm, S1, S2 Respiratory: Yes: Diminished at the bases Gastrointestinal: Yes: Normal Bowel Sounds, Soft Extremities: Yes: WNL Edema: No Labs: Laboratory Results - last 24 hr 02/01/18 02/01/18 02/02/18 09:30 10:28 06:26 WBC 14.6 H RBC 2.46 L Hgb 7.2 L Hct 22.2 L MCV 90.2 MCH 29.2 MCHC 32.4 RDW 13.4 Plt Count 287 MPV 8.4 Sodium Potassium Chloride Carbon Dioxide Anion Gap BUN Creatinine Creat Clearance w eGFR Random Glucose Calcium Phosphorus Magnesium Total Bilirubin AST ALT Alkaline Phosphatase Total Protein Albumin Urine Protein Cancelled Complement C3 131 Complement C4 32 02/02/18 06:26 WBC RBC Hgb Hct MCV MCH MCHC RDW Plt Count MPV Sodium 139 Potassium 4.9 Chloride 108 H Carbon Dioxide 22 Anion Gap 10 BUN 73 H Creatinine 3.5 H Creat Clearance w eGFR 15.44 Random Glucose 129 H Calcium 8.9 Phosphorus 8.7 H Magnesium 3.1 H Total Bilirubin 0.2 AST 34 ALT 33 Alkaline Phosphatase 72 Total Protein 6.1 L Albumin 2.3 L Urine Protein Complement C3 Complement C4 Assessment/Plan Problem List - Problems (1) Chest pain Code(s): R07.9 - CHEST PAIN, UNSPECIFIED Qualifiers: Qualified Code(s): R07.1 - Chest pain on breathing; R07.81 - Pleurodynia (2) CKD (chronic kidney disease) stage 3, GFR 30-59 ml/min Code(s): N18.3 - CHRONIC KIDNEY DISEASE, STAGE 3 (MODERATE) (3) Lupus Code(s): M32.9 - SYSTEMIC LUPUS ERYTHEMATOSUS, UNSPECIFIED (4) Morbid obesity Code(s): E66.01 - MORBID (SEVERE) OBESITY DUE TO EXCESS CALORIES Assessment/Plan Pleuritic Chest Pain Lung Nodule Low suspicion of Pneumonia SLE on immunosuppressants CKD Pulmonary HTN - Off antibiotics - AC - Medrol - inhaled bronchodilators as needed - f/u of chest imaging in 4-6 weeks to ensure resolution of RUL nodule - incentive spirometer - analgesics - cellcept as per Rheumatology Dr Carnes
[2018-02-02 16:30] LABS: RNP ANTIBODIES >8.0 AI (0.0-0.9)
[2018-02-02] MEDS: LIDOCAINE PATCH REMOVAL MC SCH (21:35)
[2018-02-02] MEDS: ATORVASTATIN CA 80 MG TABLET (FP) PO SCH (21:35)
[2018-02-02] MEDS ORDERED: MELATONIN 5 MG TABLETS PO SCH (22:00)
[2018-02-03] MEDS: hydrALAZINE HCL 50 MG TABLET (FP) PO SCH ×2 (05:30→14:32)
[2018-02-03 08:33] LABS: HEMATOCRIT 22.5 % (32.4-45.2); HEMOGLOBIN 7.3 GM/dL (10.7-15.3); MCH 29.1 pg (25.7-33.7); MCHC 32.6 g/dl (32.0-36.0); MEAN CELL VOLUME 89.3 fl (80-96); MEAN PLT VOLUME 8.1 fl (7.5-11.1); PLATELET COUNT 304 K/MM3 (134-434); RBC 2.51 M/mm3 (3.60-5.2)
[2018-02-03 08:58] LABS: ALBUMIN 2.4 g/dl (3.4-5.0); ALK PHOS 87 U/L (45-117); ANION GAP 8 MMOL/L (8-16); BILIRUBIN,TOTAL 0.1 mg/dL (0.2-1); BLOOD UREA NITROGEN 82 mg/dL (7-18); CALCIUM 9.3 mg/dL (8.5-10.1); CHLORIDE 110 mmol/L (98-107); CO2 21 mmol/L (21-32); CREATININE 3.1 mg/dL (0.55-1.3); GLUCOSE,RANDOM 138 mg/dL (74-106); MAGNESIUM 3.1 mg/dL (1.8-2.4); PHOSPHOROUS 6.9 mg/dL (2.5-4.9); POTASSIUM 5.1 mmol/L (3.5-5.1); SGOT/AST 58 U/L (15-37); SGPT/ALT 65 U/L (13-61); SODIUM 140 mmol/L (136-145)
[2018-02-03] MEDS ORDERED: PT OWN MED DRAWER 7, Y5N ONE (09:27)
[2018-02-03] MEDS: LIDOCAINE 5% TOPICAL PATCH TP SCH (09:55)
[2018-02-03] MEDS: methylPREDNISolone NA SUCC 40 MG/1 ML VIAL IVPB SCH (09:55)
[2018-02-03] MEDS: CALCIUM 250MG/VIT-D 125 UNITS 1 COMBO TABLET PO SCH (09:55)
[2018-02-03] MEDS: PANTOPRAZOLE 40 MG TABLET (FP) PO SCH (09:56)
[2018-02-03] MEDS: amLODIPine BESYLATE 10 MG TABLET (FP) PO SCH (09:56)
[2018-02-03] MEDS: SODIUM BICARBONATE 650 MG TABLET PO SCH (09:56)
[2018-02-03] MEDS: APIXABAN 5 MG TABLET PO SCH (09:56)
[2018-02-03] MEDS: ASPIRIN 81 MG CHEWABLE TABLETS PO SCH (09:56)
[2018-02-03] MEDS: ISOSORBIDE MONONITRATE 60 MG TAB.SR.24H (FP) PO SCH (09:56)
[2018-02-03] MEDS: MYCOPHENOLATE MOFETIL 500 MG TABLET PO SCH (09:57)
[2018-02-03] MEDS: HYDROXYCHLOROQUINE SO4 200 MG TABLET (FP) PO SCH (09:57)
--- NOTE | 2018-02-03 12:01 | PN ---
Teaching Attending Note Name of Resident: Carlitos Wynn ATTENDING PHYSICIAN STATEMENT I saw and evaluated the patient. I reviewed the resident's note and discussed the case with the resident. I agree with the resident's findings and plan as documented. SUBJECTIVE:pain significantly improved. not requiring any pain medication over the past 24H. dneies Cp, SOB, fever, chills, N/V/C/D OBJECTIVE: Last Vital Signs Temp Pulse Resp BP Pulse Ox 97.6 F 89 20 137/90 94 L 02/03/18 05:37 02/03/18 05:37 02/03/18 05:37 02/03/18 05:37 02/02/18 21:00 General NAD MSK no R side chest tenderness. able to abduct the shoulder to >90degrees on passive motion ASSESSMENT AND PLAN: 27 yo F with PMHX of SLE, HTN, HLD, obesity, CKD stage 3, h/o DVT 06/2016, Cardiac cath done 09/16/17 after an echo showed inferoseptal hypokinesis done as preop for bariatric surgery, cath showed distal LAD 70-80% thrombotic appearing stenosis with otherwise normal coronary arteries, no PCI was performed as felt to be a risk given history of thrombosis and pt was changed to Eliquis, admitted with right sided chest pain, sinus tachycardia. 1.Right sided chest pain- most likley pleurisy vs musckuloskeletal. pain mostly resolved. on medrol BID dosing. can likely transition to po. will d/w rheum about taper on discharge. tylenol prn pain. stressed importance of avoiding NSAIDS due to renal function. also stressed importance of follow up with rheum as she does not have one and is not interested in following up with Dr Mendoza. informed her the importance of medication compliance and follow up. verbalized understanding. completed empiric abx. on increased dose of mycolphenolate. f/u labs sent 2. RUL spiculated lung nodule concerning for neoplasm- will need repeat imaging in 4-6w. Pulm f/u outpatient 3. Leukocytosis- likely due to steroids. on empiric abx 4. Acute on CKD- baseline 2.5.slowly trending down. will need close monitoring and repeat in 1 week. encouraged her to f/u with Jazmin early next week for repeat and discuss further poissible bx. 5. HTN- controlled. cont medications. 6. Dyslipidemia 7. h/o LLE DVT 06/2016- from antiphospholipid syndrome? unclear if this is suspected or confirmed diagnosis. on eliquis 8. Distal LAD 70-80% thombotic appearing stenosis on Eliquis
--- NOTE | 2018-02-03 12:10 | PN ---
Progress Note (short form) - Note Progress Note: PULMONARY LYING SUPINE/NOT DYSPNEIC VSS/AFEBRILE ANICTERIC DIMINISHED B/L BREATH SOUNDS S1S2 BS+ OBESE NO EDEMA LABS/MEDS/NOTES/IMAGES REVIEWED Pleuritic Chest Pain Lung Nodule Low suspicion of Pneumonia SLE on immunosuppressants CKD Pulmonary HTN - AC - Medrol - inhaled bronchodilators as needed - f/u of chest imaging in 4-6 weeks to ensure resolution of RUL nodule (if not suggest pet scan) - incentive spirometer - analgesics - cellcept as per Rheumatology Madiha ALVA MD
[2018-02-03 14:34] VITALS: BP 150/95; PULSE 86; TEMP 97.8
--- NOTE | 2018-02-03 15:52 | PN ---
Progress Note, Physician History of Present Illness: Pt seen and examined at bedside. She feels that the chest pain is improved. She is eager to go home. She denies shortness of breath. - Current Medication List Current Medications: Active Medications Albuterol Sulfate (Ventolin Hfa Inhaler -) 2 puff IH Q4H PRN PRN Reason: ASTHMA Last Admin: 01/30/18 01:45 Dose: 2 puff Amlodipine Besylate (Norvasc -) 10 mg PO DAILY [facility] Last Admin: 02/03/18 09:56 Dose: 10 mg Apixaban (Eliquis -) 5 mg PO BID [facility] Last Admin: 02/03/18 09:56 Dose: 5 mg Aspirin (Asa -) 81 mg PO DAILY [facility] Last Admin: 02/03/18 09:56 Dose: 81 mg Atorvastatin Calcium (Lipitor -) 80 mg PO HS [facility] Last Admin: 02/02/18 21:35 Dose: 80 mg Calcium/Vitamin D (Oscal 250 Mg+D -) 1 tab PO BID [facility] Last Admin: 02/03/18 09:55 Dose: 1 tab Hydralazine HCl (Apresoline -) 100 mg PO TID [facility] Last Admin: 02/03/18 14:32 Dose: 100 mg Hydroxychloroquine Sulfate (Plaquenil -) 200 mg PO DAILY [facility] Last Admin: 02/03/18 09:57 Dose: 200 mg Isosorbide Mononitrate (Imdur -) 60 mg PO DAILY [facility] Last Admin: 02/03/18 09:56 Dose: 60 mg Lidocaine (Lidoderm Patch -) 1 patch TP DAILY [facility] Last Admin: 02/03/18 09:55 Dose: 1 patch Melatonin (Melatonin) 10 mg PO [facility] Last Admin: 02/02/18 22:14 Dose: 10 mg Methylprednisolone Sodium Succinate (Solu-Medrol -) 40 mg IVPB BID [facility] Last Admin: 02/03/18 09:55 Dose: 40 mg Metoprolol Succinate (Toprol Xl -) 200 mg PO DAILY [facility] Last Admin: 02/03/18 09:56 Dose: 200 mg Miscellaneous (Lidoderm Patch Removal) 1 each MC DAILY@2200 [facility] Last Admin: 02/02/18 21:35 Dose: 1 each Mycophenolate Mofetil (Cellcept -) 1,000 mg PO BID [facility] Last Admin: 02/03/18 09:57 Dose: 1,000 mg Ondansetron HCl (Zofran Injection) 4 mg IVPUSH Q6H PRN PRN Reason: NAUSEA Last Admin: 01/29/18 18:14 Dose: 4 mg Pantoprazole Sodium (Protonix -) 40 mg PO DAILY [facility] Last Admin: 02/03/18 09:56 Dose: 40 mg Sodium Bicarbonate (Sodium Bicarbonate -) 650 mg PO BID [facility] Last Admin: 02/03/18 09:56 Dose: 650 mg Tramadol HCl (Ultram -) 50 mg PO Q6H PRN PRN Reason: PAIN LEVEL 6-10 - Objective Vital Signs: Vital Signs Temperature 97.8 F 02/03/18 14:00 Pulse Rate 86 02/03/18 14:00 Respiratory Rate 18 02/03/18 14:00 Blood Pressure 150/95 02/03/18 14:00 O2 Sat by Pulse Oximetry (%) 100 02/03/18 09:00 Constitutional: Yes: Calm Eyes: Yes: Conjunctiva Clear HENT: Yes: Atraumatic Neck: Yes: Supple Cardiovascular: Yes: S1, S2 Respiratory: Yes: CTA Bilaterally Gastrointestinal: Yes: Normal Bowel Sounds, Soft, Abdomen, Obese Genitourinary: Yes: WNL Extremities: Yes: WNL Edema: No Neurological: Yes: Oriented Psychiatric: Yes: Oriented Labs: CBC, BMP 02/03/18 08:24 02/03/18 08:24 INR, PTT INR 1.13 (0.83-1.09) H 01/29/18 05:45 Problem List - Problems (1) Chest pain Code(s): R07.9 - CHEST PAIN, UNSPECIFIED Qualifiers: Qualified Code(s): R07.1 - Chest pain on breathing; R07.81 - Pleurodynia (2) Pleurisy Code(s): R09.1 - PLEURISY (3) CKD (chronic kidney disease) stage 3, GFR 30-59 ml/min Code(s): N18.3 - CHRONIC KIDNEY DISEASE, STAGE 3 (MODERATE) Assessment/Plan Current Medications Generic Name Dose Route Start Last Admin Trade Name Freq PRN Reason Stop Dose Admin Albuterol Sulfate 2 puff 01/28/18 13:02 01/30/18 01:45 Ventolin Hfa Inhaler - IH 2 puff Q4H PRN Administration ASTHMA Amlodipine Besylate 10 mg 01/29/18 10:00 02/03/18 09:56 Norvasc - PO 10 mg DAILY [facility] Administration Apixaban 5 mg 01/30/18 22:00 02/03/18 09:56 Eliquis - PO 5 mg BID [facility] Administration Aspirin 81 mg 01/29/18 10:00 02/03/18 09:56 Asa - PO 81 mg DAILY [facility] Administration Atorvastatin Calcium 80 mg 01/28/18 22:00 02/02/18 21:35 Lipitor - PO 80 mg HS [facility] Administration Calcium/Vitamin D 1 tab 01/28/18 22:00 02/03/18 09:55 Oscal 250 Mg+D - PO 1 tab BID [facility] Administration Hydralazine HCl 100 mg 01/28/18 14:00 02/03/18 14:32 Apresoline - PO 100 mg TID [facility] Administration Hydroxychloroquine Sulfate 200 mg 01/28/18 10:00 02/03/18 09:57 Plaquenil - PO 200 mg DAILY [facility] Administration Isosorbide Mononitrate 60 mg 01/28/18 10:00 02/03/18 09:56 Imdur - PO 60 mg DAILY [facility] Administration Lidocaine 1 patch 01/29/18 10:00 02/03/18 09:55 Lidoderm Patch - TP 1 patch DAILY [facility] Administration Melatonin 10 mg 02/02/18 22:00 02/02/18 22:14 Melatonin PO 10 mg HS [facility] Administration Methylprednisolone Sodium Succinate 40 mg 02/01/18 10:00 02/03/18 09:55 Solu-Medrol - IVPB 40 mg BID [facility] Administration Metoprolol Succinate 200 mg 01/29/18 09:40 02/03/18 09:56 Toprol Xl - PO 200 mg DAILY [facility] Administration Miscellaneous 1 each 01/28/18 22:00 02/02/18 21:35 Lidoderm Patch Removal MC 1 each DAILY@2200 [facility] Administration Mycophenolate Mofetil 1,000 mg 02/01/18 10:00 02/03/18 09:57 Cellcept - PO 1,000 mg BID [facility] Administration Ondansetron HCl 4 mg 01/29/18 17:53 01/29/18 18:14 Zofran Injection IVPUSH 4 mg Q6H PRN Administration NAUSEA Pantoprazole Sodium 40 mg 01/29/18 10:00 02/03/18 09:56 Protonix - PO 40 mg DAILY [facility] Administration Sodium Bicarbonate 650 mg 01/31/18 10:00 02/03/18 09:56 Sodium Bicarbonate - PO 650 mg BID [facility] Administration Tramadol HCl 50 mg 02/02/18 13:00 Ultram - PO Q6H PRN PAIN LEVEL 6-10 Impression 1. CKD 2. SLE 3. chest pain 4. HLD 5. hx DVT 6. CHF 7. distal LAD stenosis 8. HTN 9. SOPHIA Plan - renal ultrasound reviewed - creatinine is improving - discussed with cardiology, they recommend hold eliquis for 5 days before kidney biopsy. Called and discussed with IR as well. Risks associated with kidney biopsy, risks of bleeding, and risks of holding eliquis explained in detail to pt. She says she will think about it and likely schedule it in a few week. She has had several hospitalizations and has not followed in the office. I recommend that she comes in for evaluate and follows with cardiology as well. - pt will need close follow up with rheumatology, unfortunately she has not followed with them either - keep hctz on hold for now - pt uses nsaids at home for pain, explained that they should not be used at all - compliance has been a major problem with her, discussed importance of follow up at length. She says that she found a new primary but has not seen him yet. Dr Escalante
--- NOTE | 2018-02-03 16:18 | DS ---
Physical Exam: SUBJECTIVE: Patient seen and examined this morning. She says that she is doing better today, even without the IV pain medications. She is still requesting to go home today if her renal function stabilizes/improves. She still has some mild pain in her chest and shoulder, though much better than admission. OBJECTIVE: Vital Signs Period Temp Pulse Resp BP Sys/Willett Pulse Ox Last 24 Hr 97.6 F-98.0 F 86-89 18-20 137-150/90-95 94-100 PHYSICAL EXAM GENERAL: A&O, no acute distress HEAD: Normocephalic, atraumatic. EYES: PERRL, no scleral icterus EARS, NOSE, THROAT: oropharynx clear without exudates. Moist mucous membranes. NECK: supple without lymphadenopathy LUNGS: CTA b/l, no crackles or wheezes HEART: Tachycardic rhythm, normal S1 and S2 without murmur ABDOMEN: Soft, mild tenderness to palpation in the RUQ, normoactive bowel sounds MUSCULOSKELETAL: Pain reproducible but improved on right chest wall, shoulder, and back. ROM of Right shoulder decreased but greatly improved from admission EXTREMITIES: 2+ pulses, warm, well-perfused. No peripheral edema. NEUROLOGICAL: Cranial nerves II-XII grossly intact. Normal speech. PSYCHIATRIC: Cooperative. Good eye contact. Appropriate mood and affect. LABS Laboratory Results - last 24 hr 02/01/18 02/02/18 02/03/18 10:28 15:45 08:24 WBC RBC Hgb Hct MCV MCH MCHC RDW Plt Count MPV Sodium 140 Potassium 5.1 Chloride 110 H Carbon Dioxide 21 Anion Gap 8 BUN 82 H Creatinine 3.1 H Creat Clearance w eGFR 17.76 Random Glucose 138 H Calcium 9.3 Phosphorus 6.9 H Magnesium 3.1 H Total Bilirubin 0.1 L AST 58 H ALT 65 H Alkaline Phosphatase 87 Total Protein 6.0 L Albumin 2.4 L Ur Random Sodium 25 L Ur Random Potassium 32.0 Ur Random Chloride 16 L Urine Creatinine 96.0 H Sm (Evangelista) Antibody >8.0 H WOOD BORER Antibody >8.0 H 02/03/18 08:24 WBC 12.0 H RBC 2.51 L Hgb 7.3 L Hct 22.5 L MCV 89.3 MCH 29.1 MCHC 32.6 RDW 13.0 Plt Count 304 MPV 8.1 Sodium Potassium Chloride Carbon Dioxide Anion Gap BUN Creatinine Creat Clearance w eGFR Random Glucose Calcium Phosphorus Magnesium Total Bilirubin AST ALT Alkaline Phosphatase Total Protein Albumin Ur Random Sodium Ur Random Potassium Ur Random Chloride Urine Creatinine Sm (Evangelista) Antibody WOOD BORER Antibody IMAGING: CXR: Cardiomegaly, no acute lung processes CT Chest: 1.6 cm Spiculated nodule in RUL, Irregular consolidation posterior aspect right lung base suspicious for inflammatory or infectious process. No evidence of pulmonary embolism Vascular Study: negative for DVT US Abdomen: Normal Gallbladder and biliary tree. Mild diffuse fatty infiltrate of liver. Renal/Bladder US: Morphologically normal kidneys with no evidence of hydronephrosis, no significant post-void residual volume. ECHO: LV mildly dilated with LV function moderately reduced. EF 35-40%. No pericardial effusion. HOSPITAL COURSE: Date of Admission:01/28/18 Date of Discharge: 02/03/18 27 year old female with a significant pmh of hypertension, CKD stage 3/4, lupus , multiple DVTs, LAD thrombosis, and pulmonary hypertension presented to the hospital for 3 days of right sided chest pain. She reported that the pain was pluritic in nature and worse when she took a deep breath and laying down. Reported that it started suddenly while she was sleeping and had been sharp/ consistent. Reported a mild cough for 4 days productive of yellowish sputum. Stated that it was worse when she pressed on it. Denied left sided chest pain. Reported that it was only associated with mild palpitations. Denied shortness of breath or dyspnea on exertion. Reported that she may have felt a similar pain last year when she had a clot in her left knee, but not since. Denied fevers, chills, nausea, vomiting, diarrhea. No recent travel, no long car rides , no sick contacts, no calf tenderness, denies OCP use. She was ruled out for a PE with vascular study and CT as above. She was seen by cardiology who agreed this was not ACS or a PE and recommended lifelong continuation of her Eliquis. She was seen by pulmonology who recommended antibiotics for a possible early pneumonia with pleural involvement. She completed a 5 day course of ceftriaxone and azithromycin. She was seen by rheumatology who recommended to increase her Cellcept to 1000 mg PO BID. Her renal function was noted to be worsening from her baseline and she was seen by nephrology who recommended urine lytes and a renal and bladder ultrasound which was normal as reported above. A biopsy was not able to be performed on this admission with concern for lupus nephritis as she was on Eliquis. Her renal function stabilized and began improving. The patient requested to go home, and she was deemed medically safe for discharge at that time. She was discharged with a prednisone taper as per rheumatology, Prednisone 60 mg PO Daily for 2 weeks then decreased to 40 mg,20 mg,10 mg, and 5 mg in 2 week intervals with close follow up by rheumatology and nephrology. Minutes to complete discharge: 45 Discharge Summary Reason For Visit: CHEST PAIN Current Active Problems Chest pain (Acute) Pleurisy (Acute) Condition: Stable - Instructions Diet, Activity, Other Instructions: You were admitted for chest pain that was likely a flare of your chronic lupus. You were given steroids and pain medications which improved the flare up. A CT of your chest was done which ruled out a clot in your lungs. It did however reveal a small nodule in the right upper lobe of your lungs. The cause of that nodule is unclear and could be related to infection, your lupus, or cancer. It is very important that you have a follow up CT scan done in 4-6 weeks to make sure it is stable or resolving and not worsening. During your admission, your kidney function was noted to be worsening and you were seen by a health data analyst. You were seen by a seat maker who increased your Cellcept dose to 1000 mg Twice daily. You were seen by a tanbark peeler who agreed that your chest pain was not due to a heart attack. You should follow up with your primary care physician within one week of discharge from the hospital. You will need to have a repeat CT scan of your chest in 4-6 weeks to follow up the nodule found. You should also have a BMP done in order to check your kidney function. It is important that you follow up with a health data analyst within 1 week of discharge from the hospital. You should follow up with a seat maker within 1-2 weeks as for further management and follow up of your lupus. You are being discharged on a Prednisone taper. You should take 60 mg by mouth daily for two weeks, then 40 mg by mouth daily for two weeks, then 20 mg by mouth daily for two weeks, then 10 mg by mouth daily for two weeks, then 5 mg daily by mouth Your Cellcept dose was increased to 1000 mg by mouth twice daily, Two 500mg tablets in the morning and 2 tablets at night. Take tylenol as needed for pain. AVOID taking any NSAID products (ibuprofen, Motrin, Aleive, Naproxen, etc) You should otherwise resume all of your home medications as your were taking them prior to the hospitalization. Your new medications have been sent to your pharmacy for you to pickup. If you begin to have severe worsening of pain, shortness of breath, decreased urination or yousuf blood in your urine, you should call your doctor or return to the emergency department immediately. Referrals: Adarsh Noe MD [Staff Physician] - 2 Weeks Dayan Escalante MD [Staff Physician] - 1 Week Disposition: HOME - Home Medications Comprehensive Discharge Medication List: Ambulatory Orders Albuterol Sulfate Inhaler - [Ventolin HFA Inhaler -] 2 inh PO Q4H PRN 02/16/16 Calcium 250Mg/Vit-D 125 Units [Oscal 250 mg+D -] 1 combo PO BID 07/24/16 Hydroxychloroquine Sulfate [Plaquenil] 200 mg PO DAILY 07/24/16 Apixaban [Eliquis -] 5 mg PO BID 12/06/17 Atorvastatin Ca [Lipitor] 80 mg PO HS 12/06/17 Omeprazole 20 mg PO DAILY 12/06/17 Amlodipine Besylate [Norvasc -] 10 mg PO DAILY #30 tablet 12/29/17 Isosorbide Mononitrate [Imdur -] 60 mg PO DAILY #30 tab.sr.24h 12/29/17 Metoprolol Succinate [Toprol XL -] 200 mg PO DAILY 01/28/18 Aspirin [ASA -] 81 mg PO DAILY #30 tab.chew 02/03/18 Hydralazine HCl 100 mg PO TID #90 tablet 02/03/18 Hydrochlorothiazide [Hctz -] 25 mg PO DAILY #30 tablet 02/03/18 Mycophenolate Mofetil [Cellcept -] 1,000 mg PO BID #120 tablet 02/03/18 Prednisone [Deltasone] See Taper PO DAILY #95 tablet 02/03/18 This patient is new to me today: No Emergency Visit: Yes ED Registration Date: 01/28/18 Care time: The patient presented to the Emergency Department on the above date and was hospitalized for further evaluation of their emergent condition. Critical Care patient: No - Discharge Referral [facility]erred to [facility] Med P.C[facility] No
[2018-02-03 17:28] VITALS: BMI 46.0
== END 2018-02-03 17:55 | disposition home or self-care (01) | DRG 139 ==
LOC: JER 07:32 → JERBED 10:37 → OBSVTOIN 15:41 → J4W 18:28
PROVIDERS: ADMIT Hospitalist; ATTEND Internal Medicine
DX: J18.9 Pneumonia, unspecified organism (principal); M32.9 Systemic lupus erythematosus, unspecified; E66.01 Morbid (severe) obesity due to excess calories; Z68.42 Body mass index [BMI] 45.0-49.9, adult; I27.20 Pulmonary hypertension, unspecified; I50.22 Chronic systolic (congestive) heart failure; I13.0 Hypertensive heart and chronic kidney disease with heart failure and stage 1 through stage 4 chronic kidney disease, or unspecified chronic kidney disease; N18.4 Chronic kidney disease, stage 4 (severe); K76.0 Fatty (change of) liver, not elsewhere classified; I25.10 Atherosclerotic heart disease of native coronary artery without angina pectoris; M54.5 Low back pain; R00.0 Tachycardia, unspecified; M25.579 Pain in unspecified ankle and joints of unspecified foot; M25.539 Pain in unspecified wrist; R91.1 Solitary pulmonary nodule; J44.9 Chronic obstructive pulmonary disease, unspecified; N17.9 Acute kidney failure, unspecified; D72.829 Elevated white blood cell count, unspecified; Z86.73 Personal history of transient ischemic attack (TIA), and cerebral infarction without residual deficits; Z87.891 Personal history of nicotine dependence; Z86.718 Personal history of other venous thrombosis and embolism
CPT/HCPCS: 36415; 71045-TC-FY; 71250-TC; 76705-TC; 76775-TC; 76856-TC; 80048; 80053; 80061; 80076; 81003; 81015; 82436; 82550; 82570; 83036; 83721; 83735; 83880; 84100; 84133; 84156; 84300; 84484; 84703; 85025; 85027; 85610; 85651; 85730; 86038; 86160; 86162; 86225; 86235; 87899; 93005; 93010; 93306-TC; 93970-TC; 94010; 99285-25; G0378; J0131; J1644; J7030; J7517

== ENCOUNTER 2018-06-21 12:33 | Inpatient (IN) | payer BC, OTHER ==
--- NOTE | 2018-06-21 13:34 | PDOC ---
History of Present Illness - History of Present Illness Initial Comments: 27yo F with PMH of HTN, obesity, CKD, Lupus, DVT/PE, LAD coronary a. thrombosis , troponin above reference range, pulmonary hypertension presenting with chest pain x 4 days. The pain is located on the right side of her chest and radiates down her right arm. She feels the pain described as "achey" and "pressure" but it worsens with movement, laying back, or taking a deep breath. Has not seen a warp spinner since she was last in the hospital in December and has not established an outpatient warp spinner. She also has shortness of breath, dyspnea on exertion, and a cough with clear phlegm. Patient reports nausea with one episode of vomiting two days ago. No fever measured at home, but has felt warm. Endorses chills. No abdominal pain. <Crys Jaramillo - Last Filed: 06/21/18 16:52> <Diana Frey - Last Filed: 06/22/18 07:26> - General Chief Complaint: Chest Pain Stated Complaint: RT SIDED PAIN Time Seen by Provider: 06/21/18 13:31 Past History - Past Medical History Asthma: Yes Cancer: (LUPUS) Cardiac Disorders: Yes (P.E) CVA: No COPD: No DVT: (heart 2018) Dementia: No Diabetes: No GI Disorders: No Disorders: Yes (CKD) HTN: Yes Hypercholesterolemia: Yes Kidney Stones: ("dry kidneys") Liver Disease: Yes Seizures: No Thyroid Disease: (ENLARGED) - Surgical History Abdominal Surgery: Yes (tubal ligation) Appendectomy: No Cardiac Surgery: No Cholecystectomy: No Lung Surgery: No Neurologic Surgery: No Orthopedic Surgery: No - Family Disease History Family Disease History: Diabetes: Mother, Heart Disease: Father, Mother - Reproductive History (#): 2 Para: 2 - Immunization History Immunization Up to Date: Yes - Suicide/Smoking/Psychosocial Hx Smoking Status: Yes Smoking History: Former smoker Have you smoked in the past 12 months: No Number of Cigarettes Smoked Daily: 5 If you are a former smoker, when did you quit?: 12/2007 Information on smoking cessation initiated: No 'Breaking Loose' booklet given: 12/07/17 Hx Alcohol Use: No Drug/Substance Use Hx: Yes Substance Use Type: Marijuana Hx Substance Use Treatment: No <Crys Jaramillo - Last Filed: 06/21/18 16:52> <Diana Frey - Last Filed: 06/22/18 07:26> - Past Medical History Allergies/Adverse Reactions: Allergies Allergy/AdvReac Type Severity Reaction Status Date / Time No Known Drug Allergies Allergy Verified 06/21/18 13:03 Home Medications: Ambulatory Orders Apixaban [Eliquis -] 5 mg PO BID 06/21/18 Aspirin [ASA -] 81 mg PO DAILY 06/21/18 Mycophenolate Mofetil [Cellcept] 500 mg PO TID 06/21/18 Prednisone 5 mg PO BID 06/21/18 Review of Systems - Review of Systems Comments:: Constitutional: no fever, +chills HEENT: no throat pain, no dysphagia Cardiovascular: +chest pain, no palpitations Respiratory: +cough, +shortness of breath Gastrointestinal: no abdominal pain, +nausea, +vomiting Genitourinary: no dysuria, no frequency Musculoskeletal: no myalgia, no arthralgia Skin: no rash, no itching Neurologic: no headache, no dizziness <So,Crys - Last Filed: 06/21/18 16:52> *Physical Exam - Vital Signs Last Vital Signs Temp Pulse Resp BP Pulse Ox 99.1 F 116 H 18 174/109 H 100 06/21/18 13:03 06/21/18 13:03 06/21/18 13:03 06/21/18 13:03 06/21/18 13:03 - Physical Exam Comments: General: Awake, alert, and fully oriented, in no acute distress Head: No signs of trauma Eyes: EOMI, sclera anicteric ENT: Moist mucus membranes Neck: Normal ROM, supple Lungs: Decreased breath sounds at the base of the right lung, otherwise clear Cardio: Regular rhythm, S1 and S2 present Abdomen: Soft, nontender. No guarding, no rebound, no masses Extremities: Normal range of motion, Distal pulses present SKIN: Warm, Dry, normal turgor Neurologic: Cranial nerves II through XII grossly intact. Normal speech <Crys - Last Filed: 06/21/18 16:52> - Vital Signs Last Vital Signs Temp Pulse Resp BP Pulse Ox 98.4 F 89 15 135/95 96 06/22/18 07:10 06/22/18 07:10 06/22/18 07:10 06/22/18 07:10 06/22/18 07:10 <Diana Frey - Last Filed: 06/22/18 07:26> Moderate Sedation - Procedure Monitoring Vital Signs: Procedure Monitoring Vital Signs Temperature 99.1 F 06/21/18 13:03 Pulse Rate 116 H 06/21/18 13:03 Respiratory Rate 18 06/21/18 13:03 Blood Pressure 174/109 H 06/21/18 13:03 O2 Sat by Pulse Oximetry (%) 100 06/21/18 13:03 <Crys Jaramillo - Last Filed: 06/21/18 16:52> - Procedure Monitoring Vital Signs: Procedure Monitoring Vital Signs Temperature 98.4 F 06/22/18 07:10 Pulse Rate 89 06/22/18 07:10 Respiratory Rate 15 06/22/18 07:10 Blood Pressure 135/95 06/22/18 07:10 O2 Sat by Pulse Oximetry (%) 96 06/22/18 07:10 <Diana Frey - Last Filed: 06/22/18 07:26> ED Treatment Course - LABORATORY CBC & Chemistry Diagram: 06/21/18 14:15 06/21/18 14:30 <Crys Jaramillo - Last Filed: 06/21/18 16:52> - LABORATORY CBC & Chemistry Diagram: 06/21/18 14:15 06/21/18 14:30 - ADDITIONAL ORDERS Additional order review: 06/21/18 14:15 RBC 3.76 MCV 82.4 MCHC 33.4 RDW 17.0 H MPV 8.7 Neutrophils % 84.5 H Lymphocytes % 9.0 D Monocytes % 6.1 D Eosinophils % 0.0 D Basophils % 0.4 D - Medications Given in the ED: ED Medications Discontinued Medications Generic Name Dose Route Start Last Admin Trade Name Ifeanyiq PRN Reason Stop Dose Admin Acetaminophen 1,000 mg 06/21/18 14:14 06/21/18 14:24 Ofirmev Injection - IVPB 06/21/18 14:15 1,000 mg ONCE ONE Administration Apixaban 5 mg 06/21/18 17:25 06/21/18 18:05 Eliquis - PO 06/21/18 17:26 5 mg ONCE ONE Administration Morphine Sulfate 4 mg 06/21/18 15:49 06/21/18 16:27 Morphine Injection - IVPUSH 06/21/18 15:50 4 mg ONCE ONE Administration Morphine Sulfate 4 mg 06/21/18 20:37 06/21/18 20:54 Morphine Injection - IVPUSH 06/21/18 20:38 4 mg ONCE ONE Administration Ondansetron HCl 4 mg 06/21/18 20:37 06/21/18 20:54 Zofran Injection IVPUSH 06/21/18 20:38 4 mg ONCE ONE Administration <Diana Frey - Last Filed: 06/22/18 07:26> Medical Decision Making - Medical Decision Making 27yo F with PMH of HTN, obesity, CKD, Lupus, DVT/PE, LAD coronary a. thrombosis , troponin above reference range, pulmonary hypertension presenting with chest pain x 4 days. Cardiac and PE workup Likely admission for V/Q scan 06/21/18 14:54 No leukocytosis, hgb is above baseline Tpn 0.03 BNP elevated 2848.8 06/21/18 15:[address] Guan who accepted patient for admission Patient reporting improvement in pain, now 08/0906/21/18 16:52 <Crys Jaramillo - Last Filed: 06/21/18 16:52> *DC/Admit/Observation/Transfer - Discharge Dispostion Decision to Admit order: Yes <Crys Jaramillo - Last Filed: 06/21/18 16:52> - Discharge Dispostion Decision to Admit order: Yes Decision to Admit order Date/Time: 06/22/18 07:25 <Diana Frey - Last Filed: 06/22/18 07:26> Diagnosis at time of Disposition: Chest pain Qualifiers: Chest pain type: unspecified Qualified Code(s): R07.9 - Chest pain, unspecified Lupus (systemic lupus erythematosus) Qualifiers: Systemic lupus erythematosus type: unspecified Systemic lupus erythematosus organ involvement: unspecified Qualified Code(s): M32.9 - Systemic lupus erythematosus, unspecified - Discharge Dispostion Condition at time of disposition: Guarded
--- NOTE | 2018-06-21 14:13 | PDOC ---
Attending Attestation - Resident Resident Name: Crys Jaramillo - ED Attending Attestation I have performed the following: I have examined & evaluated the patient, The case was reviewed & discussed with the resident, I agree w/resident's findings & plan - [facility] HPI: 06/21/18 16:48 The patient is a 27 yo Female with significant past medical history of HTN, DVTs , PE, LAD coronary artery thrombosis, Pulmonary Hypertension, who presents to the ED with complaint of chest pain radiating down her right arm for 4 days which has been increasing in severity and exacerbated with movement and deep breaths. She describes the pain as a stabbing to right flank and a chest pressure. She states she feels similar to her prior experience with PEs. has missed some of her doses of Eliquis, due to forgetting to take her meds. Denies fever, chills, palpitation, dizziness, weakness, N, V, D, abdominal pain , bladder and bowel problems, leg swelling, No sick contacts or travel. No new changes in medications. - Physicial Exam PE: 06/21/18 16:48 NAD, well appearing, obese, MMM, nl conjunctiva, anicteric; neck supple. lungs clear, no respiratory distress. +mild tachycardia,. abdomen soft nontender, + obese. SANCHEZ x4, no focal neuro deficits. No peripheral edema. normal color for ethnicity, WWP. - Medical Decision Making 06/21/18 16:49 See HPI for details Vital signs reviewed, +tachycardia noted. no hypoxia, normal sats. +hypertensive Prior notes reviewed, including admissions, discharges and consultations. laboratory results and imaging reviewed, basic labs and lytes wnl, notable for baseline anemia. Cardiac panel_neg trop; elevated BNP, expected with her comorbidities. EKG normal sinus rhythm, no interval abnormalities, narrow QRS, ST and T wave segments and morphology normal. TWI in inferior and lateral leads, similar to prior. ED course: given home dose of eliquis. also analgesia with tylenol/morphine. admit for chest pain, V/q scan, r/o PE with prior history and high clinical suspicion with tachycardia and comorbidities/hypercoag state., and CKD risk of nephrotoxicity. 06/21/18 16:49 06/21/18 16:51 06/21/18 16:51
[2018-06-21] MEDS ORDERED: ACETAMINOPHEN 1000 MG/100 ML VIAL (NON FORMULARY) IVPB ONE (14:14)
[2018-06-21] MEDS ORDERED: ACETAMINOPHEN INJECTION 100 ML IVPB ONE (14:22)
[2018-06-21 14:33] LABS: BASO % 0.4 % (0-2.0); HEMATOCRIT 30.9 % (32.4-45.2); HEMOGLOBIN 10.3 GM/dL (10.7-15.3); MCH 27.5 pg (25.7-33.7); MCHC 33.4 g/dl (32.0-36.0); MEAN CELL VOLUME 82.4 fl (80-96); MEAN PLT VOLUME 8.7 fl (7.5-11.1); MONO % 6.1 % (3.8-10.2); NEUT % 84.5 % (42.8-82.8); PLATELET COUNT 229 K/MM3 (134-434); RBC 3.76 M/mm3 (3.60-5.2); WHITE BLOOD COUNT 6.8 K/mm3 (4.0-10.0)
[2018-06-21 15:13] LABS: ALBUMIN 2.9 g/dl (3.4-5.0); ALK PHOS 57 U/L (45-117); ANION GAP 6 MMOL/L (8-16); BILIRUBIN,TOTAL 0.2 mg/dL (0.2-1); BLOOD UREA NITROGEN 19 mg/dL (7-18); CALCIUM 8.3 mg/dL (8.5-10.1); CHLORIDE 113 mmol/L (98-107); CO2 22 mmol/L (21-32); CREATININE 1.9 mg/dL (0.55-1.3); GLUCOSE,RANDOM 100 mg/dL (74-106); N-TERMINAL BNP 2848.8 pg/ml (5-125); POTASSIUM 5.1 mmol/L (3.5-5.1); SGOT/AST 12 U/L (15-37); SGPT/ALT 14 U/L (13-61); SODIUM 141 mmol/L (136-145); TOT PROT 6.7 g/dl (6.4-8.2)
[2018-06-21] MEDS ORDERED: morphine CARPU-JECT 4 MG/1 ML DISP.SYRIN IVPUSH ONE ×2 (15:49→20:37)
[2018-06-21] MEDS ORDERED: morphine SULFATE 4 MG/ML VIAL ONE ×2 (16:20→20:43)
[2018-06-21] MEDS ORDERED: APIXABAN 5 MG TABLET PO ONE ×3 (17:25→23:26)
[2018-06-21 17:55] LABS: INR 1.18 (0.83-1.09); PROTHROMBIN TIME (PATIENT) 13.9 SEC (9.7-13.0)
[2018-06-21] MEDS ORDERED: ONDANSETRON 4 MG/2 ML VIAL IVPUSH ONE (20:37)
[2018-06-21] MEDS ORDERED: ONDANSETRON 4 MG/2 ML VIAL ONE (20:44)
[2018-06-21] MEDS: APIXABAN 5 MG TABLET PO SCH ×2 (23:28→23:34)
[2018-06-21] MEDS: predniSONE 5 MG TABLET (UD) PO SCH (23:28)
[2018-06-22] MEDS ORDERED: ACETAMINOPHEN WITH CODEINE 300MG/30MG TABLET ONE ×2 (00:43→06:33)
[2018-06-22] MEDS: ACETAMINOPHEN WITH CODEINE 300MG/30MG TABLET PO PRN ×4 (00:55→20:58)
--- NOTE | 2018-06-22 02:31 | EKG ---
Test Reason : Blood Pressure : / mmHG Vent. Rate : 097 BPM Atrial Rate : 097 BPM P-R Int : 150 ms QRS Dur : 088 ms QT Int : 348 ms P-R-T Axes : 034 041 -16 degrees QTc Int : 441 ms NORMAL SINUS RHYTHM POSSIBLE LEFT ATRIAL ENLARGEMENT POSSIBLE INFERIOR INFARCT (CITED ON OR BEFORE 28-JAN-2018) ABNORMAL ECG WHEN COMPARED WITH ECG OF 28-JAN-2018 07:44, NONSPECIFIC T WAVE ABNORMALITY NOW EVIDENT IN ANTERIOR LEADS Confirmed by CARLITO BUSTAMANTE MD ([id number]) on 06/22/2018 2:31:23 AM Referred By: Confirmed By:CARLITO BUSTAMANTE MD
[2018-06-22] MEDS: APIXABAN 5 MG TABLET PO SCH ×2 (10:07→21:05)
[2018-06-22] MEDS: predniSONE 5 MG TABLET (UD) PO SCH ×2 (10:07→21:05)
[2018-06-22] MEDS: MAG HYDROX/AL HYDROX/SIMETH 30 ML UNIT-DOSE CUP PO PRN ×2 (14:29→20:57)
[2018-06-22] MEDS: NIFEdipine E.R 60 MG TABLET (UD) PO SCH (14:35)
[2018-06-22] MEDS: MYCOPHENOLATE MOFETIL 500 MG TABLET PO SCH ×2 (15:23→21:05)
[2018-06-22] MEDS: AZITHROMYCIN IVPB 500 MG/250 ML D5W PRE-DOCKED IVPB SCH (15:32)
[2018-06-22] MEDS ORDERED: PT OWN MED DRAWER 7, Y5N ONE ×2 (15:35→20:53)
[2018-06-23] MEDS: MYCOPHENOLATE MOFETIL 500 MG TABLET PO SCH ×3 (06:24→21:22)
[2018-06-23] MEDS ORDERED: PT OWN MED DRAWER 7, Y5N ONE (09:44)
[2018-06-23] MEDS: AZITHROMYCIN IVPB 500 MG/250 ML D5W PRE-DOCKED IVPB SCH (09:49)
[2018-06-23] MEDS: predniSONE 5 MG TABLET (UD) PO SCH ×2 (09:49→21:21)
[2018-06-23] MEDS: NIFEdipine E.R 60 MG TABLET (UD) PO SCH (09:50)
[2018-06-23] MEDS: APIXABAN 5 MG TABLET PO SCH ×2 (09:50→21:21)
[2018-06-23] MEDS ORDERED: AZITHROMYCIN IVPB 500 MG/250 ML D5W PRE-DOCKED IVPB SCH ×2 (10:00)
--- NOTE | 2018-06-23 12:22 | HP ---
DATE OF ADMISSION: 06/21/2018 DATE OF DICTATION: 06/23/2018 HISTORY OF PRESENT ILLNESS: This is a 27-year-old female with multiple medical problems. Known to have ESRD, hypertension, DVTs, PE, coronary artery thrombosis, pulmonary hypertension. Came to the emergency room day before night with complaints of pain, right arm, 4 days' duration. She was getting all the medication, no relief, so got admitted. I saw the patient yesterday in the emergency room. At that time, my impression was that she may have an acute bronchitis on top of her medical problems, so I started her on IV Zithromax. This morning, the patient is feeling a little better. PHYSICAL EXAMINATION: VITAL SIGNS: On examination, her blood pressure this morning is 140/98, pulse 76, respirations 20, temperature 98. GENERAL: She is an obese young female. HEENT: Unremarkable. NECK: Supple. No JVD. LUNGS: Clear. HEART: S1, S2 normal. No S3, S4. BREASTS: Protuberant. ABDOMEN: Soft. No tenderness. LEGS: No edema. No evidence of DVT. IMAGING: Chest x-ray negative, mild congestion present. LABORATORY REPORTS: Her WBC is 6.8, hemoglobin 10.3, hematocrit 30, platelets 229. Chemistry: Sodium 141, potassium 5.1, chloride 113, BUN 19, creatinine 1.9. BNP 2848. IMPRESSION: Upper respiratory infection, end-stage renal disease with atypical chest pain. PLAN: Continue her present medication including CellCept and IV Zithromax. John [id number]
[2018-06-23 14:31] VITALS: BMI 46.0
[2018-06-23] MEDS: ACETAMINOPHEN WITH CODEINE 300MG/30MG TABLET PO PRN ×2 (14:49→20:01)
[2018-06-23] MEDS: MAG HYDROX/AL HYDROX/SIMETH 30 ML UNIT-DOSE CUP PO PRN (14:58)
[2018-06-24] MEDS: ACETAMINOPHEN WITH CODEINE 300MG/30MG TABLET PO PRN ×2 (01:37→09:13)
[2018-06-24] MEDS: MYCOPHENOLATE MOFETIL 500 MG TABLET PO SCH ×2 (05:33→13:39)
[2018-06-24] MEDS ORDERED: PT OWN MED DRAWER 7, Y5N ONE (09:05)
[2018-06-24 09:11] VITALS: TEMP 98.3
[2018-06-24] MEDS: APIXABAN 5 MG TABLET PO SCH (09:12)
[2018-06-24] MEDS: NIFEdipine E.R 60 MG TABLET (UD) PO SCH (09:12)
[2018-06-24] MEDS: MAG HYDROX/AL HYDROX/SIMETH 30 ML UNIT-DOSE CUP PO PRN (09:12)
[2018-06-24] MEDS: predniSONE 5 MG TABLET (UD) PO SCH (09:12)
[2018-06-24] MEDS: AZITHROMYCIN IVPB 500 MG/250 ML D5W PRE-DOCKED IVPB SCH (09:26)
[2018-06-24 12:22] VITALS: BP 155/83; PULSE 112
--- NOTE | 2018-06-24 12:55 | DS ---
Physical Examination Vital Signs: Vital Signs Temperature 98.3 F 06/24/18 09:09 Pulse Rate 112 H 06/24/18 12:22 Respiratory Rate 24 H 06/24/18 12:22 Blood Pressure 155/83 06/24/18 12:22 O2 Sat by Pulse Oximetry (%) 95 06/24/18 10:53 Findings/Remarks: Admitted with Rt chest pain diagnosed to have URI She is case known to have SLE ,pulmonary hypertension Her symptoms improved ,will DC home Constitutional: Yes: No Distress Eyes: Yes: WNL HENT: Yes: WNL Neck: Yes: WNL Cardiovascular: Yes: WNL Respiratory: Yes: WNL Gastrointestinal: Yes: WNL ...Rectal Exam: Yes: Deferred Renal/: Yes: WNL Edema: No Peripheral Pulses WNL: Yes ...Motor Strength: WNL Psychiatric: Yes: Alert Labs: CBC, BMP 06/21/18 14:15 06/21/18 14:30 Discharge Summary Reason For Visit: CHEST PAIN Current Active Problems Chest pain (Acute) Lupus (Acute) Condition: Guarded - Instructions Referrals: Leigh Guan MD [Primary Care Provider] - - Home Medications Comprehensive Discharge Medication List: Ambulatory Orders Apixaban [Eliquis -] 5 mg PO BID 06/21/18 Aspirin [ASA -] 81 mg PO DAILY 06/21/18 Mycophenolate Mofetil [Cellcept] 500 mg PO TID 06/21/18 Prednisone 5 mg PO BID 06/21/18 Procardia Er 60 mg PO DAILY 06/22/18
== END 2018-06-24 14:21 | disposition home or self-care (01) | DRG 113 ==
LOC: JER 12:33 → JERBED 16:43 → J5S 06-22 10:41
PROVIDERS: ADMIT Internal Medicine; ATTEND Internal Medicine
DX: J06.9 Acute upper respiratory infection, unspecified (principal); R07.89 Other chest pain; M32.9 Systemic lupus erythematosus, unspecified; I27.20 Pulmonary hypertension, unspecified; R00.0 Tachycardia, unspecified; E66.9 Obesity, unspecified; Z68.42 Body mass index [BMI] 45.0-49.9, adult; I12.9 Hypertensive chronic kidney disease with stage 1 through stage 4 chronic kidney disease, or unspecified chronic kidney disease; N18.9 Chronic kidney disease, unspecified; Z86.718 Personal history of other venous thrombosis and embolism; Z86.711 Personal history of pulmonary embolism
CPT/HCPCS: 36415; 71045-TC-FY; 80053; 82550; 83880; 84484; 84703; 85025; 85610; 85730; 93005; 93010; 99285-25; J0131; J7517